=== PATIENT | male | born 1940 | race Caucasian/White ===

== ENCOUNTER 2017-09-17 14:31 | Inpatient (IN) | payer OTHER ==
[2017-09-17 14:37] VITALS: BMI 24.4
--- NOTE | 2017-09-17 14:40 | PDOC ---
History of Present Illness - History of Present Illness Initial Comments: 09/17/17 15:11 Patient is a 76 year old male, with an unknown past medical history, who was found wandering around the hospital, unaware of where he was. Patient had an extremely pungent urine smell, was very unkempt. Due to patient's altered mental status, patient was unable to give a proper account of why he was in the hospital in the first place. <Shoshana Jean - Last Filed: 09/17/17 15:11> - General History Source: Patient Exam Limitations: Clinical Condition <Teresita Peterson - Last Filed: 09/18/17 11:20> - General Chief Complaint: Altered Mental Status Stated Complaint: ALTERED MENTAL STATUS Time Seen by Provider: 09/17/17 14:39 Past History <Shoshana Jean - Last Filed: 09/17/17 15:11> - Past Medical History COPD: No (unk) - Suicide/Smoking/Psychosocial Hx Smoking History: Unknown if ever smoked <Teresita Peterson - Last Filed: 09/18/17 11:20> - Past Medical History Allergies/Adverse Reactions: Allergies Allergy/AdvReac Type Severity Reaction Status Date / Time No Allergy Information Allergy Verified 09/17/17 14:35 Available Home Medications: Ambulatory Orders Unobtainable [Unobtainable] 09/17/17 Review of Systems - Review of Systems Able to Perform ROS?: No (confused) <Teresita Peterson - Last Filed: 09/18/17 11:20> *Physical Exam - Vital Signs Last Vital Signs Temp Pulse Resp BP Pulse Ox 98.4 F 75 20 155/78 97 09/17/17 14:35 09/17/17 14:35 09/17/17 14:35 09/17/17 14:35 09/17/17 14:35 <Shoshana Jean - Last Filed: 09/17/17 15:11> - Vital Signs Last Vital Signs Temp Pulse Resp BP Pulse Ox 98.4 F 75 20 155/78 97 09/17/17 14:35 09/17/17 14:35 09/17/17 14:35 09/17/17 14:35 09/17/17 14:35 - Physical Exam Comments: GENERAL: Awake, alert, and oriented to person, in no acute distress. +Multiple layers of wet clothing, strong odor of urine. HEAD: No signs of trauma EYES: PERRLA, EOMI, sclera anicteric, conjunctiva clear ENT: Auricles normal inspection, hearing grossly normal, nares patent, oropharynx clear without exudates. Moist mucosa NECK: Normal ROM, supple, no lymphadenopathy, JVD, or masses LUNGS: Breath sounds equal, clear to auscultation bilaterally. No wheezes, and no crackles HEART: Regular rate and rhythm, normal S1 and S2, no murmurs, rubs or gallops ABDOMEN: Soft, nontender, normoactive bowel sounds. No guarding, no rebound. No masses EXTREMITIES: Normal range of motion, no edema. No clubbing or cyanosis. No cords, erythema, or tenderness NEUROLOGICAL: Cranial nerves II through XII grossly intact. Normal speech, normal gait. Motor and sensation intact. SKIN: Warm, Dry, normal turgor, no rashes. Multiple long toenails with bleeding of adjacent toes. <Teresita Peterson - Last Filed: 09/18/17 11:20> ED Treatment Course - LABORATORY CBC & Chemistry Diagram: 09/18/17 06:25 09/18/17 06:25 <Teresita Peterson - Last Filed: 09/18/17 11:20> Medical Decision Making - Medical Decision Making 09/17/17 16:[address] Orlando. Found wandering in the hospital for a few hours, was not sure why he was here. He knew his name, had 2 drivers licenses (one from 1990s, one current) and a [place] ID. No phone, no next of kin contact numbers. Has not been in this hospital in the past. DDx is large in light of lack of information. Labs are pending, including basics, TSH, B12, and ammonia. UA/UTox pending. CTH pending. CXR pending. Likely admit for AMS. <Teresita Peterson - Last Filed: 09/18/17 11:20> *DC/Admit/Observation/Transfer - Attestations Scribe Attestion: 09/17/17 15:16 Documentation prepared by Shoshana Jean, acting as medical care manager for Teresita Peterson MD. <Shoshana Jean - Last Filed: 09/17/17 15:11> <Teresita Peterson - Last Filed: 09/18/17 11:20> Diagnosis at time of Disposition: Altered mental state - Discharge Dispostion Condition at time of disposition: Stable
[2017-09-17 15:42] LABS: BASO % 0.2 % (0-2.0); HEMATOCRIT 36.7 % (35.4-49); HEMOGLOBIN 11.9 GM/dL (11.7-16.9); MCH 28.5 pg (25.7-33.7); MCHC 32.5 g/dl (32.0-35.9); MEAN CELL VOLUME 87.5 fl (80-96); MEAN PLT VOLUME 8.7 fl (7.5-11.1); MONO % 10.5 % (3.8-10.2); NEUT % 82.3 % (42.8-82.8); PLATELET COUNT 187 K/MM3 (134-434); RBC 4.19 M/mm3 (4.00-5.60); RDW 14.6 % (11.9-15.9); WHITE BLOOD COUNT 11.2 K/mm3 (4.0-10.0)
[2017-09-17 15:56] LABS: INR 1.01 (0.82-1.09); PROTHROMBIN TIME (PATIENT) 11.4 SEC (9.98-11.88)
[2017-09-17] MEDS ORDERED: HALOPERIDOL LACTATE 5 MG/ML IM ONE (15:58)
[2017-09-17 16:01] LABS: URINE APPEARANCE CLEAR; URINE BILIRUBIN NEGATIVE (NEGATIVE); URINE BLOOD 2+ (NEGATIVE); URINE COLOR LTYELLOW; URINE GLUCOSE (UA) NEGATIVE (NEGATIVE); URINE KETONE TRACE (NEGATIVE); URINE LEUK ESTERASE NEGATIVE (NEGATIVE); URINE NITRITE NEGATIVE (NEGATIVE); URINE PROTEIN NEGATIVE (NEGATIVE); URINE UROBILINOGEN NEGATIVE mg/dL (0.2-1.0)
[2017-09-17] MEDS ORDERED: HALOPERIDOL LACTATE 5 MG/ML ONE ×2 (16:03→21:48)
[2017-09-17 16:14] LABS: ALBUMIN 3.9 g/dl (3.4-5.0); ANION GAP 10 (8-16); BILIRUBIN,TOTAL 0.5 mg/dL (0.2-1.0); BLOOD UREA NITROGEN 20 mg/dL (7-18); CALCIUM 8.9 mg/dL (8.5-10.1); CHLORIDE 104 mmol/L (98-107); CO2 24 mmol/L (21-32); CREATININE 0.9 mg/dL (0.7-1.3); GLUCOSE,RANDOM 104 mg/dL (74-106); POTASSIUM 4.1 mmol/L (3.5-5.1); SGOT/AST 49 U/L (15-37); SGPT/ALT 28 U/L (12-78); SODIUM 138 mmol/L (136-145); TOT PROT 6.9 g/dl (6.4-8.2)
[2017-09-17 16:26] LABS: ALK PHOS 59 U/L (45-117)
[2017-09-17 16:39] LABS: COCAINE, UR NEGATIVE ng/ml (CUTOFF=300); OPIATES, URI NEGATIVE ng/ml (CUTOFF=300); URINE AMPHETAMINES NEGATIVE ng/ml (CUTOFF=500); URINE BARBITURATES NEGATIVE ng/ml (CUTOFF=200); URINE BENZODIAZEPINES NEGATIVE ng/ml (CUTOFF=200)
[2017-09-17 16:40] LABS: METHADONE, UR NEGATIVE ng/ml (CUTOFF=300); PHENCYCLIDINE,URINE NEGATIVE ng/ml (CUTOFF=25)
[2017-09-17 17:03] LABS: URINE MUCUS RARE
[2017-09-17] MEDS ORDERED: SODIUM CHLORIDE 0.9% 500 ML INFUS.BAG IV ONE (18:38)
--- NOTE | 2017-09-17 18:44 | PDOC ---
*Physical Exam - Vital Signs Last Vital Signs Temp Pulse Resp BP Pulse Ox 98.4 F 75 20 155/78 98 09/17/17 14:35 09/17/17 14:35 09/17/17 14:35 09/17/17 14:35 09/17/17 15:53 <Maco Orlando - Last Filed: 09/17/17 18:39> - Vital Signs Last Vital Signs Temp Pulse Resp BP Pulse Ox 98.2 F 53 L 18 124/92 100 09/17/17 19:00 09/17/17 19:00 09/17/17 19:00 09/17/17 19:00 09/17/17 19:00 <Kimberly Knapp - Last Filed: 09/17/17 21:59> ED Treatment Course - LABORATORY CBC & Chemistry Diagram: 09/17/17 15:30 09/17/17 15:30 - ADDITIONAL ORDERS Additional order review: Laboratory Results 09/17/17 09/17/17 09/17/17 15:45 15:45 15:30 PT with INR INR Sodium Potassium Chloride Carbon Dioxide Anion Gap BUN Creatinine Creat Clearance w eGFR Random Glucose Lactic Acid Calcium Total Bilirubin AST ALT Alkaline Phosphatase Ammonia 14.75 Creatine Kinase Creatine Kinase Index CK-MB (CK-2) Troponin I Total Protein Albumin Lipase Vitamin B12 TSH Urine Color Ltyellow Urine Appearance Clear Urine pH 5.0 Ur Specific [place] 1.015 Urine Protein Negative Urine Glucose (UA) Negative Urine Ketones Trace H Urine Blood 2+ H Urine Nitrite Negative Urine Bilirubin Negative Urine Urobilinogen Negative Urine WBC (Auto) 1 Urine RBC (Auto) 7 Urine Mucus Rare Opiates Screen Negative Methadone Screen Negative Barbiturate Screen Negative Phencyclidine Screen Negative Ur Amphetamines Screen Negative MDMA (Ecstasy) Screen Negative Benzodiazepines Screen Negative Cocaine Screen Negative U Marijuana (THC) Screen Negative 09/17/17 09/17/17 09/17/17 15:30 15:30 15:30 PT with INR INR Sodium Potassium Chloride Carbon Dioxide Anion Gap BUN Creatinine Creat Clearance w eGFR Random Glucose Lactic Acid 1.4 Calcium Total Bilirubin AST ALT Alkaline Phosphatase Ammonia Creatine Kinase Creatine Kinase Index CK-MB (CK-2) Troponin I Total Protein Albumin Lipase 80 Vitamin B12 388 TSH 1.33 Urine Color Urine Appearance Urine pH Ur Specific [place] Urine Protein Urine Glucose (UA) Urine Ketones Urine Blood Urine Nitrite Urine Bilirubin Urine Urobilinogen Urine WBC (Auto) Urine RBC (Auto) Urine Mucus Opiates Screen Methadone Screen Barbiturate Screen Phencyclidine Screen Ur Amphetamines Screen MDMA (Ecstasy) Screen Benzodiazepines Screen Cocaine Screen U Marijuana (THC) Screen 09/17/17 09/17/17 15:30 15:30 PT with INR 11.40 INR 1.01 Sodium 138 Potassium 4.1 Chloride 104 Carbon Dioxide 24 Anion Gap 10 BUN 20 H Creatinine 0.9 Creat Clearance w eGFR > 60 Random Glucose 104 Lactic Acid Calcium 8.9 Total Bilirubin 0.5 AST 49 H ALT 28 Alkaline Phosphatase 59 Ammonia Creatine Kinase 1046 H Creatine Kinase Index 2.9 CK-MB (CK-2) 30.784 H Troponin I < 0.02 Total Protein 6.9 Albumin 3.9 Lipase Vitamin B12 TSH Urine Color Urine Appearance Urine pH Ur Specific [place] Urine Protein Urine Glucose (UA) Urine Ketones Urine Blood Urine Nitrite Urine Bilirubin Urine Urobilinogen Urine WBC (Auto) Urine RBC (Auto) Urine Mucus Opiates Screen Methadone Screen Barbiturate Screen Phencyclidine Screen Ur Amphetamines Screen MDMA (Ecstasy) Screen Benzodiazepines Screen Cocaine Screen U Marijuana (THC) Screen 09/17/17 15:30 RBC 4.19 MCV 87.5 MCHC 32.5 RDW 14.6 MPV 8.7 Neutrophils % 82.3 Lymphocytes % 7.0 L Monocytes % 10.5 H Eosinophils % 0.0 Basophils % 0.2 - Medications Given in the ED: ED Medications Discontinued Medications Generic Name Dose Route Start Last Admin Trade Name Freq PRN Reason Stop Dose Admin Haloperidol 2 mg 09/17/17 15:58 09/17/17 16:06 Haldol Injection (Fast Acting) - IM 09/17/17 15:59 2 mg ONCE ONE Administration Lorazepam 1 mg 09/17/17 17:46 09/17/17 18:13 Ativan Injection - IVPUSH 09/17/17 17:47 1 mg ONCE ONE Administration <Maco Orlando - Last Filed: 09/17/17 18:39> - LABORATORY CBC & Chemistry Diagram: 09/17/17 15:30 09/17/17 15:30 - ADDITIONAL ORDERS Additional order review: Laboratory Results 09/17/17 09/17/17 09/17/17 15:45 15:45 15:30 PT with INR INR Sodium Potassium Chloride Carbon Dioxide Anion Gap BUN Creatinine Creat Clearance w eGFR Random Glucose Lactic Acid Calcium Total Bilirubin AST ALT Alkaline Phosphatase Ammonia 14.75 Creatine Kinase Creatine Kinase Index CK-MB (CK-2) Troponin I Total Protein Albumin Lipase Vitamin B12 TSH Urine Color Ltyellow Urine Appearance Clear Urine pH 5.0 Ur Specific [place] 1.015 Urine Protein Negative Urine Glucose (UA) Negative Urine Ketones Trace H Urine Blood 2+ H Urine Nitrite Negative Urine Bilirubin Negative Urine Urobilinogen Negative Ur Leukocyte Esterase Negative Urine WBC (Auto) 1 Urine RBC (Auto) 7 Urine Mucus Rare Opiates Screen Negative Methadone Screen Negative Barbiturate Screen Negative Phencyclidine Screen Negative Ur Amphetamines Screen Negative MDMA (Ecstasy) Screen Negative Benzodiazepines Screen Negative Cocaine Screen Negative U Marijuana (THC) Screen Negative 09/17/17 09/17/17 09/17/17 15:30 15:30 15:30 PT with INR INR Sodium Potassium Chloride Carbon Dioxide Anion Gap BUN Creatinine Creat Clearance w eGFR Random Glucose Lactic Acid 1.4 Calcium Total Bilirubin AST ALT Alkaline Phosphatase Ammonia Creatine Kinase Creatine Kinase Index CK-MB (CK-2) Troponin I Total Protein Albumin Lipase 80 Vitamin B12 388 TSH 1.33 Urine Color Urine Appearance Urine pH Ur Specific [place] Urine Protein Urine Glucose (UA) Urine Ketones Urine Blood Urine Nitrite Urine Bilirubin Urine Urobilinogen Ur Leukocyte Esterase Urine WBC (Auto) Urine RBC (Auto) Urine Mucus Opiates Screen Methadone Screen Barbiturate Screen Phencyclidine Screen Ur Amphetamines Screen MDMA (Ecstasy) Screen Benzodiazepines Screen Cocaine Screen U Marijuana (THC) Screen 09/17/17 09/17/17 15:30 15:30 PT with INR 11.40 INR 1.01 Sodium 138 Potassium 4.1 Chloride 104 Carbon Dioxide 24 Anion Gap 10 BUN 20 H Creatinine 0.9 Creat Clearance w eGFR > 60 Random Glucose 104 Lactic Acid Calcium 8.9 Total Bilirubin 0.5 AST 49 H ALT 28 Alkaline Phosphatase 59 Ammonia Creatine Kinase 1046 H Creatine Kinase Index 2.9 CK-MB (CK-2) 30.784 H Troponin I < 0.02 Total Protein 6.9 Albumin 3.9 Lipase Vitamin B12 TSH Urine Color Urine Appearance Urine pH Ur Specific [place] Urine Protein Urine Glucose (UA) Urine Ketones Urine Blood Urine Nitrite Urine Bilirubin Urine Urobilinogen Ur Leukocyte Esterase Urine WBC (Auto) Urine RBC (Auto) Urine Mucus Opiates Screen Methadone Screen Barbiturate Screen Phencyclidine Screen Ur Amphetamines Screen MDMA (Ecstasy) Screen Benzodiazepines Screen Cocaine Screen U Marijuana (THC) Screen 09/17/17 15:30 RBC 4.19 MCV 87.5 MCHC 32.5 RDW 14.6 MPV 8.7 Neutrophils % 82.3 Lymphocytes % 7.0 L Monocytes % 10.5 H Eosinophils % 0.0 Basophils % 0.2 - Medications Given in the ED: ED Medications Discontinued Medications Generic Name Dose Route Start Last Admin Trade Name Jade PRN Reason Stop Dose Admin Haloperidol 2 mg 09/17/17 15:58 09/17/17 16:06 Haldol Injection (Fast Acting) - IM 09/17/17 15:59 2 mg ONCE ONE Administration Lorazepam 1 mg 09/17/17 17:46 09/17/17 18:13 Ativan Injection - IVPUSH 09/17/17 17:47 1 mg ONCE ONE Administration Lorazepam 1 mg 09/17/17 20:14 09/17/17 20:23 Ativan Injection - IVPUSH 09/17/17 20:15 1 mg DAILY ONE Administration Sodium Chloride 1,000 ml 09/17/17 18:38 09/17/17 19:25 Normal Saline - IV 09/17/17 18:39 1,000 ml ONCE ONE Administration <Kimberly Knapp - Last Filed: 09/17/17 21:59> Medical Decision Making - Medical Decision Making 09/17/17 18:[address] Peterson at 4:30p. Pt here after found wandering in the hospital. Pt is confused, repeating questions, but redirectable. Pt frequently wandering out of room, trying to put clothes on to leave. Pt placed on 1:1 watch. Labs with mild leukocytosis to 11. CTH negative for acute findings. CXR clear. UA with no signs of infection. Unclear what patients baseline is, will admit for further management. Case discussed with admitting hospitalist Dr. Roper who has assumed care of the patient. <Maco Orlando - Last Filed: 09/17/17 18:39> - Medical Decision Making 09/17/17 21:59 CT of head without contrast, reviewed and interpreted by Imaging preservationist. FINDINGS: There is no intra-or extra-axial fluid collections, midline shift, mass effect or hydrocephalus. The ventricles are midline in position. The brain parenchyma shows global involution changes which appear to be age appropriate and age related. There are non-specific periventricular and deep white matter parenchymal areas of low attenuation, likely due to chronicvmicro- angiopathic/microvascular ischemic disease, mild. The visualized paranasal sinuses are clear. The bilateral mastoid air cells are clear. Atherosclerotic vascular calcification. IMPRESSION: No acute intracranial abnormality. Age related involutional changes. Micro- angiopathic changes: Mild. THIS DOCUMENT HAS BEEN ELECTRONICALLY SIGNED Thania Eli MD <Kimberly Knapp - Last Filed: 09/17/17 21:59> *DC/Admit/Observation/Transfer - Discharge Dispostion Admit: Yes - Attestations Physician Attestion: 09/17/17 18:47 I, Dr. Maco Orlando MD, attest that this document has been prepared under my direction and personally reviewed by me in its entirety. I further attest, that it accurately reflects all work, treatment, procedures and medical decision -making performed by me. <Maco Orlando - Last Filed: 09/17/17 18:39> - Attestations Scribe Attestion: 09/17/17 21:59 Documentation prepared by Kimberly Knapp, acting as medical research scientist for Maco Orlando MD. <Kimberly Knapp - Last Filed: 09/17/17 21:59> Diagnosis at time of Disposition: Altered mental state - Discharge Dispostion Condition at time of disposition: Stable
[2017-09-17] MEDS ORDERED: LORazepam 2 MG/ML SDV VIAL ONE (20:14)
--- NOTE | 2017-09-17 20:14 | HP ---
CHIEF COMPLAINT: AMS PCP:Unknown HISTORY OF PRESENT ILLNESS: History was taken from medical record and Ed notes Patient is a 76 year old male, with an unknown past medical history, who was found wandering around the hospital, unaware of where he was. Patient had an extremely pungent urine smell, was very unkempt. Due to patient's altered mental status, patient was unable to give a proper account of why he was in the hospital in the first place. ER course was notable for: (1)EKG: NSR with first degree Av block (2)Haldol (3)CBC, BMP notable for leukocytes of 11.2 Recent Travel:NO PAST MEDICAL HISTORY: Unable to obtain PAST SURGICAL HISTORY: unable to obtain Social History: unable to obtain Smoking: Alcohol: Drugs: Family History: Allergies No Allergy Information Available Allergy (Verified 09/17/17 14:35) HOME MEDICATIONS: Home Medications Medication Instructions Recorded Unobtainable [Unobtainable] 09/17/17 REVIEW OF SYSTEMS CONSTITUTIONAL: unable to obtain PHYSICAL EXAMINATION Vital Signs - 24 hr 09/17/17 09/17/17 09/17/17 14:35 15:53 19:00 Temperature 98.4 F 98.2 F Pulse Rate 75 Pulse Rate [ 53 L Right] Respiratory 20 18 Rate Blood Pressure 155/78 Blood Pressure 124/92 [Right Arm] O2 Sat by Pulse 97 98 100 Oximetry (%) GENERAL:AAOX0 trying to move out of bed , in no acute distress. HEAD: Normal with no signs of trauma. EYES: Pupils equal, round and reactive to light,, sclera anicteric, conjunctiva clear. EARS, NOSE, THROAT:dry mucous membranes. NECK: Normal range of motion, supple without lymphadenopathy, JVD, LUNGS: Breath sounds equal, clear to auscultation bilaterally. No wheezes, and no crackles. No accessory muscle use. HEART: Regular rate and rhythm, normal S1 and S2 without murmur, rub or gallop. ABDOMEN: Soft, nontender, not distended, normoactive bowel sounds, no guarding, no rebound, LOWER EXTREMITIES: 2+ pulses, warm, well-perfused. No calf tenderness. No peripheral edema. NEUROLOGICAL: Cranial nerves II-XII intact. Normal speech. gait not observed. PSYCHIATRIC: Cooperative. Good eye contact. Appropriate mood and affect. SKIN: Warm, dry, no rashes or lesions noted, normal capillary refill. Laboratory Results - last 24 hr 09/17/17 09/17/17 09/17/17 15:30 15:30 15:30 WBC 11.2 H RBC 4.19 Hgb 11.9 Hct 36.7 MCV 87.5 MCH 28.5 MCHC 32.5 RDW 14.6 Plt Count 187 MPV 8.7 Neutrophils % 82.3 Lymphocytes % 7.0 L Monocytes % 10.5 H Eosinophils % 0.0 Basophils % 0.2 PT with INR 11.40 INR 1.01 Sodium 138 Potassium 4.1 Chloride 104 Carbon Dioxide 24 Anion Gap 10 BUN 20 H Creatinine 0.9 Creat Clearance w eGFR > 60 Random Glucose 104 Lactic Acid Calcium 8.9 Total Bilirubin 0.5 AST 49 H ALT 28 Alkaline Phosphatase 59 Ammonia Creatine Kinase 1046 H Creatine Kinase Index 2.9 CK-MB (CK-2) 30.784 H Troponin I < 0.02 Total Protein 6.9 Albumin 3.9 Lipase Vitamin B12 TSH Urine Color Urine Appearance Urine pH Ur Specific [place] Urine Protein Urine Glucose (UA) Urine Ketones Urine Blood Urine Nitrite Urine Bilirubin Urine Urobilinogen Ur Leukocyte Esterase Urine WBC (Auto) Urine RBC (Auto) Urine Mucus Opiates Screen Methadone Screen Barbiturate Screen Phencyclidine Screen Ur Amphetamines Screen MDMA (Ecstasy) Screen Benzodiazepines Screen Cocaine Screen U Marijuana (THC) Screen 09/17/17 09/17/17 09/17/17 15:30 15:30 15:30 WBC RBC Hgb Hct MCV MCH MCHC RDW Plt Count MPV Neutrophils % Lymphocytes % Monocytes % Eosinophils % Basophils % PT with INR INR Sodium Potassium Chloride Carbon Dioxide Anion Gap BUN Creatinine Creat Clearance w eGFR Random Glucose Lactic Acid 1.4 Calcium Total Bilirubin AST ALT Alkaline Phosphatase Ammonia Creatine Kinase Creatine Kinase Index CK-MB (CK-2) Troponin I Total Protein Albumin Lipase 80 Vitamin B12 388 TSH 1.33 Urine Color Urine Appearance Urine pH Ur Specific [place] Urine Protein Urine Glucose (UA) Urine Ketones Urine Blood Urine Nitrite Urine Bilirubin Urine Urobilinogen Ur Leukocyte Esterase Urine WBC (Auto) Urine RBC (Auto) Urine Mucus Opiates Screen Methadone Screen Barbiturate Screen Phencyclidine Screen Ur Amphetamines Screen MDMA (Ecstasy) Screen Benzodiazepines Screen Cocaine Screen U Marijuana (THC) Screen 09/17/17 09/17/17 09/17/17 15:30 15:45 15:45 WBC RBC Hgb Hct MCV MCH MCHC RDW Plt Count MPV Neutrophils % Lymphocytes % Monocytes % Eosinophils % Basophils % PT with INR INR Sodium Potassium Chloride Carbon Dioxide Anion Gap BUN Creatinine Creat Clearance w eGFR Random Glucose Lactic Acid Calcium Total Bilirubin AST ALT Alkaline Phosphatase Ammonia 14.75 Creatine Kinase Creatine Kinase Index CK-MB (CK-2) Troponin I Total Protein Albumin Lipase Vitamin B12 TSH Urine Color Ltyellow Urine Appearance Clear Urine pH 5.0 Ur Specific [place] 1.015 Urine Protein Negative Urine Glucose (UA) Negative Urine Ketones Trace H Urine Blood 2+ H Urine Nitrite Negative Urine Bilirubin Negative Urine Urobilinogen Negative Ur Leukocyte Esterase Negative Urine WBC (Auto) 1 Urine RBC (Auto) 7 Urine Mucus Rare Opiates Screen Negative Methadone Screen Negative Barbiturate Screen Negative Phencyclidine Screen Negative Ur Amphetamines Screen Negative MDMA (Ecstasy) Screen Negative Benzodiazepines Screen Negative Cocaine Screen Negative U Marijuana (THC) Screen Negative CBC, BMP 09/17/17 15:30 09/17/17 15:30 09/17/2017 CXR no acute pathology CT head: no intracranial bleeding, or mass effect or mid line shift. ASSESSMENT/PLAN: Patient is a 76 year old male, with an unknown past medical history, who was found wandering around the hospital, unaware of where he was. Patient had an extremely pungent urine smell, was very unkempt. was admitted to [facility] due to patient's altered mental status. 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 - New Patient This patient is new to me today: Yes Date on this admission: 09/18/17 - Critical Care Critical Care patient: No
[2017-09-17] MEDS: SODIUM CHLORIDE 1,000 ML IV SCH (20:51)
[2017-09-17] MEDS: HALOPERIDOL LACTATE 5 MG/ML IM PRN (21:48)
[2017-09-18] MEDS: HALOPERIDOL LACTATE 5 MG/ML IM PRN ×3 (03:03→22:42)
--- NOTE | 2017-09-18 06:38 | PN ---
Teaching Attending Note Name of Resident: Arthur Sam ATTENDING PHYSICIAN STATEMENT I saw and evaluated the patient. I reviewed the resident's note and discussed the case with the resident. I agree with the resident's findings and plan as documented. SUBJECTIVE: OBJECTIVE: ASSESSMENT AND PLAN: monitor for the signs of infection c/w 1:1 monitor ECG for QT prolongation with the haldol IVF hydration monitor for any signs of infection monitor CK monitor WBC start antibiotics if the patient is febrile
[2017-09-18 07:29] LABS: BASO % 0.1 % (0-2.0); HEMATOCRIT 35.8 % (35.4-49); HEMOGLOBIN 11.4 GM/dL (11.7-16.9); LYMPH % 3.9 % (8-40); MCH 27.9 pg (25.7-33.7); MCHC 31.8 g/dl (32.0-35.9); MEAN CELL VOLUME 87.8 fl (80-96); MEAN PLT VOLUME 8.8 fl (7.5-11.1); MONO % 6.6 % (3.8-10.2); NEUT % 89.4 % (42.8-82.8); PLATELET COUNT 185 K/MM3 (134-434); RBC 4.08 M/mm3 (4.00-5.60); RDW 14.7 % (11.9-15.9); WHITE BLOOD COUNT 11.6 K/mm3 (4.0-10.0)
[2017-09-18 07:39] LABS: ALBUMIN 3.4 g/dl (3.4-5.0); ANION GAP 10 (8-16); BLOOD UREA NITROGEN 19 mg/dL (7-18); CALCIUM 8.3 mg/dL (8.5-10.1); CHLORIDE 110 mmol/L (98-107); CO2 23 mmol/L (21-32); GLUCOSE,RANDOM 113 mg/dL (74-106); POTASSIUM 3.8 mmol/L (3.5-5.1); SODIUM 143 mmol/L (136-145)
[2017-09-18 07:42] LABS: ALK PHOS 55 U/L (45-117); BILIRUBIN,TOTAL 0.7 mg/dL (0.2-1.0); CREATININE 1.3 mg/dL (0.7-1.3); SGOT/AST 67 U/L (15-37); SGPT/ALT 29 U/L (12-78); TOT PROT 6.4 g/dl (6.4-8.2)
--- NOTE | 2017-09-18 10:47 | CONSULT ---
Admitting History and Physical - Primary Care Physician PCP: Cally Bonner - Admission History of Present Illness: Per EMR: Patient is a 76 year old male, with an unknown past medical history, who was found wandering around the hospital, unaware of where he was. Patient had an extremely pungent urine smell, was very unkempt. Pt lethargic, with arousability but eyes remained closed. Impaired intelligibility likely sec to lethargy, Haldol, confusion. 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 History Source: Medical Record Limitations to Obtaining History: Clinical Condition - Smoking History Smoking history: Unknown if ever smoked History - Admission Reason For Visit: ALTERED MENTAL STATUS - Diagnostics X-ray: Report Reviewed CT Scan: Report Reviewed - General Mental Status: Confused, Lethargic Attention: Moderate Impairment, Severe Impairment Ability to Follow Directions: Fair (occasional.) Head/Neck Control: Good - Hearing Hearing: Normal, Both Speech Evaluation - Communication Primary Language: RUSSIAN Communication: Yes: Simple Responses Oral Expression Ability: Yes: Moderate Impairment (rambles at times. Confused. Answers some questions appropriately) - Speech Production Intelligibility: Yes: Moderately Impaired - Speech Characteristics Voice Loudness: Mildly Soft/Quiet Voice Pitch: Yes: Normal Voice Phonatory-based Quality: Yes: Normal Speech Pattern: Impaired Speech Clarity: < 25% Nasal Resonance: Normal Articulation: Yes: Imprecise Rate of Speech: Too Fast - Language/Auditory Comprehension Follows: Yes: 1 Stage Simple Commands Observation: Comprehends Conversational Speech: Yes (simple), Benefits from Slow Speech: Yes, Benefits from Repetiton: Yes, Benefits from Increased Volume of Speech: Yes - Language/Verbal Expression Able to Respond to Simple Queries: Yes: Moderately Impaired - Swallow Evaluation/Bedside Assessment Current Nutritional Intake: NPO Oral Secretions: Yes: WFL Dentition: Yes: Adequate Facial Symmetry at Rest: Symmetrical Facial Symmetry on Retraction: Symmetrical Against Resistance Opening: Normal Against Resistance Closing: Normal Smile: Normal Lingual Movement: Symmetric (able to protrude upon command) Lingual Speed of Movement: Reduced Lingual Movement Characteristics: Normal Velopharyngeal Movement: Normal Laryngeal Movement: Able to Palpate Rate of Intake: WFL Labial Seal: WFL Oral Prep Time: WFL A-P Transit: WFL Pocketing: None Timing of Swallow: Delayed Coughing/Throat Clear: No Change in Voice: No Recommendations - Speech Evaluation, Impression/Plan Impression: Confused, verbal at times appropriate, often rambles sec of language of confusion. Impaired intelligibiltyy likely sec to lethargy, Haldol, confusion. - Disposition Discharge to: To be Determined - Dysphagia Impressions/Plan Swallowing Skills: [facility] Dysphagia Impressions: Risk of Aspiration (due to lethargy and impaired attention span. Swallow is delayed but brisk.) *Silent aspiration: cannot be R/O at bedside Dysphagia Treatment Plan: Small Bites, Chin Tuck/Down, Clear Pocket Food, Trial Feedings, Facilitative Feeding, Safe Rate, 1/2 tsp. at a time, Elevate HOB during feed, Other (Feed only when alert. Slowly,) - Recommendations Diet Consistency: Dysphagia Pureed Medication Administration: Crushed with applesauce Liquids: [place] Thick, Other (single sips. No continuous drinking. Only when alert) Supplement: Magic Cup
[2017-09-18] MEDS: SODIUM CHLORIDE 1,000 ML IV SCH ×2 (11:38→16:00)
--- NOTE | 2017-09-18 13:11 | EKG ---
Test Reason : Blood Pressure : / mmHG Vent. Rate : 061 BPM Atrial Rate : 061 BPM P-R Int : 212 ms QRS Dur : 074 ms QT Int : 396 ms P-R-T Axes : 075 -53 061 degrees QTc Int : 398 ms SINUS RHYTHM WITH 1ST DEGREE A-V BLOCK LEFT AXIS DEVIATION LOW VOLTAGE QRS ABNORMAL ECG NO PREVIOUS ECGS AVAILABLE Confirmed by MD Aly, Bill ([id number]) on 09/18/2017 1:10:44 PM Referred By: Confirmed By:Bill Lu MD
[2017-09-18] MEDS ORDERED: chlordiazePOXIDE HCL 25 MG CAPSULE PO ONE ×2 (14:55→17:45)
--- NOTE | 2017-09-18 14:58 | PN ---
Teaching Attending Note Name of Resident: Jessica Hoffman ATTENDING PHYSICIAN STATEMENT I saw and evaluated the patient. I reviewed the resident's note and discussed the case with the resident. I agree with the resident's findings and plan as documented. SUBJECTIVE:restlesss, answers some questions but not all. 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 answers no if he is , unclear if he has children OBJECTIVE: Last Vital Signs Temp Pulse Resp BP Pulse Ox 97.3 F L 50 L 20 155/68 100 09/18/17 09:27 09/18/17 14:11 09/18/17 14:11 09/18/17 14:11 09/17/17 19:00 General restless, agitated HEENT PERRL, good dentition CV S1 S2 RRR Lungs CTA anteriorly Abdomen soft NT/ND Extremities no pedal edema skin abrasions to B/L inner thighs, enlongated toe nails with laceration aon toes ASSESSMENT AND PLAN: 76yo M with unknown medical history found wandering around [facility] 1. Acute toxic metabolic encephalopathy- pt is more alert. Head CT showing atropy likely indicative of a chronic process going on.TSH WNL. vitamin B12 normal. no sign of infection .Utox and ETOH negative. [employer] notified and looking if any missing person reports been filed. pt has [employer] license stating he lives in [place]. SW and [employer] attempting to locate family. possible EOTH withdrawals. will give librium x1, banana bag. consider neurology eval if does not improve. hadolol prn. on 1:1 due to self harm 2. Elevated transminases- suggestive of hx of ETOH. check hepatitis panel. trend 3. Rhabdo- possible walked from [place]. cont IVF but increase to 150cc/H . trend cpk 4. Leukocytosis-likely reactive. no signs of infection. CXR and UA negative. BCx pending. will hold abx at this time 5. CL- likely dehydration vs rhabdo. IVF 6. DVT ppx- start hep sq
[2017-09-18] MEDS ORDERED: FOLIC ACID INJECTION - 1 MG, THIAMINE HCL 100 MG, MULTIVIT INJECTION ADULT 10 ML in SOD... IVPB ONE (15:15)
--- NOTE | 2017-09-18 18:58 | PN ---
Physical Exam: SUBJECTIVE: Patient seen and examined. Pt is agitated, oriented x 1 (to self). No fever, chills. OBJECTIVE: Vital Signs Period Temp Pulse Resp BP Sys/Mackey Pulse Ox Last 24 Hr 97.3 F-98.2 F 49-53 18-20 124-155/50-92 100 GENERAL: The patient is agitated/restless, oriented x 1. HEENT: Normal with no signs of trauma, PERRLA, oropharynx clear without exudates. LUNGS: Breath sounds equal, clear to anterior auscultation bilaterally, no wheezes, no crackles, no accessory muscle use. HEART: Regular rate and rhythm, S1, S2 without murmur, rub or gallop. ABDOMEN: Soft, nontender, nondistended. EXTREMITIES: 2+ pulses, warm, well-perfused, no edema. SKIN: Warm, dry, normal turgor, no rashes or lesions noted Laboratory Results - last 24 hr 09/17/17 09/17/17 09/18/17 15:45 21:00 06:25 WBC 11.6 H RBC 4.08 Hgb 11.4 L Hct 35.8 MCV 87.8 MCH 27.9 MCHC 31.8 L RDW 14.7 Plt Count 185 MPV 8.8 Neutrophils % 89.4 H Lymphocytes % 3.9 L D Monocytes % 6.6 Eosinophils % 0.0 Basophils % 0.1 Sodium Potassium Chloride Carbon Dioxide Anion Gap BUN Creatinine Creat Clearance w eGFR Random Glucose Hemoglobin A1c % Calcium Total Bilirubin AST ALT Alkaline Phosphatase Creatine Kinase Creatine Kinase Index CK-MB (CK-2) Total Protein Albumin Ur Leukocyte Esterase Negative Alcohol, Quantitative < 5.0 09/18/17 09/18/17 09/18/17 06:25 06:25 08:15 WBC RBC Hgb Hct MCV MCH MCHC RDW Plt Count MPV Neutrophils % Lymphocytes % Monocytes % Eosinophils % Basophils % Sodium 143 Potassium 3.8 Chloride 110 H Carbon Dioxide 23 Anion Gap 10 BUN 19 H Creatinine 1.3 D Creat Clearance w eGFR 53.96 Random Glucose 113 H Hemoglobin A1c % 6.2 H Calcium 8.3 L Total Bilirubin 0.7 D AST 67 H D ALT 29 Alkaline Phosphatase 55 Creatine Kinase 1542 H Cancelled Creatine Kinase Index 1.6 CK-MB (CK-2) 25.569 H Total Protein 6.4 Albumin 3.4 Ur Leukocyte Esterase Alcohol, Quantitative Active Medications Generic Name Dose Route Start Last Admin Trade Name Jade PRN Reason Stop Dose Admin Haloperidol 2 mg 09/17/17 21:07 09/18/17 14:14 Haldol Injection (Fast Acting) - IM 2 mg Q4H PRN Administration AGITATION Heparin Sodium (Porcine) 5,000 unit 09/18/17 22:00 Heparin - SQ BID HEATHER Folic Acid 1 mg/ Thiamine HCl 1,000 mls @ 125 mls/hr 09/18/17 15:15 09/18/17 17:56 100 mg/ Multivitamins/Minerals IVPB 09/18/17 23:14 125 mls/hr 10 ml/ Sodium Chloride ONCE ONE Administration Sodium Chloride 1,000 mls @ 150 mls/hr 09/18/17 14:58 09/18/17 16:00 Normal Saline - IV 150 mls/hr ASDIR HEATHER Administration IMAGIN09/17/[address] -> no evidence of acute intracranial pathology, mild degree of diffuse cerebral atrophy with sulcal widening and ventricular dilatation noted. ASSESSMENT/PLAN: 76yo M with unknown PMH found wandering around [facility] property, admitted for AMS. # AMS / acute toxic metabolic encephalopathy - improving, pt is more alert today - TSH wnl - vit B12 wnl - no s/s of infection - U tox and etoh (-) - [employer] investigating if any missing persons reports have been filed and attempting to locate family. Pt has a [employer] license stating a [place] address. - possible etoh withdrawals / DTs - banana bag given - Librium 50mg given at 6pm - consider Neurology eval if no improvement - vest restraints and 1:[address] to protect pt from self harm # elevated AST - suggestive of etoh - f/u hepatitis panel - continue to monitor # rhabdo - f/u cpk - IVFs # leukocytosis - likely reactive as there are no s/s of infection - blood culture (-) x 24 hrs - continue to monitor # FEN - Fluids: NS @ 150 ml/hr - Electrolytes: wnl, continue to monitor - Nutrition: dysphagia with nectar thick liquids per Speech Therapy # Prophylaxis - DVT ppx with Heparin BID Visit type - Emergency Visit Emergency Visit: Yes ED Registration Date: 09/17/17 Care time: The patient presented to the Emergency Department on the above date and was hospitalized for further evaluation of their emergent condition. - New Patient This patient is new to me today: Yes Date on this admission: 09/18/17 - Critical Care Critical Care patient: No
[2017-09-18] MEDS: HEPARIN NA (PORCINE) 5,000 UNITS/ML 1ML VIAL SQ SCH (22:42)
[2017-09-19 07:46] LABS: BASO % 0.5 % (0-2.0); EOS % 0.3 % (0-4.5); HEMATOCRIT 39.2 % (35.4-49); HEMOGLOBIN 12.6 GM/dL (11.7-16.9); LYMPH % 8.9 % (8-40); MCHC 32.2 g/dl (32.0-35.9); MEAN CELL VOLUME 87.1 fl (80-96); MEAN PLT VOLUME 9.4 fl (7.5-11.1); MONO % 11.4 % (3.8-10.2); NEUT % 78.9 % (42.8-82.8); PLATELET COUNT 197 K/MM3 (134-434); RDW 14.7 % (11.9-15.9); WHITE BLOOD COUNT 11.9 K/mm3 (4.0-10.0)
[2017-09-19 07:51] LABS: ALBUMIN 3.2 g/dl (3.4-5.0); ANION GAP 6 (8-16); BLOOD UREA NITROGEN 20 mg/dL (7-18); CALCIUM 8.5 mg/dL (8.5-10.1); CHLORIDE 111 mmol/L (98-107); CO2 25 mmol/L (21-32); CREATININE 1.6 mg/dL (0.7-1.3); GLUCOSE,RANDOM 99 mg/dL (74-106); POTASSIUM 3.6 mmol/L (3.5-5.1); SGOT/AST 70 U/L (15-37); SGPT/ALT 32 U/L (12-78); SODIUM 142 mmol/L (136-145)
[2017-09-19] MEDS ORDERED: FOLIC ACID INJECTION - 1 MG, THIAMINE HCL 100 MG, MULTIVIT INJECTION ADULT 10 ML in SOD... IVPB ONE (08:00)
[2017-09-19 08:06] LABS: ALK PHOS 56 U/L (45-117); TOT PROT 6.3 g/dl (6.4-8.2)
--- NOTE | 2017-09-19 08:51 | PN ---
Physical Exam: SUBJECTIVE: Patient seen and examined. Pt remains agitated and disoriented this morning, although speech is more coherent today. Pt not voiding overnight , so mcintyre was placed overnight. Pt requiring restraints for protection from self. Afebrile. OBJECTIVE: Vital Signs Period Temp Pulse Resp BP Sys/Mackey Pulse Ox Last 24 Hr 97.3 F-98.6 F 49-63 18-20 123-155/66-71 97 GENERAL: The patient is agitated/restless, oriented x 1. LUNGS: Breath sounds equal, clear to anterior auscultation bilaterally, no wheezes, no crackles, no accessory muscle use. HEART: Regular rate and rhythm, S1, S2 without murmur, rub or gallop. ABDOMEN: Soft, nontender, nondistended. EXTREMITIES: Warm, well-perfused, no edema. SKIN: Warm, dry, normal turgor, no rashes or lesions noted Laboratory Results - last 24 hr 09/18/17 09/18/17 09/19/17 06:25 08:15 07:10 WBC RBC Hgb Hct MCV MCH MCHC RDW Plt Count MPV Neutrophils % Lymphocytes % Monocytes % Eosinophils % Basophils % Sodium 143 142 Potassium 3.8 3.6 Chloride 110 H 111 H Carbon Dioxide 23 25 Anion Gap 10 6 L BUN 19 H 20 H Creatinine 1.3 D 1.6 H D Creat Clearance w eGFR 53.96 42.46 Random Glucose 113 H 99 Calcium 8.3 L 8.5 Total Bilirubin 0.7 D 1.0 D AST 67 H D 70 H ALT 29 32 Alkaline Phosphatase 55 56 Creatine Kinase 1542 H Cancelled 1151 H Creatine Kinase Index 1.6 CK-MB (CK-2) 25.569 H Total Protein 6.4 6.3 L Albumin 3.4 3.2 L 09/19/17 07:10 WBC 11.9 H RBC 4.50 Hgb 12.6 D Hct 39.2 MCV 87.1 MCH 28.0 MCHC 32.2 RDW 14.7 Plt Count 197 MPV 9.4 Neutrophils % 78.9 Lymphocytes % 8.9 D Monocytes % 11.4 H Eosinophils % 0.3 D Basophils % 0.5 D Sodium Potassium Chloride Carbon Dioxide Anion Gap BUN Creatinine Creat Clearance w eGFR Random Glucose Calcium Total Bilirubin AST ALT Alkaline Phosphatase Creatine Kinase Creatine Kinase Index CK-MB (CK-2) Total Protein Albumin Active Medications Generic Name Dose Route Start Last Admin Trade Name Freq PRN Reason Stop Dose Admin Chlordiazepoxide HCl 25 mg 09/19/17 08:00 Librium - PO 09/19/17 23:01 [id number] HEATHER Chlordiazepoxide HCl 15 mg 09/20/17 05:00 Librium - PO 09/20/17 23:01 [id number] HEATHER Haloperidol 2 mg 09/17/17 21:07 09/18/17 22:42 Haldol Injection (Fast Acting) - IM 2 mg Q4H PRN Administration AGITATION Heparin Sodium (Porcine) 5,000 unit 09/18/17 22:00 09/18/17 22:42 Heparin - SQ 5,000 unit BID HEATHER Administration Sodium Chloride 1,000 mls @ 150 mls/hr 09/18/17 14:58 09/18/17 16:00 Normal Saline - IV 150 mls/hr ASDIR HEATHER Administration Folic Acid 1 mg/ Thiamine HCl 1,000 mls @ 125 mls/hr 09/19/17 08:00 100 mg/ Multivitamins/Minerals IVPB 09/19/17 15:59 10 ml/ Sodium Chloride ONCE ONE ASSESSMENT/PLAN: 76yo M with unknown PMH found wandering around [facility] property, admitted for AMS. # Acute toxic metabolic encephalopathy - possibly 2/2 etoh withdrawal as evidenced by chronic Head CT results and elevated AST - pt would benefit from Brain MRI - f/u abdomen xray to assess for MRI clearance - improving, pt is more alert today - no s/s of infection - [employer] and Social Work investigating if any missing persons reports have been filed and attempting to locate family. - Neuro Consult - vest restraints and 1:[address] to protect pt from self harm - f/u hepatitis panel - pending - another banana bag given today - Librium standing doses added # CL - likely obstructive uropathy vs rhabdomyolysis - bladder scan yesterday showing >700 ml -> mcintyre placed - Cr trending up, continue to monitor - avoid nephrotoxic agents # hematuria - likely 2/2 pt pulling at mcintyre related to agitation/restlessness - monitor hgb # rhabdo - cpk remains elevated, though trending down now - IVFs # leukocytosis - likely reactive as there are no s/s of infection - blood culture (-) x 24 hrs - continue to monitor # FEN - Fluids: NS @ 150 ml/hr - Electrolytes: wnl, continue to monitor - Nutrition: dysphagia with nectar thick liquids per Speech Therapy # Prophylaxis - DVT ppx with Heparin BID Visit type - Emergency Visit Emergency Visit: Yes ED Registration Date: 09/17/17 Care time: The patient presented to the Emergency Department on the above date and was hospitalized for further evaluation of their emergent condition. - New Patient This patient is new to me today: No - Critical Care Critical Care patient: No
[2017-09-19] MEDS: HALOPERIDOL LACTATE 5 MG/ML IM PRN (09:04)
[2017-09-19] MEDS: HEPARIN NA (PORCINE) 5,000 UNITS/ML 1ML VIAL SQ SCH ×2 (10:04→21:46)
[2017-09-19] MEDS: chlordiazePOXIDE HCL 25 MG CAPSULE PO SCH ×4 (10:04→22:36)
--- NOTE | 2017-09-19 11:03 | CON.NEURO ---
Consult - History of Present Illness History of Present Illness: 76 year old male, with an unknown past medical history, who was found wandering around the hospital, unaware of where he was. Patient had an extremely pungent urine smell, was very unkempt. Due to patient's altered mental status, patient was unable to give a proper account of why he was in the hospital in the first place. being teated for suspected ETOH; doing better as per chart; CT HD no acute changes . TSh and B12 NL. was sleeping --and poorly arousable though aide states was awake when she fed him earlier in day. - History Source History Provided By: Medical Record - Smoking History Smoking history: Unknown if ever smoked Home Medications - Allergies Allergies/Adverse Reactions: Allergies Allergy/AdvReac Type Severity Reaction Status Date / Time No Allergy Information Allergy Verified 09/17/17 14:35 Available - Home Medications Home Medications: Ambulatory Orders Unobtainable [Unobtainable] 09/17/17 Physical Exam-Neuro Vital Signs: Vital Signs Temperature 98 F 09/19/17 10:07 Pulse Rate 56 L 09/19/17 10:07 Respiratory Rate 18 09/19/17 10:07 Blood Pressure 156/83 09/19/17 10:07 O2 Sat by Pulse Oximetry (%) 97 09/18/17 10:00 Labs: CBC, BMP 09/19/17 07:10 09/19/17 07:10 INR, PTT INR 1.01 (0.82-1.09) 09/17/17 15:30 - Neuro Exam Level Of Consciousness: Yes: Stuporous Eyes: Yes: Other (eye closed ) Speech: Other (limited verbval output) Cranial Nerves II-XII Intact: Yes Babinski: Absent Movement Disorders: Other (no focal weakness, twitching ) Gait: Deferred Imaging - Results Cat Scan: Report Reviewed, Image Reviewed Problem List - Problems (1) Altered mental state Code(s): R41.82 - ALTERED MENTAL STATUS, UNSPECIFIED Assessment/Plan 76 year old male, with an unknown past medical history, altered mental state-- ? ETOH induced CT no acute changes; TSH /B12/ToX (-) continue LIBRIUM protocol, banana bag , thiamine since continues to be confused and limited HX -will get RUBEN BRAIN (though no clear focality to suggest ischemic /structural event) Dr Ramirez
--- NOTE | 2017-09-19 14:07 | PN ---
Teaching Attending Note Name of Resident: Jessica Hoffman ATTENDING PHYSICIAN STATEMENT I saw and evaluated the patient. I reviewed the resident's note and discussed the case with the resident. I agree with the resident's findings and plan as documented. SUBJECTIVE:states he hurts all over. answers some questions. speech is more coherent. OBJECTIVE: Last Vital Signs Temp Pulse Resp BP Pulse Ox 98 F 56 L 18 156/83 97 09/19/17 10:07 09/19/17 10:07 09/19/17 10:07 09/19/17 10:07 09/18/17 10:00 General restless, agitated HEENT PERRL, good dentition, no nystagmus CV S1 S2 RRR Lungs CTA anteriorly Abdomen soft NT/ND Extremities no pedal edema skin abrasions to B/L inner thighs, enlongated toe nails with laceration on toes ASSESSMENT AND PLAN: 76yo M with unknown medical history found wandering around [facility] 1. Acute toxic metabolic encephalopathy- more alert and speech is improved. concern for possible chronic ETOH as pt AST is elevated and atrophy on CT. possible causes are ETOh withdrawal, Wernicke Korsikoff vs CVA vs alterntive process. would benefit from Brain MRI. check AXR to r/o metal. neuro consult. start on librium taper. awaiting to hear from if able to contact family. cont IVF, banana bag. on 1:1 observation. NH3 and TSH level WNL, Utox negative. 2. Elevated transminases- suggestive of hx of ETOH. hepatitis panel pending. trend 3. CL- likely obstructive uropathy vs rhabdo. bladder scan yesterday showing > 700cc. mcintyre inserted. mild uptrend in kidney function. avoid nephrotoxic agents. monitor 4. Hematuria- likely due to restlessness and pulling at catheter. hgb stable. trend Hgb. no indication for transfusion 5. Rhabdo- possible walked from [place]. trending down. cnt IVF 6. Leukocytosis-likely reactive. no signs of infection. CXR and UA negative. BCx pending. will hold abx at this time 7. DVT ppx- hep sq
[2017-09-19] MEDS: SODIUM CHLORIDE 1,000 ML IV SCH (14:25)
--- NOTE | 2017-09-19 16:31 | MSN ---
Progress Note (short form) - Note Progress Note: Subjective: Shantanu Sharp is a 76 yo M with unknown pmhx who was found wandering around the hospital. Patient was admitted for acute metabolic encephalopathy. Patient seen and examined. Patient is A&Ox1. Patient reports diffuse pain through out his chest, abdomen and extremities. Patient responds to some command and mumbles his answers. As per nurse, patient was not urinating. Bladder scan showed 715mL so a mcintyre was placed. Patient has been pulling his mcintyre and now has hematuria. Unable to obtain further history due to patient's condition. Objective: Last Vital Signs Temp Pulse Resp BP Pulse Ox 98.3 F 73 22 151/82 97 09/19/17 14:32 09/19/17 14:32 09/19/17 14:32 09/19/17 14:32 09/18/17 10:00 Physical Exam: Gen: A&Ox1, agitated, speech is not clear, patient is mumbling to himself Heart: RRR without MRG Lungs: CTA bilaterally without RRW Abdomen: non-distended, Bowel sounds present and normoactive, diffuse tenderness to palpation in all 4 quadrants Extremities: no pitting edema, DP pulses intact and 2+ bilaterally Unable to obtain further physical exam findings due to patient's condition Laboratory Results - last 24 hr 09/19/17 09/19/17 07:10 07:10 WBC 11.9 H RBC 4.50 Hgb 12.6 D Hct 39.2 MCV 87.1 MCH 28.0 MCHC 32.2 RDW 14.7 Plt Count 197 MPV 9.4 Neutrophils % 78.9 Lymphocytes % 8.9 D Monocytes % 11.4 H Eosinophils % 0.3 D Basophils % 0.5 D Sodium 142 Potassium 3.6 Chloride 111 H Carbon Dioxide 25 Anion Gap 6 L BUN 20 H Creatinine 1.6 H D Creat Clearance w eGFR 42.46 Random Glucose 99 Calcium 8.5 Total Bilirubin 1.0 D AST 70 H ALT 32 Alkaline Phosphatase 56 Creatine Kinase 1151 H Creatine Kinase Index 1.2 CK-MB (CK-2) 14.696 H Total Protein 6.3 L Albumin 3.2 L Current Medications Generic Name Dose Route Start Last Admin Trade Name Freq PRN Reason Stop Dose Admin Chlordiazepoxide HCl 25 mg 09/19/17 08:00 09/19/17 12:14 Librium - PO 09/19/17 23:01 Not Given [id number] HEATHER Chlordiazepoxide HCl 15 mg 09/20/17 05:00 Librium - PO 09/20/17 23:01 [id number] HEATHER Haloperidol 2 mg 09/17/17 21:07 09/19/17 09:04 Haldol Injection (Fast Acting) - IM 2 mg Q4H PRN Administration AGITATION Heparin Sodium (Porcine) 5,000 unit 09/18/17 22:00 09/19/17 10:04 Heparin - SQ 5,000 unit BID HEATHER Administration Sodium Chloride 1,000 mls @ 150 mls/hr 09/18/17 14:58 09/18/17 16:00 Normal Saline - IV 150 mls/hr ASDIR HEATHER Administration Home Medications Medication Instructions Recorded Unobtainable [Unobtainable] 09/17/17 A/P: Shantanu Sharp is a 76 yo M with unknown PMHx who was found wandering around the hospital. Patient was admitted for acute metabolic encephalopathy. 1. Acute metabolic encephalopathy - Patient is afebrile, WBC 11.9, slowly trending up from 11.2, but no signs of infection, UA negative for UTI, CXR negative for pna - Urine toxicology was negative - Head CT showed diffuse cerebral atrophy with sulcal widening and ventricular enlargement but no acute pathology - Labs showed increased AST, encephalopathy can be due to alcohol use, possibly korsakoff vs. Dissociative amnesia - Will get MRI of the head - Will get abdominal xray to make sure no metals in the body - Haldol PRN for agitation - Dysphagia puree diet due to aspiration risk - Will continue to search for family members/ next of kin 2. Rhabdomyolysis - CK iss 1151, trending down from yesterday (1542) - CK MB 14.7, trending down from 30.7 - Patient was found wandering outside, increased CK from rhabdomyolysis likely due to walking around - Will trend CPK 3. Leukocytosis - Likely reactive, no signs of infection - Will trend WBC 4. CL - Patient's Cr went up to 1.6 from 0.9 at admission - Likely post renal from since patient was not voiding - Mcintyre in place with hematuria from patient pulling on mcintyre, restraints placed - Will monitor Cr after mcintyre, monitor for hematuria 5. DVT proph - Heparin 5000U SQ BID
[2017-09-20] MEDS ORDERED: chlordiazePOXIDE 5 MG CAPSULE PO SCH (05:00)
[2017-09-20] MEDS ORDERED: FOLIC ACID INJECTION - 1 MG, THIAMINE HCL 100 MG, MULTIVIT INJECTION ADULT 10 ML in SOD... IVPB ONE (06:10)
[2017-09-20 08:15] LABS: BASO % 0.3 % (0-2.0); HEMATOCRIT 38.1 % (35.4-49); HEMOGLOBIN 12.3 GM/dL (11.7-16.9); LYMPH % 6.2 % (8-40); MCH 28.2 pg (25.7-33.7); MCHC 32.3 g/dl (32.0-35.9); MEAN CELL VOLUME 87.3 fl (80-96); MEAN PLT VOLUME 9.4 fl (7.5-11.1); MONO % 11.7 % (3.8-10.2); NEUT % 81.8 % (42.8-82.8); PLATELET COUNT 188 K/MM3 (134-434); RBC 4.36 M/mm3 (4.00-5.60); RDW 14.8 % (11.9-15.9)
[2017-09-20 08:23] LABS: ANION GAP 9 (8-16); BLOOD UREA NITROGEN 34 mg/dL (7-18); CALCIUM 8.5 mg/dL (8.5-10.1); CHLORIDE 111 mmol/L (98-107); CO2 23 mmol/L (21-32); CREATININE 3.8 mg/dL (0.7-1.3); GLUCOSE,RANDOM 126 mg/dL (74-106); POTASSIUM 4.1 mmol/L (3.5-5.1); SGOT/AST 50 U/L (15-37); SGPT/ALT 32 U/L (12-78); SODIUM 143 mmol/L (136-145)
[2017-09-20 08:25] LABS: ALK PHOS 55 U/L (45-117); BILIRUBIN,TOTAL 0.7 mg/dL (0.2-1.0)
[2017-09-20] MEDS: HEPARIN NA (PORCINE) 5,000 UNITS/ML 1ML VIAL SQ SCH ×2 (11:24→21:36)
--- NOTE | 2017-09-20 11:35 | PN ---
Progress Note, [employer] - Note Progress Note: Selected Entries 09/19/17 09/19/17 09/19/17 06:00 10:07 12:31 Breakfast 50% Lunch Supper Temperature 97.9 F 98 F 09/19/17 09/19/17 09/20/17 14:32 21:25 02:00 Breakfast Lunch 25% Supper 75% Temperature 98.3 F 98.5 F 09/20/17 09/20/17 06:00 10:38 Breakfast Lunch Supper Temperature 98.4 F 98.4 F Sleepy today. Tolerated diet yesterday.
--- NOTE | 2017-09-20 12:28 | EKG ---
Test Reason : Blood Pressure : / mmHG Vent. Rate : 090 BPM Atrial Rate : 079 BPM P-R Int : 000 ms QRS Dur : 074 ms QT Int : 340 ms P-R-T Axes : 000 -47 034 degrees QTc Int : 415 ms ATRIAL FIBRILLATION LEFT ANTERIOR FASCICULAR BLOCK SEPTAL INFARCT , AGE UNDETERMINED ABNORMAL ECG WHEN COMPARED WITH ECG OF 17-SEP-2017 15:29, ATRIAL FIBRILLATION HAS REPLACED SINUS RHYTHM Confirmed by TEENA HARRIS, MARILUZ ([id number]) on 09/20/2017 12:28:01 PM Referred By: Confirmed By:MARILUZ DICKINSON MD
[2017-09-20] MEDS ORDERED: METOPROLOL TARTRATE 25 MG TABLET (FP) PO ONE (13:57)
--- NOTE | 2017-09-20 13:58 | PN ---
Teaching Attending Note Name of Resident: Jessica Hoffman ATTENDING PHYSICIAN STATEMENT I saw and evaluated the patient. I reviewed the resident's note and discussed the case with the resident. I agree with the resident's findings and plan as documented. SUBJECTIVE:c/o abdominal discomfort. denies CP and SOB found out missing person report was filed out on patient after he was found missing on . SW called [employer] and spoke with it architecture consultant who states pt has hx of dementia and has wandered off in the past. information on family and PMD to follow OBJECTIVE: Last Vital Signs Temp Pulse Resp BP Pulse Ox 98.4 F 96 H 18 146/86 98 09/20/17 10:38 09/20/17 10:38 09/20/17 10:38 09/20/17 10:38 09/19/17 21:00 General restless, CV S1 S2 RRR Lungs CTA anteriorly Abdomen soft +suprapubic distention and tenderness Extremities no pedal edema ASSESSMENT AND PLAN: 76yo M with unknown medical history found wandering around [facility] 1. Acute toxic metabolic encephalopathy-speech is improved. appears pt has hx of dementia. will need to obtain collateral information to determine what his baseline is. will d/c MRI at this time as less likely. will d/c librium taper. 2. Elevated transminases- suggestive of hx of ETOH. hepatitis panel negative. improved 3. afib- pt was found tachycardic this AM and EKG done showing afib rate controlled. will start low dose metoprolol. confirm is new or old hx. determine if anticoagulation is appropriate. 3. ZEKE- likely obstructive uropathy vs rhabdo. mcintyre inserted but was not draining appropriately. multiple blood clots found. urology consulted for mcintyre placement. Zeke worsening likely due to obstruction. avoid nephrotoxic agents. 4. Hematuria- likely due to restlessness and pulling at catheter. hgb stable. trend Hgb. no indication for transfusion 5. Rhabdo- possible walked from [facility]. now below 1K 6. Leukocytosis-likely reactive. no signs of infection. repeat UA once sample can be obtained. will hold abx at this time. 7. DVT ppx- hep sq 8. will call PMD and family once contact information received. confirm medical history and baseline mental status. confirm medications
--- NOTE | 2017-09-20 17:49 | PN ---
Progress Note (short form) - Note Progress Note: 76 year old male, with an unknown past medical history, who was found wandering around the hospital, unaware of where he was. Patient had an extremely pungent urine smell, was very unkempt. Due to patient's altered mental status, patient was unable to give a proper account of why he was in the hospital in the first place. being teated for suspected ETOH; doing better as per chart; CT HD no acute changes . TSh and B12 NL. was sleeping --and poorly arousable though aide states was awake when she fed him earlier in day. FU : this AM sleeping and poorly arousable-- spoke to Nurse who states was awake and more agitated during night hospitalist note reveiwed--HX of dementia likely CT HD (-) - History Source History Provided By: Medical Record - Smoking History Smoking history: Unknown if ever smoked Home Medications - Allergies Allergies/Adverse Reactions: Allergies Allergy/AdvReac Type Severity Reaction Status Date / Time No Allergy Information Allergy Verified 09/17/17 14:35 Available - Home Medications Home Medications: Ambulatory Orders Unobtainable [Unobtainable] 09/17/17 Physical Exam-Neuro Vital Signs: Vital Signs Temperature 99.5 F 09/20/17 14:38 Pulse Rate 68 09/20/17 14:38 Respiratory Rate 18 09/20/17 14:38 Blood Pressure 138/84 09/20/17 14:38 O2 Sat by Pulse Oximetry (%) 98 09/19/17 21:00 Labs: CBCD WBC 14.0 K/mm3 (4.0-10.0) H 09/20/17 06:24 RBC 4.36 M/mm3 (4.00-5.60) 09/20/17 06:24 Hgb 12.3 GM/dL (11.7-16.9) 09/20/17 06:24 Hct 38.1 % (35.4-49) 09/20/17 06:24 MCV 87.3 fl (80-96) 09/20/17 06:24 MCHC 32.3 g/dl (32.0-35.9) 09/20/17 06:24 RDW 14.8 % (11.9-15.9) 09/20/17 06:24 Plt Count 188 K/MM3 (134-434) 09/20/17 06:24 MPV 9.4 fl (7.5-11.1) 09/20/17 06:24 CMP Sodium 143 mmol/L (136-145) 09/20/17 06:24 Potassium 4.1 mmol/L (3.5-5.1) 09/20/17 06:24 Chloride 111 mmol/L (98-107) H 09/20/17 06:24 Carbon Dioxide 23 mmol/L (21-32) 09/20/17 06:24 Anion Gap 9 (8-16) 09/20/17 06:24 BUN 34 mg/dL (7-18) H D 09/20/17 06:24 Creatinine 3.8 mg/dL (0.7-1.3) H D 09/20/17 06:24 Creat Clearance w eGFR 15.65 (>60) 09/20/17 06:24 Calcium 8.5 mg/dL (8.5-10.1) 09/20/17 06:24 Total Bilirubin 0.7 mg/dL (0.2-1.0) D 09/20/17 06:24 AST 50 U/L (15-37) H D 09/20/17 06:24 ALT 32 U/L (12-78) 09/20/17 06:24 Alkaline Phosphatase 55 U/L (45-117) 09/20/17 06:24 Total Protein 6.0 g/dl (6.4-8.2) L 09/20/17 06:24 Albumin 3.0 g/dl (3.4-5.0) L 09/20/17 06:24 - Neuro Exam Level Of Consciousness: Yes: Stuporous Eyes: Yes: Other (eye closed ) Speech: Other (limited verbval output) Cranial Nerves II-XII Intact: Yes Babinski: Absent Movement Disorders: Other (no focal weakness, twitching ) Gait: Deferred Imaging - Results Cat Scan: Report Reviewed, Image Reviewed Problem List - Problems (1) Altered mental state Code(s): R41.82 - ALTERED MENTAL STATUS, UNSPECIFIED Assessment/Plan 76 year old male, with an unknown past medical history, altered mental state-- ? ETOH induced CT no acute changes; TSH /B12/ToX (-) taper libirum and to avoid neuroleptics if possible ideally get MRI BRAIN if no contraindiucation AFIB - no bleed on CT SCAN head so ok to AC from neuro standpoint , though ETOH HX may be factor ; if goes to Nursing [facility] AC should be safe. ? HX of dementia --though no sig atrophy or prior strokes on CT Dr Ramirez Problem List - Problems (1) Altered mental state Code(s): R41.82 - ALTERED MENTAL STATUS, UNSPECIFIED
--- NOTE | 2017-09-20 17:59 | MSN ---
Progress Note (short form) - Note Progress Note: Subjective: Shantanu Sharp is a 76 yo M with unknown pmhx who was found wandering around the hospital. Patient was admitted for acute metabolic encephalopathy. Patient seen and examined. Patient is A&Ox1. Patient points to his abdomen and groans. Patient responds to some commands. He is very sleepy and mumbles. As per nurse, patient hasn't been urinating since yesterday. Bladder scan showed 900cc. As per nurse, previous mcintyre attempt was traumatic and resulted in 5-10cc of blood. Unable to obtain further history due to patient's condition. 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, bowel sounds present and normoactive, tenderness to palpation in the suprapubic region, abdomen distended and firm in the suprapubic region due to distended bladder from retained urine Extremities: no pitting edema, DP pulses intact and 2+ bilaterally Unable to obtain further physical exam findings due to patient's condition Laboratory Results - last 24 hr 09/19/17 09/20/17 09/20/17 07:10 06:24 06:24 WBC 14.0 H RBC 4.36 Hgb 12.3 Hct 38.1 MCV 87.3 MCH 28.2 MCHC 32.3 RDW 14.8 Plt Count 188 MPV 9.4 Neutrophils % 81.8 Lymphocytes % 6.2 L D Monocytes % 11.7 H Eosinophils % 0.0 D Basophils % 0.3 Sodium 143 Potassium 4.1 Chloride 111 H Carbon Dioxide 23 Anion Gap 9 BUN 34 H D Creatinine 3.8 H D Creat Clearance w eGFR 15.65 Random Glucose 126 H D Calcium 8.5 Total Bilirubin 0.7 D AST 50 H D ALT 32 Alkaline Phosphatase 55 Creatine Kinase 618 H Creatine Kinase Index 1.0 CK-MB (CK-2) 6.745 H Total Protein 6.0 L Albumin 3.0 L Hepatitis A IgM Ab Negative Hep Bs Antigen Negative Hep B Core IgM Ab Negative Hepatitis C Antibody 0.1 Current Medications Generic Name Dose Route Start Last Admin Trade Name Jade PRN Reason Stop Dose Admin Haloperidol 2 mg 09/17/17 21:07 09/19/17 09:04 Haldol Injection (Fast Acting) - IM 2 mg Q4H PRN Administration AGITATION Heparin Sodium (Porcine) 5,000 unit 09/18/17 22:00 09/20/17 11:24 Heparin - SQ 5,000 unit BID HEATHER Administration Home Medications Medication Instructions Recorded Unobtainable [Unobtainable] 09/17/17 A/P: Shantanu Sharp is a 76 yo M with unknown PMHx who was found wandering around the hospital. Patient was admitted for acute metabolic encephalopathy. 1. Acute metabolic encephalopathy - Patient is afebrile, WBC 14, slowly trending up from 11.2, but no signs of infection, UA negative for UTI, CXR negative for pna, will obtain another UA after suprapubic catheter - Urine toxicology was negative - Head CT showed diffuse cerebral atrophy with sulcal widening and ventricular enlargement but no acute pathology - PCP: Dr. Taurus Lo- [phone]. PCP is currently on vacation and won't return until Sep 26. As per nursing staff, patient has history of mild dementia, elevated PSA, arthritis and PVD. Currently on Donepezil 10mg and Nabumetone 750 mg for arthritis. Patient had spklenectomy and right hernia repair in the past. - Haldol PRN for agitation - Discontinue Librium since AMS likely due to exacerbation of underlying dementia as opposed to alcohol related - Dysphagia puree diet due to aspiration risk - Next of kin is niece Gisselle Abbasi- [phone] 2. New onset afib - Rate ranging from 90-100 - Metoprolol 25 mg for rate control - As of now, CHADVASC score is 2 - Will think about anticoagulation after hematuria resolves, as per neuro anticoagulation is okay from neuro standpoint 2. Rhabdomyolysis - CK is 618, trending down from 1542 - CK MB 6, trending down from 30.7 - Patient was found wandering outside, increased CK from rhabdomyolysis likely due to walking around - CK coming down, will stop trending 3. Leukocytosis - WBC 14, increased from 11.2 on admission - Likely reactive vs. UTI - Will continue to trend WBC, UA, urine culture after suprapubic cath 4. CL - Patient's Cr went up to 3.8 from 0.9 on admission - Likely post renal, obstructive since patient has not voided since yesterday, bladder scan showed greater than 1L of urine - As per urology, patient needs suprapubic catheter since mcintyre cannot be done due to urethral trauma from previous attempt - IR placed a suprapubic catheter, drained 600cc+ of brown urine - Will continue to monitor Cr, monitor for hematuria - UA and urine culture after suprapubic cath 5. DVT proph - Heparin 5000U SQ BID
[2017-09-20 20:56] LABS: URINE APPEARANCE SLCLOUDY; URINE BILIRUBIN NEGATIVE (NEGATIVE); URINE BLOOD 3+ (NEGATIVE); URINE COLOR YELLOW; URINE GLUCOSE (UA) NEGATIVE (NEGATIVE); URINE KETONE NEGATIVE (NEGATIVE); URINE LEUK ESTERASE NEGATIVE (NEGATIVE); URINE NITRITE NEGATIVE (NEGATIVE); URINE UROBILINOGEN NEGATIVE mg/dL (0.2-1.0)
[2017-09-20 21:25] LABS: URINE PROTEIN 1+ (NEGATIVE)
[2017-09-20 21:38] LABS: URINE MUCUS RARE
--- NOTE | 2017-09-20 23:14 | PN ---
Physical Exam: SUBJECTIVE: Patient seen and examined. Missing Person Report found, SW called [employer], family found and contacted, PCP identified and contacted, medical history obtained. This morning pt tachycardic, found on EKG to be in rate controlled afib. Pt's mcintyre was not draining urine, removed. Upon attempt to re-insert blood clots seen. Pt s/p suprapubic cath. OBJECTIVE: Vital Signs Period Temp Pulse Resp BP Sys/Mackey Pulse Ox Last 24 Hr 98.4 F-100.1 F 65-96 18-20 124-153/61-97 96-98 GENERAL: The patient is agitated/restless, oriented x 1. LUNGS: Breath sounds equal, clear to anterior auscultation bilaterally, no wheezes, no crackles, no accessory muscle use. HEART: Regular rate and rhythm, S1, S2 without murmur, rub or gallop. ABDOMEN: Soft, +tender/+distention suprapubic. EXTREMITIES: Warm, well-perfused, no edema. SKIN: Warm, dry, normal turgor, no rashes or lesions noted Laboratory Results - last 24 hr 09/19/17 09/20/17 09/20/17 07:10 06:24 06:24 WBC 14.0 H RBC 4.36 Hgb 12.3 Hct 38.1 MCV 87.3 MCH 28.2 MCHC 32.3 RDW 14.8 Plt Count 188 MPV 9.4 Neutrophils % 81.8 Lymphocytes % 6.2 L D Monocytes % 11.7 H Eosinophils % 0.0 D Basophils % 0.3 Sodium 143 Potassium 4.1 Chloride 111 H Carbon Dioxide 23 Anion Gap 9 BUN 34 H D Creatinine 3.8 H D Creat Clearance w eGFR 15.65 Random Glucose 126 H D Calcium 8.5 Total Bilirubin 0.7 D AST 50 H D ALT 32 Alkaline Phosphatase 55 Creatine Kinase 618 H Creatine Kinase Index 1.0 CK-MB (CK-2) 6.745 H Total Protein 6.0 L Albumin 3.0 L Urine Color Urine Appearance Urine pH Ur Specific [place] Urine Protein Urine Glucose (UA) Urine Ketones Urine Blood Urine Nitrite Urine Bilirubin Urine Urobilinogen Ur Leukocyte Esterase Urine WBC (Auto) Urine RBC (Auto) Urine Mucus Hepatitis A IgM Ab Negative Hep Bs Antigen Negative Hep B Core IgM Ab Negative Hepatitis C Antibody 0.1 09/20/17 18:30 WBC RBC Hgb Hct MCV MCH MCHC RDW Plt Count MPV Neutrophils % Lymphocytes % Monocytes % Eosinophils % Basophils % Sodium Potassium Chloride Carbon Dioxide Anion Gap BUN Creatinine Creat Clearance w eGFR Random Glucose Calcium Total Bilirubin AST ALT Alkaline Phosphatase Creatine Kinase Creatine Kinase Index CK-MB (CK-2) Total Protein Albumin Urine Color Yellow Urine Appearance Slcloudy Urine pH 5.0 Ur Specific [place] 1.015 Urine Protein 1+ H Urine Glucose (UA) Negative Urine Ketones Negative Urine Blood 3+ H Urine Nitrite Negative Urine Bilirubin Negative Urine Urobilinogen Negative Ur Leukocyte Esterase Negative Urine WBC (Auto) 4 Urine RBC (Auto) 77 Urine Mucus Rare Hepatitis A IgM Ab Hep Bs Antigen Hep B Core IgM Ab Hepatitis C Antibody Active Medications Generic Name Dose Route Start Last Admin Trade Name Freq PRN Reason Stop Dose Admin Haloperidol 2 mg 09/17/17 21:07 09/19/17 09:04 Haldol Injection (Fast Acting) - IM 2 mg Q4H PRN Administration AGITATION Heparin Sodium (Porcine) 5,000 unit 09/18/17 22:00 09/20/17 21:36 Heparin - SQ 5,000 unit BID HEATHER Administration IMAGIN09/20/17 Renal US -> urinary retention. Prostate enlargement. Minimal nilay hydronephrosis. 3cm Left renal lower pole soft tissue mass lesion vs artifact, f/u recommended with either US or CT with/without contrast. Small amount of free fluid seen in nilay upper ab. Possible partial imaging of Right pleural effusion. ASSESSMENT/PLAN: 76yo M with PMH dementia, PVD, arthritis, found wandering around [facility], admitted for acute toxic metabolic encephalopathy. # urinary retention, s/p suprapubic catheter placement by IR on 09/20/17 - pt has not passed urine since yesterday - Librium D/Jesus as can cause urinary retention - banana bag held today - bladder scan reveals >999ml - consent obtained from pt's next-of-kin, kandyyin Gisselle Elroy, for suprapubic catheter placement by IR (Dr. Jimenez). - f/u UA and urine culture # CL - likely 2/2 retention - mcintyre was not draining, blood clots seen on attempt to re-insert mcintyre - s/p suprapubic cath with IR - continue to monitor Cr and UOP - avoid nephrotoxic agents # hematuria - likely 2/2 pt pulling at mcintyre related to agitation/restlessness - monitor hgb, stable - restraints and 1:[address] to protect pt from self harm # afib - pt found to be tachycardic this morning and EKG revealed afib with controlled rate. - start Metoprolol # Acute toxic metabolic encephalopathy - possibly 2/2 hx of dementia - Family identified, spoke with neice, social security # obtained. PCP identified and contacted, PMH/PSH/All/home medications obtained. - Neuro (Dr. Ramirez) recs appreciated - improving, pt is more alert today - no s/s of infection - hepatitis panel (-) # rhabdo - cpk trending down # leukocytosis - likely reactive as there are no s/s of infection - blood culture (-) x 48 hrs - f/u UA and urine culture - continue to monitor # FEN - Fluids: NS @ 125 ml/hr - Electrolytes: wnl, continue to monitor - Nutrition: dysphagia with nectar thick liquids per Speech Therapy # Prophylaxis - DVT ppx with Heparin BID Visit type - Emergency Visit Emergency Visit: Yes ED Registration Date: 09/17/17 Care time: The patient presented to the Emergency Department on the above date and was hospitalized for further evaluation of their emergent condition. - New Patient This patient is new to me today: No - Critical Care Critical Care patient: No
[2017-09-21] MEDS ORDERED: NABUMETONE 750 MG TABLET PO PRN (08:07)
[2017-09-21 08:44] LABS: HEMATOCRIT 36.7 % (35.4-49); HEMOGLOBIN 11.9 GM/dL (11.7-16.9); MCH 28.2 pg (25.7-33.7); MCHC 32.3 g/dl (32.0-35.9); MEAN CELL VOLUME 87.3 fl (80-96); MEAN PLT VOLUME 9.3 fl (7.5-11.1); PLATELET COUNT 180 K/MM3 (134-434); RBC 4.21 M/mm3 (4.00-5.60); RDW 14.7 % (11.9-15.9); WHITE BLOOD COUNT 12.2 K/mm3 (4.0-10.0)
[2017-09-21] MEDS: SODIUM CHLORIDE 1,000 ML IV SCH ×2 (09:45→17:37)
[2017-09-21 09:47] LABS: ALBUMIN 2.9 g/dl (3.4-5.0); ANION GAP 10 (8-16); BLOOD UREA NITROGEN 21 mg/dL (7-18); CALCIUM 8.3 mg/dL (8.5-10.1); CHLORIDE 112 mmol/L (98-107); CO2 21 mmol/L (21-32); CREATININE 1.1 mg/dL (0.7-1.3); GLUCOSE,RANDOM 94 mg/dL (74-106); POTASSIUM 4.1 mmol/L (3.5-5.1); SGOT/AST 34 U/L (15-37); SGPT/ALT 28 U/L (12-78); SODIUM 143 mmol/L (136-145)
[2017-09-21 09:48] LABS: ALK PHOS 57 U/L (45-117); TOT PROT 6.1 g/dl (6.4-8.2)
[2017-09-21] MEDS ORDERED: METOPROLOL TARTRATE 25 MG TABLET (FP) PO SCH (10:00)
[2017-09-21] MEDS ORDERED: MEMANTINE HCL 10 MG TABLET (FP) PO SCH (10:00)
[2017-09-21] MEDS: DONEPEZIL HCL 10 MG TABLET (FP) PO SCH (10:20)
[2017-09-21] MEDS: METOPROLOL TARTRATE 25 MG TABLET (FP) PO SCH (10:20)
[2017-09-21] MEDS: HEPARIN NA (PORCINE) 5,000 UNITS/ML 1ML VIAL SQ SCH ×2 (11:00→12:07)
--- NOTE | 2017-09-21 13:42 | MSN ---
Progress Note (short form) - Note Progress Note: Subjective: Shantanu Sharp is a 76 yo M with PMHx of Dementia, elevated PSA, arthritis, and PVD, who was found wandering around the hospital. Patient was admitted for acute metabolic encephalopathy. Patient seen and examined. Patient is very sleepy and mumbles. As per nurse, patient was agitatied and awake all night. Patient is currently sleeping and difficult to arouse. Unable to obtain further history due to patient's condition. 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 Extremities: no pitting edema, DP pulses intact and 2+ bilaterally Unable to obtain further physical exam findings due to patient's condition Laboratory Results - last 24 hr 09/20/17 09/21/17 09/21/17 18:30 08:11 08:11 WBC 12.2 H RBC 4.21 Hgb 11.9 Hct 36.7 MCV 87.3 MCH 28.2 MCHC 32.3 RDW 14.7 Plt Count 180 MPV 9.3 Sodium 143 Potassium 4.1 Chloride 112 H Carbon Dioxide 21 Anion Gap 10 BUN 21 H D Creatinine 1.1 D Creat Clearance w eGFR > 60 Random Glucose 94 D Calcium 8.3 L Total Bilirubin 1.0 D AST 34 D ALT 28 Alkaline Phosphatase 57 Total Protein 6.1 L Albumin 2.9 L Urine Color Yellow Urine Appearance Slcloudy Urine pH 5.0 Ur Specific [place] 1.015 Urine Protein 1+ H Urine Glucose (UA) Negative Urine Ketones Negative Urine Blood 3+ H Urine Nitrite Negative Urine Bilirubin Negative Urine Urobilinogen Negative Ur Leukocyte Esterase Negative Urine WBC (Auto) 4 Urine RBC (Auto) 77 Urine Mucus Rare Current Medications Generic Name Dose Route Start Last Admin Trade Name Freq PRN Reason Stop Dose Admin Donepezil HCl 10 mg 09/21/17 10:00 09/21/17 10:20 Aricept - PO Not Given DAILY HEATHER Haloperidol 2 mg 09/17/17 21:07 09/19/17 09:04 Haldol Injection (Fast Acting) - IM 2 mg Q4H PRN Administration AGITATION Heparin Sodium (Porcine) 5,000 unit 09/18/17 22:00 09/21/17 12:07 Heparin - SQ 5,000 unit BID HEATHER Administration Sodium Chloride 1,000 mls @ 125 mls/hr 09/20/17 23:15 09/21/17 09:45 Normal Saline - IV 125 mls/hr ASDIR HEATHER Administration Metoprolol Tartrate 12.5 mg 09/21/17 10:00 09/21/17 10:20 Lopressor - PO Not Given DAILY HEATHER Nabumetone 750 mg 09/21/17 08:07 Relafen - PO BID PRN PAIN Home Medications Medication Instructions Recorded Donepezil HCl 10 mg PO DAILY 09/21/17 Nabumetone 750 mg PO BID PRN 09/21/17 A/P: Shantanu Sharp is a 76 yo M with unknown PMHx who was found wandering around the hospital. Patient was admitted for acute metabolic encephalopathy. 1. Acute metabolic encephalopathy - Patient is afebrile, WBC 12.2, now trending down, no signs of infection, UA negative for UTI, CXR negative for pna - Urine toxicology was negative - Head CT showed diffuse cerebral atrophy with sulcal widening and ventricular enlargement but no acute pathology - PCP: Dr. Taurus Lo- [phone]. PCP is currently on vacation and won't return until Sep 26. As per nursing staff, patient has history of mild dementia, elevated PSA, arthritis and PVD. Currently on Donepezil 10mg and Nabumetone 750 mg for arthritis. Patient had splenectomy and right hernia repair in the past. - Haldol PRN for agitation - Librium discontinued since encephalopathy likely due to exacerbation of underlying dementia - Dysphagia puree diet due to aspiration risk - Mahnaz Randhawa ([phone]) from Social Service Office seems to know the patient well. As per Mahnaz, patient's has severe dementia. At baseline he is A&Ox1, typically very confused. His speech is usually convoluted and doesn't make sense, however his words are comprehensible. He is able to go to familiar places but can't recall addresses. Patient doesn't have a neurologist. He was referred to a neurologist by his PCP but he never saw one. He is a moderate to heavy drinker. Patient has Medicare Part A. - Next of kin is elliott Abbasi- [phone], agreed to SNF but not sure yet if patient should be placed in SNF in [place] where he would be closer to family or in [place] where he would be closer to his apartment and friends. 2. New onset afib - Rate initially ranging from 90-100 - Metoprolol 12.5 mg for rate control, changed from 25 mg due to bradycardia - As of now, CHADVASC score is 2 - Hematuria now resolved, patient can be anticoagulated - Eliquis 5 mg BID 2. Rhabdomyolysis - Patient was found wandering outside, increased CK from rhabdomyolysis likely due to walking around - CK trending down - Resolved 3. Leukocytosis - WBC currently 12.2, trending down - Will continue to trend WBC, UA after suprapubic cath was negative for UTI 4. CL - Likely post renal, due to bladder outlet obstruction from enlarged prostate - Suprapubic catheter in place, draining clear yellow urine - Creatinine now trending down - Renal US showed mild bilateral hydronephrosis, mild upper abdominal ascites and 3cm left renal soft tissue mass vs artifact - Will continue with suprapubic cath until patient voids 5. BPH - As per PCP, patient has history of mildly elevated PSA since February 2017 - Bladder US showed enlarged prostate, which was likely causing the bladder outlet obstruction - Will start Flomax 5. DVT proph - Heparin 5000U SQ BID Dispo: Will continue to monitor patient. Patient's SSN was obtained from Gisselle gallagher. Pending insurance verification.Will speak to social work msw to see if patient should be placed in SNF in [place] or [place] once he is ready for discharge.
--- NOTE | 2017-09-21 13:50 | PN ---
Teaching Attending Note Name of Resident: Jessica Hoffman ATTENDING PHYSICIAN STATEMENT I saw and evaluated the patient. I reviewed the resident's note and discussed the case with the resident. I agree with the resident's findings and plan as documented. SUBJECTIVE:lethargic, responds to painful stimuli OBJECTIVE: Last Vital Signs Temp Pulse Resp BP Pulse Ox 97.3 F L 59 L 20 142/81 98 09/21/17 11:55 09/21/17 12:12 09/21/17 12:12 09/21/17 12:12 09/20/17 20:26 General restless, CV S1 S2 RRR Lungs CTA anteriorly Abdomen soft +suprapubic catheter. bandage c/d/i Extremities no pedal edema ASSESSMENT AND PLAN: 76yo M with PMH dementia and OA found wandering around [facility] 1. Acute toxic metabolic encephalopathy-lethargic today. did not receive any sedating medications but was reported as awake throughout the night. will proceed with brain MRI to r/o structual pathology. as per family he suffers from mild dementia and this is not his baseline. neuro on board 2. Elevated transminases- suggestive of hx of ETOH. hepatitis panel negative. improved 3. afib-new onset. bradycardic this AM. will reduce metoprolol to 12.5mg. [id number] 2. check echo to r/o valvular disease. then start eliquis. 3. CL- likely obstructive uropathy vs rhabdo. mcintyre was not draining. s/p suprapubic catheter inserted by IR on 09/20. draining clear urine. cr trending down. renal u/s showing B/L hydro. avoid nephrotoxic agents. urology on board 4. Hematuria- now clearing. repeat UA showing 3+ blood but 77 RBC. check myoglobin as likely residual from rhabdo. Hgb stable. no indication for transfusion 5. Rhabdo- possible walked from [place]. now below 1K 6. Leukocytosis-likely reactive. no signs of infection. UA negative for infection. will hold abx at this time. 7. DVT ppx- hep sq 8. family contacted last night and informed his PMH of dementia and OA. that he is mild dementia and other than forgetfulness he is able to speak and hold conversation. agreeable to SNF placement when medically optimized.
--- NOTE | 2017-09-21 16:27 | PN ---
Physical Exam: SUBJECTIVE: Patient seen and examined. Pt lethargic today, intermittently responsive. 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 OBJECTIVE: Vital Signs Period Temp Pulse Resp BP Sys/Mackey Pulse Ox Last 24 Hr 97.3 F-100.1 F 55-67 18-20 137-156/70-85 98 GENERAL: The patient is agitated/restless, oriented x 1. LUNGS: Breath sounds equal, clear to anterior auscultation bilaterally, no wheezes, no crackles, no accessory muscle use. HEART: Regular rate and rhythm, S1, S2 without murmur, rub or gallop. ABDOMEN: Soft, nontender, nondistended, +suprapubic catheter draining clear yellow urine. EXTREMITIES: Warm, well-perfused, no edema. SKIN: Warm, dry, normal turgor, no rashes or lesions noted Laboratory Results - last 24 hr 09/20/17 09/21/17 09/21/17 18:30 08:11 08:11 WBC 12.2 H RBC 4.21 Hgb 11.9 Hct 36.7 MCV 87.3 MCH 28.2 MCHC 32.3 RDW 14.7 Plt Count 180 MPV 9.3 Sodium 143 Potassium 4.1 Chloride 112 H Carbon Dioxide 21 Anion Gap 10 BUN 21 H D Creatinine 1.1 D Creat Clearance w eGFR > 60 Random Glucose 94 D Calcium 8.3 L Total Bilirubin 1.0 D AST 34 D ALT 28 Alkaline Phosphatase 57 Total Protein 6.1 L Albumin 2.9 L Urine Color Yellow Urine Appearance Slcloudy Urine pH 5.0 Ur Specific [place] 1.015 Urine Protein 1+ H Urine Glucose (UA) Negative Urine Ketones Negative Urine Blood 3+ H Urine Nitrite Negative Urine Bilirubin Negative Urine Urobilinogen Negative Ur Leukocyte Esterase Negative Urine WBC (Auto) 4 Urine RBC (Auto) 77 Urine Mucus Rare Active Medications Generic Name Dose Route Start Last Admin Trade Name Freq PRN Reason Stop Dose Admin Apixaban 5 mg 09/21/17 22:00 Eliquis - PO BID HEATHER Donepezil HCl 10 mg 09/21/17 10:00 09/21/17 10:20 Aricept - PO Not Given DAILY HEATHER Haloperidol 2 mg 09/17/17 21:07 09/19/17 09:04 Haldol Injection (Fast Acting) - IM 2 mg Q4H PRN Administration AGITATION Sodium Chloride 1,000 mls @ 125 mls/hr 09/20/17 23:15 09/21/17 09:45 Normal Saline - IV 125 mls/hr ASDIR HEATHER Administration Metoprolol Tartrate 12.5 mg 09/21/17 10:00 09/21/17 10:20 Lopressor - PO Not Given DAILY HEATHER Tamsulosin HCl 0.4 mg 09/22/17 08:30 Flomax - PO DAILY@0830 HEATHER IMAGIN09/21/17 Echo -> Left and Right ventricles of normal size and function. Moderate MR. Mild TR. Mild pulmonic valvular regurg. ASSESSMENT/PLAN: 76yo M with PMH dementia, PVD, arthritis, found wandering around [facility] property, admitted for acute toxic metabolic encephalopathy. # Acute toxic metabolic encephalopathy - possibly 2/2 hx of dementia - pt lethargic today, reported to be awake and agitated throughout night by the 1:1 aide. - f/u Brain MRI to r/o structural pathology - Per family, pt suffers from moderate dementia with a baseline of AAOx1. Pt 's current state does not appear to be his baseline. - Neuro (Dr. Ramirez) recs appreciated - no s/s of infection # elevated transaminases - resolved - suggestive of hx of etoh, confirmed by family # new onset afib - pt bradycardic this morning, so metoprolol dose reduced to 12.5mg daily - [id number] score: 2 - Eliquis started, Heparin D/Jesus - Echo r/o valvular disease # CL - likely 2/2 retention vs rhabdomyolysis - s/p suprapubic cath with IR, draining clear yellow urine - Cr trending down today - continue to monitor UOP - avoid nephrotoxic agents # hematuria - likely 2/2 pt pulling at [place] related to agitation/restlessness - resolved - repeat UA showing 3+ blood, and 77 RBCs, suggestive of rhabdomyolsis. - f/u myoglobin - monitor hgb, stable - home med of Nabumetone (NSAID) held 2/2 hematuria # leukocytosis - likely reactive as there are no s/s of infection - blood culture (-) x 96 hrs - repeat UA (-) for infection - f/u repeat urine culture - continue to monitor # FEN - Fluids: NS @ 125 ml/hr - Electrolytes: wnl, continue to monitor - Nutrition: dysphagia puree with nectar thick liquids per Speech Therapy # Prophylaxis - DVT ppx with Eliquis BID - deconditioning ppx with PT # dispo - family agreeable to SNF placement when pt is medically optimized Visit type - Emergency Visit Emergency Visit: Yes ED Registration Date: 09/17/17 Care time: The patient presented to the Emergency Department on the above date and was hospitalized for further evaluation of their emergent condition. - New Patient This patient is new to me today: No - Critical Care Critical Care patient: No
[2017-09-21] MEDS: APIXABAN 5 MG TABLET PO SCH (22:26)
[2017-09-22] MEDS: SODIUM CHLORIDE 1,000 ML IV SCH ×2 (03:23→03:35)
[2017-09-22 08:47] LABS: HEMATOCRIT 34.3 % (35.4-49); HEMOGLOBIN 11.1 GM/dL (11.7-16.9); MCH 28.4 pg (25.7-33.7); MCHC 32.5 g/dl (32.0-35.9); MEAN CELL VOLUME 87.4 fl (80-96); MEAN PLT VOLUME 9.2 fl (7.5-11.1); PLATELET COUNT 196 K/MM3 (134-434); RBC 3.92 M/mm3 (4.00-5.60); RDW 14.6 % (11.9-15.9); WHITE BLOOD COUNT 8.2 K/mm3 (4.0-10.0)
[2017-09-22 08:49] LABS: ANION GAP 7 (8-16); BLOOD UREA NITROGEN 18 mg/dL (7-18); CALCIUM 7.8 mg/dL (8.5-10.1); CHLORIDE 110 mmol/L (98-107); CO2 27 mmol/L (21-32); CREATININE 0.6 mg/dL (0.7-1.3); GLUCOSE,RANDOM 82 mg/dL (74-106); POTASSIUM 3.7 mmol/L (3.5-5.1); SODIUM 144 mmol/L (136-145)
[2017-09-22] MEDS: TAMSULOSIN HCL 0.4 MG CAP.ER.24H (FP) PO SCH (09:30)
[2017-09-22] MEDS ORDERED: PT OWN MED DRAWER 7, Y5N ONE (12:24)
[2017-09-22] MEDS: DONEPEZIL HCL 10 MG TABLET (FP) PO SCH (12:26)
[2017-09-22] MEDS: APIXABAN 5 MG TABLET PO SCH ×2 (12:27→21:33)
[2017-09-22] MEDS: METOPROLOL TARTRATE 25 MG TABLET (FP) PO SCH (12:31)
--- NOTE | 2017-09-22 13:50 | PN ---
Progress Note (short form) - Note Progress Note: asymptomatic. dahlia CP, SOB, fever, chills, N/V/C/D very pleasant, speaking coherently, does not answer all questions appropriately. needs constant re-direction. Current Medications Generic Name Dose Route Start Last Admin Trade Name Samq PRN Reason Stop Dose Admin Apixaban 5 mg 09/21/17 22:00 09/22/17 12:27 Eliquis - PO 5 mg BID HEATHER Administration Donepezil HCl 10 mg 09/21/17 10:00 09/22/17 12:26 Aricept - PO 10 mg DAILY HEATHER Administration Sodium Chloride 1,000 mls @ 125 mls/hr 09/20/17 23:15 09/22/17 03:35 Normal Saline - IV 125 mls/hr ASDIR HEATHER Administration Metoprolol Tartrate 12.5 mg 09/21/17 10:00 09/22/17 12:31 Lopressor - PO 12.5 mg DAILY HEATHER Administration Tamsulosin HCl 0.4 mg 09/22/17 08:30 09/22/17 09:30 Flomax - PO 0.4 mg DAILY@0830 HEATHER Administration Last Vital Signs Temp Pulse Resp BP Pulse Ox 97.2 F L 60 20 98/57 98 09/22/17 06:00 09/22/17 06:00 09/22/17 06:00 09/22/17 06:00 09/21/17 11:00 Intake & Output 09/19/17 09/20/17 09/21/17 09/22/17 23:59 23:59 23:59 23:59 Intake Total 3345 270 2810 1900 Output Total 2900 950 1900 600 Balance 445 -801 106 8632 General NAD, A&O x1 CV S1 S2 RRR Lungs CTA anteriorly Abdomen soft +suprapubic catheter. bandage c/d/i Extremities no pedal edema CBCD WBC 8.2 K/mm3 (4.0-10.0) D 09/22/17 07:30 RBC 3.92 M/mm3 (4.00-5.60) L 09/22/17 07:30 Hgb 11.1 GM/dL (11.7-16.9) L 09/22/17 07:30 Hct 34.3 % (35.4-49) L 09/22/17 07:30 MCV 87.4 fl (80-96) 09/22/17 07:30 MCHC 32.5 g/dl (32.0-35.9) 09/22/17 07:30 RDW 14.6 % (11.9-15.9) 09/22/17 07:30 Plt Count 196 K/MM3 (134-434) 09/22/17 07:30 MPV 9.2 fl (7.5-11.1) 09/22/17 07:30 CMP Sodium 144 mmol/L (136-145) 09/22/17 07:30 Potassium 3.7 mmol/L (3.5-5.1) 09/22/17 07:30 Chloride 110 mmol/L (98-107) H 09/22/17 07:30 Carbon Dioxide 27 mmol/L (21-32) D 09/22/17 07:30 Anion Gap 7 (8-16) L 09/22/17 07:30 BUN 18 mg/dL (7-18) 09/22/17 07:30 Creatinine 0.6 mg/dL (0.7-1.3) L D 09/22/17 07:30 Creat Clearance w eGFR > 60 (>60) 09/21/17 08:11 Calcium 7.8 mg/dL (8.5-10.1) L 09/22/17 07:30 Total Bilirubin 1.0 mg/dL (0.2-1.0) D 09/21/17 08:11 AST 34 U/L (15-37) D 09/21/17 08:11 ALT 28 U/L (12-78) 09/21/17 08:11 Alkaline Phosphatase 57 U/L (45-117) 09/21/17 08:11 Total Protein 6.1 g/dl (6.4-8.2) L 09/21/17 08:11 Albumin 2.9 g/dl (3.4-5.0) L 09/21/17 08:11 ASSESSMENT AND PLAN: 76yo M with PMH dementia and OA found wandering around [facility] 1. Acute toxic metabolic encephalopathy-most alert today since hospital admission. as per SW know knows pt well he suffers from severe dementia and only A&O x1 at baseline. needs constant re-direction. has had wandered off in the past. appears pt is at baseline at this time. unclear what occurred causing confusion. attempt to get MRI yesterday but pt was too restless for test. will make 2nd attempt today. metabolic workup negative at this time. will attempt to take off restraints. no need for 1:1 observation. d/c IVF as tolerating diet. eating well. neuro on board 2. Elevated transminases- suggestive of hx of ETOH. hepatitis panel negative. resolved 3. afib-new onset. bradycardic this AM. will hold metoprolol. can consider CCB if develops RVR again. echo negative for valvular disease. on eliquis. 3. CL- likely obstructive uropathy vs rhabdo +suprapubic cath. draining clear urine. Cr normalized. on flomax for enlarged prostate. avoid nephrotoxic agents. urology on board 4. Hematuria- resolved. Hgb stable. no indication for transfusion 5. Rhabdo- possible walked from [employer]. now below 1K 6. Leukocytosis-likely reactive. no signs of infection. UA negative for infection. will hold abx at this time. 7. DVT ppx- eliquis Visit type - Emergency Visit Emergency Visit: Yes ED Registration Date: 09/17/17 Care time: The patient presented to the Emergency Department on the above date and was hospitalized for further evaluation of their emergent condition. - New Patient This patient is new to me today: No - Critical Care Critical Care patient: No - Discharge Referral Referred to [facility] Med P.C.: No
[2017-09-22] MEDS: HALOPERIDOL LACTATE 5 MG/ML IM PRN ×2 (15:41→23:05)
--- NOTE | 2017-09-22 19:11 | PN ---
Progress Note, Physician History of Present Illness: 76 year old male, with an unknown past medical history, who was found wandering around the hospital, unaware of where he was. Patient had an extremely pungent urine smell, was very unkempt. Due to patient's altered mental status, patient was unable to give a proper account of why he was in the hospital in the first place. being teated for suspected ETOH; doing better as per chart; FU : Sleeping and poorly arousable; per RN , he is agitated and combative sometimes , not able to tolerate MRI. - Current Medication List Current Medications: Active Medications Apixaban (Eliquis -) 5 mg PO BID [facility] Last Admin: 09/22/17 12:27 Dose: 5 mg Donepezil HCl (Aricept -) 10 mg PO DAILY [facility] Last Admin: 09/22/17 12:26 Dose: 10 mg Haloperidol (Haldol Injection (Fast Acting) -) 2 mg IM Q4H PRN PRN Reason: AGITATION Last Admin: 09/22/17 15:41 Dose: 2 mg Tamsulosin HCl (Flomax -) 0.4 mg PO DAILY@0830 [facility] Last Admin: 09/22/17 09:30 Dose: 0.4 mg - Objective Vital Signs: Vital Signs Temperature 97.8 F 09/22/17 19:00 Pulse Rate 62 09/22/17 19:00 Respiratory Rate 18 09/22/17 19:00 Blood Pressure 116/68 09/22/17 19:00 O2 Sat by Pulse Oximetry (%) 98 09/21/17 11:00 Labs: CBC, BMP 09/22/17 07:30 09/22/17 07:30 INR, PTT INR 1.01 (0.82-1.09) 09/17/17 15:30 Assessment/Plan Neuro Exam Level Of Consciousness: Yes: Stuporous Eyes: Yes: Other (eye closed ) Speech: Other (limited verbval output) Cranial Nerves II-XII Intact: Yes Babinski: Absent Movement Disorders: Other (no focal weakness, twitching ) Gait: Deferred Imaging - Results Cat Scan: Report Reviewed, Image Reviewed Problem List - Problems (1) Altered mental state Code(s): R41.82 - ALTERED MENTAL STATUS, UNSPECIFIED Assessment/Plan 76 year old male, with an unknown past medical history, altered mental state-- ? ETOH induced CT no acute changes; TSH /B12/ToX (-) taper libirum and to avoid neuroleptics if possible Pt could not tolerate MRI brain , was agitated. AFIB - no bleed on CT SCAN head so ok to AC from neuro standpoint . Haldol as needed for agitation avoid [facility] maintenance per primary team. Thx Be Mendoza MD [phone]
[2017-09-23] MEDS: HALOPERIDOL LACTATE 5 MG/ML IM PRN ×2 (04:15→20:29)
[2017-09-23] MEDS: TAMSULOSIN HCL 0.4 MG CAP.ER.24H (FP) PO SCH (09:38)
[2017-09-23] MEDS: DONEPEZIL HCL 10 MG TABLET (FP) PO SCH (09:38)
[2017-09-23] MEDS: APIXABAN 5 MG TABLET PO SCH ×3 (09:38→21:07)
--- NOTE | 2017-09-23 11:30 | PN ---
Progress Note (short form) - Note Progress Note: Podiatry brief note: Will debride mycotic nails on Sunday if patient still inhouse. Delaney Ballard DPM
--- NOTE | 2017-09-23 14:44 | EKG ---
Test Reason : Blood Pressure : / mmHG Vent. Rate : 061 BPM Atrial Rate : 061 BPM P-R Int : 190 ms QRS Dur : 072 ms QT Int : 412 ms P-R-T Axes : 071 002 044 degrees QTc Int : 414 ms SINUS RHYTHM WITH PREMATURE ATRIAL COMPLEXES LOW VOLTAGE QRS BORDERLINE ECG WHEN COMPARED WITH ECG OF 20-SEP-2017 06:34, SINUS RHYTHM HAS REPLACED ATRIAL FIBRILLATION CLINICAL CORRELATION IS RECOMMENDED Confirmed by LILIANE HARRIS, HUBER ([id number]) on 09/23/2017 2:44:04 PM Referred By: Roberta FOLEY Confirmed By:HUBER MOMIN MD
--- NOTE | 2017-09-23 14:55 | PN ---
Teaching Attending Note Name of Resident: Jessica Hoffman ATTENDING PHYSICIAN STATEMENT I saw and evaluated the patient. I reviewed the resident's note and discussed the case with the resident. I agree with the resident's findings and plan as documented. SUBJECTIVE:resting comfortable. no complaints OBJECTIVE: Last Vital Signs Temp Pulse Resp BP Pulse Ox 98.3 F 54 L 18 137/73 98 09/23/17 06:00 09/23/17 06:00 09/23/17 09:00 09/23/17 06:00 09/23/17 09:00 General NAD A&O x1 Abdomen soft NT/ND +suprapubic catheter ASSESSMENT AND PLAN: 76yo M with PMH dementia and OA found wandering around [facility] 1. Acute toxic metabolic encephalopathy-A&O x1 which is baseline. agitation in the evening requiring haldol x3. will start seroquel. Qtc normal. unable to get MRI due to agitation even with haldol prior to going. neuro on board 2. Elevated transminases- suggestive of hx of ETOH. hepatitis panel negative. resolved 3. afib-new onset. repeat EKG showing NSR. episodes of bradycardia. cont to hold betablocker. on eliquis. 3. CL- likely obstructive uropathy vs rhabdo +suprapubic cath. draining clear urine. Cr normalized. on flomax for enlarged prostate. avoid nephrotoxic agents. urology on board 4. Hematuria- resolved. Hgb stable. no indication for transfusion 5. Rhabdo- possible walked from [place]. now below 1K 6. Leukocytosis-likely reactive. no signs of infection. UA negative for infection. will hold abx at this time. 7. DVT ppx- eliquis 8. will need fci placement, unable to care for himself.
--- NOTE | 2017-09-23 16:02 | PN ---
Physical Exam: SUBJECTIVE: Patient seen and examined. Pt resting comfortably, offers no complaints. No fevers, chills. OBJECTIVE: Vital Signs Period Temp Pulse Resp BP Sys/Mackey Pulse Ox Last 24 Hr 97.3 F-98.3 F 53-62 18-18 112-140/52-76 98-98 GENERAL: AAOx1, to self. LUNGS: Breath sounds equal, clear to anterior auscultation bilaterally, no wheezes, no crackles, no accessory muscle use. HEART: Regular rate and rhythm, S1, S2 without murmur, rub or gallop. ABDOMEN: Soft, nontender, nondistended, +suprapubic catheter draining clear yellow urine. EXTREMITIES: Warm, well-perfused, no edema. SKIN: Warm, dry, normal turgor, no rashes or lesions noted Active Medications Generic Name Dose Route Start Last Admin Trade Name Freq PRN Reason Stop Dose Admin Apixaban 5 mg 09/21/17 22:00 09/23/17 09:38 Eliquis - PO 5 mg BID HEATHER Administration Donepezil HCl 10 mg 09/21/17 10:00 09/23/17 09:38 Aricept - PO 10 mg DAILY HEATHER Administration Haloperidol 2 mg 09/22/17 14:40 09/23/17 04:15 Haldol Injection (Fast Acting) - IM 2 mg Q4H PRN Administration AGITATION Quetiapine Fumarate 25 mg 09/23/17 22:00 Seroquel - PO HS HEATHER Tamsulosin HCl 0.4 mg 09/22/17 08:30 09/23/17 09:38 Flomax - PO 0.4 mg DAILY@0830 HEATHER Administration ASSESSMENT/PLAN: 76yo M with PMH dementia, PVD, arthritis, found wandering around [facility] property, admitted for acute toxic metabolic encephalopathy. # Acute toxic metabolic encephalopathy - possibly 2/2 hx of dementia - AAOx1, pt at his baseline - pt was unable to tolerate MRI scan, he became agitated even with Haldol. - pt agitated, requiring Haldol x 3 since yesterday afternoon. - Seroquel added at HS - continue Haldol prn - today's EKG reveals sinus rhythm and QTc of 414 - Neuro (Dr. Juarez) recs appreciated: avoid benzo's - continue home med of Aricept # new onset afib - pt continues to have episodes of bradycardia, continue to hold metoprolol - [id number] score: 2 - continue Eliquis - Neuro (Dr. Juarez) recs appreciated: no bleed on Head CT, so AC ok from neuro standpoint. # CL - likely 2/2 retention vs rhabdomyolysis - s/p suprapubic cath with IR, draining clear yellow urine - Cr normalized - continue to monitor UOP - continue Flomax - avoid nephrotoxic agents # hematuria - likely 2/2 pt pulling at [employer] related to agitation/restlessness - resolved - repeat UA showing 3+ blood, and 77 RBCs, suggestive of rhabdomyolsis. - f/u myoglobin - monitor hgb, stable # leukocytosis - likely reactive as there are no s/s of infection - resolved - blood culture (-) x 5 days - repeat urine culture (-) # FEN - Fluids: po - Electrolytes: continue to monitor - Nutrition: dysphagia puree with nectar thick liquids per Speech Therapy # Prophylaxis - DVT ppx with Eliquis BID - deconditioning ppx with PT # dispo - family agreeable to SNF placement when pt is medically optimized - family deciding where pt should be placed, [place] vs [place] Visit type - Emergency Visit Emergency Visit: Yes ED Registration Date: 09/17/17 Care time: The patient presented to the Emergency Department on the above date and was hospitalized for further evaluation of their emergent condition. - New Patient This patient is new to me today: No - Critical Care Critical Care patient: No
[2017-09-23] MEDS ORDERED: PT OWN MED DRAWER 7, Y5N ONE (20:28)
[2017-09-23] MEDS: QUEtiapine FUMARATE 25 MG TABLET (FP) PO SCH ×2 (20:30→21:08)
[2017-09-24] MEDS: TAMSULOSIN HCL 0.4 MG CAP.ER.24H (FP) PO SCH (09:28)
[2017-09-24] MEDS ORDERED: PT OWN MED DRAWER 7, Y5N ONE ×2 (10:45→21:12)
[2017-09-24] MEDS: APIXABAN 5 MG TABLET PO SCH ×2 (10:47→21:20)
[2017-09-24] MEDS: DONEPEZIL HCL 10 MG TABLET (FP) PO SCH (10:47)
--- NOTE | 2017-09-24 13:24 | PN ---
Progress Note (short form) - Note Progress Note: no complaints Current Medications Generic Name Dose Route Start Last Admin Trade Name Freq PRN Reason Stop Dose Admin Apixaban 5 mg 09/21/17 22:00 09/24/17 10:47 Eliquis - PO 5 mg BID HEATHER Administration Donepezil HCl 10 mg 09/21/17 10:00 09/24/17 10:47 Aricept - PO 10 mg DAILY HEATHER Administration Haloperidol 2 mg 09/22/17 14:40 09/23/17 20:29 Haldol Injection (Fast Acting) - IM 2 mg Q4H PRN Administration AGITATION Quetiapine Fumarate 25 mg 09/23/17 22:00 09/23/17 21:08 Seroquel - PO Not Given HS HEATHER Tamsulosin HCl 0.4 mg 09/22/17 08:30 09/24/17 09:28 Flomax - PO 0.4 mg DAILY@0830 HEATHER Administration Last Vital Signs Temp Pulse Resp BP Pulse Ox 97.6 F 63 20 126/70 98 09/24/17 10:34 09/24/17 10:34 09/24/17 10:34 09/24/17 10:34 09/23/17 21:00 General NAD A&O x1 (self only) Abdomen soft NT/ND +suprapubic catheter ASSESSMENT AND PLAN: 76yo M with PMH dementia and OA found wandering around [facility] 1. Acute toxic metabolic encephalopathy-A&O x1 which is baseline. some confusion and agitation in the evening requiring haldol. started on seroquel last night. with good affect. unable to get MRI due to agitation even with haldol prior to going. neuro on board 2. Elevated transminases- suggestive of hx of ETOH. hepatitis panel negative. resolved 3. afib-new onset. repeat EKG showing NSR. episodes of bradycardia. cont to hold betablocker. on eliquis. 3. CL- likely obstructive uropathy vs rhabdo +suprapubic cath. draining clear urine. slight pinkish urine in the evening, pt was noted to be pulling on cathter. call urology in AM to evaluate. on flomax for enlarged prostate. avoid nephrotoxic agents. urology on board 4. Hematuria- resolved. Hgb stable. no indication for transfusion 5. Rhabdo- possible walked from [place]. now below 1K 6. Leukocytosis-likely reactive. no signs of infection. UA negative for infection. will hold abx at this time. 7. DVT ppx- eliquis 8. will need [facility] placement, unable to care for himself. CM working on placement Visit type - Emergency Visit Emergency Visit: Yes ED Registration Date: 09/17/17 Care time: The patient presented to the Emergency Department on the above date and was hospitalized for further evaluation of their emergent condition. - New Patient This patient is new to me today: No - Critical Care Critical Care patient: No - Discharge Referral Referred to [facility] Med P.C.: No
[2017-09-24] MEDS: HALOPERIDOL LACTATE 5 MG/ML IM PRN (19:08)
[2017-09-24] MEDS: QUEtiapine FUMARATE 25 MG TABLET (FP) PO SCH (21:21)
[2017-09-25] MEDS: TAMSULOSIN HCL 0.4 MG CAP.ER.24H (FP) PO SCH (08:47)
[2017-09-25] MEDS ORDERED: PT OWN MED DRAWER 7, Y5N ONE ×2 (09:33→21:06)
[2017-09-25] MEDS: APIXABAN 5 MG TABLET PO SCH ×2 (09:38→21:16)
[2017-09-25] MEDS: DONEPEZIL HCL 10 MG TABLET (FP) PO SCH (09:38)
--- NOTE | 2017-09-25 13:43 | MSN ---
Progress Note (short form) - Note Progress Note: Subjective: Shantanu Sharp is a 76 yo M with PMHx of Dementia, elevated PSA, arthritis, and PVD, who was found wandering around the hospital. Patient was admitted for acute metabolic encephalopathy. Patient seen and examined. Patient is A&Ox1. He speech is confusing but his words are now more comprehensible. He is currently at his baseline mental status. Patient point to the left side of his abdomen when asked if he has pain anywhere. As per nurse, patient experiences periods of agitation then goes to sleep. Unable to obtain further history due to patient's condition. 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 Extremities: no pitting edema, DP pulses intact and 2+ bilaterally Unable to obtain further physical exam findings due to patient's condition Current Medications Generic Name Dose Route Start Last Admin Trade Name Freq PRN Reason Stop Dose Admin Apixaban 5 mg 09/21/17 22:00 09/25/17 09:38 Eliquis - PO 5 mg BID HEATHER Administration Donepezil HCl 10 mg 09/21/17 10:00 09/25/17 09:38 Aricept - PO 10 mg DAILY HEATHER Administration Haloperidol 2 mg 09/22/17 14:40 09/24/17 19:08 Haldol Injection (Fast Acting) - IM 2 mg Q4H PRN Administration AGITATION Quetiapine Fumarate 25 mg 09/23/17 22:00 09/24/17 21:21 Seroquel - PO 25 mg HS HEATHER Administration Tamsulosin HCl 0.4 mg 09/22/17 08:30 09/25/17 08:47 Flomax - PO 0.4 mg DAILY@0830 [facility] Administration Home Medications Medication Instructions Recorded Donepezil HCl 10 mg PO DAILY 09/21/17 Nabumetone 750 mg PO BID PRN 09/21/17 A/P: Shantanu Sharp is a 76 yo M with unknown PMHx who was found wandering around the hospital. Patient was admitted for acute metabolic encephalopathy. 1. Acute metabolic encephalopathy - Head CT showed diffuse cerebral atrophy with sulcal widening and ventricular enlargement but no acute pathology - PCP: Dr. Taurus Lo- [phone]. PCP is currently on vacation and won't return until Sep 26. As per nursing staff, patient has history of mild dementia, elevated PSA, arthritis and PVD. Currently on Donepezil 10mg and Nabumetone 750 mg for arthritis. Patient had splenectomy and right hernia repair in the past. - Librium discontinued since encephalopathy likely due to exacerbation of underlying dementia - Mahnaz Randhawa ([phone]) from [facility] seems to know the patient well. As per Mahnaz, patient's has severe dementia. At baseline he is A&Ox1, typically very confused. His speech is usually convoluted and doesn't make sense, however his words are comprehensible. He is able to go to familiar places but can't recall addresses. Patient doesn't have a neurologist. He was referred to a neurologist by his PCP but he never saw one. He is a moderate to heavy drinker. - Haldol PRN for agitation - Seroquel 25 mg PO HS - As per nurse, Haldol is not effective when patient experiences episodes of agitation, will consult psych for antipsychotic recommendations 2. New onset afib - Rate initially ranging from 90-100 - Metoprolol 12.5 mg was started for rate control, now discontinued due to bradycardia\ - Patient is back in sinus rhythm - As of now, CHADVASC score is 2- Eliquis 5 mg BID for AC 2. Rhabdomyolysis - Patient was found wandering outside, increased CK from rhabdomyolysis likely due to walking around - CK trending down - Resolved 3. Leukocytosis - WBC currently 12.2, trending down - Resolved 4. CL - Likely post renal, due to bladder outlet obstruction from enlarged prostate - Suprapubic catheter in place, draining clear yellow urine - Renal US showed mild bilateral hydronephrosis, mild upper abdominal ascites and 3cm left renal soft tissue mass vs artifact - Creatinine now normal, CL resolved - Will continue with suprapubic cath until patient voids 5. BPH - As per PCP, patient has history of mildly elevated PSA since February 2017 - Bladder US showed enlarged prostate, which was likely causing the bladder outlet obstruction - Flomax 0.4 mg PO daily 5. DVT proph - Eliquis 5mg PO BID 6. Diet - Dysphagia puree diet with nectar thick liquids due to aspiration risk Dispo: As per [facility] Mahnaz, Patient has Medicare Part A. Patient's SSN was obtained from Gisselle gallagher, . Pending insurance verification. Family agreed to SNF but not sure yet if patient should be placed in SNF in [place] where he would be closer to family or in [place] where he would be closer to his apartment and friends. Will continue to monitor patient.
--- NOTE | 2017-09-25 18:44 | PN ---
Progress Note (short form) - Note Progress Note: Paged by nursing staff that patient was with friend in bed, however restraints were not on pt. He became agitated and pulled out his suprapubic cath. Dressings applied to pt's former suprapubic cath entry point. PE: Pt currently calm with restraints on, confused per baseline with intelligible speech ABD: Bandages applied to former site of suprapubic cath without any blood let-through; nontender Attempts to contact urology being made at this point Monitor for signs of bleeding Monitor for signs of urinary retention. Signed out to night team to follow urine output
--- NOTE | 2017-09-25 19:43 | PN ---
Teaching Attending Note Name of Resident: Taurus Stokes ATTENDING PHYSICIAN STATEMENT time of evaluation: 12:10 PM I saw and evaluated the patient. I reviewed the resident's note and discussed the case with the resident. I agree with the resident's findings and plan as documented. SUBJECTIVE: Patient seen and examined. no complaints, oriented to self only. OBJECTIVE: Vital Signs Period Temp Pulse Resp BP Sys/Mackey Pulse Ox Last 24 Hr 97.6 F-97.9 F 58-74 18-20 93-140/59-75 96 Intake & Output 09/22/17 09/23/17 09/24/17 09/25/17 23:59 23:59 23:59 23:59 Intake Total 3555 1072 236 6311 Output Total 1300 1150 2600 1800 Balance 5565 -80 -1640 -560 general: lying in bed in no acute distress CVS:S1S2 regular, hipolito Chest: poor effort no rales or wheezing abdomen: soft, NT neuro AAOx1, facial symmetry, moves all extremities symmetrically, further exam limited Home Medication List Medication Instructions Recorded Confirmed Type Donepezil HCl 10 mg PO DAILY 09/21/17 09/21/17 History Nabumetone 750 mg PO BID PRN 09/21/17 09/21/17 History Active Medications Generic Name Dose Route Start Last Admin Trade Name Freq PRN Reason Stop Dose Admin Apixaban 5 mg 09/21/17 22:00 09/25/17 09:38 Eliquis - PO 5 mg BID HEATHER Administration Donepezil HCl 10 mg 09/21/17 10:00 09/25/17 09:38 Aricept - PO 10 mg DAILY HEATHER Administration Haloperidol 2 mg 09/22/17 14:40 09/24/17 19:08 Haldol Injection (Fast Acting) - IM 2 mg Q4H PRN Administration AGITATION Quetiapine Fumarate 25 mg 09/23/17 22:00 09/24/17 21:21 Seroquel - PO 25 mg HS HEATHER Administration Tamsulosin HCl 0.4 mg 09/22/17 08:30 09/25/17 08:47 Flomax - PO 0.4 mg DAILY@0830 [facility] Administration Laboratory Results - last 24 hr 09/21/17 16:00 Urine Myoglobin 4 Microbiology 09/17/17 15:30 Blood - Peripheral Venous Blood Culture - Final NO GROWTH AFTER 5 DAYS INCUBATION 09/17/17 15:30 Blood - Peripheral Venous Blood Culture - Final NO GROWTH AFTER 5 DAYS INCUBATION 09/20/17 18:30 Urine - Urine Suprapubic Urine Culture - Final NO GROWTH OBTAINED 09/17/17 15:45 Urine - Urine Clean Catch Urine Culture - Final NO GROWTH OBTAINED ASSESSMENT AND PLAN: 76yo M with PMH dementia and OA found wandering around [facility] 1. Acute toxic metabolic encephalopathy-A&O x1 which is baseline. some confusion and agitation in the evening requiring haldol. started on seroquel, still intermittent agitation and pulling at catheter. psych evaluation. 2. Elevated transminases- suggestive of hx of ETOH. hepatitis panel negative. resolved 3. afib-new onset. repeat EKG showing NSR. episodes of bradycardia. cont to hold betablocker. on eliquis. 3. CL- likely obstructive uropathy vs rhabdo +suprapubic cath. draining clear urine. slight pinkish urine in the evening, pt was noted to be pulling on cathter.urology consulted, follow up additional recs. on flomax for enlarged prostate. avoid nephrotoxic agents. urology on board 4. Hematuria- resolved. Hgb stable. no indication for transfusion 5. Rhabdo- possible walked from [place]. now below 1K 6. Leukocytosis-likely reactive. no signs of infection. UA negative for infection. will hold abx at this time. 7. DVT ppx- eliquis 8. will need mcc placement, unable to care for himself. CM working on placement
--- NOTE | 2017-09-25 20:25 | PN ---
Physical Exam: SUBJECTIVE: Patient seen and examined. AAOx1, at baseline. Pt agitated overnight, requiring restraints. No fever, chills. OBJECTIVE: Vital Signs Period Temp Pulse Resp BP Sys/Mackey Pulse Ox Last 24 Hr 97.6 F-97.9 F 58-74 18-20 93-140/59-75 96 GENERAL: AAOx1, to self, NAD. LUNGS: Breath sounds equal, clear to anterior auscultation bilaterally, no wheezes, no crackles, no accessory muscle use. HEART: Regular rate and rhythm, S1, S2 without murmur, rub or gallop. ABDOMEN: Soft, nontender, nondistended. EXTREMITIES: Warm, well-perfused, no edema. SKIN: Warm, dry, normal turgor, no rashes or lesions noted Laboratory Results - last 24 hr 09/21/17 16:00 Urine Myoglobin 4 Active Medications Generic Name Dose Route Start Last Admin Trade Name Freq PRN Reason Stop Dose Admin Apixaban 5 mg 09/21/17 22:00 09/25/17 09:38 Eliquis - PO 5 mg BID HEATHER Administration Donepezil HCl 10 mg 09/21/17 10:00 09/25/17 09:38 Aricept - PO 10 mg DAILY HEATHER Administration Haloperidol 2 mg 09/22/17 14:40 09/24/17 19:08 Haldol Injection (Fast Acting) - IM 2 mg Q4H PRN Administration AGITATION Quetiapine Fumarate 25 mg 09/23/17 22:00 09/24/17 21:21 Seroquel - PO 25 mg HS HEATHER Administration Tamsulosin HCl 0.4 mg 09/22/17 08:30 09/25/17 08:47 Flomax - PO 0.4 mg DAILY@0830 HEATHER Administration ASSESSMENT/PLAN: 76yo M with PMH dementia, PVD, arthritis, found wandering around [facility] property, admitted for acute toxic metabolic encephalopathy. # Acute toxic metabolic encephalopathy - possibly 2/2 hx of dementia - AAOx1, pt at his baseline - pt agitated, requiring Haldol and restraints - continue Seroquel and Haldol prn - Neuro (Dr. Juarez) recs appreciated: avoid benzo's - continue home med of Aricept - Psych Consult # new onset afib - pt continues to have episodes of bradycardia, continue to hold metoprolol - repeat EKG reveals NSR - continue Eliquis - Neuro (Dr. Juarez) recs appreciated: no bleed on Head CT, so AC ok from neuro standpoint. # CL - likely 2/2 retention vs rhabdomyolysis - s/p suprapubic cath with IR, draining clear yellow urine -> pt pulled out suprapubic cath this evening. - Urology Consult - Cr normalized - continue to monitor UOP - continue Flomax for enlarged prostate - avoid nephrotoxic agents # FEN - Fluids: po - Electrolytes: continue to monitor - Nutrition: dysphagia puree with nectar thick liquids per Speech Therapy # Prophylaxis - DVT ppx with Eliquis BID - deconditioning ppx with PT # dispo - family agreeable to SNF placement when pt is medically optimized - family deciding where pt should be placed, [place] vs [place] Visit type - Emergency Visit Emergency Visit: Yes ED Registration Date: 09/17/17 Care time: The patient presented to the Emergency Department on the above date and was hospitalized for further evaluation of their emergent condition. - New Patient This patient is new to me today: No - Critical Care Critical Care patient: No
[2017-09-25] MEDS: QUEtiapine FUMARATE 25 MG TABLET (FP) PO SCH (21:16)
[2017-09-25] MEDS: HALOPERIDOL LACTATE 5 MG/ML IM PRN (21:16)
[2017-09-26 09:14] LABS: INR 1.15 (0.82-1.09)
[2017-09-26 09:20] LABS: CHOLESTEROL 144 mg/dL (50-200); HDL CHOLESTEROL 47 mg/dL (40-60); LDL CHOLESTEROL (ONLY SJRH) 85 mg/dL (5-100); TRIGLYCERIDES 59 mg/dL (35-160)
[2017-09-26 09:29] LABS: HEMATOCRIT 35.4 % (35.4-49); HEMOGLOBIN 11.4 GM/dL (11.7-16.9); MCHC 32.1 g/dl (32.0-35.9); MEAN CELL VOLUME 87.1 fl (80-96); MEAN PLT VOLUME 8.9 fl (7.5-11.1); PLATELET COUNT 327 K/MM3 (134-434); RBC 4.06 M/mm3 (4.00-5.60); RDW 14.6 % (11.9-15.9); WHITE BLOOD COUNT 12.2 K/mm3 (4.0-10.0)
[2017-09-26 09:48] LABS: CHLORIDE 106 mmol/L (98-107); POTASSIUM 4.2 mmol/L (3.5-5.1); SODIUM 140 mmol/L (136-145)
[2017-09-26 09:53] LABS: ANION GAP 6 (8-16); BLOOD UREA NITROGEN 16 mg/dL (7-18); CALCIUM 8.7 mg/dL (8.5-10.1); CO2 28 mmol/L (21-32); CREATININE 0.7 mg/dL (0.7-1.3); GLUCOSE,RANDOM 110 mg/dL (74-106); PHOSPHOROUS 3.4 mg/dL (2.5-4.9)
[2017-09-26] MEDS: DONEPEZIL HCL 10 MG TABLET (FP) PO SCH (11:15)
[2017-09-26] MEDS: TAMSULOSIN HCL 0.4 MG CAP.ER.24H (FP) PO SCH (11:15)
[2017-09-26] MEDS: APIXABAN 5 MG TABLET PO SCH ×2 (11:16→22:41)
--- NOTE | 2017-09-26 11:36 | CON.GU ---
Consult Consult Specialty:: Referred by:: medicine Reason for Consultation:: urinary retention, BPH - History of Present Illness Chief Complaint: urinary retention History of Present Illness: 76 year old male with urinary retention from BPH. On admission attempts at mcintyre cath were unsuccesful and the patient went to IR for suprapubic cath placement. Last night the patient pulled out the catheter and he has not voided since. 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: Yes: Dementia Renal/: Yes: BPH - Smoking History Smoking history: Unknown if ever smoked Home Medications - Allergies Allergies/Adverse Reactions: Allergies Allergy/AdvReac Type Severity Reaction Status Date / Time No Known Drug Allergies Allergy Verified 09/21/17 14:18 - Home Medications Home Medications: Ambulatory Orders Donepezil HCl 10 mg PO DAILY 09/21/17 Nabumetone 750 mg PO BID PRN 09/21/17 Review of Systems - Review of Systems Genitourinary: reports: Other (urinary retention) Physical Exam- Vital Signs: Vital Signs Temperature 98.1 F 09/26/17 06:00 Pulse Rate 61 09/26/17 06:00 Respiratory Rate 18 09/26/17 06:00 Blood Pressure 126/75 09/26/17 06:00 O2 Sat by Pulse Oximetry (%) 97 09/25/17 21:34 Renal/: Yes: Bladder Distention, Other (closed SP site). No: Mcintyre Present Labs: CBC, BMP 09/26/17 06:00 09/26/17 06:00 Problem List - Problems (1) Benign localized hyperplasia of prostate with urinary retention Assessment/Plan: urethral mcintyre catheter placed. Patient would benefit from TURP. will need to discuss with family. Code(s): N40.1 - BENIGN PROSTATIC HYPERPLASIA WITH LOWER URINARY TRACT SYMP
--- NOTE | 2017-09-26 17:16 | PN ---
Progress Note, [facility] D[facility] DEPARTMENT - Note Progress Note: 76 yo male seen at bedside for follow up swallow eval 09/19/17 with recommendations for dysphagia puree and thicken liquids. Pt presents with metabolic encephalopathy, more calm this pm with restrains also with CL r/t obstr. uropathy vs. rhabdo, hematuria resolved. Chart review reveal pt is consuming approximately 50-75% of meals at this time. Pt given po trials of puree with total assistance revealed good acceptance, slow holding bolus with delayed A-P transport. Pharyngeal swallow is brisk with no s/s of aspiration at this time. Dan[place] liquids trial were unremarkable for dysphagia and or aspiration at this time. Continue Diet: Dysphagia Puree with Danforth thick liquids, Magic cup BID as tolerated. Observe standard aspiration precautions. Crush meds in purees. Remind pt to swallow bolus before offering another spoon. Results given verbally to chargeback analyst Liya and to pcp via chart
--- NOTE | 2017-09-26 18:23 | CON.PSY ---
Psychiatry Consult Chief Complaint: 76 year old white male was found wandering in the Hospital. Patient has been confus ed and been pullinf bcatherter and combative. Patient is unable to engage in any conversation at this time. Symptoms: reports: Memory Impairment, Aggressivity - Previous Psychiatric Treatment Outpatient: None Inpatient: None - Previous Substance Abuse Treatment Outpatient: None Inpatient: None - Current Medications Current Medications: Active Medications Apixaban (Eliquis -) 5 mg PO BID [facility] Last Admin: 09/26/17 11:16 Dose: Not Given Haloperidol (Haldol Injection (Fast Acting) -) 1 mg IM Q4H PRN PRN Reason: AGITATION Tamsulosin HCl (Flomax -) 0.4 mg PO DAILY@0830 [facility] Last Admin: 09/26/17 11:15 Dose: Not Given - Allergies Allergies: Allergies Allergy/AdvReac Type Severity Reaction Status Date / Time No Known Drug Allergies Allergy Verified 09/21/17 14:18 - Current Living Status Usual Living Arrangement: Other - Current Mental Status Evaluation Appearance: Disheveled Attitude: Belligerent - Affect Affect: Constrictive Appropriateness: Not Appropriate - Mood Mood: Angry - Speech/Language Expressive: Delayed - Psychomotor Activity Psychomotor Activity: Agitated - Thought Process Thought Process: Loosening of Associations - Thought Content Hallucinations: Absent Delusions: Absent - Self Perception Self Perception: Depersonalization - Cognition Attention: Diminished Memory, Immediate Recall: Impaired Memory, Remote: Impaired - Concentration Serial Sevens Intact: No Simple Calculations Intact: No - Abstraction Proverb Interpretation: Impaired Judgement: Severely Impaired - Insight Insight: Impaired - Impulse Control Impulse Control: Severly Impaired - Suicidal Ideation Suicidal Ideation: No - Homicidal Ideation Homicidal Ideation: No Assessment/Plan 1) d/c aricept and seroquel. 2) Zyprexa 5mg po bid.
--- NOTE | 2017-09-26 18:53 | PN ---
Teaching Attending Note Name of Resident: Jessica Hoffman ATTENDING PHYSICIAN STATEMENT Time of evaluation: 11:10 AM I saw and evaluated the patient. I reviewed the resident's note and discussed the case with the resident. I agree with the resident's findings and plan as documented. SUBJECTIVE: Patient seen and examined. oriented to self, no complaints. OBJECTIVE: Vital Signs Period Temp Pulse Resp BP Sys/Mackey Pulse Ox Last 24 Hr 98.1 F-99.1 F 61-72 18-20 125-130/65-75 97 Intake & Output 09/23/17 09/24/17 09/25/17 09/26/17 23:59 23:59 23:59 23:59 Intake Total 4856 774 8802 605 Output Total 1150 2600 1800 700 Balance -80 -1640 -560 -95 General: lying in bed in no acute distress Abdomen: mild suprapubic tenderness, no CVA tenderness, no voluntary or involuntary guarding or rigidity Extremities: mittens, no edema Neuro AA, oriented to self only Home Medication List Medication Instructions Recorded Confirmed Type Donepezil HCl 10 mg PO DAILY 09/21/17 09/21/17 History Nabumetone 750 mg PO BID PRN 09/21/17 09/21/17 History Active Medications Generic Name Dose Route Start Last Admin Trade Name Freq PRN Reason Stop Dose Admin Apixaban 5 mg 09/21/17 22:00 09/26/17 11:16 Eliquis - PO Not Given BID HEATHER Haloperidol 1 mg 09/26/17 13:45 Haldol Injection (Fast Acting) - IM Q4H PRN AGITATION Olanzapine 5 mg 09/26/17 22:00 Zyprexa - PO BID HEATHER Tamsulosin HCl 0.4 mg 09/22/17 08:30 09/26/17 11:15 Flomax - PO Not Given DAILY@0830 [facility] Laboratory Results - last 24 hr 09/26/17 09/26/17 09/26/17 06:00 06:00 06:00 WBC 12.2 H D RBC 4.06 Hgb 11.4 L Hct 35.4 MCV 87.1 MCH 28.0 MCHC 32.1 RDW 14.6 Plt Count 327 D MPV 8.9 PT with INR 13.00 H INR 1.15 H Sodium 140 Potassium 4.2 Chloride 106 Carbon Dioxide 28 Anion Gap 6 L BUN 16 Creatinine 0.7 Random Glucose 110 H D Calcium 8.7 Phosphorus 3.4 Magnesium 2.0 Triglycerides Cholesterol Total LDL Cholesterol HDL Cholesterol 09/26/17 06:00 WBC RBC Hgb Hct MCV MCH MCHC RDW Plt Count MPV PT with INR INR Sodium Potassium Chloride Carbon Dioxide Anion Gap BUN Creatinine Random Glucose Calcium Phosphorus Magnesium Triglycerides 59 Cholesterol 144 Total LDL Cholesterol 85 HDL Cholesterol 47 Microbiology 09/17/17 15:30 Blood - Peripheral Venous Blood Culture - Final NO GROWTH AFTER 5 DAYS INCUBATION 09/17/17 15:30 Blood - Peripheral Venous Blood Culture - Final NO GROWTH AFTER 5 DAYS INCUBATION 09/20/17 18:30 Urine - Urine Suprapubic Urine Culture - Final NO GROWTH OBTAINED 09/17/17 15:45 Urine - Urine Clean Catch Urine Culture - Final NO GROWTH OBTAINED assessment and plan 76yo M with PMH dementia and OA found wandering around [facility] 1. Acute toxic metabolic encephalopathy-A&O x1 which is baseline. some confusion and agitation in the evening requiring haldol. started on seroquel, still intermittent agitation and pulling at catheter. psych input noted, off haldol and seroquel, started on zyprexa, will monitor. 2. Elevated transminases- suggestive of hx of ETOH. hepatitis panel negative. resolved 3. afib-new onset. repeat EKG showing NSR. episodes of bradycardia. cont to hold betablocker. on eliquis. 3. CL- likely obstructive uropathy vs rhabdo +suprapubic cath. draining clear urine. slight pinkish urine in the evening, pt was noted to be pulling on cathter.urology consulted, follow up additional recs. on flomax for enlarged prostate. avoid nephrotoxic agents. urology on board Patient pulled suprapubic catheter yesterday, placed mcintyre by urology this AM, removed mcintyre as well. Reinforce mittens and start zyprexa. Discuss with urology. Monitor for obstruction. Bladder scan q6h. 4. Hematuria- recurrent post mcintyre placement, suspect from eliquis and trauma from mcintyre placement with enlargement, monitor h/h 5. Rhabdo- possible walked from [place]. now below 1K 6. Leukocytosis-likely reactive. no signs of infection. UA negative for infection. will hold abx at this time. 7. DVT ppx- eliquis 8. will need predatory animal exterminator placement, unable to care for himself. CM working on placement
--- NOTE | 2017-09-26 19:28 | PN ---
Physical Exam: SUBJECTIVE: Patient seen and examined. AAOx1 to self, pt much more conversant today although still confused. Mcintyre replaced by Urology this morning. Pt pulled out mcintyre this evening, replaced by nurse. No fevers, chills. OBJECTIVE: Vital Signs Period Temp Pulse Resp BP Sys/Mackey Pulse Ox Last 24 Hr 98.1 F-99.1 F 61-72 18-20 125-130/65-75 97 GENERAL: AAOx1, to self, NAD. LUNGS: Breath sounds equal, clear to anterior auscultation bilaterally, no wheezes, no crackles, no accessory muscle use. HEART: Regular rate and rhythm, S1, S2 without murmur, rub or gallop. ABDOMEN: Suprapubic cath site CDI. Mild suprapubic tenderness to palpation. No CVA tenderness. Soft, nondistended, no guarding. EXTREMITIES: Warm, well-perfused, no edema. SKIN: Warm, dry, normal turgor, no rashes or lesions noted Laboratory Results - last 24 hr 09/26/17 09/26/17 09/26/17 06:00 06:00 06:00 WBC 12.2 H D RBC 4.06 Hgb 11.4 L Hct 35.4 MCV 87.1 MCH 28.0 MCHC 32.1 RDW 14.6 Plt Count 327 D MPV 8.9 PT with INR 13.00 H INR 1.15 H Sodium 140 Potassium 4.2 Chloride 106 Carbon Dioxide 28 Anion Gap 6 L BUN 16 Creatinine 0.7 Random Glucose 110 H D Calcium 8.7 Phosphorus 3.4 Magnesium 2.0 Triglycerides Cholesterol Total LDL Cholesterol HDL Cholesterol 09/26/17 06:00 WBC RBC Hgb Hct MCV MCH MCHC RDW Plt Count MPV PT with INR INR Sodium Potassium Chloride Carbon Dioxide Anion Gap BUN Creatinine Random Glucose Calcium Phosphorus Magnesium Triglycerides 59 Cholesterol 144 Total LDL Cholesterol 85 HDL Cholesterol 47 Active Medications Generic Name Dose Route Start Last Admin Trade Name Freq PRN Reason Stop Dose Admin Apixaban 5 mg 09/21/17 22:00 09/26/17 11:16 Eliquis - PO Not Given BID HEATHER Haloperidol 1 mg 09/26/17 13:45 Haldol Injection (Fast Acting) - IM Q4H PRN AGITATION Olanzapine 5 mg 09/26/17 22:00 Zyprexa - PO BID HEATHER Tamsulosin HCl 0.4 mg 09/22/17 08:30 09/26/17 11:15 Flomax - PO Not Given DAILY@0830 [facility] ASSESSMENT/PLAN: 76yo M with PMH dementia, PVD, arthritis, found wandering around [facility] property, admitted for acute toxic metabolic encephalopathy. # Acute toxic metabolic encephalopathy - possibly 2/2 hx of dementia - AAOx1, pt at his baseline - Haldol reduced to 1mg IM q4hr prn - Psych (Dr. Ashton) recs appreciated: D/C Aricept and Seroquel. Add Zyprexa 5mg po BID. - Neuro (Dr. Juarez) recs appreciated: avoid benzo's - restraints still required for self protection as pt pulled out his mcintyre this evening # new onset afib - bradycardia resolved - repeat EKG reveals NSR - continue Eliquis - Neuro (Dr. Juarez) recs appreciated: no bleed on Head CT, so AC ok from neuro standpoint. # CL - likely 2/2 retention vs rhabdomyolysis - s/p suprapubic cath with IR, draining clear yellow urine -> pt pulled out suprapubic cath this evening on 09/25/17 - Cr normalized - continue to monitor UOP - continue Flomax for enlarged prostate - avoid nephrotoxic agents - Urology (Dr. Mcgraw) recs appreciated: pt would benefit from TURP. # hematuria - likely 2/2 trauma from mcintyre being pulled out and Eliquis - recurrent post mcintyre being pulled out - monitor hgb # leukocytosis - likely reactive - no s/s of infection - f/u UA # FEN - Fluids: po - Electrolytes: continue to monitor - Nutrition: Speech Therapy recs appreciated: continue dysphagia puree with nectar thick liquids, Magic cup BID as tolerated # Prophylaxis - DVT ppx with Eliquis BID - deconditioning ppx with PT # dispo - family agreeable to SNF placement when pt is medically optimized - family deciding where pt should be placed, [place] vs [place] Visit type - Emergency Visit Emergency Visit: Yes ED Registration Date: 09/17/17 Care time: The patient presented to the Emergency Department on the above date and was hospitalized for further evaluation of their emergent condition. - New Patient This patient is new to me today: No - Critical Care Critical Care patient: No
[2017-09-26 20:17] LABS: URINE APPEARANCE CLOUDY; URINE BILIRUBIN NEGATIVE (NEGATIVE); URINE BLOOD 3+ (NEGATIVE); URINE COLOR DKYELLOW; URINE GLUCOSE (UA) NEGATIVE (NEGATIVE); URINE KETONE NEGATIVE (NEGATIVE); URINE NITRITE NEGATIVE (NEGATIVE)
[2017-09-26 20:23] LABS: URINE LEUK ESTERASE 2+ (NEGATIVE); URINE PROTEIN 2+ (NEGATIVE)
[2017-09-26 20:34] LABS: URINE HYALINE CAST 10 /lpf; URINE MUCUS RARE
[2017-09-26 20:35] LABS: HEMATOCRIT 33.3 % (35.4-49); HEMOGLOBIN 10.9 GM/dL (11.7-16.9); MCH 28.5 pg (25.7-33.7); MCHC 32.7 g/dl (32.0-35.9); MEAN CELL VOLUME 86.9 fl (80-96); MEAN PLT VOLUME 8.5 fl (7.5-11.1); PLATELET COUNT 325 K/MM3 (134-434); RBC 3.84 M/mm3 (4.00-5.60); RDW 14.3 % (11.9-15.9)
[2017-09-26 21:16] LABS: COCAINE, UR NEGATIVE ng/ml (CUTOFF=300); METHADONE, UR NEGATIVE ng/ml (CUTOFF=300); OPIATES, URI NEGATIVE ng/ml (CUTOFF=300); PHENCYCLIDINE,URINE NEGATIVE ng/ml (CUTOFF=25); URINE AMPHETAMINES NEGATIVE ng/ml (CUTOFF=500); URINE BARBITURATES NEGATIVE ng/ml (CUTOFF=200)
[2017-09-26 21:17] LABS: URINE BENZODIAZEPINES POSITIVE ng/ml (CUTOFF=200)
[2017-09-26] MEDS ORDERED: PT OWN MED DRAWER 7, Y5N ONE (21:26)
[2017-09-26] MEDS ORDERED: QUEtiapine FUMARATE 50 MG TABLET PO SCH (22:00)
[2017-09-26] MEDS: OLANZapine 5 MG TABLET PO SCH (22:41)
[2017-09-26] MEDS: HALOPERIDOL LACTATE 5 MG/ML IM PRN (22:41)
[2017-09-27 07:17] LABS: HEMATOCRIT 36.8 % (35.4-49); HEMOGLOBIN 11.7 GM/dL (11.7-16.9); MCH 27.8 pg (25.7-33.7); MCHC 31.9 g/dl (32.0-35.9); MEAN CELL VOLUME 87.2 fl (80-96); MEAN PLT VOLUME 8.6 fl (7.5-11.1); PLATELET COUNT 330 K/MM3 (134-434); RBC 4.22 M/mm3 (4.00-5.60); RDW 14.4 % (11.9-15.9); WHITE BLOOD COUNT 13.3 K/mm3 (4.0-10.0)
[2017-09-27 09:18] LABS: ANION GAP 9 (8-16); BLOOD UREA NITROGEN 12 mg/dL (7-18); CALCIUM 8.8 mg/dL (8.5-10.1); CHLORIDE 103 mmol/L (98-107); CO2 28 mmol/L (21-32); CREATININE 0.7 mg/dL (0.7-1.3); GLUCOSE,RANDOM 92 mg/dL (74-106); POTASSIUM 4.1 mmol/L (3.5-5.1); SODIUM 140 mmol/L (136-145)
[2017-09-27] MEDS: APIXABAN 5 MG TABLET PO SCH ×2 (10:35→22:32)
[2017-09-27] MEDS: OLANZapine 5 MG TABLET PO SCH ×2 (10:35→22:32)
[2017-09-27] MEDS: TAMSULOSIN HCL 0.4 MG CAP.ER.24H (FP) PO SCH (10:35)
--- NOTE | 2017-09-27 17:22 | PN ---
Teaching Attending Note Name of Resident: Jessica Hoffman ATTENDING PHYSICIAN STATEMENT Time of evaluation: 11:10 AM I saw and evaluated the patient. I reviewed the resident's note and discussed the case with the resident. I agree with the resident's findings and plan as documented. SUBJECTIVE: patient seen and examined. oriented self, Intermittent conversations with self. Denies any pain or new complaints. OBJECTIVE: Vital Signs Period Temp Pulse Resp BP Sys/Mackey Pulse Ox Last 24 Hr 97.5 F-98.6 F 63-70 18-20 114-145/64-74 96 Intake & Output 09/24/17 09/25/17 09/26/17 09/27/17 23:59 23:59 23:59 23:59 Intake Total 960 1240 1025 645 Output Total 2600 1800 1900 1999 [place] -7407 -560 -875 -[phone] General: lying in bed in no acute distress Neuro: AAOX1, facial symmetry, moving all extermities symmetrically, further exam limited mcintyre catheter in place Abdomen: soft, NT, ND, positive bowel sounds Home Medication List Medication Instructions Recorded Confirmed Type Donepezil HCl 10 mg PO DAILY 09/21/17 09/21/17 History Nabumetone 750 mg PO BID PRN 09/21/17 09/21/17 History Active Medications Generic Name Dose Route Start Last Admin Trade Name Freq PRN Reason Stop Dose Admin Apixaban 5 mg 09/21/17 22:00 09/27/17 10:35 Eliquis - PO 5 mg BID HEATHER Administration Haloperidol 1 mg 09/26/17 13:45 09/26/17 22:41 Haldol Injection (Fast Acting) - IM 1 mg Q4H PRN Administration AGITATION Olanzapine 5 mg 09/26/17 22:00 09/27/17 10:35 Zyprexa - PO 5 mg BID HEATHER Administration Tamsulosin HCl 0.4 mg 09/22/17 08:30 09/27/17 10:35 Flomax - PO 0.4 mg DAILY@0830 HEATHER Administration Laboratory Results - last 24 hr 09/26/17 09/26/17 09/26/17 19:30 19:30 20:20 WBC 13.0 H RBC 3.84 L Hgb 10.9 L Hct 33.3 L MCV 86.9 MCH 28.5 MCHC 32.7 RDW 14.3 Plt Count 325 MPV 8.5 Sodium Potassium Chloride Carbon Dioxide Anion Gap BUN Creatinine Random Glucose Calcium Urine Color Dkyellow Urine Appearance Cloudy Urine pH 8.0 D Ur Specific [place] 1.013 Urine Protein 2+ H Urine Glucose (UA) Negative Urine Ketones Negative Urine Blood 3+ H Urine Nitrite Negative Urine Bilirubin Negative Urine Urobilinogen 2.0 Ur Leukocyte Esterase Trace H Urine WBC (Auto) 245 Urine RBC (Auto) 2308 Hyaline Casts 10 Urine Mucus Rare Opiates Screen Negative Methadone Screen Negative Barbiturate Screen Negative Phencyclidine Screen Negative Ur Amphetamines Screen Negative MDMA (Ecstasy) Screen Negative Benzodiazepines Screen Positive Cocaine Screen Negative U Marijuana (THC) Screen Negative 09/27/17 09/27/17 07:05 09:00 WBC 13.3 H RBC 4.22 Hgb 11.7 Hct 36.8 MCV 87.2 MCH 27.8 MCHC 31.9 L RDW 14.4 Plt Count 330 MPV 8.6 Sodium 140 Potassium 4.1 Chloride 103 Carbon Dioxide 28 Anion Gap 9 BUN 12 D Creatinine 0.7 Random Glucose 92 Calcium 8.8 Urine Color Urine Appearance Urine pH Ur Specific [place] Urine Protein Urine Glucose (UA) Urine Ketones Urine Blood Urine Nitrite Urine Bilirubin Urine Urobilinogen Ur Leukocyte Esterase Urine WBC (Auto) Urine RBC (Auto) Hyaline Casts Urine Mucus Opiates Screen Methadone Screen Barbiturate Screen Phencyclidine Screen Ur Amphetamines Screen MDMA (Ecstasy) Screen Benzodiazepines Screen Cocaine Screen U Marijuana (THC) Screen Microbiology 09/17/17 15:30 Blood - Peripheral Venous Blood Culture - Final NO GROWTH AFTER 5 DAYS INCUBATION 09/17/17 15:30 Blood - Peripheral Venous Blood Culture - Final NO GROWTH AFTER 5 DAYS INCUBATION 09/20/17 18:30 Urine - Urine Suprapubic Urine Culture - Final NO GROWTH OBTAINED 09/17/17 15:45 Urine - Urine Clean Catch Urine Culture - Final NO GROWTH OBTAINED ASSESSMENT AND PLAN: 76yo M with PMH dementia and OA found wandering around [facility] 1. Acute toxic metabolic encephalopathy-A&O x1 which is baseline. some confusion and agitation in the evening requiring haldol. started on seroquel, still intermittent agitation and pulling at catheter. psych input noted, off haldol and seroquel, started on zyprexa, will monitor. 2. Elevated transminases- suggestive of hx of ETOH. hepatitis panel negative. resolved 3. afib-new onset. repeat EKG showing NSR. episodes of bradycardia. cont to hold betablocker. on eliquis. 3. CL- likely obstructive uropathy vs rhabdo +suprapubic cath. draining clear urine. slight pinkish urine in the evening, pt was noted to be pulling on cathter.urology consulted, follow up additional recs. on flomax for enlarged prostate. avoid nephrotoxic agents. urology on board Patient pulled suprapubic catheter yesterday, placed mcintyre by urology this AM, removed mcintyre as well. Reinforce mittens and start zyprexa. Discuss with urology. Monitor for obstruction. Bladder scan q6h. 4. Hematuria- recurrent post mcintyre placement, suspect from eliquis and trauma from mcintyre placement with enlargement, monitor h/h, mcintyre, mcintyre re-insertion by nursing yesterday, will continue to [facility]. Discussed with urology, plan for outpatient follow up. Will re-address intervention inhouse, if unable to discharge patient soon. 5. Rhabdo- possible walked from [place]. now below 1K 6. Leukocytosis-likely reactive. no signs of infection. UA negative for infection. will hold abx at this time. 7. DVT ppx- eliquis 8. will need retirement placement, unable to care for himself. CM working on placement
--- NOTE | 2017-09-27 18:17 | PN ---
Physical Exam: SUBJECTIVE: Patient seen and examined. AAOx1 to self, pt conversant and confused. No fevers, chills. OBJECTIVE: Vital Signs Period Temp Pulse Resp BP Sys/Mackey Pulse Ox Last 24 Hr 97.5 F-98.6 F 63-70 18-20 114-145/64-74 96 GENERAL: AAOx1, to self, NAD. LUNGS: Breath sounds equal, clear to anterior auscultation bilaterally, no wheezes, no crackles, no accessory muscle use. HEART: Regular rate and rhythm, S1, S2 without murmur, rub or gallop. ABDOMEN: Suprapubic cath site CDI. Soft, nontender, nondistended. EXTREMITIES: Warm, well-perfused, no edema. SKIN: Warm, dry, normal turgor, no rashes or lesions noted Laboratory Results - last 24 hr 09/26/17 09/26/17 09/26/17 19:30 19:30 20:20 WBC 13.0 H RBC 3.84 L Hgb 10.9 L Hct 33.3 L MCV 86.9 MCH 28.5 MCHC 32.7 RDW 14.3 Plt Count 325 MPV 8.5 Sodium Potassium Chloride Carbon Dioxide Anion Gap BUN Creatinine Random Glucose Calcium Urine Color Dkyellow Urine Appearance Cloudy Urine pH 8.0 D Ur Specific [place] 1.013 Urine Protein 2+ H Urine Glucose (UA) Negative Urine Ketones Negative Urine Blood 3+ H Urine Nitrite Negative Urine Bilirubin Negative Urine Urobilinogen 2.0 Ur Leukocyte Esterase Trace H Urine WBC (Auto) 245 Urine RBC (Auto) 2308 Hyaline Casts 10 Urine Mucus Rare Opiates Screen Negative Methadone Screen Negative Barbiturate Screen Negative Phencyclidine Screen Negative Ur Amphetamines Screen Negative MDMA (Ecstasy) Screen Negative Benzodiazepines Screen Positive Cocaine Screen Negative U Marijuana (THC) Screen Negative 09/27/17 09/27/17 07:05 09:00 WBC 13.3 H RBC 4.22 Hgb 11.7 Hct 36.8 MCV 87.2 MCH 27.8 MCHC 31.9 L RDW 14.4 Plt Count 330 MPV 8.6 Sodium 140 Potassium 4.1 Chloride 103 Carbon Dioxide 28 Anion Gap 9 BUN 12 D Creatinine 0.7 Random Glucose 92 Calcium 8.8 Urine Color Urine Appearance Urine pH Ur Specific [place] Urine Protein Urine Glucose (UA) Urine Ketones Urine Blood Urine Nitrite Urine Bilirubin Urine Urobilinogen Ur Leukocyte Esterase Urine WBC (Auto) Urine RBC (Auto) Hyaline Casts Urine Mucus Opiates Screen Methadone Screen Barbiturate Screen Phencyclidine Screen Ur Amphetamines Screen MDMA (Ecstasy) Screen Benzodiazepines Screen Cocaine Screen U Marijuana (THC) Screen Active Medications Generic Name Dose Route Start Last Admin Trade Name Freq PRN Reason Stop Dose Admin Apixaban 5 mg 09/21/17 22:00 09/27/17 10:35 Eliquis - PO 5 mg BID HEATHER Administration Haloperidol 1 mg 09/26/17 13:45 09/26/17 22:41 Haldol Injection (Fast Acting) - IM 1 mg Q4H PRN Administration AGITATION CEFTRIAXONE 1 G/50 ML PREMIX 50 mls @ 100 mls/hr 09/27/17 18:00 Ceftriaxone 1 Gm-D5w Bag IVPB DAILY HEATHER Olanzapine 5 mg 09/26/17 22:00 09/27/17 10:35 Zyprexa - PO 5 mg BID HEATHER Administration Tamsulosin HCl 0.4 mg 09/22/17 08:30 09/27/17 10:35 Flomax - PO 0.4 mg DAILY@0830 HEATHER Administration ASSESSMENT/PLAN: 76yo M with PMH dementia, PVD, arthritis, found wandering around [facility] property, admitted for acute toxic metabolic encephalopathy. # UTI - UA (+) for UTI - f/u urine culture - leukocytosis noted - Day 1 IV Ceftriaxone # Acute toxic metabolic encephalopathy - possibly 2/2 hx of dementia - AAOx1, pt at his baseline - continue Haldol and Zyprexa - Neuro (Dr. Juarez) recs appreciated: avoid benzo's - restraints still required for self protection as pt pulled out his mcintyre this evening # new onset afib - bradycardia resolved - repeat EKG reveals NSR - continue Eliquis - Neuro (Dr. Juarez) recs appreciated: no bleed on Head CT, so AC ok from neuro standpoint. # CL - likely 2/2 retention vs rhabdomyolysis - s/p suprapubic cath with IR, draining clear yellow urine -> pt pulled out suprapubic cath this evening on 09/25/17 - Cr normalized - continue to monitor UOP - continue Flomax for enlarged prostate - avoid nephrotoxic agents - Urology (Dr. Mcgraw) recs appreciated: pt would benefit from TURP as outpt # hematuria - likely 2/2 trauma from mcintyre being pulled out and Eliquis - resolved - hgb stable # FEN - Fluids: po - Electrolytes: continue to monitor - Nutrition: dysphagia puree with nectar thick liquids, Magic cup BID as tolerated # Prophylaxis - DVT ppx with Eliquis BID - deconditioning ppx with PT # dispo - family agreeable to SNF placement when pt is medically optimized - family deciding where pt should be placed, [place] vs [place] Visit type - Emergency Visit Emergency Visit: Yes ED Registration Date: 09/17/17 Care time: The patient presented to the Emergency Department on the above date and was hospitalized for further evaluation of their emergent condition. - New Patient This patient is new to me today: No - Critical Care Critical Care patient: No
[2017-09-27] MEDS: CEFTRIAXONE 1 G/50 ML PREMIX 50 ML IVPB SCH (18:32)
[2017-09-28 08:43] LABS: HEMATOCRIT 35.3 % (35.4-49); HEMOGLOBIN 11.5 GM/dL (11.7-16.9); MCH 28.3 pg (25.7-33.7); MCHC 32.6 g/dl (32.0-35.9); MEAN CELL VOLUME 86.6 fl (80-96); MEAN PLT VOLUME 8.5 fl (7.5-11.1); PLATELET COUNT 341 K/MM3 (134-434); RBC 4.08 M/mm3 (4.00-5.60); RDW 14.6 % (11.9-15.9); WHITE BLOOD COUNT 10.9 K/mm3 (4.0-10.0)
--- NOTE | 2017-09-28 08:49 | PN ---
Teaching Attending Note Name of Resident: Jessica Hoffman ATTENDING PHYSICIAN STATEMENT Time of evaluation: 11:20 AM I saw and evaluated the patient. I reviewed the resident's note and discussed the case with the resident. I agree with the resident's findings and plan as documented. SUBJECTIVE: Patient seen and examined, oriented to self only, confused, unable to assess for full ROS. Denies any pain. OBJECTIVE: Vital Signs Period Temp Pulse Resp BP Sys/Mackey Pulse Ox Last 24 Hr 97.5 F-98.9 F 55-65 18-20 109-141/64-68 96-96 Intake & Output 09/25/17 09/26/17 09/27/17 09/28/17 23:59 23:59 23:59 23:59 Intake Total 1240 1025 1130 120 Output Total 1800 1900 2500 1200 Balance -560 -875 -1370 -1080 General: sitting in bed, confused, in no acute distress CVS: S1 S2 regular Chest: poor effort, no rales or wheezing Abdomen; soft, NT, positive bowel sounds extremities: no edema neuro AAOX1, facial symmetry, moves all extremities symmetrically, further exam limited Home Medication List Medication Instructions Recorded Confirmed Type Donepezil HCl 10 mg PO DAILY 09/21/17 09/21/17 History Nabumetone 750 mg PO BID PRN 09/21/17 09/21/17 History Active Medications Generic Name Dose Route Start Last Admin Trade Name Freq PRN Reason Stop Dose Admin Apixaban 5 mg 09/21/17 22:00 09/27/17 22:32 Eliquis - PO 5 mg BID HEATHER Administration Haloperidol 1 mg 09/26/17 13:45 09/26/17 22:41 Haldol Injection (Fast Acting) - IM 1 mg Q4H PRN Administration AGITATION CEFTRIAXONE 1 G/50 ML PREMIX 50 mls @ 100 mls/hr 09/27/17 18:00 09/27/17 18: 32 Ceftriaxone 1 Gm-D5w Bag IVPB 100 mls/hr DAILY HEATHER Administration Olanzapine 5 mg 09/26/17 22:00 09/27/17 22:32 Zyprexa - PO 5 mg BID HEATHER Administration Tamsulosin HCl 0.4 mg 09/22/17 08:30 09/27/17 10:35 Flomax - PO 0.4 mg DAILY@0830 HEATHER Administration Microbiology 09/17/17 15:30 Blood - Peripheral Venous Blood Culture - Final NO GROWTH AFTER 5 DAYS INCUBATION 09/17/17 15:30 Blood - Peripheral Venous Blood Culture - Final NO GROWTH AFTER 5 DAYS INCUBATION 09/20/17 18:30 Urine - Urine Suprapubic Urine Culture - Final NO GROWTH OBTAINED 09/17/17 15:45 Urine - Urine Clean Catch Urine Culture - Final NO GROWTH OBTAINED ASSESSMENT AND PLAN: 76yo M with PMH dementia and OA found wandering around [facility] 1. Acute toxic metabolic encephalopathy-A&O x1 which is baseline. some confusion and agitation in the evening requiring haldol. started on seroquel, still intermittent agitation and pulling at catheter. psych input noted, off haldol and seroquel, started on zyprexa, will monitor. Now with UTI, could be contributory to more confusion and pulling at catheters. 2. Lower complicated UTI - ceftriaxone day 2, follow up urine cultures. 3. Hematuria- recurrent post mcintyre placement, suspect from eliquis and trauma from mcintyre placement with enlargement, monitor h/h, mcintyre, mcintyre re-insertion by nursing 09/27, will continue to [facility]. Dicussed with Dr. Lentz, will address inpatient TURP if no dispo plan soon. 4. Elevated transminases- suggestive of hx of ETOH. hepatitis panel negative. resolved 5. afib-new onset. repeat EKG showing NSR. episodes of bradycardia. cont to hold betablocker. on eliquis. may need to hold if urological intervention indicated 6. CL- likely obstructive uropathy vs rhabdo +suprapubic cath. draining clear urine. slight pinkish urine in the evening, pt was noted to be pulling on cathter.urology consulted, follow up additional recs. on flomax for enlarged prostate. avoid nephrotoxic agents. urology on board Patient pulled suprapubic catheter yesterday, placed mcintyre by urology , patient self removed mcintyre as well. Repeat mcintyre insertion by RN on 09/27. Reinforce mittens and start zyprexa. Discussed with Dr Lentz, willl address possiblel TURP if patient continues to be inhouse. 7. Rhabdo- possible walked from [place]. now below 1K 8. Leukocytosis-persistent, likely from UTI, antibiotics as above. 9. DVT ppx- eliquis 10. 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 CM working on placement
[2017-09-28] MEDS: TAMSULOSIN HCL 0.4 MG CAP.ER.24H (FP) PO SCH (09:06)
[2017-09-28 09:17] LABS: ANION GAP 5 (8-16); BLOOD UREA NITROGEN 13 mg/dL (7-18); CALCIUM 8.4 mg/dL (8.5-10.1); CHLORIDE 106 mmol/L (98-107); CO2 28 mmol/L (21-32); GLUCOSE,RANDOM 84 mg/dL (74-106); POTASSIUM 4.2 mmol/L (3.5-5.1); SODIUM 139 mmol/L (136-145)
[2017-09-28 09:19] LABS: CREATININE 0.6 mg/dL (0.7-1.3)
[2017-09-28] MEDS ORDERED: PT OWN MED DRAWER 7, Y5N ONE ×2 (10:53→21:19)
[2017-09-28] MEDS: OLANZapine 5 MG TABLET PO SCH ×2 (10:56→21:40)
[2017-09-28] MEDS: APIXABAN 5 MG TABLET PO SCH ×2 (10:56→21:40)
[2017-09-28] MEDS: CEFTRIAXONE 1 G/50 ML PREMIX 50 ML IVPB SCH (14:43)
--- NOTE | 2017-09-28 14:56 | PN ---
Physical Exam: SUBJECTIVE: Patient seen and examined. Pt pulling at mcintyre last night leading to some hematuria which resolved. Mcintyre yielding clear yellow urine this morning. AAOx1 to self, pt conversant and remains confused. No fevers, chills. OBJECTIVE: Vital Signs Period Temp Pulse Resp BP Sys/Mackey Pulse Ox Last 24 Hr 97.2 F-98.9 F 55-70 20-20 102-141/56-68 96 GENERAL: AAOx1, to self, NAD. LUNGS: Breath sounds equal, clear to anterior auscultation bilaterally, no wheezes, no crackles, no accessory muscle use. HEART: Regular rate and rhythm, S1, S2 without murmur, rub or gallop. ABDOMEN: Suprapubic cath site CDI. Soft, nontender, nondistended, normoactive bowel sounds. EXTREMITIES: Right 2+ dorsalis pedis, Left 2+ Posterior Tibialis, Warm, well- perfused, no edema. SKIN: Warm, dry, normal turgor, no rashes or lesions noted Laboratory Results - last 24 hr 09/28/17 09/28/17 07:05 07:05 WBC 10.9 H RBC 4.08 Hgb 11.5 L Hct 35.3 L MCV 86.6 MCH 28.3 MCHC 32.6 RDW 14.6 Plt Count 341 MPV 8.5 Sodium 139 Potassium 4.2 Chloride 106 Carbon Dioxide 28 Anion Gap 5 L BUN 13 Creatinine 0.6 L Random Glucose 84 Calcium 8.4 L Active Medications Generic Name Dose Route Start Last Admin Trade Name Freq PRN Reason Stop Dose Admin Apixaban 5 mg 09/21/17 22:00 09/28/17 10:56 Eliquis - PO 5 mg BID HEATHER Administration Haloperidol 1 mg 09/26/17 13:45 09/26/17 22:41 Haldol Injection (Fast Acting) - IM 1 mg Q4H PRN Administration AGITATION CEFTRIAXONE 1 G/50 ML PREMIX 50 mls @ 100 mls/hr 09/27/17 18:00 09/28/17 14: 43 Ceftriaxone 1 Gm-D5w Bag IVPB 100 mls/hr DAILY HEATHER Administration Olanzapine 5 mg 09/26/17 22:00 09/28/17 10:56 Zyprexa - PO 5 mg BID HEATHER Administration Tamsulosin HCl 0.4 mg 09/22/17 08:30 09/28/17 09:06 Flomax - PO 0.4 mg DAILY@0830 [facility] Administration ASSESSMENT/PLAN: 76yo M with PMH dementia, PVD, arthritis, found wandering around [facility] property, admitted for acute toxic metabolic encephalopathy. # UTI - f/u urine culture - leukocytosis noted - Day 2 IV Ceftriaxone # Acute toxic metabolic encephalopathy - possibly 2/2 hx of dementia - AAOx1, pt at his baseline - continue Haldol and Zyprexa - Neuro (Dr. Juarez) recs appreciated: avoid benzo's - restraints still required for self protection # new onset afib - repeat EKG reveals NSR - continue Eliquis - Neuro (Dr. Juarez) recs appreciated: no bleed on Head CT, so AC ok from neuro standpoint. # CL - likely 2/2 retention vs rhabdomyolysis - s/p suprapubic cath with IR -> pt pulled out suprapubic cath on 09/25/17 - Cr normalized - continue to monitor UOP - continue Flomax for enlarged prostate - avoid nephrotoxic agents - Urology (Dr. Mcgraw) recs appreciated: pt would benefit from TURP # hematuria - likely 2/2 trauma from mcintyre being pulled out and Eliquis - resolved - hgb stable # FEN - Fluids: po - Electrolytes: continue to monitor - Nutrition: dysphagia puree with nectar thick liquids, Magic cup BID as tolerated # Prophylaxis - DVT ppx with Eliquis BID - deconditioning ppx with PT # dispo - family agreeable to SNF placement when pt is medically optimized - family deciding where pt should be placed, [place] vs [place] Visit type - Emergency Visit Emergency Visit: Yes ED Registration Date: 09/17/17 Care time: The patient presented to the Emergency Department on the above date and was hospitalized for further evaluation of their emergent condition. - New Patient This patient is new to me today: No - Critical Care Critical Care patient: No
[2017-09-28] MEDS: HALOPERIDOL LACTATE 5 MG/ML IM PRN (23:50)
[2017-09-29 08:24] LABS: HEMATOCRIT 33.7 % (35.4-49); MCH 28.3 pg (25.7-33.7); MCHC 32.8 g/dl (32.0-35.9); MEAN CELL VOLUME 86.5 fl (80-96); MEAN PLT VOLUME 8.1 fl (7.5-11.1); PLATELET COUNT 363 K/MM3 (134-434); RBC 3.89 M/mm3 (4.00-5.60); RDW 14.4 % (11.9-15.9); WHITE BLOOD COUNT 10.3 K/mm3 (4.0-10.0)
[2017-09-29 08:48] LABS: ANION GAP 7 (8-16); BLOOD UREA NITROGEN 17 mg/dL (7-18); CALCIUM 8.7 mg/dL (8.5-10.1); CHLORIDE 105 mmol/L (98-107); CO2 31 mmol/L (21-32); GLUCOSE,RANDOM 81 mg/dL (74-106); POTASSIUM 4.3 mmol/L (3.5-5.1); SODIUM 143 mmol/L (136-145)
[2017-09-29 08:49] LABS: CREATININE 0.7 mg/dL (0.7-1.3)
[2017-09-29] MEDS ORDERED: PT OWN MED DRAWER 7, Y5N ONE ×2 (09:22→21:35)
[2017-09-29] MEDS: TAMSULOSIN HCL 0.4 MG CAP.ER.24H (FP) PO SCH (09:24)
[2017-09-29] MEDS: CEFTRIAXONE 1 G/50 ML PREMIX 50 ML IVPB SCH (09:25)
[2017-09-29] MEDS: OLANZapine 5 MG TABLET PO SCH ×2 (09:26→21:46)
[2017-09-29] MEDS: APIXABAN 5 MG TABLET PO SCH ×2 (09:26→21:46)
--- NOTE | 2017-09-29 11:32 | PN ---
Teaching Attending Note Name of Resident: . ATTENDING PHYSICIAN STATEMENT Time of evaluation: 8:50 AM I saw and evaluated the patient. I reviewed the resident's note and discussed the case with the resident. I agree with the resident's findings and plan as documented. SUBJECTIVE: patient seen and examined, sleeping comfortably, easily arousable, oriented to self. confused. no pain or complaints. Limited ROS given his dementia. OBJECTIVE: Vital Signs Period Temp Pulse Resp BP Sys/Mackey Pulse Ox Last 24 Hr 97.5 F-98.6 F 55-68 18-20 90-136/51-87 Intake & Output 09/26/17 09/27/17 09/28/17 09/29/17 23:59 23:59 23:59 23:59 Intake Total 1025 1130 1110 120 Output Total 1900 2500 2100 100 Balance -875 -1370 -990 20 General: sleeping comfortably in bed, arousable Abdomen: soft, NT, ND, positive bowel sounds extremities: mittens, no edema Neuro: moves all extremities, facial symmetry, oriented to self only Home Medication List Medication Instructions Recorded Confirmed Type Donepezil HCl 10 mg PO DAILY 09/21/17 09/21/17 History Nabumetone 750 mg PO BID PRN 09/21/17 09/21/17 History Active Medications Generic Name Dose Route Start Last Admin Trade Name Jade PRN Reason Stop Dose Admin Apixaban 5 mg 09/21/17 22:00 09/29/17 09:26 Eliquis - PO 5 mg BID HEATHER Administration Haloperidol 1 mg 09/26/17 13:45 09/28/17 23:50 Haldol Injection (Fast Acting) - IM 1 mg Q4H PRN Administration AGITATION CEFTRIAXONE 1 G/50 ML PREMIX 50 mls @ 100 mls/hr 09/27/17 18:00 09/29/17 09: 25 Ceftriaxone 1 Gm-D5w Bag IVPB 100 mls/hr DAILY HEATHER Administration Olanzapine 5 mg 09/26/17 22:00 09/29/17 09:26 Zyprexa - PO 5 mg BID HEATHER Administration Tamsulosin HCl 0.4 mg 09/22/17 08:30 09/29/17 09:24 Flomax - PO 0.4 mg DAILY@0830 HEATHER Administration Laboratory Results - last 24 hr 09/29/17 09/29/17 07:40 07:40 WBC 10.3 H RBC 3.89 L Hgb 11.0 L Hct 33.7 L MCV 86.5 MCH 28.3 MCHC 32.8 RDW 14.4 Plt Count 363 MPV 8.1 Sodium 143 Potassium 4.3 Chloride 105 Carbon Dioxide 31 Anion Gap 7 L BUN 17 D Creatinine 0.7 Random Glucose 81 Calcium 8.7 Microbiology 09/27/17 19:30 Urine - Urine Mcintyre Urine Culture - Preliminary Group D Strep Or Entero Coccus 09/17/17 15:30 Blood - Peripheral Venous Blood Culture - Final NO GROWTH AFTER 5 DAYS INCUBATION 09/17/17 15:30 Blood - Peripheral Venous Blood Culture - Final NO GROWTH AFTER 5 DAYS INCUBATION 09/20/17 18:30 Urine - Urine Suprapubic Urine Culture - Final NO GROWTH OBTAINED 09/17/17 15:45 Urine - Urine Clean Catch Urine Culture - Final NO GROWTH OBTAINED ASSESSMENT AND PLAN: 76yo M with PMH dementia and OA found wandering around [facility] 1. Acute toxic metabolic encephalopathy-A&O x1 which is baseline. some confusion and agitation in the evening requiring haldol. started on seroquel, still intermittent agitation and pulling at catheter. psych input noted, off haldol and seroquel, started on zyprexa, will monitor. Now with UTI, could be contributory to more confusion and pulling at catheters. 2. Lower complicated UTI - ceftriaxone day 3, urien cultures with gp d strep vs enterococcus, follow up. 3. Hematuria- recurrent post mcintyre placement, suspect from eliquis and trauma from mcintyre placement with enlargement, monitor h/h, mcintyre, mcintyre re-insertion by nursing 09/27, [facility]ic[facility] Dr. Lentz, will address inpatient TURP if no dispo plan soon. 4. Elevated transminases- suggestive of hx of ETOH. hepatitis panel negative. resolved 5. afib-new onset. repeat EKG showing NSR. episodes of bradycardia. cont to hold betablocker. on eliquis. may need to hold if urological intervention indicated. GIven recurrent hematuria, cognitive status with constant risk at pulling catheters, falls, need to reconsider full dose anticoagulation. May place on ASA 81 mg daily if ongoing concerns with hematuria +/- anemia till prostate issues have been addressed. 6. CL- likely obstructive uropathy vs rhabdo +suprapubic cath. draining clear urine. slight pinkish urine in the evening, pt was noted to be pulling on cathter.urology consulted, follow up additional recs. on flomax for enlarged prostate. avoid nephrotoxic agents. urology on board Patient pulled suprapubic catheter yesterday, placed mcintyre by urology , patient self removed mcintyre as well. Repeat mcintyre insertion by RN on 09/27. Reinforce mittens and continue zyprexa. Discussed with patricia Rodas address possiblel TURP if patient continues to be inhouse. 7. Rhabdo- possible walked from [place]. now below 1K 8. Leukocytosis- improved with antibotics for UTI, monitor. 9. DVT ppx- eliquis 10. will need alf placement, unable to care for himself. CM working on placement
[2017-09-29] MEDS: HALOPERIDOL LACTATE 5 MG/ML IM PRN (21:46)
[2017-09-30 08:23] LABS: BASO % 1.2 % (0-2.0); EOS % 3.3 % (0-4.5); HEMATOCRIT 32.2 % (35.4-49); HEMOGLOBIN 10.6 GM/dL (11.7-16.9); LYMPH % 14.9 % (8-40); MCH 28.3 pg (25.7-33.7); MCHC 32.9 g/dl (32.0-35.9); MEAN CELL VOLUME 86.1 fl (80-96); MEAN PLT VOLUME 8.2 fl (7.5-11.1); MONO % 11.1 % (3.8-10.2); NEUT % 69.5 % (42.8-82.8); PLATELET COUNT 363 K/MM3 (134-434); RBC 3.74 M/mm3 (4.00-5.60); RDW 14.6 % (11.9-15.9); WHITE BLOOD COUNT 9.5 K/mm3 (4.0-10.0)
[2017-09-30] MEDS ORDERED: PT OWN MED DRAWER 7, Y5N ONE (10:04)
[2017-09-30] MEDS: TAMSULOSIN HCL 0.4 MG CAP.ER.24H (FP) PO SCH (10:13)
[2017-09-30] MEDS: APIXABAN 5 MG TABLET PO SCH ×2 (10:13→22:26)
[2017-09-30] MEDS: CEFTRIAXONE 1 G/50 ML PREMIX 50 ML IVPB SCH (10:13)
[2017-09-30] MEDS: OLANZapine 5 MG TABLET PO SCH ×2 (10:13→22:26)
--- NOTE | 2017-09-30 10:59 | PN ---
Teaching Attending Note Name of Resident: . ATTENDING PHYSICIAN STATEMENT SUBJECTIVE: patient seen and examined. sleeping, arousable, oriented to self, no complaints , unable to do ROS. OBJECTIVE: Vital Signs Period Temp Pulse Resp BP Sys/Mackey Pulse Ox Last 24 Hr 98.3 F-98.8 F 67-70 18-20 104-119/50-60 97 Intake & Output 09/27/17 09/28/17 09/29/17 09/30/17 23:59 23:59 23:59 23:59 Intake Total 1130 1110 1140 Output Total 2500 2100 1200 900 Balance -1370 -990 -60 -900 General: sleeping in bed, arousable Chest: decreased effort, no rales or wheezing abdomen: soft, nT, ND, positive bowel sounds extremities: mittens Home Medication List Medication Instructions Recorded Confirmed Type Donepezil HCl 10 mg PO DAILY 09/21/17 09/21/17 History Nabumetone 750 mg PO BID PRN 09/21/17 09/21/17 History Active Medications Generic Name Dose Route Start Last Admin Trade Name Jade PRN Reason Stop Dose Admin Apixaban 5 mg 09/21/17 22:00 09/30/17 10:13 Eliquis - PO 5 mg BID HEATHER Administration Haloperidol 1 mg 09/26/17 13:45 09/29/17 21:46 Haldol Injection (Fast Acting) - IM 1 mg Q4H PRN Administration AGITATION CEFTRIAXONE 1 G/50 ML PREMIX 50 mls @ 100 mls/hr 09/27/17 18:00 09/30/17 10: 13 Ceftriaxone 1 Gm-D5w Bag IVPB 100 mls/hr DAILY HEATHER Administration Olanzapine 5 mg 09/26/17 22:00 09/30/17 10:13 Zyprexa - PO 5 mg BID HEATHER Administration Tamsulosin HCl 0.4 mg 09/22/17 08:30 09/30/17 10:13 Flomax - PO 0.4 mg DAILY@0830 HEATHER Administration Laboratory Results - last 24 hr 09/30/17 07:30 WBC 9.5 RBC 3.74 L Hgb 10.6 L Hct 32.2 L MCV 86.1 MCH 28.3 MCHC 32.9 RDW 14.6 Plt Count 363 MPV 8.2 Neutrophils % 69.5 Lymphocytes % 14.9 D Monocytes % 11.1 H Eosinophils % 3.3 D Basophils % 1.2 D Microbiology 09/27/17 19:30 Urine - Urine Mcintyre Urine Culture - Preliminary Enterococcus Faecalis 09/17/17 15:30 Blood - Peripheral Venous Blood Culture - Final NO GROWTH AFTER 5 DAYS INCUBATION 09/17/17 15:30 Blood - Peripheral Venous Blood Culture - Final NO GROWTH AFTER 5 DAYS INCUBATION 09/20/17 18:30 Urine - Urine Suprapubic Urine Culture - Final NO GROWTH OBTAINED 09/17/17 15:45 Urine - Urine Clean Catch Urine Culture - Final NO GROWTH OBTAINED ASSESSMENT AND PLAN: 76yo M with PMH dementia and OA found wandering around [facility] 1. Acute toxic metabolic encephalopathy-A&O x1 which is baseline. confusion improved with standing zyprexa, bedtime haldol prn, and likely from treatment of UTI. Check EKG today to monitor QTC, discussed with RN. 2. Lower complicated UTI - ceftriaxone day 4, urine cultures with enterococcus faecalis. Change to amoxicillin for a 7 day course. 3. Hematuria- recurrent post mcintyre placement, suspect from eliquis and trauma from mcintyre placement with enlargement, monitor h/h, mcintyre, mcintyre re-insertion by nursing 09/27, [facility]icussed with Dr. Lentz, will address inpatient TURP if no dispo plan soon. 4. Elevated transminases- suggestive of hx of ETOH. hepatitis panel negative. resolved 5. afib-new onset. repeat EKG showing NSR. episodes of bradycardia. cont to hold betablocker. on eliquis. may need to hold if urological intervention indicated. GIven recurrent hematuria, cognitive status with constant risk at pulling catheters, falls, need to reconsider full dose anticoagulation. May place on ASA 81 mg daily if ongoing concerns with hematuria +/- anemia till prostate issues have been addressed. 6. CL- likely obstructive uropathy vs rhabdo +suprapubic cath. draining clear urine. slight pinkish urine in the evening, pt was noted to be pulling on cathter.urology consulted, follow up additional recs. on flomax for enlarged prostate. avoid nephrotoxic agents. urology on board Patient pulled suprapubic catheter yesterday, placed mcintyre by urology , patient self removed mcintyre as well. Repeat mcintyre insertion by RN on 1/4. Reinforce mittens and continue zyprexa. Discussed with patricia Rodas address possiblel TURP if patient continues to be inhouse. 7. Rhabdo- possible walked from [place]. now below 1K 8. Leukocytosis- improved with antibotics for UTI, monitor. 9. DVT ppx- eliquis 10. will need drapery examiner placement, unable to care for himself. CM working on placement Plan discussed with RN in detail.
[2017-09-30] MEDS: HALOPERIDOL LACTATE 5 MG/ML IM PRN (22:26)
[2017-10-01 08:10] LABS: BASO % 1.3 % (0-2.0); EOS % 4.7 % (0-4.5); HEMATOCRIT 33.8 % (35.4-49); HEMOGLOBIN 10.7 GM/dL (11.7-16.9); LYMPH % 15.4 % (8-40); MCH 27.7 pg (25.7-33.7); MCHC 31.8 g/dl (32.0-35.9); MEAN CELL VOLUME 86.9 fl (80-96); MONO % 10.8 % (3.8-10.2); NEUT % 67.8 % (42.8-82.8); PLATELET COUNT 360 K/MM3 (134-434); RBC 3.89 M/mm3 (4.00-5.60); WHITE BLOOD COUNT 7.8 K/mm3 (4.0-10.0)
[2017-10-01] MEDS ORDERED: PT OWN MED DRAWER 7, Y5N ONE (11:11)
[2017-10-01] MEDS: TAMSULOSIN HCL 0.4 MG CAP.ER.24H (FP) PO SCH (11:19)
[2017-10-01] MEDS: OLANZapine 5 MG TABLET PO SCH ×2 (11:19→21:16)
[2017-10-01] MEDS: APIXABAN 5 MG TABLET PO SCH ×2 (11:19→21:15)
[2017-10-01] MEDS: CEFTRIAXONE 1 G/50 ML PREMIX 50 ML IVPB SCH (11:20)
--- NOTE | 2017-10-01 11:50 | PN ---
Progress Note, [employer] DRAW[employer] - Note Progress Note: 76yo M with PMH dementia and OA found wandering around [facility] Acute toxic metabolic encephalopathy-A&O x1 which is baseline. Confusion improved Selected Entries 09/30/17 09/30/17 09/30/17 10:22 14:24 18:00 Temperature 98.7 F 98.5 F 98.0 F 09/30/17 10/01/17 21:00 05:58 Temperature 98.3 F 97.4 F L Laboratory Tests 09/29/17 09/30/17 10/01/17 07:40 07:30 07:16 WBC 10.3 H 9.5 7.8 Lethargic. Had Haldol last night. Continue puree/nectar, when sufficiently alert, as tolerated.
--- NOTE | 2017-10-01 12:39 | EKG ---
Test Reason : Blood Pressure : / mmHG Vent. Rate : 059 BPM Atrial Rate : 117 BPM P-R Int : 214 ms QRS Dur : 068 ms QT Int : 406 ms P-R-T Axes : 075 -08 062 degrees QTc Int : 401 ms WITH SINUS ARRHYTHMIA LOW VOLTAGE QRS ABNORMAL ECG WHEN COMPARED WITH ECG OF 23-SEP-2017 13:57, T WAVE VARIATION Confirmed by DIANA HARRIS, ABRAHAN ([id number]) on 10/01/2017 12:39:09 PM Referred By: Chava BAGLEY Confirmed By:ABRAHAN ORTIZ MD
--- NOTE | 2017-10-01 13:51 | PN ---
Teaching Attending Note Name of Resident: Jessica Hoffman ATTENDING PHYSICIAN STATEMENT Time of evaluation: 11:20 AM I saw and evaluated the patient. I reviewed the resident's note and discussed the case with the resident. I agree with the resident's findings and plan as documented. SUBJECTIVE: patient seen and examined. oriented to self, no complaints. OBJECTIVE: Vital Signs Period Temp Pulse Resp BP Sys/Mackey Pulse Ox Last 24 Hr 97.4 F-98.5 F 59-64 18-20 104-144/52-75 96 Intake & Output 09/28/17 09/29/17 09/30/17 10/01/17 23:59 23:59 23:59 23:59 Intake Total 1110 1140 700 Output Total 2100 1200 1800 Balance - General: sitting in bed, confused, in no acute distress CVS:S1s2 regular Chest: poor effort abdomen: soft, NT, ND, positive bowel sounds Home Medication List Medication Instructions Recorded Confirmed Type Donepezil HCl 10 mg PO DAILY 09/21/17 09/21/17 History Nabumetone 750 mg PO BID PRN 09/21/17 09/21/17 History Active Medications Generic Name Dose Route Start Last Admin Trade Name Freq PRN Reason Stop Dose Admin Apixaban 5 mg 09/21/17 22:00 10/01/17 11:19 Eliquis - PO 5 mg BID HEATHER Administration Haloperidol 1 mg 09/26/17 13:45 09/30/17 22:26 Haldol Injection (Fast Acting) - IM 1 mg Q4H PRN Administration AGITATION CEFTRIAXONE 1 G/50 ML PREMIX 50 mls @ 100 mls/hr 09/27/17 18:00 10/01/17 11: 20 Ceftriaxone 1 Gm-D5w Bag IVPB 100 mls/hr DAILY HEATHER Administration Olanzapine 5 mg 09/26/17 22:00 10/01/17 11:19 Zyprexa - PO 5 mg BID HEATHER Administration Tamsulosin HCl 0.4 mg 09/22/17 08:30 10/01/17 11:19 Flomax - PO 0.4 mg DAILY@0830 HEATHER Administration Laboratory Results - last 24 hr 10/01/17 07:16 WBC 7.8 RBC 3.89 L Hgb 10.7 L Hct 33.8 L MCV 86.9 MCH 27.7 MCHC 31.8 L RDW 14.0 Plt Count 360 MPV 8.0 Neutrophils % 67.8 Lymphocytes % 15.4 Monocytes % 10.8 H Eosinophils % 4.7 H Basophils % 1.3 Microbiology 09/27/17 19:30 Urine - Urine Mcintyre Urine Culture - Final Enterococcus Faecalis 09/17/17 15:30 Blood - Peripheral Venous Blood Culture - Final NO GROWTH AFTER 5 DAYS INCUBATION 09/17/17 15:30 Blood - Peripheral Venous Blood Culture - Final NO GROWTH AFTER 5 DAYS INCUBATION 09/20/17 18:30 Urine - Urine Suprapubic Urine Culture - Final NO GROWTH OBTAINED 09/17/17 15:45 Urine - Urine Clean Catch Urine Culture - Final NO GROWTH OBTAINED ASSESSMENT AND PLAN: 76yo M with PMH dementia and OA found wandering around [facility] 1. Acute toxic metabolic encephalopathy-A&O x1 which is baseline. confusion improved with standing zyprexa, bedtime haldol prn, and likely from treatment of UTI. Interval EKG to assess Qtc, last on 09/30, no concerns. 2. Lower complicated UTI - ceftriaxone day 5, urine cultures with enterococcus faecalis. Change to amoxicillin for a 7 day course. 3. Hematuria- recurrent post mcintyre placement, suspect from eliquis and trauma from mcintyre placement with enlargement, monitor h/h, mcintyre, mcintyre re-insertion by nursing 09/27, [facility] Dicussed with Dr. Lentz, will address inpatient TURP if no dispo plan soon. 4. Elevated transminases- suggestive of hx of ETOH. hepatitis panel negative. resolved 5. afib-new onset. repeat EKG showing NSR. episodes of bradycardia. cont to hold betablocker. on eliquis. may need to hold if urological intervention indicated. GIven recurrent hematuria, cognitive status with constant risk at pulling catheters, falls, need to reconsider full dose anticoagulation. May place on ASA 81 mg daily if ongoing concerns with hematuria +/- anemia till prostate issues have been addressed. 6. CL- likely obstructive uropathy vs rhabdo +suprapubic cath. draining clear urine. slight pinkish urine in the evening, pt was noted to be pulling on cathter.urology consulted, follow up additional recs. on flomax for enlarged prostate. avoid nephrotoxic agents. urology on board Patient pulled suprapubic catheter earlier, placed mcintyre by urology , patient self removed mcintyre as well. Repeat mcintyre insertion by RN on 09/27. Reinforce mittens and continue zyprexa. Discussed with patricia Rodas address possible TURP if patient continues to be inhouse. 7. Rhabdo- possible walked from [place]. now below 1K 8. Leukocytosis- improved with antibotics for UTI, monitor. 9. DVT ppx- eliquis 10. will need custodial placement, unable to care for himself. CM working on placement
--- NOTE | 2017-10-01 16:56 | PN ---
Physical Exam: SUBJECTIVE: Patient seen and examined. AAOx1 to self, pt conversant and remains confused. No fevers, chills. OBJECTIVE: Vital Signs Period Temp Pulse Resp BP Sys/Mackey Pulse Ox Last 24 Hr 97.4 F-98.3 F 59-60 20-20 101-144/52-75 96 GENERAL: AAOx1, to self, NAD. LUNGS: Breath sounds equal, clear to anterior auscultation bilaterally, no wheezes, no crackles, no accessory muscle use. HEART: Regular rate and rhythm, S1, S2, no murmur appreciated. ABDOMEN: Suprapubic cath site CDI. Soft, nontender, nondistended. EXTREMITIES: Warm, well-perfused, no edema. SKIN: Warm, dry, normal turgor, no rashes or lesions noted Laboratory Results - last 24 hr 10/01/17 07:16 WBC 7.8 RBC 3.89 L Hgb 10.7 L Hct 33.8 L MCV 86.9 MCH 27.7 MCHC 31.8 L RDW 14.0 Plt Count 360 MPV 8.0 Neutrophils % 67.8 Lymphocytes % 15.4 Monocytes % 10.8 H Eosinophils % 4.7 H Basophils % 1.3 Active Medications Generic Name Dose Route Start Last Admin Trade Name Freq PRN Reason Stop Dose Admin Amoxicillin 500 mg 10/01/17 20:00 Amoxicillin Suspension - PO 10/04/17 08:01 Q12H [facility] Apixaban 5 mg 09/21/17 22:00 10/01/17 11:19 Eliquis - PO 5 mg BID HEATHER Administration Haloperidol 1 mg 09/26/17 13:45 09/30/17 22:26 Haldol Injection (Fast Acting) - IM 1 mg Q4H PRN Administration AGITATION Olanzapine 5 mg 09/26/17 22:00 10/01/17 11:19 Zyprexa - PO 5 mg BID HEATHER Administration Tamsulosin HCl 0.4 mg 09/22/17 08:30 10/01/17 11:19 Flomax - PO 0.4 mg DAILY@0830 HEATHER Administration ASSESSMENT/PLAN: 76yo M with PMH dementia, PVD, arthritis, found wandering around [facility] property, admitted for acute toxic metabolic encephalopathy. # lower complicated UTI - urine culture (+) for Enterococcus Faecalis - leukocytosis resolved - Day 5 IV Ceftriaxone, last dose today -> switch to Amoxicillin 500mg po q12hr to complete a 7 day course of antibiotic # Acute toxic metabolic encephalopathy - possibly 2/2 hx of dementia - AAOx1, pt at his baseline - confusion improved with standing Zyprexa and Haldol prn - Haldol given once per evening over the last 3 days, with good effect - EKG 09/30/17 revealed QTc 401 - Neuro (Dr. Juarez) recs appreciated: avoid benzo's - restraints still required for self protection # new onset afib - pt continues to have episodes of bradycardia, continue to hold beta hai - continue Eliquis - Neuro (Dr. Juarez) recs appreciated: no bleed on Head CT, so AC ok from neuro standpoint. # CL - likely 2/2 retention vs rhabdomyolysis - s/p suprapubic cath with IR -> pt pulled out suprapubic cath on 09/25/17 - maintain mcintyre - Cr normalized - continue to monitor UOP - continue Flomax for enlarged prostate - avoid nephrotoxic agents - Urology (Dr. Mcgraw) recs appreciated: pt would benefit from TURP # hematuria - likely 2/2 trauma from mcintyre being pulled out and Eliquis - resolved - hgb stable # FEN - Fluids: po - Electrolytes: continue to monitor - Nutrition: dysphagia puree with nectar thick liquids, Magic cup BID as tolerated # Prophylaxis - DVT ppx with Eliquis BID - deconditioning ppx with PT # dispo - family agreeable to SNF placement when pt is medically optimized - family deciding where pt should be placed, [place] vs [place] - working on placement Visit type - Emergency Visit Emergency Visit: Yes ED Registration Date: 09/17/17 Care time: The patient presented to the Emergency Department on the above date and was hospitalized for further evaluation of their emergent condition. - New Patient This patient is new to me today: No - Critical Care Critical Care patient: No
[2017-10-01] MEDS: AMOXICILLIN ORAL SUSPENSION - 250 MG/5 ML PO SCH (21:14)
[2017-10-02] MEDS: OLANZapine 5 MG TABLET PO SCH ×2 (10:00→22:28)
[2017-10-02] MEDS: AMOXICILLIN ORAL SUSPENSION - 250 MG/5 ML PO SCH ×2 (10:07→22:28)
[2017-10-02] MEDS: TAMSULOSIN HCL 0.4 MG CAP.ER.24H (FP) PO SCH (10:07)
[2017-10-02] MEDS: APIXABAN 5 MG TABLET PO SCH ×2 (10:07→22:28)
--- NOTE | 2017-10-02 11:19 | PN ---
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 Awake, verbal, with occasional appropriate statements followed by unintelligible fluent Jargon with neologisms and paraphasic errors. Not oriented. Poor insight.Poor memory. Swallow reassessed. Good dentition. Pt overtly tolerates soft solids and thin liquid. Pt needs to be told to stop speaking while chewing and swallowing. REC: Trial soft regular diet and thin liquid. Feed only when fully awake. HOB fully elevated while eating. OOB for meals? Remind pt to stop speaking while chewing and swallowing.
--- NOTE | 2017-10-02 14:20 | PN ---
Teaching Attending Note Name of Resident: Jessica Hoffman ATTENDING PHYSICIAN STATEMENT I saw and evaluated the patient. I reviewed the resident's note and discussed the case with the resident. I agree with the resident's findings and plan as documented. SUBJECTIVE:alert. fluent conversation. does not respond appropriately to all questioning. no cp or SOB OBJECTIVE: Last Vital Signs Temp Pulse Resp BP Pulse Ox 97.3 F L 52 L 18 117/65 96 10/02/17 06:00 10/02/17 06:00 10/02/17 06:00 10/02/17 06:00 10/01/17 20:29 General NAD A&O x1 (self only) CV S1 S2 RRR no murmur/rub/gallop Lungs CTA B/L no wheezing/rlaes/rhonchi Abdomen soft NT/ND Extremities no pitting edema ASSESSMENT AND PLAN: 76yo M with PMH dementia and OA found wandering around [facility] 1. Acute toxic metabolic encephalopathy-A&O x1 which is baseline. has periods of agitation. on 2 point restraints and mittens. evaluated by psych and siwtched medication to zyprexa. will titrate up as tolerated to prevent lethargy. has not required haldol in 24H. available as needed. psych and neuro on board 2. Elevated transminases- suggestive of hx of ETOH. hepatitis panel negative. resolved 3. afib-new onset. repeat EKG showing NSR. episodes of bradycardia. cont to hold betablocker. on eliquis. 4. CL- likely obstructive uropathy vs rhabdo. had suprapubic cath which pt pulled out himself. now with clear urine draining through mcintyre. possible TURP on this admission while hes here. on flomax for enlarged prostate. avoid nephrotoxic agents. urology on board 5. Hematuria- resolved. Hgb stable. no indication for transfusion 6. E. Faecalis UTI- on amoxicillin day2. 7. Rhabdo-resolved 8. Leukocytosis-likely reactive. resolved 9. DVT ppx- eliquis 10. will need [facility] [employer] placement, unable to care for himself. CM working on placement
--- NOTE | 2017-10-02 19:55 | PN ---
Physical Exam: SUBJECTIVE: Patient seen and examined. AAOx1 to self, pt conversant and remains confused. Pt denies chest pain, sob. No fevers, chills. OBJECTIVE: Vital Signs Period Temp Pulse Resp BP Sys/Mackey Pulse Ox Last 24 Hr 97.3 F-98.6 F 52-71 18-20 100-133/50-71 96-96 GENERAL: AAOx1, to self, NAD. LUNGS: Breath sounds equal, clear to anterior auscultation bilaterally, no wheezes, no crackles, no accessory muscle use. HEART: Regular rate and rhythm, S1, S2, no murmur appreciated. ABDOMEN: Suprapubic cath site healed. Soft, nontender, nondistended. EXTREMITIES: Warm, well-perfused, no edema. SKIN: Warm, dry, normal turgor, no rashes or lesions noted Active Medications Generic Name Dose Route Start Last Admin Trade Name Freq PRN Reason Stop Dose Admin Amoxicillin 500 mg 10/01/17 20:00 10/02/17 10:07 Amoxicillin Suspension - PO 10/04/17 08:01 500 mg Q12H HEATHER Administration Apixaban 5 mg 09/21/17 22:00 10/02/17 10:07 Eliquis - PO 5 mg BID HEATHER Administration Haloperidol 1 mg 09/26/17 13:45 09/30/17 22:26 Haldol Injection (Fast Acting) - IM 1 mg Q4H PRN Administration AGITATION Olanzapine 10 mg 10/02/17 14:14 Zyprexa - PO BID [facility] Tamsulosin HCl 0.4 mg 09/22/17 08:30 10/02/17 10:07 Flomax - PO 0.4 mg DAILY@0830 [facility] Administration ASSESSMENT/PLAN: 76yo M with PMH dementia, PVD, arthritis, found wandering around [facility] property, admitted for acute toxic metabolic encephalopathy. # lower complicated UTI (E. Faecalis) - urine culture (+) for Enterococcus Faecalis - leukocytosis resolved - s/p 5 days of IV Ceftriaxone - Amoxicillin 500mg po q12hr # Acute toxic metabolic encephalopathy - possibly 2/2 hx of dementia - AAOx1, pt at his baseline - confusion improved with standing Zyprexa and Haldol prn - Zyprexa increased to 10 BID - Neuro (Dr. Juarez) recs appreciated: avoid benzo's - restraints still required for self protection # new onset afib - pt continues to have episodes of bradycardia, continue to hold beta hai - continue Eliquis # CL - likely 2/2 retention vs rhabdomyolysis - maintain mcintyre - Cr normalized - continue to monitor UOP - continue Flomax for enlarged prostate - avoid nephrotoxic agents - Urology (Dr. Mcgraw) recs appreciated: pt would benefit from TURP # FEN - Fluids: po - Electrolytes: continue to monitor - Nutrition: dysphagia puree with nectar thick liquids, Magic cup BID as tolerated # Prophylaxis - DVT ppx with Eliquis BID - deconditioning ppx with PT # dispo - family agreeable to SNF placement when pt is medically optimized - family deciding where pt should be placed, [place] vs [place] - working on placement Visit type - Emergency Visit Emergency Visit: Yes ED Registration Date: 09/17/17 Care time: The patient presented to the Emergency Department on the above date and was hospitalized for further evaluation of their emergent condition. - New Patient This patient is new to me today: No - Critical Care Critical Care patient: No
[2017-10-03 07:39] LABS: HEMATOCRIT 34.1 % (35.4-49); HEMOGLOBIN 10.8 GM/dL (11.7-16.9); MCH 27.4 pg (25.7-33.7); MCHC 31.6 g/dl (32.0-35.9); MEAN CELL VOLUME 86.6 fl (80-96); MEAN PLT VOLUME 7.8 fl (7.5-11.1); PLATELET COUNT 377 K/MM3 (134-434); RBC 3.94 M/mm3 (4.00-5.60); RDW 14.5 % (11.9-15.9); WHITE BLOOD COUNT 12.9 K/mm3 (4.0-10.0)
--- NOTE | 2017-10-03 08:47 | PN ---
Physical Exam: SUBJECTIVE: Patient seen and examined. AAOx1 to self, pt conversant and remains confused. Pt denies chest pain, sob. Pt has 41# wt loss (23%) x 16 days, ?adm wt as pt does not appear to have lost that much weight since adm. No fevers, chills. OBJECTIVE: Vital Signs Period Temp Pulse Resp BP Sys/Mackey Pulse Ox Last 24 Hr 97.8 F-99.9 F 54-77 18-20 100-133/53-81 95-96 GENERAL: AAOx1, to self, NAD. LUNGS: Breath sounds equal, clear to anterior auscultation bilaterally, no wheezes, no crackles, no accessory muscle use. HEART: Regular rate and rhythm, S1, S2, no murmur appreciated. ABDOMEN: Soft, nontender, nondistended. EXTREMITIES: Warm, well-perfused, no edema. SKIN: Warm, dry, normal turgor, no rashes or lesions noted Active Medications Generic Name Dose Route Start Last Admin Trade Name Freq PRN Reason Stop Dose Admin Amoxicillin 500 mg 10/01/17 20:00 10/02/17 22:28 Amoxicillin Suspension - PO 10/04/17 08:01 500 mg Q12H HEATHER Administration Apixaban 5 mg 09/21/17 22:00 10/02/17 22:28 Eliquis - PO 5 mg BID HEATHER Administration Haloperidol 1 mg 09/26/17 13:45 09/30/17 22:26 Haldol Injection (Fast Acting) - IM 1 mg Q4H PRN Administration AGITATION Olanzapine 10 mg 10/02/17 14:14 10/02/17 22:28 Zyprexa - PO 10 mg BID HEATHER Administration Tamsulosin HCl 0.4 mg 09/22/17 08:30 10/02/17 10:07 Flomax - PO 0.4 mg DAILY@0830 HEATHER Administration Laboratory Results - last 24 hr 10/03/17 07:00 WBC 12.9 H D RBC 3.94 L Hgb 10.8 L Hct 34.1 L MCV 86.6 MCH 27.4 MCHC 31.6 L RDW 14.5 Plt Count 377 MPV 7.8 ASSESSMENT/PLAN: 76yo M with PMH dementia, PVD, arthritis, found wandering around [facility], admitted for acute toxic metabolic encephalopathy. # lower complicated UTI (E. Faecalis) - urine culture (+) for Enterococcus Faecalis - leukocytosis noted - continue to monitor - s/p 5 days of IV Ceftriaxone - Day 3 of Amoxicillin po # Acute toxic metabolic encephalopathy - possibly 2/2 hx of dementia - AAOx1, pt at his baseline - continue Zyprexa and Haldol prn (last dose of Haldol was on 09/30/17) - restraints still required for self protection # new onset afib - pt continues to have episodes of bradycardia, continue to hold beta hai - continue Eliquis # CL - likely 2/2 retention vs rhabdomyolysis - maintain mcintyre - Cr normalized - continue to monitor UOP - continue Flomax for enlarged prostate - avoid nephrotoxic agents - Urology (Dr. Mcgraw) recs appreciated: pt would benefit from TURP -> scheduled for Sunday10/05/17 # FEN - Fluids: po - Electrolytes: continue to monitor - Nutrition: dysphagia puree with nectar thick liquids, Magic cup BID as tolerated # Prophylaxis - DVT ppx with Eliquis BID - deconditioning ppx with PT # dispo - family agreeable to SNF placement when pt is medically optimized Visit type - Emergency Visit Emergency Visit: Yes ED Registration Date: 09/17/17 Care time: The patient presented to the Emergency Department on the above date and was hospitalized for further evaluation of their emergent condition. - New Patient This patient is new to me today: No - Critical Care Critical Care patient: No
[2017-10-03] MEDS: TAMSULOSIN HCL 0.4 MG CAP.ER.24H (FP) PO SCH (09:00)
[2017-10-03] MEDS: AMOXICILLIN ORAL SUSPENSION - 250 MG/5 ML PO SCH ×2 (09:01→22:04)
[2017-10-03] MEDS: OLANZapine 5 MG TABLET PO SCH (10:30)
[2017-10-03] MEDS: APIXABAN 5 MG TABLET PO SCH ×2 (11:03→22:00)
--- NOTE | 2017-10-03 13:06 | PN ---
Teaching Attending Note Name of Resident: Jessica Hoffman ATTENDING PHYSICIAN STATEMENT I saw and evaluated the patient. I reviewed the resident's note and discussed the case with the resident. I agree with the resident's findings and plan as documented. SUBJECTIVE:asymptomatic. denies CP, SOB, fever, chills, N/V/C/D has tangential speech and flight of ideas. OBJECTIVE: Last Vital Signs Temp Pulse Resp BP Pulse Ox 98.0 F 62 18 115/67 95 10/03/17 10:00 10/03/17 10:00 10/03/17 10:00 10/03/17 10:10/02/17 21:00 General NAD A&O x1 (self only) CV S1 S2 RRR no murmur/rub/gallop Lungs CTA B/L no wheezing/rales/rhonchi Abdomen soft NT/ND Extremities no pitting edema ASSESSMENT AND PLAN: 76yo M with PMH dementia and OA found wandering around [facility] 1. Acute toxic metabolic encephalopathy-A&O x1 which is baseline. has periods of agitation. on 2 point restraints and mittens. zyprexa increased to 10mg BID yesterday and no alterations in consciousness. will attempt to remove restraints in next 24H if improved. no haldol x48H. Psych and neuro on board 2. Elevated transminases- suggestive of hx of ETOH. hepatitis panel negative. resolved 3. afib-new onset. repeat EKG showing NSR. cont to hold betablocker. on eliquis. 4. CL- likely obstructive uropathy vs rhabdo. had suprapubic cath which pt pulled out himself. now with clear urine draining through mcintyre. plan for TURP on sunday if family consents. will need to hold elquis for procedure. on flomax for enlarged prostate. avoid nephrotoxic agents. urology on board 5. Hematuria- resolved. Hgb stable. no indication for transfusion 6. E. Faecalis UTI- on amoxicillin day3. 7. Rhabdo-resolved 8. Leukocytosis-likely reactive. resolved 9. DVT ppx- eliquis 10. will need jail placement, unable to care for himself. CM working on placement
--- NOTE | 2017-10-03 15:12 | PN ---
Progress Note, PRESCHOOL PARAPROFESSIONAL - Note Progress Note: Selected Entries 10/02/17 10/02/17 10/02/17 06:00 10:00 11:01 Breakfast 100% Lunch Supper Temperature 97.3 F L 98.6 F 10/02/17 10/02/17 10/02/17 14:00 18:20 20:31 Breakfast Lunch 100% Supper 100% Temperature 98.0 F 97.8 F 99.9 F H 10/03/17 10/03/17 10/03/17 06:00 10:00 14:47 Breakfast 50% Lunch 25% Supper Temperature 98.4 F 98.0 F 98.3 F Laboratory Tests 10/03/17 07:00 WBC 12.9 H D Upgraded to soft diet, thin liquid. Monitor for sufficient PO toolerasnce/ acceptance. May need to downgrade based on tolerance.
[2017-10-03] MEDS ORDERED: PT OWN MED DRAWER 7, Y5N ONE ×2 (21:52→22:04)
[2017-10-03] MEDS: HALOPERIDOL LACTATE 5 MG/ML IM PRN (22:00)
[2017-10-03] MEDS: OLANZapine 10 MG TABLET PO SCH (22:00)
[2017-10-04 03:15] LABS: BASO % 0.9 % (0-2.0); EOS % 3.7 % (0-4.5); HEMATOCRIT 30.6 % (35.4-49); LYMPH % 16.4 % (8-40); MCH 28.3 pg (25.7-33.7); MCHC 32.8 g/dl (32.0-35.9); MEAN CELL VOLUME 86.3 fl (80-96); MEAN PLT VOLUME 8.2 fl (7.5-11.1); PLATELET COUNT 379 K/MM3 (134-434); RBC 3.54 M/mm3 (4.00-5.60); RDW 14.7 % (11.9-15.9); WHITE BLOOD COUNT 10.3 K/mm3 (4.0-10.0)
[2017-10-04 08:33] LABS: HEMATOCRIT 32.1 % (35.4-49); HEMOGLOBIN 10.4 GM/dL (11.7-16.9); MCH 28.5 pg (25.7-33.7); MCHC 32.5 g/dl (32.0-35.9); MEAN CELL VOLUME 87.4 fl (80-96); MEAN PLT VOLUME 8.1 fl (7.5-11.1); PLATELET COUNT 393 K/MM3 (134-434); RBC 3.67 M/mm3 (4.00-5.60); RDW 14.5 % (11.9-15.9); WHITE BLOOD COUNT 10.5 K/mm3 (4.0-10.0)
[2017-10-04 08:48] LABS: CHLORIDE 107 mmol/L (98-107); POTASSIUM 4.4 mmol/L (3.5-5.1); SODIUM 141 mmol/L (136-145)
[2017-10-04 09:16] LABS: ANION GAP 8 (8-16); BLOOD UREA NITROGEN 32 mg/dL (7-18); CALCIUM 8.5 mg/dL (8.5-10.1); CO2 26 mmol/L (21-32); CREATININE 0.8 mg/dL (0.7-1.3); GLUCOSE,RANDOM 94 mg/dL (74-106); MAGNESIUM 2.4 mg/dL (1.8-2.4); PHOSPHOROUS 3.4 mg/dL (2.5-4.9)
--- NOTE | 2017-10-04 09:21 | PN ---
Progress Note (short form) - Note Progress Note: for TURP 10/05/17 Problem List - Problems (1) Benign localized hyperplasia of prostate with urinary retention Code(s): N40.1 - BENIGN PROSTATIC HYPERPLASIA WITH LOWER URINARY TRACT SYMP
--- NOTE | 2017-10-04 12:14 | PN ---
Progress Note, COMPUTER SECURITY COORDINATOR - Note Progress Note: Selected Entries 10/02/17 10/02/17 10/02/17 06:00 10:00 11:01 Breakfast 100% Lunch Supper Temperature 97.3 F L 98.6 F 10/02/17 10/02/17 10/02/17 14:00 18:20 20:31 Breakfast Lunch 100% Supper 100% Temperature 98.0 F 97.8 F 99.9 F H 10/03/17 10/03/17 10/03/17 06:00 10:00 14:47 Breakfast 50% Lunch 25% Supper Temperature 98.4 F 98.0 F 98.3 F Laboratory Tests 10/03/17 07:00 WBC 12.9 H D Selected Entries 10/03/17 18:40 Supper 100% Discussed PO intake with today's nurse.Upgraded to soft diet, thin liquid. Monitor for sufficient PO tolerance/acceptance. May need to downgrade based on tolerance/acceptance.
[2017-10-04] MEDS: AMOXICILLIN ORAL SUSPENSION - 250 MG/5 ML PO SCH (12:41)
[2017-10-04] MEDS: TAMSULOSIN HCL 0.4 MG CAP.ER.24H (FP) PO SCH (12:42)
[2017-10-04] MEDS: APIXABAN 5 MG TABLET PO SCH (12:42)
[2017-10-04] MEDS: OLANZapine 10 MG TABLET PO SCH ×2 (12:42→22:49)
--- NOTE | 2017-10-04 16:14 | PN ---
Teaching Attending Note Name of Resident: Jessica Hoffman ATTENDING PHYSICIAN STATEMENT I saw and evaluated the patient. I reviewed the resident's note and discussed the case with the resident. I agree with the resident's findings and plan as documented. SUBJECTIVE:asymptomatic. denies CP, SOB, fever, chills, abdominal or penile pain found to have hematuria last night when pt was agitated. suspected he pulled on mcintyre catheter. has no current complants. OBJECTIVE: Last Vital Signs Temp Pulse Resp BP Pulse Ox 97.6 F 65 18 101/54 95 10/04/17 15:32 10/04/17 15:32 10/04/17 15:32 10/04/17 15:32 10/03/17 21:00 General NAD A&O x1 (self only) CV S1 S2 RRR no murmur/rub/gallop Lungs CTA B/L no wheezing/rales/rhonchi Abdomen soft NT/ND genital. +jin blood at urethral meatus Extremities no pitting edema ASSESSMENT AND PLAN: 76yo M with PMH dementia and OA found wandering around [facility] 1. Acute toxic metabolic encephalopathy-A&O x1 which is baseline. has periods of agitation. on 2 point restraints and mittens. zyprexa increased to 10mg BID on 10/02. will titrate up as tolerated. received haldol once last night when pulling on mcintyre. will attempt to remove restraints in next 24H if improved. Psych and neuro on board 2. Elevated transminases- suggestive of hx of ETOH. hepatitis panel negative. resolved 3. afib-new onset. repeat EKG showing NSR. cont to hold betablocker. on eliquis. 4. CL- likely obstructive uropathy vs rhabdo. had suprapubic cath which pt pulled out himself. +hematuria. Hgb stable. hold eliquis for TURP tomorrow. on flomax for enlarged prostate. avoid nephrotoxic agents. urology on board 5. Hematuria- with pink tinged urine. NPO for TURP in the AM. Hgb stable. no indication for transfusion 6. E. Faecalis UTI- on amoxicillin day 4. 7. Rhabdo-resolved 8. Leukocytosis-likely reactive. resolved 9. DVT ppx- eliquis on hold for pending surgery. will re-start post-op 10. 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 CM working on placement
--- NOTE | 2017-10-04 16:43 | PN ---
Physical Exam: SUBJECTIVE: Patient seen and examined. Pt conversant and remains confused. Blood at urethral meatus, suspected pt pulls at mcintyre. Pt denies chest pain, sob, abdominal pain, penile pain, fever, chills. OBJECTIVE: Vital Signs Period Temp Pulse Resp BP Sys/Mackey Pulse Ox Last 24 Hr 97.6 F-98.3 F 60-73 18-20 101-127/54-66 95 GENERAL: AAOx1, to self, NAD. LUNGS: Breath sounds equal, clear to anterior auscultation bilaterally, no wheezes, no crackles, no accessory muscle use. HEART: Regular rate and rhythm, S1, S2, no murmur appreciated. ABDOMEN: Soft, nontender, nondistended. GENITAL: +small amount of blood at urethral meatus EXTREMITIES: Warm, well-perfused, no edema. SKIN: Warm, dry, normal turgor, no rashes or lesions noted Laboratory Results - last 24 hr 10/04/17 10/04/17 10/04/17 02:30 07:00 07:00 WBC 10.3 H 10.5 H RBC 3.54 L 3.67 L Hgb 10.0 L 10.4 L Hct 30.6 L 32.1 L MCV 86.3 87.4 MCH 28.3 28.5 MCHC 32.8 32.5 RDW 14.7 14.5 Plt Count 379 393 MPV 8.2 8.1 Neutrophils % 69.0 Lymphocytes % 16.4 Monocytes % 10.0 Eosinophils % 3.7 Basophils % 0.9 Sodium 141 Potassium 4.4 Chloride 107 Carbon Dioxide 26 Anion Gap 8 BUN 32 H D Creatinine 0.8 Random Glucose 94 Calcium 8.5 Phosphorus 3.4 Magnesium 2.4 Active Medications Generic Name Dose Route Start Last Admin Trade Name Freq PRN Reason Stop Dose Admin Apixaban 5 mg 09/21/17 22:00 10/04/17 12:42 Eliquis - PO Not Given BID [facility] Haloperidol 1 mg 09/26/17 13:45 10/03/17 22:00 Haldol Injection (Fast Acting) - IM 1 mg Q4H PRN Administration AGITATION Olanzapine 10 mg 10/03/17 22:00 10/04/17 12:42 Zyprexa - PO Not Given BID [facility] Tamsulosin HCl 0.4 mg 09/22/17 08:30 10/04/17 12:42 Flomax - PO Not Given DAILY@0830 [facility] ASSESSMENT/PLAN: 76yo M with PMH dementia, PVD, arthritis, found wandering around [facility] property, admitted for acute toxic metabolic encephalopathy. # lower complicated UTI (E. Faecalis) - urine culture (+) for Enterococcus Faecalis - leukocytosis resolved - s/p 5 days of IV Ceftriaxone - Day 4 of Amoxicillin po, last dose given # hematuria - hgb stable - hold Eliquis for TURP for tomorrow - also, jin blood at urethral meatus noted # Acute toxic metabolic encephalopathy - possibly 2/2 hx of dementia - AAOx1, pt at his baseline - continue Zyprexa and Haldol prn - restraints still required for self protection # new onset afib - pt continues to have episodes of bradycardia, continue to hold beta hai - continue Eliquis # CL - likely 2/2 retention vs rhabdomyolysis - maintain mcintyre - Cr normalized - continue to monitor UOP - continue Flomax for enlarged prostate - avoid nephrotoxic agents - Urology (Dr. Mcgraw) recs appreciated: pt would benefit from TURP -> scheduled for Sunday10/05/17 # FEN - Fluids: po - Electrolytes: continue to monitor - Nutrition: npo after midnight for TURP tomorrow # Prophylaxis - DVT ppx with Eliquis BID - deconditioning ppx with PT # dispo - family agreeable to SNF placement when pt is medically optimized Visit type - Emergency Visit Emergency Visit: Yes ED Registration Date: 09/17/17 Care time: The patient presented to the Emergency Department on the above date and was hospitalized for further evaluation of their emergent condition. - New Patient This patient is new to me today: No - Critical Care Critical Care patient: No
[2017-10-04] MEDS ORDERED: AMOXICILLIN ORAL SUSPENSION - 400 MG/5 ML PO SCH (22:00)
[2017-10-04] MEDS: HALOPERIDOL LACTATE 5 MG/ML IM PRN (22:49)
[2017-10-05 08:33] LABS: HEMATOCRIT 32.2 % (35.4-49); HEMOGLOBIN 10.4 GM/dL (11.7-16.9); MCH 28.2 pg (25.7-33.7); MCHC 32.3 g/dl (32.0-35.9); MEAN CELL VOLUME 87.3 fl (80-96); MEAN PLT VOLUME 8.3 fl (7.5-11.1); PLATELET COUNT 389 K/MM3 (134-434); RBC 3.69 M/mm3 (4.00-5.60); RDW 14.6 % (11.9-15.9); WHITE BLOOD COUNT 8.9 K/mm3 (4.0-10.0)
[2017-10-05] MEDS: TAMSULOSIN HCL 0.4 MG CAP.ER.24H (FP) PO SCH (09:31)
[2017-10-05] MEDS: OLANZapine 10 MG TABLET PO SCH ×2 (09:31→22:26)
--- NOTE | 2017-10-05 14:33 | PN ---
Progress Note, CLUB DIRECTOR - Note Progress Note: NPO today but has been tolerating diet upgrade well without signs of aspiration and with good acceptance. Selected Entries 10/04/17 10/04/17 10/04/17 06:00 15:32 18:00 Breakfast 50% Lunch 75% Supper 100% Temperature 97.8 F 97.6 F 98.3 F 10/05/17 06:00 Breakfast Lunch Supper Temperature 97.8 F
--- NOTE | 2017-10-05 16:14 | PN ---
Physical Exam: SUBJECTIVE: Patient seen and examined. Pt conversant and remains confused. Pt denies chest pain, sob, abdominal pain, fever, chills. OBJECTIVE: Vital Signs Period Temp Pulse Resp BP Sys/Mackey Pulse Ox Last 24 Hr 97.8 F-98.3 F 55-60 18-20 107-120/60-80 95 GENERAL: AAOx1, to self, NAD. LUNGS: Breath sounds equal, clear to anterior auscultation bilaterally, no wheezes, no crackles, no accessory muscle use. HEART: Regular rate and rhythm, S1, S2, no murmur appreciated. ABDOMEN: Soft, nontender, nondistended. EXTREMITIES: Warm, well-perfused, no edema. SKIN: Warm, dry, normal turgor, no rashes or lesions noted Laboratory Results - last 24 hr 10/04/17 10/05/17 10/05/17 21:00 06:55 06:55 WBC 8.9 RBC 3.69 L Hgb 10.4 L Hct 32.2 L MCV 87.3 MCH 28.2 MCHC 32.3 RDW 14.6 Plt Count 389 MPV 8.3 Ferritin 249.827 Blood Type O POSITIVE Antibody Screen Negative Active Medications Generic Name Dose Route Start Last Admin Trade Name Freq PRN Reason Stop Dose Admin Apixaban 5 mg 09/21/17 22:00 10/04/17 12:42 Eliquis - PO Not Given BID [facility] Haloperidol 1 mg 09/26/17 13:45 10/04/17 22:49 Haldol Injection (Fast Acting) - IM 1 mg Q4H PRN Administration AGITATION Olanzapine 10 mg 10/03/17 22:00 10/05/17 09:31 Zyprexa - PO Not Given BID [facility] Tamsulosin HCl 0.4 mg 09/22/17 08:30 10/05/17 09:31 Flomax - PO Not Given DAILY@0830 [facility] ASSESSMENT/PLAN: 76yo M with PMH dementia, PVD, arthritis, found wandering around [facility] property, admitted for acute toxic metabolic encephalopathy. # CL - likely 2/2 retention vs rhabdomyolysis - resolved - Urology (Dr. Mcgraw) recs appreciated: pt scheduled for TURP today ( has not gone down yet as of 16:00) -> resume Eliquis per Urologist - maintain mcintyre - continue to monitor UOP - continue Flomax for enlarged prostate - avoid nephrotoxic agents # Acute toxic metabolic encephalopathy - possibly 2/2 hx of dementia - AAOx1, pt at his baseline - continue Zyprexa and Haldol prn - restraints still required for self protection # new onset afib - pt continues to have episodes of bradycardia, continue to hold beta hai - Eliquis held for TURP procedure today # FEN - Fluids: po - Electrolytes: continue to monitor - Nutrition: npo after midnight for TURP tomorrow # Prophylaxis - DVT ppx with Eliquis BID -> HELD -> resume per Urologist s/p TURP - deconditioning ppx with PT # dispo - family agreeable to SNF placement when pt is medically optimized Visit type - Emergency Visit Emergency Visit: Yes ED Registration Date: 09/17/17 Care time: The patient presented to the Emergency Department on the above date and was hospitalized for further evaluation of their emergent condition. - New Patient This patient is new to me today: No - Critical Care Critical Care patient: No
[2017-10-05] MEDS ORDERED: MIDAZOLAM HCL 2 MG/2 ML SINGLE DOSE VIAL ONE (17:01)
[2017-10-05] MEDS ORDERED: ceFAZolin SODIUM 1 GM VIAL IVPB ONE (17:15)
[2017-10-05] MEDS ORDERED: ceFAZolin SODIUM 1 GM VIAL ONE (17:54)
[2017-10-05] MEDS ORDERED: oxyCODONE HCL 5 MG TABLET PO PRN (18:02)
[2017-10-05] MEDS ORDERED: ONDANSETRON 4 MG/2 ML VIAL IVPUSH PRN (18:02)
[2017-10-05] MEDS ORDERED: PROMETHAZINE HCL 25 MG/1 ML VIAL IVPUSH PRN (18:02)
[2017-10-05 19:09] LABS: BASO % 0.9 % (0-2.0); HEMATOCRIT 31.4 % (35.4-49); HEMOGLOBIN 10.2 GM/dL (11.7-16.9); LYMPH % 14.7 % (8-40); MCH 28.3 pg (25.7-33.7); MCHC 32.6 g/dl (32.0-35.9); MEAN CELL VOLUME 86.8 fl (80-96); MEAN PLT VOLUME 8.3 fl (7.5-11.1); MONO % 9.3 % (3.8-10.2); NEUT % 72.1 % (42.8-82.8); PLATELET COUNT 395 K/MM3 (134-434); RBC 3.61 M/mm3 (4.00-5.60); RDW 14.5 % (11.9-15.9); WHITE BLOOD COUNT 8.5 K/mm3 (4.0-10.0)
--- NOTE | 2017-10-05 19:36 | PN ---
Teaching Attending Note Name of Resident: Jessica Hoffman ATTENDING PHYSICIAN STATEMENT I saw and evaluated the patient. I reviewed the resident's note and discussed the case with the resident. I agree with the resident's findings and plan as documented. SUBJECTIVE: Patient is confused, appears comfortable. OBJECTIVE: Vital Signs Period Temp Pulse Resp BP Sys/Mackey Pulse Ox Last 24 Hr 97.8 F-98.2 F 55-60 18-20 107-120/60-80 95-98 HEART: S1S2, RRR LUNGS: Clear ABDOMEN: Soft, non-distended, normal BS EXTREMITIES: No edema Laboratory Results - last 24 hr 10/04/17 10/05/17 10/05/17 21:00 06:55 06:55 WBC 8.9 RBC 3.69 L Hgb 10.4 L Hct 32.2 L MCV 87.3 MCH 28.2 MCHC 32.3 RDW 14.6 Plt Count 389 MPV 8.3 Neutrophils % Lymphocytes % Monocytes % Eosinophils % Basophils % Ferritin 249.827 Blood Type O POSITIVE Antibody Screen Negative 10/05/17 18:40 WBC 8.5 RBC 3.61 L Hgb 10.2 L Hct 31.4 L MCV 86.8 MCH 28.3 MCHC 32.6 RDW 14.5 Plt Count 395 MPV 8.3 Neutrophils % 72.1 Lymphocytes % 14.7 Monocytes % 9.3 Eosinophils % 3.0 Basophils % 0.9 Ferritin Blood Type Antibody Screen Current Medications Generic Name Dose Route Start Last Admin Trade Name Freq PRN Reason Stop Dose Admin Fentanyl 25 mcg 10/05/17 18:02 Sublimaze Injection - IVPUSH [id number] PRN PAIN-PACU ORDER X 4 DOSES ONLY Haloperidol 1 mg 10/05/17 18:57 Haldol Injection (Fast Acting) - IM Q4H PRN AGITATION Parenteral Electrolytes 1,000 mls @ 75 mls/hr 10/05/17 18:15 Plasma-Lyte 148 - IV ASDIR HEATHER Olanzapine 10 mg 10/05/17 22:00 Zyprexa - PO BID HEATHER Ondansetron HCl 4 mg 10/05/17 18:02 Zofran Injection IVPUSH Q6H PRN NAUSEA AND/OR VOMITING Oxycodone HCl 5 mg 10/05/17 18:02 Roxicodone - PO 10/06/17 18:01 Q4H PRN Pain Level > 4 Promethazine HCl 12.5 mg 10/05/17 18:02 Phenergan Injection - IVPUSH Q6H PRN NAUSEA-FOR RESCUE AFTER 15 MIN Tamsulosin HCl 0.4 mg 10/06/17 08:30 Flomax - PO DAILY@0830 [facility] ASSESSMENT AND PLAN: This is a 76 yo man with history of dementia, OA who was found wandering around [facility]. 1. Acute toxic metabolic encephalopathy - Mental status apparently at baseline - Continue Zyprexa, Haldol as needed 2. Hepatic transminitis - Resolved 3. Atrial fibrillation, paroxysmal - Remains in sinus rhythm - Eliquis held for TURP, hematuria 4. Acute kidney injury secondary to obstructive uropathy - Resolved - TURP today 5. UTI with E. faecalis - Completed antibiotics 6. Rhabdomyolysis - Resolved 7. Disposition - Plan for discharge to SNF
[2017-10-05 21:32] LABS: ANION GAP 7 (8-16); BLOOD UREA NITROGEN 27 mg/dL (7-18); CALCIUM 8.2 mg/dL (8.5-10.1); CHLORIDE 107 mmol/L (98-107); CO2 28 mmol/L (21-32); CREATININE 0.8 mg/dL (0.7-1.3); GLUCOSE,RANDOM 94 mg/dL (74-106); POTASSIUM 4.1 mmol/L (3.5-5.1); SODIUM 142 mmol/L (136-145)
[2017-10-05] MEDS: ELECTROLYTE-148 SOLN 1,000 ML IV SCH (22:23)
[2017-10-05] MEDS ORDERED: PT OWN MED DRAWER 7, Y5N ONE (22:26)
[2017-10-05] MEDS: HALOPERIDOL LACTATE 5 MG/ML IM PRN (23:54)
[2017-10-06] MEDS: HALOPERIDOL LACTATE 5 MG/ML IM PRN ×2 (04:26→21:59)
[2017-10-06 07:22] LABS: BASO % 0.7 % (0-2.0); EOS % 0.9 % (0-4.5); HEMATOCRIT 30.3 % (35.4-49); HEMOGLOBIN 9.8 GM/dL (11.7-16.9); MCH 27.8 pg (25.7-33.7); MCHC 32.3 g/dl (32.0-35.9); MEAN PLT VOLUME 8.4 fl (7.5-11.1); MONO % 8.5 % (3.8-10.2); NEUT % 81.9 % (42.8-82.8); PLATELET COUNT 374 K/MM3 (134-434); RBC 3.52 M/mm3 (4.00-5.60); RDW 14.3 % (11.9-15.9); WHITE BLOOD COUNT 14.2 K/mm3 (4.0-10.0)
[2017-10-06 07:49] LABS: ANION GAP 8 (8-16); BLOOD UREA NITROGEN 24 mg/dL (7-18); CALCIUM 8.2 mg/dL (8.5-10.1); CHLORIDE 106 mmol/L (98-107); CO2 26 mmol/L (21-32); CREATININE 0.8 mg/dL (0.7-1.3); GLUCOSE,RANDOM 112 mg/dL (74-106); POTASSIUM 4.3 mmol/L (3.5-5.1); SODIUM 140 mmol/L (136-145)
[2017-10-06 08:09] LABS: SERUM IRON SATURATION 24 % (15-55); TOTAL IRON BINDING CAPACITY 236 ug/dL (250-450); UIBC 180 ug/dL (111-343)
--- NOTE | 2017-10-06 08:28 | PN ---
Progress Note (short form) - Note Progress Note: Anesthesia Post op Pt seen and examined S:alert and awake O: Vital Signs Temperature 97.8 F 10/06/17 06:00 Pulse Rate 69 10/06/17 06:00 Respiratory Rate 20 10/06/17 06:00 Blood Pressure 124/77 10/06/17 06:00 O2 Sat by Pulse Oximetry (%) 100 10/05/17 22:00 CBC, BMP 10/06/17 07:00 10/06/17 07:00 A/P: Current Active Problems Altered mental state (Acute) Benign localized hyperplasia of prostate with urinary retention (Acute) s/p TURP Doing well post op Continue current care Taurus Salinas MD
[2017-10-06] MEDS: TAMSULOSIN HCL 0.4 MG CAP.ER.24H (FP) PO SCH (10:48)
[2017-10-06] MEDS: OLANZapine 10 MG TABLET PO SCH ×2 (10:48→21:59)
--- NOTE | 2017-10-06 11:22 | PN ---
Progress Note (short form) - Note Progress Note: s/p TURP urine pink on cbi abd soft cont CBI
--- NOTE | 2017-10-06 14:12 | PN ---
Progress Note (short form) - Note Progress Note: sleeping comfortable. Current Medications Generic Name Dose Route Start Last Admin Trade Name Freq PRN Reason Stop Dose Admin Fentanyl 25 mcg 10/05/17 18:02 10/05/17 21:10 Sublimaze Injection - IVPUSH 25 mcg [id number] PRN Administration PAIN-PACU ORDER X 4 DOSES ONLY Haloperidol 1 mg 10/05/17 18:57 10/06/17 04:26 Haldol Injection (Fast Acting) - IM 1 mg Q4H PRN Administration AGITATION Parenteral Electrolytes 1,000 mls @ 75 mls/hr 10/05/17 18:15 10/05/17 22:23 Plasma-Lyte 148 - IV Not Given ASDIR HEATHER Olanzapine 10 mg 10/05/17 22:00 10/06/17 10:48 Zyprexa - PO 10 mg BID HEATHER Administration Ondansetron HCl 4 mg 10/05/17 18:02 Zofran Injection IVPUSH Q6H PRN NAUSEA AND/OR VOMITING Oxycodone HCl 5 mg 10/05/17 18:02 Roxicodone - PO 10/06/17 18:01 Q4H PRN Pain Level > 4 Promethazine HCl 12.5 mg 10/05/17 18:02 Phenergan Injection - IVPUSH Q6H PRN NAUSEA-FOR RESCUE AFTER 15 MIN Tamsulosin HCl 0.4 mg 10/06/17 08:30 10/06/17 10:48 Flomax - PO 0.4 mg DAILY@0830 HEATHER Administration Last Vital Signs Temp Pulse Resp BP Pulse Ox 97.8 F 69 20 124/77 100 10/06/17 06:00 10/06/17 06:00 10/06/17 09:00 10/06/17 06:00 10/06/17 09:00 General lethargic, responsive to painful stimuli and quickly falls asleep CV S1 S2 RRR no murmur/rub/gallop Lungs CTA B/L no wheezing/rales/rhonchi Abdomen soft + suprapubic tenderness. ND Extremities no pitting edema CBCD WBC 14.2 K/mm3 (4.0-10.0) H D 10/06/17 07:00 RBC 3.52 M/mm3 (4.00-5.60) L 10/06/17 07:00 Hgb 9.8 GM/dL (11.7-16.9) L 10/06/17 07:00 Hct 30.3 % (35.4-49) L 10/06/17 07:00 MCV 86.0 fl (80-96) 10/06/17 07:00 MCHC 32.3 g/dl (32.0-35.9) 10/06/17 07:00 RDW 14.3 % (11.9-15.9) 10/06/17 07:00 Plt Count 374 K/MM3 (134-434) 10/06/17 07:00 MPV 8.4 fl (7.5-11.1) 10/06/17 07:00 CMP Sodium 140 mmol/L (136-145) 10/06/17 07:00 Potassium 4.3 mmol/L (3.5-5.1) 10/06/17 07:00 Chloride 106 mmol/L (98-107) 10/06/17 07:00 Carbon Dioxide 26 mmol/L (21-32) 10/06/17 07:00 Anion Gap 8 (8-16) 10/06/17 07:00 BUN 24 mg/dL (7-18) H 10/06/17 07:00 Creatinine 0.8 mg/dL (0.7-1.3) 10/06/17 07:00 Creat Clearance w eGFR > 60 (>60) 09/21/17 08:11 Calcium 8.2 mg/dL (8.5-10.1) L 10/06/17 07:00 Total Bilirubin 1.0 mg/dL (0.2-1.0) D 09/21/17 08:11 AST 34 U/L (15-37) D 09/21/17 08:11 ALT 28 U/L (12-78) 09/21/17 08:11 Alkaline Phosphatase 57 U/L (45-117) 09/21/17 08:11 Total Protein 6.1 g/dl (6.4-8.2) L 09/21/17 08:11 Albumin 2.9 g/dl (3.4-5.0) L 09/21/17 08:11 ASSESSMENT AND PLAN: 76yo M with PMH dementia and OA found wandering around [facility] 1. Acute toxic metabolic encephalopathy-very lethargic. received haldol at 0400. liekly due to that. as per RN he was alert prior to eating. frequent neurochecks. on zyprexa 10mg BID. titrate up as tolerated. on 2 point restraints. Psych and neuro on board 2. Elevated transminases- suggestive of hx of ETOH. hepatitis panel negative. resolved 3. afib-new onset. repeat EKG showing NSR. cont to hold betablocker. on eliquis. 4. CL- likely obstructive uropathy vs rhabdo. s/p TURP 10/05. CBI going. + hematuria. cont CBI until urine is running clear. on flomax for enlarged prostate. avoid nephrotoxic agents. urology on board 5. Hematuria- continues to have pink urine with CBI going. slight drop in Hgb. will monitor. 6. E. Faecalis UTI-increase in leukocytosis likely reactive due to procedure. on amoxicillin day 6. 7. Rhabdo-resolved 8. Leukocytosis-likely reactive. resolved 9. DVT ppx- hold eliquis while having hematuira. 10. spoke with both [place] present at bedside. updated on current events and plan. agreeable to SNF placement in dementia unit. [place] or [place] where they reside. They will reach out to on sunday (10/09) Visit type - Emergency Visit Emergency Visit: Yes ED Registration Date: 09/17/17 Care time: The patient presented to the Emergency Department on the above date and was hospitalized for further evaluation of their emergent condition. - New Patient This patient is new to me today: No - Critical Care Critical Care patient: No - Discharge Referral Referred to [facility] Med P.C.: No
[2017-10-06] MEDS: ELECTROLYTE-148 SOLN 1,000 ML IV SCH (21:58)
[2017-10-07 07:18] LABS: BASO % 1.1 % (0-2.0); EOS % 3.7 % (0-4.5); HEMATOCRIT 28.3 % (35.4-49); HEMOGLOBIN 9.2 GM/dL (11.7-16.9); LYMPH % 15.8 % (8-40); MCH 28.4 pg (25.7-33.7); MCHC 32.6 g/dl (32.0-35.9); MEAN CELL VOLUME 87.1 fl (80-96); MEAN PLT VOLUME 8.6 fl (7.5-11.1); MONO % 11.3 % (3.8-10.2); NEUT % 68.1 % (42.8-82.8); PLATELET COUNT 339 K/MM3 (134-434); RBC 3.25 M/mm3 (4.00-5.60); RDW 14.2 % (11.9-15.9); WHITE BLOOD COUNT 11.6 K/mm3 (4.0-10.0)
[2017-10-07 07:35] LABS: ANION GAP 7 (8-16); BLOOD UREA NITROGEN 18 mg/dL (7-18); CALCIUM 8.2 mg/dL (8.5-10.1); CHLORIDE 106 mmol/L (98-107); CO2 30 mmol/L (21-32); CREATININE 0.6 mg/dL (0.7-1.3); GLUCOSE,RANDOM 91 mg/dL (74-106); POTASSIUM 4.1 mmol/L (3.5-5.1); SODIUM 143 mmol/L (136-145)
--- NOTE | 2017-10-07 08:19 | PN ---
Physical Exam: SUBJECTIVE: Patient seen and examined by me at bedside. No overnight events noted. Patient in bed awake and singing however not following commands or responding to me. CBI throughout the night with bloody urine but no clots. OBJECTIVE: Vital Signs Period Temp Pulse Resp BP Sys/Mackey Pulse Ox Last 24 Hr 97.9 F-98.5 F 61-80 18-20 111-142/54-67 98-100 GENERAL: Awake and Alert and responds to tactile stimuli LUNGS: Breath sounds equal, clear to anterior auscultation bilaterally, no wheezes, no crackles, no accessory muscle use. HEART: Regular rate and rhythm, S1, S2, no murmur appreciated. ABDOMEN: Soft, nontender, nondistended. EXTREMITIES: Warm, well-perfused, no edema. SKIN: Warm, dry, normal turgor, no rashes or lesions noted Laboratory Results - last 24 hr 10/07/17 10/07/17 06:55 06:55 WBC 11.6 H RBC 3.25 L Hgb 9.2 L Hct 28.3 L MCV 87.1 MCH 28.4 MCHC 32.6 RDW 14.2 Plt Count 339 MPV 8.6 Neutrophils % 68.1 Lymphocytes % 15.8 D Monocytes % 11.3 H Eosinophils % 3.7 D Basophils % 1.1 Sodium 143 Potassium 4.1 Chloride 106 Carbon Dioxide 30 Anion Gap 7 L BUN 18 D Creatinine 0.6 L D Random Glucose 91 Calcium 8.2 L Active Medications Generic Name Dose Route Start Last Admin Trade Name Freq PRN Reason Stop Dose Admin Fentanyl 25 mcg 10/05/17 18:02 10/05/17 21:10 Sublimaze Injection - IVPUSH 25 mcg [id number] PRN Administration PAIN-PACU ORDER X 4 DOSES ONLY Haloperidol 1 mg 10/05/17 18:57 10/06/17 21:59 Haldol Injection (Fast Acting) - IM 1 mg Q4H PRN Administration AGITATION Parenteral Electrolytes 1,000 mls @ 75 mls/hr 10/05/17 18:15 10/06/17 21:58 Plasma-Lyte 148 - IV 75 mls/hr ASDIR HEATHER Administration Olanzapine 10 mg 10/05/17 22:00 10/06/17 21:59 Zyprexa - PO 10 mg BID HEATHER Administration Ondansetron HCl 4 mg 10/05/17 18:02 Zofran Injection IVPUSH Q6H PRN NAUSEA AND/OR VOMITING Promethazine HCl 12.5 mg 10/05/17 18:02 Phenergan Injection - IVPUSH Q6H PRN NAUSEA-FOR RESCUE AFTER 15 MIN Tamsulosin HCl 0.4 mg 10/06/17 08:30 10/06/17 10:48 Flomax - PO 0.4 mg DAILY@0830 [facility] Administration ASSESSMENT/PLAN: 76yo M with PMH dementia, PVD, arthritis, found wandering around [facility] property, admitted for acute toxic metabolic encephalopathy. CL - likely 2/2 retention vs rhabdomyolysis - resolved - CBI with bloody urine but has resolved today. Will need to maintain mcintyre until urologist discontinues it - continue to monitor UOP - continue Flomax for enlarged prostate - avoid nephrotoxic agents Acute toxic metabolic encephalopathy - possibly 2/2 hx of dementia - Alert, Awake, pt at his baseline - continue Zyprexa 10mg BID and Haldol prn which he required last night - Will begin Seroquel - restraints still required for self protection New Onset A.Fib - pt continues to have episodes of bradycardia, continue to hold beta hai - Eliquis on hold due to hematuria. Will likely resume tomorrow if no hematuria Elevated Transminases-resolved -Likely secondary to history of alcohol use. -Hepatitis panel negative UTI -Cultures positive for Enterococcus Faecalis -Completed 7 day course of ABx Hematuria -Resolved F/E/N - Fluids: po - Electrolytes: continue to monitor - Nutrition: Regular diet Prophylaxis - DVT ppx with eliquis will resume tomorrow due to hematuria. - deconditioning ppx with PT Disposition - Family agreeable to SNF placement when pt is medically optimized Visit type - Emergency Visit Emergency Visit: Yes ED Registration Date: 09/17/17 Care time: The patient presented to the Emergency Department on the above date and was hospitalized for further evaluation of their emergent condition. - New Patient This patient is new to me today: Yes Date on this admission: 10/07/17 - Critical Care Critical Care patient: No
[2017-10-07] MEDS: TAMSULOSIN HCL 0.4 MG CAP.ER.24H (FP) PO SCH (08:49)
[2017-10-07] MEDS ORDERED: PT OWN MED DRAWER 7, Y5N ONE (09:19)
[2017-10-07] MEDS: ELECTROLYTE-148 SOLN 1,000 ML IV SCH ×3 (10:21→22:57)
[2017-10-07] MEDS: OLANZapine 10 MG TABLET PO SCH ×2 (10:24→21:14)
--- NOTE | 2017-10-07 16:40 | PN ---
Teaching Attending Note Name of Resident: Meryl Hernandez ATTENDING PHYSICIAN STATEMENT I saw and evaluated the patient. I reviewed the resident's note and discussed the case with the resident. I agree with the resident's findings and plan as documented. SUBJECTIVE:lethargic. responds to tactile stimuli OBJECTIVE: Last Vital Signs Temp Pulse Resp BP Pulse Ox 98.8 F 92 H 20 124/77 100 10/07/17 14:41 10/07/17 14:41 10/07/17 14:41 10/07/17 14:41 10/07/17 09:00 General lethargic. responds to tactile stimuli CV S1 S2 RRR Abdomen soft midly tender. not distended ASSESSMENT AND PLAN: 76yo M with PMH dementia and OA found wandering around [facility] 1. Acute toxic metabolic encephalopathy-very lethargic. received haldol last night. as per RN he ate lunch without difficulty and fell asleep after. continues to become agitated in the evening requiring haldol which causes prolonged lethargy. maxed doses of zyprexa. will start seroquel. (QTc 400). titrate as needed. cont 2 point restraints and santos vest. Psych and neuro on board 2. Elevated transminases- suggestive of hx of ETOH. hepatitis panel negative. resolved 3. afib-new onset. EKG showing NSR. cont to hold betablocker. eliquis on hold for procedure. will consider re-starting tomorrow if Hgb remains stable 4. CL- likely obstructive uropathy vs rhabdo. s/p TURP 10/05. CBI going. hematuria resolved. agree with urology about stopping CBI at this time. mcintyre management per urology. on flomax. avoid nephrotoxic agents. urology on board 5. Hematuria- resolved. 6. E. Faecalis UTI-increase in leukocytosis likely reactive due to procedure. on amoxicillin day 7. will d/c today 7. Rhabdo-resolved 8. Leukocytosis-likely reactive. resolved 9. DVT ppx- hold eliquis today. if hgb stable tomorrow will re-start
[2017-10-07] MEDS: HALOPERIDOL LACTATE 5 MG/ML IM PRN (21:14)
[2017-10-07] MEDS ORDERED: QUEtiapine FUMARATE 25 MG TABLET (FP) PO SCH (22:00)
[2017-10-08] MEDS ORDERED: PT OWN MED DRAWER 7, Y5N ONE ×2 (09:45→21:21)
--- NOTE | 2017-10-08 09:54 | PN ---
Progress Note (short form) - Note Progress Note: POD#3 from TURP. urine is minimally tinged on CBI trial of void today Problem List - Problems (1) Benign localized hyperplasia of prostate with urinary retention Code(s): N40.1 - BENIGN PROSTATIC HYPERPLASIA WITH LOWER URINARY TRACT SYMP
[2017-10-08] MEDS: OLANZapine 10 MG TABLET PO SCH ×2 (10:16→22:36)
[2017-10-08] MEDS: TAMSULOSIN HCL 0.4 MG CAP.ER.24H (FP) PO SCH (10:16)
--- NOTE | 2017-10-08 14:11 | PN ---
Progress Note (short form) - Note Progress Note: has no complaints. denies CP, SOB, abdominal pain Current Medications Generic Name Dose Route Start Last Admin Trade Name Freq PRN Reason Stop Dose Admin Fentanyl 25 mcg 10/05/17 18:02 10/05/17 21:10 Sublimaze Injection - IVPUSH 25 mcg [id number] PRN Administration PAIN-PACU ORDER X 4 DOSES ONLY Haloperidol 1 mg 10/05/17 18:57 10/07/17 21:14 Haldol Injection (Fast Acting) - IM 1 mg Q4H PRN Administration AGITATION Parenteral Electrolytes 1,000 mls @ 75 mls/hr 10/05/17 18:15 10/07/17 22:57 Plasma-Lyte 148 - IV 75 mls/hr ASDIR HEATHER Administration Olanzapine 10 mg 10/05/17 22:00 10/08/17 10:16 Zyprexa - PO 10 mg BID HEATHER Administration Ondansetron HCl 4 mg 10/05/17 18:02 Zofran Injection IVPUSH Q6H PRN NAUSEA AND/OR VOMITING Promethazine HCl 12.5 mg 10/05/17 18:02 Phenergan Injection - IVPUSH Q6H PRN NAUSEA-FOR RESCUE AFTER 15 MIN Quetiapine Fumarate 25 mg 10/07/17 22:00 10/07/17 21:14 Seroquel - PO 25 mg HS HEATHER Administration Tamsulosin HCl 0.4 mg 10/06/17 08:30 10/08/17 10:16 Flomax - PO 0.4 mg DAILY@0830 HEATHER Administration Last Vital Signs Temp Pulse Resp BP Pulse Ox 97.6 F 56 L 18 115/65 100 10/08/17 06:00 10/08/17 06:00 10/08/17 06:00 10/08/17 06:00 10/07/17 21:00 General NAD, alert and responsive CV S1 S2 RRR Abdomen soft midly tender. not distended ASSESSMENT AND PLAN: 76yo M with PMH dementia and OA found wandering around [facility] 1. Acute toxic metabolic encephalopathy-alert and responsive. still requiring restraints and haldol at bedtime for agitation. will increase seroquel. attempt to remove restraints. pt is fall and elopement risk. Psych and neuro on board 2. Elevated transminases- suggestive of hx of ETOH. hepatitis panel negative. resolved 3. Paroxysmal afib-new onset which self converted to NSR. was on eliquis due to high [id number] however in setting of severe dementia and fall risk, concern that the risks outweigh the benefits. will hold eliquis going further. 4. CL- likely obstructive uropathy vs rhabdo. s/p TURP 10/05. CBI going. hematuria resolved. mcintyre removed and voiding freely. avoid nephrotoxic agents. urology on board 5. Hematuria- resolved. 6. E. Faecalis UTI-increase in leukocytosis likely reactive due to procedure. completed 7 day course of abx 7. Rhabdo-resolved 8. Leukocytosis-likely reactive. resolved 9. DVT ppx- start hep sq Visit type - Emergency Visit Emergency Visit: Yes ED Registration Date: 09/17/17 Care time: The patient presented to the Emergency Department on the above date and was hospitalized for further evaluation of their emergent condition. - New Patient This patient is new to me today: No - Critical Care Critical Care patient: No - Discharge Referral Referred to [facility] Med P.C.: No
[2017-10-08 14:51] LABS: MCH 27.7 pg (25.7-33.7); MCHC 32.1 g/dl (32.0-35.9); MEAN CELL VOLUME 86.3 fl (80-96); MEAN PLT VOLUME 7.9 fl (7.5-11.1); PLATELET COUNT 320 K/MM3 (134-434); RBC 3.24 M/mm3 (4.00-5.60); RDW 14.6 % (11.9-15.9)
[2017-10-08] MEDS: QUEtiapine FUMARATE 50 MG TABLET PO SCH ×2 (16:42→22:36)
--- NOTE | 2017-10-08 20:06 | OP ---
DATE OF OPERATION: 10/05/2017 PREOPERATIVE DIAGNOSES: Urinary retention, benign prostatic hypertrophy. POSTOPERATIVE DIAGNOSES: Urinary retention, benign prostatic hypertrophy. PROCEDURE: Cystoscopy, transurethral resection of the prostate. ANESTHESIA: Spinal, Taurus Salinas MD. ESTIMATED BLOOD LOSS: 25 mL SPECIMENS: Prostate chips. SURGEON: William Lentz MD PREOPERATIVE INDICATIONS: The patient is a 76-year-old male with urinary retention, comes for a TURP. OPERATION: The patient was brought to the OR, placed on the table in the supine position, given spinal anesthetic, placed in the modified lithotomy position. The groin was prepped and draped sterilely. Cystoscopy was performed. The distal urethra appeared to be normal. The sphincter was seen and intact. The prostate was obstructive. The bladder itself had trabeculations throughout. No tumors or stones were seen. Both UOs were visualized. Using the bipolar resectoscope, obstructing tissue was resected from the bladder neck to the area just proximal to the verumontanum. Good hemostasis was maintained. The prostate chips were evacuated out. The view at the end of the case showed an open prostate. No significant bleeding was seen. The UOs were intact, and the sphincter was intact. The scope was removed. A 24-Persian 3-way Buck catheter was placed for postoperative irrigation. The patient was woken up. WILLIAM LENTZ M.D. [id number]
[2017-10-08] MEDS: HEPARIN NA (PORCINE) 5,000 UNITS/ML 1ML VIAL SQ SCH (22:36)
[2017-10-08] MEDS: HALOPERIDOL LACTATE 5 MG/ML IM PRN (22:37)
[2017-10-09] MEDS: HALOPERIDOL LACTATE 5 MG/ML IM PRN (05:30)
--- NOTE | 2017-10-09 08:01 | PN ---
Physical Exam: SUBJECTIVE: Patient seen and examined by me this AM - No major overnight events. Still remains disoriented, A&Ox1. No major complaints apart from baseline restlessness, agitation. Denies fever/chills, cough, CP, abdominal pain. No mcintyre or suprapubic catheter currently. PM: - Bladder scan with ~1L residual. Dr. Mccallum replaced mcintyre w/ coude catheter. Traumatic placement. Pt now s/p draining 500cc via mcintyre with minimal residual hematuria. OBJECTIVE: Vital Signs Period Temp Pulse Resp BP Sys/Mackey Pulse Ox Last 24 Hr 97.7 F-98.4 F 65-72 18-20 105-145/54-78 98-100 GENERAL: A&Ox1 HEAD: Normal with no signs of trauma. EYES: PERRL, extraocular movements intact, sclera anicteric, conjunctiva clear. No ptosis. ENT: Ears normal, nares patent, oropharynx clear without exudates, moist mucous membranes. NECK: Trachea midline, full range of motion, supple. LUNGS: Breath sounds equal, clear to auscultation bilaterally, no wheezes, no crackles, no accessory muscle use. HEART: Regular rate and rhythm, S1, S2 without murmur, rub or gallop. ABDOMEN: Increased abdominal tone, palpable bladder, tender to palpation. Otherwise, normoactive bowel sounds, no guarding, no rebound, no hepatosplenomegaly, no masses. EXTREMITIES: 2+ pulses, warm, well-perfused, no edema. NEUROLOGICAL: Cranial nerves II through XII grossly intact. Normal speech, gait not observed. PSYCH: Tangential, uses multiple neologism. Normal mood, normal affect. SKIN: Warm, dry, normal turgor, no rashes or lesions noted Laboratory Results - last 24 hr CBC, BMP 10/08/17 14:35 10/07/17 06:55 Generic Name Dose Route Start Last Admin Trade Name Freq PRN Reason Stop Dose Admin Haloperidol 1 mg 10/05/17 18:57 10/09/17 05:30 Haldol Injection (Fast Acting) - IM 1 mg Q4H PRN Administration AGITATION Heparin Sodium (Porcine) 5,000 unit 10/08/17 22:00 10/08/17 22:36 Heparin - SQ 5,000 unit BID HEATHER Administration Olanzapine 10 mg 10/05/17 22:00 10/08/17 22:36 Zyprexa - PO 10 mg BID HEATHER Administration Ondansetron HCl 4 mg 10/05/17 18:02 Zofran Injection IVPUSH Q6H PRN NAUSEA AND/OR VOMITING Promethazine HCl 12.5 mg 10/05/17 18:02 Phenergan Injection - IVPUSH Q6H PRN NAUSEA-FOR RESCUE AFTER 15 MIN Quetiapine Fumarate 50 mg 10/08/17 15:15 10/08/17 22:36 Seroquel - PO 50 mg HS HEATHER Administration Tamsulosin HCl 0.4 mg 10/06/17 08:30 10/08/17 10:16 Flomax - PO 0.4 mg DAILY@0830 HEATHER Administration Microbiology 09/27/17 19:30 Urine - Urine Mcintyre Urine Culture - Final Enterococcus Faecalis 09/17/17 15:30 Blood - Peripheral Venous Blood Culture - Final NO GROWTH AFTER 5 DAYS INCUBATION 09/17/17 15:30 Blood - Peripheral Venous Blood Culture - Final NO GROWTH AFTER 5 DAYS INCUBATION 09/20/17 18:30 Urine - Urine Suprapubic Urine Culture - Final NO GROWTH OBTAINED 09/17/17 15:45 Urine - Urine Clean Catch Urine Culture - Final NO GROWTH OBTAINED No recent imaging EKG 09/30 - Low voltage, NAD, 1st degree HB, Rate 60, QTC 401, peaked twaves in V2 -V5 ASSESSMENT/PLAN: 76 yo man with PMH of dementia and OA who was initially found wandering [facility], likely secondary to baseline dementia complicated by acute metabolic encephalopathy. Pt remains altered w/ limited comprehension and continued agitation. Pt retaining 1L urine on bladder scan today, received traumatic mcintyre placement by Dr. Mccallum w/ coude catheter and voided 500cc on last check. Will monitor for hematuria, retention. #Acute Toxic Metabolic Encephalopathy - pt continues to remain altered, pulls at lines/tubes; A&Ox1 this AM - C/w seroquel, zyprexa; will require interval revision with psych team - Haldol 1mg Q4h for agitation PRN - Interval EKGs - Phenergan 12.5 mg IV q6h for N/V - Vest, mittens, limb restraints for agitation - Psych consulted, recs appreciated - Neurology consulted, aware - Daily BMPs #Transaminitis - Resolved. Likely secondary to ETOH abuse. 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 Mccallum w/ coude catheter placement (traumatic), drained 500cc post- procedure - Trend H/H - Monitor for hematuria given recent traumatic mcintyre introduction - Urology aware, following - Bladder scan Q6H - c/w flomax #E. Faecalis UTI - Resolved. Completed 7 day course of cetriaxone/amoxicilin on 10/08. No WBC count, fever - Trend fever, WBC count #Rhabdo - Has since resolved from admission PPX Heparin Subq FEN PO hydration Daily BMPs Soft Regular diet Plan discussed with attending, Dr. Haley Benavides, PGY1 Visit type - Emergency Visit Emergency Visit: Yes ED Registration Date: 09/17/17 Care time: The patient presented to the Emergency Department on the above date and was hospitalized for further evaluation of their emergent condition. - New Patient This patient is new to me today: Yes Date on this admission: 10/10/17 - Critical Care Critical Care patient: No
[2017-10-09] MEDS ORDERED: PT OWN MED DRAWER 7, Y5N ONE ×2 (08:46→22:24)
[2017-10-09] MEDS: HEPARIN NA (PORCINE) 5,000 UNITS/ML 1ML VIAL SQ SCH ×2 (09:10→22:53)
[2017-10-09] MEDS: TAMSULOSIN HCL 0.4 MG CAP.ER.24H (FP) PO SCH (09:10)
[2017-10-09] MEDS: OLANZapine 10 MG TABLET PO SCH ×2 (09:11→22:53)
--- NOTE | 2017-10-09 14:24 | PN ---
Teaching Attending Note Name of Resident: Sudarshan Benavides ATTENDING PHYSICIAN STATEMENT Time of evaluation: 11:35 AM I saw and evaluated the patient. I reviewed the resident's note and discussed the case with the resident. I agree with the resident's findings and plan as documented. SUBJECTIVE: Patient seen and examined. Oriented to self, confused, no complaints. OBJECTIVE: Vital Signs Period Temp Pulse Resp BP Sys/Mackey Pulse Ox Last 24 Hr 97.7 F-98.4 F 65-76 18-20 105-146/54-78 98-99 Intake & Output 10/06/17 10/07/17 10/08/17 10/09/17 23:59 23:59 23:59 23:59 Intake Total 93600 58745 1950 Output Total 98866 4100 1600 Balance -39609 7080 350 General: sitting in bed, confused, no acute distress CVS:S1S2 regular Abdomen: soft, suprapubic tense distension with tenderness, positive bowel sounds extremities: no edema neuro: AA, oriented to self only Home Medication List Medication Instructions Recorded Confirmed Type Donepezil HCl 10 mg PO DAILY 09/21/17 09/21/17 History Nabumetone 750 mg PO BID PRN 09/21/17 09/21/17 History Active Medications Generic Name Dose Route Start Last Admin Trade Name Freq PRN Reason Stop Dose Admin Haloperidol 1 mg 10/05/17 18:57 10/09/17 05:30 Haldol Injection (Fast Acting) - IM 1 mg Q4H PRN Administration AGITATION Heparin Sodium (Porcine) 5,000 unit 10/08/17 22:00 10/09/17 09:10 Heparin - SQ 5,000 unit BID HEATHER Administration Olanzapine 10 mg 10/05/17 22:00 10/09/17 09:11 Zyprexa - PO 10 mg BID HEATHER Administration Ondansetron HCl 4 mg 10/05/17 18:02 Zofran Injection IVPUSH Q6H PRN NAUSEA AND/OR VOMITING Promethazine HCl 12.5 mg 10/05/17 18:02 Phenergan Injection - IVPUSH Q6H PRN NAUSEA-FOR RESCUE AFTER 15 MIN Quetiapine Fumarate 50 mg 10/08/17 15:15 10/08/17 22:36 Seroquel - PO 50 mg HS HEATHER Administration Tamsulosin HCl 0.4 mg 10/06/17 08:30 01/16/18 09:10 Flomax - PO 0.4 mg DAILY@0830 [facility] Administration Laboratory Results - last 24 hr 10/08/17 14:35 WBC 7.0 D RBC 3.24 L Hgb 9.0 L Hct 28.0 L MCV 86.3 MCH 27.7 MCHC 32.1 RDW 14.6 Plt Count 320 MPV 7.9 Microbiology 09/27/17 19:30 Urine - Urine Mcintyre Urine Culture - Final Enterococcus Faecalis 09/17/17 15:30 Blood - Peripheral Venous Blood Culture - Final NO GROWTH AFTER 5 DAYS INCUBATION 09/17/17 15:30 Blood - Peripheral Venous Blood Culture - Final NO GROWTH AFTER 5 DAYS INCUBATION 09/20/17 18:30 Urine - Urine Suprapubic Urine Culture - Final NO GROWTH OBTAINED 09/17/17 15:45 Urine - Urine Clean Catch Urine Culture - Final NO GROWTH OBTAINED ASSESSMENT AND PLAN: 76yo M with PMH dementia and OA found wandering around [facility] -. Acute toxic metabolic encephalopathy-On zyprexa and started seroquel yesterday. received Haldol this AM. Readdress with psychiatry. Interval EKG to assess QTc. Restraints as pulling at catheters and line and risk of self injury , and falls. - Elevated transminases- suggestive of hx of ETOH. hepatitis panel negative. resolved - afib-new onset. EKG showing NSR. cont to hold betablocker. eliquis on hold for procedure. patient high fall risk, seems with severe dementia and poor functional status at baseline. Also with hematuria. 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 Hold for now. - CL- likely obstructive uropathy vs rhabdo. s/p TURP 10/05. mcintyre removed yesterday, retention overnight, distended tender bladder this AM, caude catheter placed by Dr. Mccallum, continue to monitor. - Hematuria- resolved. Interval CBC. - E. Faecalis UTI-leucocytosis resolved. s/p 7 days of antibiotics (ceftriaxone , then amoxicillin) finished 10/08/ - Rhabdo-resolved - DVT ppx- start heparin subq for now. -Dispo - pending placement, Needs to be off restraint x 24 hours, follow up with CM for placement.
--- NOTE | 2017-10-09 16:25 | PATH ---
Surgical Pathology Report Patient Name: BAUDILIO CEDILLO [facility]. Rec. #: [id number] /Age/Gender: 1940 (Age: 76) / M Account: [id number] Location: [address] [place] [address] Taken: 10/05/2017 Received: 10/08/2017 Reported: 10/09/2017 Physicians: William Lentz M.D. Specimen(s) Received PROSTATE TISSUE Clinical History Urinary retention Final Diagnosis PROSTATE, TUR: BENIGN PROSTATIC TISSUE SHOWING CYSTIC GLANDULAR ATROPHY AND STROMAL HYPERPLASIA. Electronically Signed Sylvia De La Paz M.D. Gross Description Received in formalin labeled "prostate tissue," is a 7 g, 6.0 x 6.0 x 0.4 cm aggregate of multiple cooley, irregular, firm to rubbery portions of tissue, consistent with prostate chips. The specimen is entirely submitted in 6 cassettes. /10/08/201710/08/2017
[2017-10-09] MEDS: QUEtiapine FUMARATE 50 MG TABLET PO SCH (22:53)
--- NOTE | 2017-10-10 08:32 | PN ---
Physical Exam: SUBJECTIVE: Patient seen and examined by me this AM - No major overnight events. Mcnityre placed yesterday by Dr. Mccallum. Pt w/ no complaints. Trace hematuria noted in mcintyre bag OBJECTIVE: Vital Signs Intake & Output 10/07/17 10/08/17 10/09/17 10/10/17 23:59 23:59 23:59 23:59 Intake Total 09753 1950 370 Output Total 4100 1600 2800 600 Balance 7080 350 -2430 -600 Period Temp Pulse Resp BP Sys/Mackey Pulse Ox Last 24 Hr 97.6 F-98.7 F 48-94 18-18 114-147/48-80 96-99 GENERAL: A&Ox1, laying in bed in NAD HEAD: Normal with no signs of trauma. EYES: PERRL, extraocular movements intact, sclera anicteric, conjunctiva clear. No ptosis. ENT: Ears normal, nares patent, oropharynx clear without exudates, moist mucous membranes. NECK: Trachea midline, full range of motion, supple. LUNGS: Breath sounds equal, clear to auscultation bilaterally, no wheezes, no crackles, no accessory muscle use. HEART: Regular rate and rhythm, S1, S2 without murmur, rub or gallop. ABDOMEN: Scaphoid abdomen, increased abdominal tone. Otherwise, normoactive bowel sounds, no guarding, no rebound, no hepatosplenomegaly, no masses. no suprapubic tenderness. EXTREMITIES: 2+ pulses, warm, well-perfused, no edema. NEUROLOGICAL: Cranial nerves II through XII grossly intact. Normal speech, gait not observed. PSYCH: Nonsensical, tangential. Normal mood, normal affect. SKIN: Warm, dry, normal turgor, no rashes or lesions noted Active Medications Generic Name Dose Route Start Last Admin Trade Name Freq PRN Reason Stop Dose Admin Haloperidol 1 mg 10/05/17 18:57 10/09/17 05:30 Haldol Injection (Fast Acting) - IM 1 mg Q4H PRN Administration AGITATION Heparin Sodium (Porcine) 5,000 unit 10/08/17 22:00 10/09/17 22:53 Heparin - SQ 5,000 unit BID HEATHER Administration Olanzapine 10 mg 10/05/17 22:00 10/09/17 22:53 Zyprexa - PO 10 mg BID HEATHER Administration Ondansetron HCl 4 mg 10/05/17 18:02 Zofran Injection IVPUSH Q6H PRN NAUSEA AND/OR VOMITING Promethazine HCl 12.5 mg 10/05/17 18:02 Phenergan Injection - IVPUSH Q6H PRN NAUSEA-FOR RESCUE AFTER 15 MIN Quetiapine Fumarate 50 mg 10/08/17 15:15 10/09/17 22:53 Seroquel - PO 50 mg HS HEATHER Administration Tamsulosin HCl 0.4 mg 10/06/17 08:30 10/09/17 09:10 Flomax - PO 0.4 mg DAILY@0830 HEATHER Administration Microbiology 09/27/17 19:30 Urine - Urine Mcintyre Urine Culture - Final Enterococcus Faecalis 09/17/17 15:30 Blood - Peripheral Venous Blood Culture - Final NO GROWTH AFTER 5 DAYS INCUBATION 09/17/17 15:30 Blood - Peripheral Venous Blood Culture - Final NO GROWTH AFTER 5 DAYS INCUBATION 09/20/17 18:30 Urine - Urine Suprapubic Urine Culture - Final NO GROWTH OBTAINED 09/17/17 15:45 Urine - Urine Clean Catch Urine Culture - Final NO GROWTH OBTAINED EKG 09/30 - Low voltage, NAD, 1st degree HB, Rate 60, QTC 401, peaked twaves in V2 -V5 ASSESSMENT/PLAN: 76 yo man with PMH of dementia and OA who was initially found wandering [facility], likely secondary to baseline dementia complicated by acute metabolic encephalopathy. Pt remains altered w/ limited comprehension and continued agitation. Mcintyre placement yesterday by Dr. Mccallum; pt draining freely with trace hematuria. Remains restless and altered, however no infectious symptoms or other active medical issues at this time #Acute Toxic Metabolic Encephalopathy - pt continues to remain altered, pulls at lines/tubes; A&Ox1 this AM - C/w seroquel, zyprexa; will require interval revision with psych team - Haldol 1mg Q4h for agitation PRN - Interval EKGs - Phenergan 12.5 mg IV q6h for N/V - Vest, mittens, limb restraints for agitation - Psych consulted, recs appreciated - Neurology consulted, aware - Daily BMPs #Transaminitis - Resolved. Likely secondary to ETOH abuse - Daily CMPs #Paroxysmal Afib - Eliquis held for now as pt high fall risk/dementia and recent hematuria, poor candidate for snf AC; EKG w/ NSR - Serial EKGs - Risks of fall/bleed outweigh benefit of snf AC; Pt NSS now #CL - Likely etiology obstructive uropathy vs rhabdomyolysis; Cr 0.8 -> 0.6 - Trend Cr, Daily BMPs #Hematuria/BPH - POD4 TURP 10/05; Dr. Mccallum w/ coude catheter placement ( traumatic) yesterday, voided 3L over 24 hours; H/H stable; trace hematuria this AM - Trend H/H - Monitor for hematuria given recent traumatic mcintyre introduction - Urology aware, following - Bladder scan Q6H - c/w flomax #E. Faecalis UTI - Resolved. Completed 7 day course of cetriaxone/amoxicilin on 10/08. No WBC count, fever - Trend fever, WBC count #Rhabdo - Has since resolved from admission PPX Heparin Subq FEN PO hydration Daily BMPs Soft Regular diet Plan discussed with attending, Dr. Haley Benavides, PGY1 Visit type - Emergency Visit Emergency Visit: Yes ED Registration Date: 09/17/17 Care time: The patient presented to the Emergency Department on the above date and was hospitalized for further evaluation of their emergent condition. - New Patient This patient is new to me today: Yes Date on this admission: 10/10/17 - Critical Care Critical Care patient: No
[2017-10-10 08:41] LABS: EOS % 7.9 % (0-4.5); HEMATOCRIT 29.3 % (35.4-49); HEMOGLOBIN 9.4 GM/dL (11.7-16.9); LYMPH % 17.4 % (8-40); MCH 27.8 pg (25.7-33.7); MEAN CELL VOLUME 87.1 fl (80-96); MEAN PLT VOLUME 8.8 fl (7.5-11.1); NEUT % 59.7 % (42.8-82.8); PLATELET COUNT 335 K/MM3 (134-434); RBC 3.37 M/mm3 (4.00-5.60); RDW 14.9 % (11.9-15.9); WHITE BLOOD COUNT 6.9 K/mm3 (4.0-10.0)
[2017-10-10 08:45] LABS: ALBUMIN 2.5 g/dl (3.4-5.0); ANION GAP 4 (8-16); BLOOD UREA NITROGEN 17 mg/dL (7-18); CALCIUM 8.3 mg/dL (8.5-10.1); CHLORIDE 110 mmol/L (98-107); CO2 31 mmol/L (21-32); CREATININE 0.7 mg/dL (0.7-1.3); GLUCOSE,RANDOM 84 mg/dL (74-106); POTASSIUM 4.1 mmol/L (3.5-5.1); SGOT/AST 26 U/L (15-37); SGPT/ALT 16 U/L (12-78); SODIUM 145 mmol/L (136-145)
[2017-10-10 08:46] LABS: ALK PHOS 60 U/L (45-117); BILIRUBIN,TOTAL 0.4 mg/dL (0.2-1.0); TOT PROT 5.8 g/dl (6.4-8.2)
[2017-10-10] MEDS ORDERED: PT OWN MED DRAWER 7, Y5N ONE ×2 (10:19→21:01)
[2017-10-10] MEDS: TAMSULOSIN HCL 0.4 MG CAP.ER.24H (FP) PO SCH (10:23)
[2017-10-10] MEDS: HEPARIN NA (PORCINE) 5,000 UNITS/ML 1ML VIAL SQ SCH ×2 (10:23→22:09)
[2017-10-10] MEDS: OLANZapine 10 MG TABLET PO SCH ×2 (10:23→22:09)
--- NOTE | 2017-10-10 10:57 | EKG ---
Test Reason : Blood Pressure : / mmHG Vent. Rate : 050 BPM Atrial Rate : 050 BPM P-R Int : 212 ms QRS Dur : 076 ms QT Int : 420 ms P-R-T Axes : 077 -35 062 degrees QTc Int : 382 ms SINUS BRADYCARDIA WITH 1ST DEGREE A-V BLOCK LEFT AXIS DEVIATION LOW VOLTAGE QRS ABNORMAL ECG WHEN COMPARED WITH ECG OF 30-SEP-2017 11:42, PREVIOUS ECG HAS UNDETERMINED RHYTHM, NEEDS REVIEW Confirmed by ROMEO HARRIS, LOTTIE ([id number]) on 10/10/2017 10:57:01 AM Referred By: Michele LEAHY Confirmed By:LOTTIE WALTERS MD
--- NOTE | 2017-10-10 12:42 | PN ---
Teaching Attending Note Name of Resident: Sudarshan Benavides ATTENDING PHYSICIAN STATEMENT Time of evaluation: 12:15 PM I saw and evaluated the patient. I reviewed the resident's note and discussed the case with the resident. I agree with the resident's findings and plan as documented. SUBJECTIVE: Patient seen and examined. oriented to self, no complaints. Limited ROS OBJECTIVE: Vital Signs Period Temp Pulse Resp BP Sys/Mackey Pulse Ox Last 24 Hr 97.6 F-98.7 F 48-94 18-18 114-147/48-80 96-96 Intake & Output 10/07/17 10/08/17 10/09/17 10/10/17 23:59 23:59 23:59 23:59 Intake Total 07419 1950 370 Output Total 4100 1600 2800 600 Balance 7080 350 -2430 -600 General: sitting in bed, mildly resltess, in no acute distress CVS:S1S2 regular Chest: poor effort Abdomen: soft, no suprapubic tenderness, positive bowel sounds Home Medication List Medication Instructions Recorded Confirmed Type Donepezil HCl 10 mg PO DAILY 09/21/17 09/21/17 History Nabumetone 750 mg PO BID PRN 09/21/17 09/21/17 History Active Medications Generic Name Dose Route Start Last Admin Trade Name Freq PRN Reason Stop Dose Admin Haloperidol 1 mg 10/05/17 18:57 10/09/17 05:30 Haldol Injection (Fast Acting) - IM 1 mg Q4H PRN Administration AGITATION Heparin Sodium (Porcine) 5,000 unit 10/08/17 22:00 10/10/17 10:23 Heparin - SQ 5,000 unit BID HEATHER Administration Olanzapine 10 mg 10/05/17 22:00 10/10/17 10:23 Zyprexa - PO 10 mg BID HEATHER Administration Ondansetron HCl 4 mg 10/05/17 18:02 Zofran Injection IVPUSH Q6H PRN NAUSEA AND/OR VOMITING Promethazine HCl 12.5 mg 10/05/17 18:02 Phenergan Injection - IVPUSH Q6H PRN NAUSEA-FOR RESCUE AFTER 15 MIN Quetiapine Fumarate 50 mg 10/08/17 15:15 10/09/17 22:53 Seroquel - PO 50 mg HS HEATHER Administration Tamsulosin HCl 0.4 mg 01/13/18 08:30 10/10/17 10:23 Flomax - PO 0.4 mg DAILY@0830 [facility] Administration Laboratory Results - last 24 hr 10/10/17 10/10/17 07:00 07:00 WBC 6.9 RBC 3.37 L Hgb 9.4 L Hct 29.3 L MCV 87.1 MCH 27.8 MCHC 32.0 RDW 14.9 Plt Count 335 MPV 8.8 D Neutrophils % 59.7 Lymphocytes % 17.4 Monocytes % 14.0 H Eosinophils % 7.9 H D Basophils % 1.0 Sodium 145 Potassium 4.1 Chloride 110 H Carbon Dioxide 31 Anion Gap 4 L BUN 17 Creatinine 0.7 Creat Clearance w eGFR > 60 Random Glucose 84 Calcium 8.3 L Total Bilirubin 0.4 D AST 26 D ALT 16 D Alkaline Phosphatase 60 Total Protein 5.8 L Albumin 2.5 L Microbiology 09/27/17 19:30 Urine - Urine Mcintyre Urine Culture - Final Enterococcus Faecalis 09/17/17 15:30 Blood - Peripheral Venous Blood Culture - Final NO GROWTH AFTER 5 DAYS INCUBATION 09/17/17 15:30 Blood - Peripheral Venous Blood Culture - Final NO GROWTH AFTER 5 DAYS INCUBATION 09/20/17 18:30 Urine - Urine Suprapubic Urine Culture - Final NO GROWTH OBTAINED 09/17/17 15:45 Urine - Urine Clean Catch Urine Culture - Final NO GROWTH OBTAINED ASSESSMENT AND PLAN: 76yo M with PMH dementia and OA found wandering around [facility] - Acute toxic metabolic encephalopathy-On zyprexa and started seroquel yesterday. Attempt to taper off haldol. Readdress with psychiatry. Interval EKG to assess QTc. Restraints as pulling at catheters and line and risk of self injury, and falls. - Elevated transminases- suggestive of hx of ETOH. hepatitis panel negative. resolved - afib-new onset. EKG showing NSR. cont to hold betablocker. eliquis on hold for procedure. patient high fall risk, seems with severe dementia and poor functional status at baseline. Also with hematuria. 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 Hold for now. - CL- likely obstructive uropathy vs rhabdo. s/p TURP 10/05. mcintyre removed yesterday, retention overnight, distended tender bladder this AM, caude catheter placed by Dr. Mccallum on 10/09, continue to monitor. - Hematuria- resolved. Interval CBC. - E. Faecalis UTI-leucocytosis resolved. s/p 7 days of antibiotics (ceftriaxone , then amoxicillin) finished 10/08/17 - Rhabdo-resolved - DVT ppx- start heparin subq for now. -Dispo - pending placement, Needs to be off restraint x 24 hours, follow up with CM for placement.
[2017-10-10] MEDS: QUEtiapine FUMARATE 50 MG TABLET PO SCH (22:09)
[2017-10-11] MEDS ORDERED: PT OWN MED DRAWER 7, Y5N ONE ×3 (01:33→21:56)
--- NOTE | 2017-10-11 06:17 | PN ---
Physical Exam: SUBJECTIVE: Patient seen and examined by me this AM - No major events overnight. Pt appears less agitated today. Still with nonsensical speech pattern. Denies any CP, SOB, fevers, cough, abdominal pain, N /V - Mcintyre draining red-tinged urine w/ trace clots per overnight nursing team - Pt accepted at multiple nursing homes yesterday OBJECTIVE: Vital Signs Intake & Output 10/08/17 10/09/17 10/10/17 10/11/17 23:59 23:59 23:59 23:59 Intake Total 1950 370 745 Output Total 1600 2800 1500 Balance 350 -2430 -755 Period Temp Pulse Resp BP Sys/Mackey Pulse Ox Last 24 Hr 98.2 F-98.7 F 68-88 18-20 118-125/56-96 96-96 GENERAL: Cachectic elderly man with santos mittens, A&Ox1, laying in bed in NAD. HEAD: Normal with no signs of trauma. EYES: PERRL, extraocular movements intact, sclera anicteric, conjunctiva clear. No ptosis. ENT: Ears normal, nares patent, oropharynx clear without exudates, moist mucous membranes. NECK: Trachea midline, full range of motion, supple. LUNGS: Breath sounds equal, clear to auscultation bilaterally, no wheezes, no crackles, no accessory muscle use. HEART: Regular rate and rhythm, S1, S2 without murmur, rub or gallop. ABDOMEN: Scaphoid abdomen, increased abdominal tone. Bladder firm, easily percussible. Otherwise, normoactive bowel sounds, no guarding, no rebound, no hepatosplenomegaly, no masses. no suprapubic tenderness. EXTREMITIES: 2+ pulses, warm, well-perfused, no edema. NEUROLOGICAL: Cranial nerves II through XII grossly intact. Normal speech, gait not observed. PSYCH: Nonsensical, tangential. Normal mood, normal affect. SKIN: Warm, dry, normal turgor, no rashes or lesions noted Laboratory Results - last 24 hr CBC, BMP 10/10/17 07:00 10/10/17 07:00 10/10/17 10/10/17 07:00 07:00 WBC 6.9 RBC 3.37 L Hgb 9.4 L Hct 29.3 L MCV 87.1 MCH 27.8 MCHC 32.0 RDW 14.9 Plt Count 335 MPV 8.8 D Neutrophils % 59.7 Lymphocytes % 17.4 Monocytes % 14.0 H Eosinophils % 7.9 H D Basophils % 1.0 Sodium 145 Potassium 4.1 Chloride 110 H Carbon Dioxide 31 Anion Gap 4 L BUN 17 Creatinine 0.7 Creat Clearance w eGFR > 60 Random Glucose 84 Calcium 8.3 L Total Bilirubin 0.4 D AST 26 D ALT 16 D Alkaline Phosphatase 60 Total Protein 5.8 L Albumin 2.5 L Active Medications Generic Name Dose Route Start Last Admin Trade Name Freq PRN Reason Stop Dose Admin Haloperidol 1 mg 10/05/17 18:57 10/09/17 05:30 Haldol Injection (Fast Acting) - IM 1 mg Q4H PRN Administration AGITATION Heparin Sodium (Porcine) 5,000 unit 10/08/17 22:00 10/10/17 22:09 Heparin - SQ 5,000 unit BID HEATHER Administration Olanzapine 10 mg 10/05/17 22:00 10/10/17 22:09 Zyprexa - PO 10 mg BID HEATHER Administration Ondansetron HCl 4 mg 10/05/17 18:02 Zofran Injection IVPUSH Q6H PRN NAUSEA AND/OR VOMITING Promethazine HCl 12.5 mg 10/05/17 18:02 Phenergan Injection - IVPUSH Q6H PRN NAUSEA-FOR RESCUE AFTER 15 MIN Quetiapine Fumarate 50 mg 10/08/17 15:15 10/10/17 22:09 Seroquel - PO 50 mg HS HEATHER Administration Tamsulosin HCl 0.4 mg 10/06/17 08:30 10/10/17 10:23 Flomax - PO 0.4 mg DAILY@0830 HEATHER Administration Microbiology 09/27/17 19:30 Urine - Urine Mcintyre Urine Culture - Final Enterococcus Faecalis 09/17/17 15:30 Blood - Peripheral Venous Blood Culture - Final NO GROWTH AFTER 5 DAYS INCUBATION 09/17/17 15:30 Blood - Peripheral Venous Blood Culture - Final NO GROWTH AFTER 5 DAYS INCUBATION 09/20/17 18:30 Urine - Urine Suprapubic Urine Culture - Final NO GROWTH OBTAINED 09/17/17 15:45 Urine - Urine Clean Catch Urine Culture - Final NO GROWTH OBTAINED EKG 09/30 - Low voltage, NAD, 1st degree HB, Rate 60, QTC 401, peaked twaves in V2 -V5 EKG 10/10 - Sinus hipolito, rate 50, NAD, QTC 382, V3-V6 peaked Twaves ASSESSMENT/PLAN: 76 yo man with PMH of dementia and OA who was initially found wandering [facility], likely secondary to baseline dementia complicated by acute metabolic encephalopathy. Pt still altered, A&Ox1, less agitated today. Still with hematuria after mcintyre placement 10/09. #Hematuria/BPH - POD5 TURP 10/05; mcintyre placed w/ coude by Dr. Mccallum 10/09 2/2 retention; pt with mild hematuria since placement - Continue to trend H/H - Urology consulted, recs appreciated - Bladder scan Q6H - c/w flomax #Acute Toxic Metabolic Encephalopathy - pt still altered, less agitated today; likely at baseline - C/w seroquel, zyprexa - Haldol 1mg Q4h for agitation PRN - Phenergan 12.5 mg IV q6h for N/V - Vest, mittens, limb restraints for agitation - Psych consulted, recs appreciated - Neurology consulted, aware - Daily BMPs #Paroxysmal Afib - Eliquis held for now as pt high fall risk/dementia and recent hematuria, poor candidate for lobsterman AC; EKG w/ NSR - Serial EKGs - Risks of fall/bleed outweigh benefit of alf AC; Pt NSS now #CL - resolved #E. Faecalis UTI - Resolved. Completed 7 day course of cetriaxone/amoxicilin on 10/08. No WBC count, fever PPX Heparin Subq FEN PO hydration Daily BMPs Soft Regular diet Will require 24 hour period off restraints for successful placement at [facility]. Pt accepted at multiple [facility] per . Plan for discharge to [facility] once less agitated. Plan discussed with attending, Dr. Haley Benavides, PGY1 Visit type - Emergency Visit Emergency Visit: Yes ED Registration Date: 09/17/17 Care time: The patient presented to the Emergency Department on the above date and was hospitalized for further evaluation of their emergent condition. - New Patient This patient is new to me today: No - Critical Care Critical Care patient: No
[2017-10-11 08:06] LABS: HEMATOCRIT 28.6 % (35.4-49); HEMOGLOBIN 9.4 GM/dL (11.7-16.9); MCH 28.2 pg (25.7-33.7); MCHC 32.8 g/dl (32.0-35.9); MEAN PLT VOLUME 8.3 fl (7.5-11.1); PLATELET COUNT 347 K/MM3 (134-434); RBC 3.32 M/mm3 (4.00-5.60); RDW 14.7 % (11.9-15.9); WHITE BLOOD COUNT 7.4 K/mm3 (4.0-10.0)
[2017-10-11 08:36] LABS: CHLORIDE 109 mmol/L (98-107); SODIUM 143 mmol/L (136-145)
[2017-10-11 08:52] LABS: ANION GAP 6 (8-16); BLOOD UREA NITROGEN 23 mg/dL (7-18); CALCIUM 8.8 mg/dL (8.5-10.1); CO2 28 mmol/L (21-32); CREATININE 0.7 mg/dL (0.7-1.3); GLUCOSE,RANDOM 95 mg/dL (74-106)
[2017-10-11] MEDS: OLANZapine 10 MG TABLET PO SCH ×2 (09:45→21:57)
[2017-10-11] MEDS: HEPARIN NA (PORCINE) 5,000 UNITS/ML 1ML VIAL SQ SCH ×2 (09:46→21:57)
[2017-10-11] MEDS: TAMSULOSIN HCL 0.4 MG CAP.ER.24H (FP) PO SCH (09:46)
--- NOTE | 2017-10-11 12:49 | PN ---
Progress Note, PROFESSOR SCULPTURE - Note Progress Note: Selected Entries 10/10/17 10/10/17 10/10/17 06:00 09:56 14:21 Lunch 50% 75% Supper Temperature 97.6 F 98.2 F 10/10/17 10/10/17 10/11/17 19:00 19:29 06:00 Lunch Supper 100% Temperature 98.7 F 97.4 F L Pt tolerating diet well with good appetite with assistance with meals. Verbal, confused, Continue REGULAR diet/thin liquids. No need to downgrade to soft.
--- NOTE | 2017-10-11 15:25 | PN ---
Teaching Attending Note Name of Resident: Sudarshan Benavides ATTENDING PHYSICIAN STATEMENT Time of evaluation: 9:40 AM I saw and evaluated the patient. I reviewed the resident's note and discussed the case with the resident. I agree with the resident's findings and plan as documented. SUBJECTIVE: Patient seen and examined. oriented to self, no complaints. OBJECTIVE: Vital Signs Period Temp Pulse Resp BP Sys/Mackey Pulse Ox Last 24 Hr 97.4 F-98.7 F 65-88 18-20 119-139/60-96 96 Intake & Output 10/08/17 10/09/17 10/10/17 10/11/17 23:59 23:59 23:59 23:59 Intake Total 1950 370 745 150 Output Total 1600 2800 1500 700 Balance 350 -6410 -755 -550 Weight 137 lb 3.2 oz general: oriented to self, confused, in no acute distress in bed Abdomen: soft, NT, ND, positive bowel sounds, no surapubic tenderness extremities: no edema, mittens present Home Medication List Medication Instructions Recorded Confirmed Type Donepezil HCl 10 mg PO DAILY 09/21/17 09/21/17 History Nabumetone 750 mg PO BID PRN 09/21/17 09/21/17 History Active Medications Generic Name Dose Route Start Last Admin Trade Name Freq PRN Reason Stop Dose Admin Haloperidol 1 mg 10/05/17 18:57 10/09/17 05:30 Haldol Injection (Fast Acting) - IM 1 mg Q4H PRN Administration AGITATION Heparin Sodium (Porcine) 5,000 unit 10/08/17 22:00 10/11/17 09:46 Heparin - SQ 5,000 unit BID HEATHER Administration Olanzapine 10 mg 10/05/17 22:00 10/11/17 09:45 Zyprexa - PO 10 mg BID HEATHER Administration Ondansetron HCl 4 mg 10/05/17 18:02 Zofran Injection IVPUSH Q6H PRN NAUSEA AND/OR VOMITING Promethazine HCl 12.5 mg 10/05/17 18:02 Phenergan Injection - IVPUSH Q6H PRN NAUSEA-FOR RESCUE AFTER 15 MIN Quetiapine Fumarate 50 mg 10/08/17 15:15 10/10/17 22:09 Seroquel - PO 50 mg HS HEATHER Administration Tamsulosin HCl 0.4 mg 10/06/17 08:30 10/11/17 09:46 Flomax - PO 0.4 mg DAILY@0830 [facility] Administration Laboratory Results - last 24 hr 10/11/17 10/11/17 07:30 07:30 WBC 7.4 RBC 3.32 L Hgb 9.4 L Hct 28.6 L MCV 86.0 MCH 28.2 MCHC 32.8 RDW 14.7 Plt Count 347 MPV 8.3 Sodium 143 Potassium 4.0 Chloride 109 H Carbon Dioxide 28 Anion Gap 6 L BUN 23 H D Creatinine 0.7 Random Glucose 95 Calcium 8.8 Microbiology 09/27/17 19:30 Urine - Urine Buck Urine Culture - Final Enterococcus Faecalis 09/17/17 15:30 Blood - Peripheral Venous Blood Culture - Final NO GROWTH AFTER 5 DAYS INCUBATION 09/17/17 15:30 Blood - Peripheral Venous Blood Culture - Final NO GROWTH AFTER 5 DAYS INCUBATION 09/20/17 18:30 Urine - Urine Suprapubic Urine Culture - Final NO GROWTH OBTAINED 09/17/17 15:45 Urine - Urine Clean Catch Urine Culture - Final NO GROWTH OBTAINED ASSESSMENT AND PLAN: 76yo M with PMH dementia and OA found wandering around [facility] - Acute toxic metabolic encephalopathy-On zyprexa and started seroquel 10/08. Attempt to taper off haldol. Readdress with psychiatry. Interval EKG to assess QTc. Restraints as pulling at catheters and line and risk of self injury, and falls. - Elevated transminases- suggestive of hx of ETOH. hepatitis panel negative. resolved - afib-new onset. EKG showing NSR. cont to hold betablocker. eliquis on hold for procedure. patient high fall risk, seems with severe dementia and poor functional status at baseline. Also with hematuria. Poor candidate for commissary representative full dose anti-coagulation. Hold for now. - CL- likely obstructive uropathy vs rhabdo. s/p TURP 10/05. s/p caude catheter , monitor for hematuria. - Hematuria- resolved. Interval CBC. - E. Faecalis UTI-leucocytosis resolved. s/p 7 days of antibiotics (ceftriaxone , then amoxicillin) finished 10/08/17 - Rhabdo-resolved - DVT ppx- start heparin subq for now. -Dispo - pending placement, Needs to be off restraint x 24 hours, follow up with CM for placement.
[2017-10-11] MEDS: QUEtiapine FUMARATE 50 MG TABLET PO SCH (21:57)
--- NOTE | 2017-10-12 05:17 | PN ---
Physical Exam: SUBJECTIVE: Patient seen and examined by me this AM - Pt agitated, awake overnight. Still with vest, mittens and limb restraints. No other events per nursing. Residual clots noted in mcintyre bag today, however no urine yellow colored w/ no hematuria noted. Denies any CP, SOB, dizziness, abdominal pain, dysuria, back pain. Still A&Ox1 w/ nonsensical speech, echolalia , however able to answer question in affirmative or negative. OBJECTIVE: Vital Signs Intake & Output 10/09/17 10/10/17 10/11/17 10/12/17 23:59 23:59 23:59 23:59 Intake Total 117 637 4358 Output Total 2800 1500 1200 Balance -2430 -755 -195 Weight 62.233 kg Period Temp Pulse Resp BP Sys/Mackey Pulse Ox Last 24 Hr 97.4 F-98.4 F 63-87 18-22 112-139/50-66 96 GENERAL: Elderly cachectic man laying in bed, restrained. NAD. A&Ox1 HEAD: Normal with no signs of trauma. EYES: PERRL, sclera anicteric, conjunctiva clear. No ptosis. ENT: Ears normal, nares patent, oropharynx clear without exudates, moist mucous membranes. NECK: Trachea midline, full range of motion, supple. LUNGS: Breath sounds equal, clear to auscultation bilaterally, no wheezes, no crackles, no accessory muscle use. HEART: Regular rate and rhythm, S1, S2 without murmur, rub or gallop. ABDOMEN: No suprapubic tenderness. Soft, nontender, nondistended, normoactive bowel sounds, no guarding, no rebound, no hepatosplenomegaly, no masses. EXTREMITIES: 2+ pulses, warm, well-perfused, no edema. NEUROLOGICAL: Cranial nerves II through XII grossly intact. gait not observed. PSYCH: Normal mood, normal affect. nonsensical speech, tangential. SKIN: Warm, dry, normal turgor, no rashes or lesions noted Genital: No blood or lesion noted on penis or at urethral meatus. Laboratory Results - last 24 hr CBC, BMP 10/11/17 07:30 10/11/17 07:30 10/11/17 10/11/17 07:30 07:30 WBC 7.4 RBC 3.32 L Hgb 9.4 L Hct 28.6 L MCV 86.0 MCH 28.2 MCHC 32.8 RDW 14.7 Plt Count 347 MPV 8.3 Sodium 143 Potassium 4.0 Chloride 109 H Carbon Dioxide 28 Anion Gap 6 L BUN 23 H D Creatinine 0.7 Random Glucose 95 Calcium 8.8 Active Medications Generic Name Dose Route Start Last Admin Trade Name Freq PRN Reason Stop Dose Admin Haloperidol 1 mg 10/05/17 18:57 10/09/17 05:30 Haldol Injection (Fast Acting) - IM 1 mg Q4H PRN Administration AGITATION Heparin Sodium (Porcine) 5,000 unit 10/08/17 22:00 10/11/17 21:57 Heparin - SQ 5,000 unit BID HEATHER Administration Olanzapine 10 mg 10/05/17 22:00 10/11/17 21:57 Zyprexa - PO 10 mg BID HEATHER Administration Ondansetron HCl 4 mg 10/05/17 18:02 Zofran Injection IVPUSH Q6H PRN NAUSEA AND/OR VOMITING Promethazine HCl 12.5 mg 10/05/17 18:02 Phenergan Injection - IVPUSH Q6H PRN NAUSEA-FOR RESCUE AFTER 15 MIN Quetiapine Fumarate 50 mg 10/08/17 15:15 10/11/17 21:57 Seroquel - PO 50 mg HS HEATHER Administration Tamsulosin HCl 0.4 mg 10/06/17 08:30 10/11/17 09:46 Flomax - PO 0.4 mg DAILY@0830 HEATHER Administration Microbiology 09/27/17 19:30 Urine - Urine Mcintyre Urine Culture - Final Enterococcus Faecalis 09/17/17 15:30 Blood - Peripheral Venous Blood Culture - Final NO GROWTH AFTER 5 DAYS INCUBATION 09/17/17 15:30 Blood - Peripheral Venous Blood Culture - Final NO GROWTH AFTER 5 DAYS INCUBATION 09/20/17 18:30 Urine - Urine Suprapubic Urine Culture - Final NO GROWTH OBTAINED 09/17/17 15:45 Urine - Urine Clean Catch Urine Culture - Final NO GROWTH OBTAINED EKG 09/30 - Low voltage, NAD, 1st degree HB, Rate 60, QTC 401, peaked twaves in V2 -V5 EKG 10/10 - Sinus hipolito, rate 50, NAD, QTC 382, V3-V6 peaked Twaves ASSESSMENT/PLAN: 76 yo man with PMH of dementia and OA who was initially found wandering [facility], likely secondary to baseline dementia complicated by acute metabolic encephalopathy. #BPH/Hematuria - POD6 TURP 1/; still with mcintyre; hematuria resolving; voiding freely - serial bladder scans - Serial H/H - Urology aware - flomax #AMS - likely at baseline dementia now; required no haldol overnight - Attempt to wean off restraints today; however must weigh benefits again fall risk - Seroquel, zyprexa daily for agitation - Haldol for agitation PRN - Phenergan for N/V - Neurology and psych following - Will require 24 hours off restraints for placement at NH #Paroxysmal Afib - Resolved; no eliquis, as pt demented/fall risk PPX HSQ FEN PO hydration No lab abnormalities Soft Regular diet Plan for d/c to NH once off restraints for 24 hours Plan discussed with attending, Dr. Haley Benavides, PGY1 Visit type - Emergency Visit Emergency Visit: Yes ED Registration Date: 09/17/17 Care time: The patient presented to the Emergency Department on the above date and was hospitalized for further evaluation of their emergent condition. - New Patient This patient is new to me today: No - Critical Care Critical Care patient: No
[2017-10-12] MEDS ORDERED: PT OWN MED DRAWER 7, Y5N ONE ×2 (09:55→22:02)
[2017-10-12] MEDS: OLANZapine 10 MG TABLET PO SCH ×2 (09:55→22:05)
[2017-10-12] MEDS: HEPARIN NA (PORCINE) 5,000 UNITS/ML 1ML VIAL SQ SCH ×2 (09:55→22:05)
[2017-10-12] MEDS: TAMSULOSIN HCL 0.4 MG CAP.ER.24H (FP) PO SCH (09:55)
--- NOTE | 2017-10-12 15:52 | PN ---
Teaching Attending Note Name of Resident: Sudarshan Benavides ATTENDING PHYSICIAN STATEMENT Time of evaluation: 1:00 PM I saw and evaluated the patient. I reviewed the resident's note and discussed the case with the resident. I agree with the resident's findings and plan as documented. SUBJECTIVE: Patient seen and examined. Oriented to self, confused, no complaints. OBJECTIVE: Vital Signs Period Temp Pulse Resp BP Sys/Mackey Pulse Ox Last 24 Hr 97.8 F-98.4 F 61-71 18-22 112-123/50-66 96 Intake & Output 10/09/17 10/10/17 10/11/17 10/12/17 23:59 23:59 23:59 23:59 Intake Total 960 295 5587 840 Output Total 2800 1500 1200 1200 Balance -2430 -755 -195 -360 Weight 137 lb 3.2 oz General: sitting in chair in no acute distress Abdomen: soft, NT extremities: mittens Home Medication List Medication Instructions Recorded Confirmed Type Donepezil HCl 10 mg PO DAILY 09/21/17 09/21/17 History Nabumetone 750 mg PO BID PRN 09/21/17 09/21/17 History Active Medications Generic Name Dose Route Start Last Admin Trade Name Freq PRN Reason Stop Dose Admin Haloperidol 1 mg 10/05/17 18:57 10/09/17 05:30 Haldol Injection (Fast Acting) - IM 1 mg Q4H PRN Administration AGITATION Heparin Sodium (Porcine) 5,000 unit 10/08/17 22:00 10/12/17 09:55 Heparin - SQ 5,000 unit BID HEATHER Administration Olanzapine 10 mg 10/05/17 22:00 10/12/17 09:55 Zyprexa - PO 10 mg BID HEATHER Administration Ondansetron HCl 4 mg 10/05/17 18:02 Zofran Injection IVPUSH Q6H PRN NAUSEA AND/OR VOMITING Promethazine HCl 12.5 mg 10/05/17 18:02 Phenergan Injection - IVPUSH Q6H PRN NAUSEA-FOR RESCUE AFTER 15 MIN Quetiapine Fumarate 50 mg 10/08/17 15:15 10/11/17 21:57 Seroquel - PO 50 mg HS HEATHER Administration Tamsulosin HCl 0.4 mg 10/06/17 08:30 10/12/17 09:55 Flomax - PO 0.4 mg DAILY@0830 [facility] Administration Laboratory Results - last 24 hr 10/10/17 06:00 VZV IgG Antibody 1334 Microbiology 09/27/17 19:30 Urine - Urine Buck Urine Culture - Final Enterococcus Faecalis 09/17/17 15:30 Blood - Peripheral Venous Blood Culture - Final NO GROWTH AFTER 5 DAYS INCUBATION 09/17/17 15:30 Blood - Peripheral Venous Blood Culture - Final NO GROWTH AFTER 5 DAYS INCUBATION 09/20/17 18:30 Urine - Urine Suprapubic Urine Culture - Final NO GROWTH OBTAINED 09/17/17 15:45 Urine - Urine Clean Catch Urine Culture - Final NO GROWTH OBTAINED ASSESSMENT AND PLAN: 76yo M with PMH dementia and OA found wandering around [facility] - Acute toxic metabolic encephalopathy-On zyprexa and started seroquel 10/08. Attempt to taper off haldol. Readdress with psychiatry. Interval EKG to assess QTc. Restraints as pulling at catheters and line and risk of self injury, and falls. - Elevated transminases- suggestive of hx of ETOH. hepatitis panel negative. resolved - afib-new onset. EKG showing NSR. cont to hold betablocker. eliquis on hold for procedure. patient high fall risk, seems with severe dementia and poor functional status at baseline. Also with hematuria. Poor candidate for fdc full dose anti-coagulation. Hold for now. - CL- likely obstructive uropathy vs rhabdo. s/p TURP 10/05. s/p caude catheter , monitor for hematuria. - Hematuria- resolved. Interval CBC. - E. Faecalis UTI-leucocytosis resolved. s/p 7 days of antibiotics (ceftriaxone , then amoxicillin) finished 10/08/17 - Rhabdo-resolved -VZV contact with health aide, VSV titers noted. Discussed with Dr. Flores, monitor for now. - DVT ppx- start heparin subq for now. -Dispo - pending placement, Needs to be off restraint x 24 hours, follow up with CM for placement.
[2017-10-12] MEDS: QUEtiapine FUMARATE 50 MG TABLET PO SCH (22:05)
[2017-10-13] MEDS ORDERED: PT OWN MED DRAWER 7, Y5N ONE ×2 (10:02→21:09)
[2017-10-13] MEDS: OLANZapine 10 MG TABLET PO SCH ×2 (10:15→21:13)
[2017-10-13] MEDS: TAMSULOSIN HCL 0.4 MG CAP.ER.24H (FP) PO SCH (10:15)
[2017-10-13] MEDS: HEPARIN NA (PORCINE) 5,000 UNITS/ML 1ML VIAL SQ SCH ×2 (10:19→21:13)
--- NOTE | 2017-10-13 14:02 | PN ---
Teaching Attending Note Name of Resident: . ATTENDING PHYSICIAN STATEMENT SUBJECTIVE: patient seen and examined, sitting in bed, confused but not agitated, no pain or new complaints. OBJECTIVE: Vital Signs Period Temp Pulse Resp BP Sys/Mackey Pulse Ox Last 24 Hr 98.0 F-98.6 F 65-83 18-20 103-139/56-69 Intake & Output 10/10/17 10/11/17 10/12/17 10/13/17 23:59 23:59 23:59 23:59 Intake Total 745 1005 840 230 Output Total 1500 1200 1400 250 Balance -755 -195 -560 -20 Weight 137 lb 3.2 oz 138 lb 6 oz general: sitting in bed in no acute distress CVS;S1S2 regular Chest: no rales or wheezing abdomen: soft, ND, no suprapubic or CVA tenderness, extermities: mittens, no edema neuro AAOx1, unchanged exam Home Medication List Medication Instructions Recorded Confirmed Type Donepezil HCl 10 mg PO DAILY 09/21/17 09/21/17 History Nabumetone 750 mg PO BID PRN 09/21/17 09/21/17 History Active Medications Generic Name Dose Route Start Last Admin Trade Name Freq PRN Reason Stop Dose Admin Haloperidol 1 mg 10/05/17 18:57 10/09/17 05:30 Haldol Injection (Fast Acting) - IM 1 mg Q4H PRN Administration AGITATION Heparin Sodium (Porcine) 5,000 unit 10/08/17 22:00 10/13/17 10:19 Heparin - SQ 5,000 unit BID HEATHER Administration Olanzapine 10 mg 10/05/17 22:00 10/13/17 10:15 Zyprexa - PO 10 mg BID HEATHER Administration Ondansetron HCl 4 mg 10/05/17 18:02 Zofran Injection IVPUSH Q6H PRN NAUSEA AND/OR VOMITING Promethazine HCl 12.5 mg 10/05/17 18:02 Phenergan Injection - IVPUSH Q6H PRN NAUSEA-FOR RESCUE AFTER 15 MIN Quetiapine Fumarate 50 mg 10/08/17 15:15 10/12/17 22:05 Seroquel - PO 50 mg HS HEATHER Administration Tamsulosin HCl 0.4 mg 10/06/17 08:30 10/13/17 10:15 Flomax - PO 0.4 mg DAILY@0830 HEATHER Administration ASSESSMENT AND PLAN: 76yo M with PMH dementia and OA found wandering around [place] - Acute toxic metabolic encephalopathy-On zyprexa and started seroquel 10/08. Attempt to taper off haldol. Readdress with psychiatry. Interval EKG to assess QTc. Restraints as pulling at catheters and line and risk of self injury, and falls. Will give a trial off restraints today as agitation has improved, discussed with RN. - Elevated transminases- suggestive of hx of ETOH. hepatitis panel negative. resolved - afib-new onset. EKG showing NSR. cont to hold betablocker. eliquis on hold for procedure. patient high fall risk, seems with severe dementia and poor functional status at baseline. Also with hematuria. Poor candidate for senior care full dose anti-coagulation. Hold for now. - CL- likely obstructive uropathy vs rhabdo. s/p TURP 10/05. s/p caude catheter , monitor for hematuria. - Hematuria- resolved. Interval CBC. - E. Faecalis UTI-leucocytosis resolved. s/p 7 days of antibiotics (ceftriaxone , then amoxicillin) finished 10/08/17 - Rhabdo-resolved -VZV contact with health aide, VSV titers noted. Discussed with Dr. Flores, monitor for now. - DVT ppx- start heparin subq for now. -Dispo - pending placement, Needs to be off restraint x 24 hours, follow up with CM for placement.
--- NOTE | 2017-10-13 19:44 | PN ---
Progress Note (short form) - Note Progress Note: patient pulled his own mcintyre, it stopped draining and blood clots were seen. A new 20 Fr coude cath placed. urine cleared up. bladder distension resolved. Problem List - Problems (1) Benign localized hyperplasia of prostate with urinary retention Code(s): N40.1 - BENIGN PROSTATIC HYPERPLASIA WITH LOWER URINARY TRACT SYMP
[2017-10-13] MEDS: QUEtiapine FUMARATE 50 MG TABLET PO SCH (21:13)
[2017-10-14 08:05] LABS: BASO % 0.6 % (0-2.0); EOS % 1.8 % (0-4.5); HEMATOCRIT 26.9 % (35.4-49); HEMOGLOBIN 8.5 GM/dL (11.7-16.9); LYMPH % 8.9 % (8-40); MCH 27.4 pg (25.7-33.7); MCHC 31.6 g/dl (32.0-35.9); MEAN CELL VOLUME 86.7 fl (80-96); MEAN PLT VOLUME 8.4 fl (7.5-11.1); MONO % 8.1 % (3.8-10.2); NEUT % 80.6 % (42.8-82.8); PLATELET COUNT 311 K/MM3 (134-434); WHITE BLOOD COUNT 19.3 K/mm3 (4.0-10.0)
[2017-10-14] MEDS ORDERED: PT OWN MED DRAWER 7, Y5N ONE ×2 (10:01→21:00)
[2017-10-14] MEDS: OLANZapine 10 MG TABLET PO SCH ×2 (10:07→21:36)
[2017-10-14] MEDS: TAMSULOSIN HCL 0.4 MG CAP.ER.24H (FP) PO SCH (10:07)
[2017-10-14] MEDS: HEPARIN NA (PORCINE) 5,000 UNITS/ML 1ML VIAL SQ SCH ×2 (10:07→21:36)
--- NOTE | 2017-10-14 11:42 | PN ---
Teaching Attending Note Name of Resident: . ATTENDING PHYSICIAN STATEMENT Time of evaluation: 9:30 AM SUBJECTIVE: patient seen and examined. Oriented to self, unable to assess for ROS. OBJECTIVE: Vital Signs Period Temp Pulse Resp BP Sys/Mackey Pulse Ox Last 24 Hr 97.7 F-98.4 F 54-81 20-20 119-147/57-75 General: sitting in bed in mittens, in no acute distress Chest: poor effort, unable to appreciate rales or wheezing Abdomen :soft, NT, ND,positive bowel sounds, Extremities: no edema neuro AAOx1, facial symmetry, moves all extremities symmetrically Home Medication List Medication Instructions Recorded Confirmed Type Donepezil HCl 10 mg PO DAILY 09/21/17 09/21/17 History Nabumetone 750 mg PO BID PRN 09/21/17 09/21/17 History Active Medications Generic Name Dose Route Start Last Admin Trade Name Freq PRN Reason Stop Dose Admin Haloperidol 1 mg 10/05/17 18:57 10/09/17 05:30 Haldol Injection (Fast Acting) - IM 1 mg Q4H PRN Administration AGITATION Heparin Sodium (Porcine) 5,000 unit 10/08/17 22:00 10/14/17 10:07 Heparin - SQ 5,000 unit BID HEATHER Administration Olanzapine 10 mg 10/05/17 22:00 10/14/17 10:07 Zyprexa - PO 10 mg BID HEATHER Administration Ondansetron HCl 4 mg 10/05/17 18:02 Zofran Injection IVPUSH Q6H PRN NAUSEA AND/OR VOMITING Promethazine HCl 12.5 mg 10/05/17 18:02 Phenergan Injection - IVPUSH Q6H PRN NAUSEA-FOR RESCUE AFTER 15 MIN Quetiapine Fumarate 50 mg 10/08/17 15:15 10/13/17 21:13 Seroquel - PO 50 mg HS HEATHER Administration Tamsulosin HCl 0.4 mg 10/06/17 08:30 10/14/17 10:07 Flomax - PO 0.4 mg DAILY@0830 HEATHER Administration Laboratory Results - last 24 hr 10/14/17 07:05 WBC 19.3 H D RBC 3.10 L Hgb 8.5 L Hct 26.9 L MCV 86.7 MCH 27.4 MCHC 31.6 L RDW 15.0 Plt Count 311 MPV 8.4 Neutrophils % 80.6 D Lymphocytes % 8.9 D Monocytes % 8.1 Eosinophils % 1.8 Basophils % 0.6 Microbiology 09/27/17 19:30 Urine - Urine Mcintyre Urine Culture - Final Enterococcus Faecalis 09/17/17 15:30 Blood - Peripheral Venous Blood Culture - Final NO GROWTH AFTER 5 DAYS INCUBATION 09/17/17 15:30 Blood - Peripheral Venous Blood Culture - Final NO GROWTH AFTER 5 DAYS INCUBATION 09/20/17 18:30 Urine - Urine Suprapubic Urine Culture - Final NO GROWTH OBTAINED 09/17/17 15:45 Urine - Urine Clean Catch Urine Culture - Final NO GROWTH OBTAINED ASSESSMENT AND PLAN: 76yo M with PMH dementia and OA found wandering around [facility] -Acute toxic metabolic encephalopathy vs progressive dementia -New onset atrial fibrillation -Acute blood anemia from hematuria -CL, from obstructive uropathy vs rhabdomyolysis -E. faecalis UTI, s/p 7 days of antibiotics (ceftriaxone then amoxicillin, finished 10/08) -Rhabdomyolysis -Elevated transaminases, ?ETOH history, hepatitis panel neg -VZV contact with aide inhouse Plan: Leucocytosis today, had pulled at his mcintyre yesterday, with hematuria and clogging of his caude, seen by urology and had catheter changed, if from stress from the same. Check u/a, urinalysis, CXR, blood cultures. Check renal function and LFTs today. Also VZV contact recently, titers noted, monitor for now. Hb dropped from hematuria, no further bleed, caude changed, continue to monitor for now. Continues to be confused, needs restraints as risk of self injury and fall. Psych input appreciated. Continue seroquel, zyprexa. On haldol prn. Interval EKG with normal QTc. In NSR currently, off beta hai given bradycardia. earlier on eliquis, stopped given hematuria, anemia and high fall/bleed risk. - DVT ppx- start heparin subq for now, will need to hold if recurrent hematura or keeps dropping in hb. -Dispo - pending placement, Needs to be off restraint x 24 hours, follow up with CM for placement.
[2017-10-14 13:36] LABS: ALBUMIN 2.7 g/dl (3.4-5.0); ALK PHOS 64 U/L (45-117); ANION GAP 5 (8-16); BILIRUBIN,TOTAL 0.3 mg/dL (0.2-1.0); BLOOD UREA NITROGEN 28 mg/dL (7-18); CALCIUM 8.1 mg/dL (8.5-10.1); CHLORIDE 108 mmol/L (98-107); CO2 28 mmol/L (21-32); CREATININE 0.8 mg/dL (0.7-1.3); GLUCOSE,RANDOM 98 mg/dL (74-106); POTASSIUM 4.1 mmol/L (3.5-5.1); SGOT/AST 25 U/L (15-37); SGPT/ALT 23 U/L (12-78); SODIUM 141 mmol/L (136-145); TOT PROT 6.2 g/dl (6.4-8.2)
[2017-10-14 17:58] LABS: URINE APPEARANCE CLOUDY; URINE BILIRUBIN NEGATIVE (NEGATIVE); URINE BLOOD 3+ (NEGATIVE); URINE COLOR DKYELLOW; URINE GLUCOSE (UA) NEGATIVE (NEGATIVE); URINE KETONE NEGATIVE (NEGATIVE); URINE NITRITE POSITIVE (NEGATIVE); URINE UROBILINOGEN NEGATIVE mg/dL (0.2-1.0)
[2017-10-14 18:03] LABS: URINE LEUK ESTERASE 3+ (NEGATIVE); URINE PROTEIN 2+ (NEGATIVE)
[2017-10-14 18:05] LABS: URINE BACTERIA RARE /hpf (NONE SEEN); URINE MUCUS MANY
[2017-10-14] MEDS: QUEtiapine FUMARATE 50 MG TABLET PO SCH (21:36)
--- NOTE | 2017-10-15 06:57 | PN ---
Physical Exam: SUBJECTIVE: Patient seen and examined by me this AM - Pulled mcintyre on 10/13; placed again by urology over the weekend; new WBC count to 19, cultures pending - pt slept well overnight, no acute agitation, did not require haldol. Pt denies any pain or dysuria. Remains A&Ox1. No hematuria noted in mcintyre bag or overnight by nursing OBJECTIVE: Vital Signs Intake & Output 10/12/17 10/13/17 10/14/17 10/15/17 23:59 23:59 23:59 23:59 Intake Total 840 730 500 Output Total 1400 2550 700 700 Balance -560 -1820 -200 -700 Weight 62.766 kg Period Temp Pulse Resp BP Sys/Mackey Pulse Ox Last 24 Hr 98.1 F-98.7 F 65-66 20-20 101-127/51-68 96-96 GENERAL: Elderly cachectic man laying comfortably in bed, restrained. NAD. A&Ox1 HEAD: Normal with no signs of trauma. EYES: PERRL, sclera anicteric, conjunctiva clear. No ptosis. ENT: Ears normal, nares patent, oropharynx clear without exudates, moist mucous membranes. NECK: Trachea midline, full range of motion, supple. LUNGS: Breath sounds equal, clear to auscultation bilaterally, no wheezes, no crackles, no accessory muscle use. HEART: Regular rate and rhythm, S1, S2 without murmur, rub or gallop. ABDOMEN: Soft, nontender, nondistended, normoactive bowel sounds, no guarding, no rebound, no hepatosplenomegaly, no masses. No suprapubic tenderness EXTREMITIES: 2+ pulses, warm, well-perfused, no edema. NEUROLOGICAL: Cranial nerves II through XII grossly intact. gait not observed. PSYCH: Pleasant, Normal mood, normal affect. Tangential, nonsensical SKIN: Warm, dry, normal turgor, no rashes or lesions noted Genital: No blood at urethral meatus. Mcintyre in place, draining well. Laboratory Results - last 24 hr CBC, BMP 10/15/17 07:15 10/15/17 07:15 10/14/17 07:05 10/14/17 12:35 10/14/17 10/14/17 10/14/17 07:05 12:35 16:10 WBC 19.3 H D RBC 3.10 L Hgb 8.5 L Hct 26.9 L MCV 86.7 MCH 27.4 MCHC 31.6 L RDW 15.0 Plt Count 311 MPV 8.4 Neutrophils % 80.6 D Lymphocytes % 8.9 D Monocytes % 8.1 Eosinophils % 1.8 Basophils % 0.6 Sodium 141 Potassium 4.1 Chloride 108 H Carbon Dioxide 28 Anion Gap 5 L BUN 28 H D Creatinine 0.8 Creat Clearance w eGFR > 60 Random Glucose 98 Calcium 8.1 L Total Bilirubin 0.3 D AST 25 ALT 23 D Alkaline Phosphatase 64 Total Protein 6.2 L Albumin 2.7 L Urine Color Dkyellow Urine Appearance Cloudy Urine pH 5.0 D Ur Specific [place] 1.024 Urine Protein 2+ H Urine Glucose (UA) Negative Urine Ketones Negative Urine Blood 3+ H Urine Nitrite Positive Urine Bilirubin Negative Urine Urobilinogen Negative Ur Leukocyte Esterase 3+ H Urine WBC (Auto) 412 Urine RBC (Auto) 1086 Urine Bacteria Rare Urine Mucus Many Active Medications Generic Name Dose Route Start Last Admin Trade Name Samq PRN Reason Stop Dose Admin Haloperidol 1 mg 10/05/17 18:57 10/09/17 05:30 Haldol Injection (Fast Acting) - IM 1 mg Q4H PRN Administration AGITATION Heparin Sodium (Porcine) 5,000 unit 10/08/17 22:00 10/14/17 21:36 Heparin - SQ 5,000 unit BID HEATHER Administration Olanzapine 10 mg 10/05/17 22:00 10/14/17 21:36 Zyprexa - PO 10 mg BID HEATHER Administration Ondansetron HCl 4 mg 10/05/17 18:02 Zofran Injection IVPUSH Q6H PRN NAUSEA AND/OR VOMITING Promethazine HCl 12.5 mg 10/05/17 18:02 Phenergan Injection - IVPUSH Q6H PRN NAUSEA-FOR RESCUE AFTER 15 MIN Quetiapine Fumarate 50 mg 10/08/17 15:15 10/14/17 21:36 Seroquel - PO 50 mg HS HEATHER Administration Tamsulosin HCl 0.4 mg 10/06/17 08:30 10/14/17 10:07 Flomax - PO 0.4 mg DAILY@0830 HEATHER Administration Microbiology 09/27/17 19:30 Urine - Urine Mcintyre Urine Culture - Final Enterococcus Faecalis 09/17/17 15:30 Blood - Peripheral Venous Blood Culture - Final NO GROWTH AFTER 5 DAYS INCUBATION 09/17/17 15:30 Blood - Peripheral Venous Blood Culture - Final NO GROWTH AFTER 5 DAYS INCUBATION 09/20/17 18:30 Urine - Urine Suprapubic Urine Culture - Final NO GROWTH OBTAINED 09/17/17 15:45 Urine - Urine Clean Catch Urine Culture - Final NO GROWTH OBTAINED EKG 09/30 - Low voltage, NAD, 1st degree HB, Rate 60, QTC 401, peaked twaves in V2 -V5 EKG 10/10 - Sinus hipolito, rate 50, NAD, QTC 382, V3-V6 peaked Twaves CXR 10/14 - Impression : No acute pathology. Metallic density left upper quadrant. ASSESSMENT/PLAN: 76 yo man with PMH of dementia and OA who was initially found wandering [facility], likely secondary to baseline dementia complicated by acute metabolic encephalopathy. #Leukocytosis/Bacteriura - WBC decreased today from 19 to 10; UA + luek esterase , blood, WBC; asymptomatic currently - trend WBC, fever curve - ID consulted - recommend close observation, no abx - f/u cultures - CXR negative, afebrile overnight #BPH/Hematuria - POD9 TURP 10/05; pulled mcintyre over weeked, replaced by urology; no further hematuria, good drainage - maintain mcintyre, monitor for hematuria - Serial H/H - Urology aware - c/w flomax #AMS - likely at baseline dementia now, remains confused, pulling at lines; no haldol overnight; EKG with no QTC prolongation - Trial off restraints 10/13; patient pulled mcintyre; restarted restraints over weekend - d/c seroquel per psych recs, started Depakote 125 BID; continued zyprexa - Haldol for agitation PRN - Phenergan, zofran for N/V - Neurology and psych following - Will require 24 hours off restraints for placement at NH; may be candidate for [facility] placement; will continue to f/u with psych #Paroxysmal Afib - Resolved, NSR; no eliquis, as pt demented/fall risk PPX HSQ FEN PO hydration No lab abnormalities Regular diet Possible placement at [facility] facility as cannot d/c restraints due to continued agitation Plan discussed with attending, Dr. Haley Benavides, PGY1 Visit type - Emergency Visit Emergency Visit: Yes ED Registration Date: 09/17/17 Care time: The patient presented to the Emergency Department on the above date and was hospitalized for further evaluation of their emergent condition. - New Patient This patient is new to me today: No - Critical Care Critical Care patient: No
[2017-10-15 08:13] LABS: BASO % 0.8 % (0-2.0); EOS % 7.5 % (0-4.5); HEMOGLOBIN 9.2 GM/dL (11.7-16.9); LYMPH % 12.6 % (8-40); MCH 28.3 pg (25.7-33.7); MCHC 32.8 g/dl (32.0-35.9); MEAN CELL VOLUME 86.3 fl (80-96); MEAN PLT VOLUME 8.5 fl (7.5-11.1); MONO % 10.9 % (3.8-10.2); NEUT % 68.2 % (42.8-82.8); PLATELET COUNT 296 K/MM3 (134-434); RBC 3.25 M/mm3 (4.00-5.60); RDW 15.1 % (11.9-15.9); WHITE BLOOD COUNT 10.4 K/mm3 (4.0-10.0)
--- NOTE | 2017-10-15 08:16 | PN ---
Teaching Attending Note Name of Resident: Sudarshan Benavides ATTENDING PHYSICIAN STATEMENT Time of evaluation: 9:50 AM I saw and evaluated the patient. I reviewed the resident's note and discussed the case with the resident. I agree with the resident's findings and plan as documented. SUBJECTIVE: patient seen and examined, oriented to self only, confused, denies any pain, but limited ROS. OBJECTIVE: Vital Signs Period Temp Pulse Resp BP Sys/Mackey Pulse Ox Last 24 Hr 98.1 F-98.7 F 65-66 20-20 101-127/51-68 96-96 Intake & Output 10/12/17 10/13/17 10/14/17 10/15/17 23:59 23:59 23:59 23:59 Intake Total 840 730 500 Output Total 1400 2550 700 700 Balance -560 -1820 -200 -700 Weight 138 lb 6 oz General: sitting in bed, confused, in no acute distress Abdomen: soft, no grimacing on deep palpation, ND, positive bowel sounds, no CVA tenderness Home Medication List Medication Instructions Recorded Confirmed Type Donepezil HCl 10 mg PO DAILY 09/21/17 09/21/17 History Nabumetone 750 mg PO BID PRN 09/21/17 09/21/17 History Active Medications Generic Name Dose Route Start Last Admin Trade Name Freq PRN Reason Stop Dose Admin Haloperidol 1 mg 10/05/17 18:57 10/09/17 05:30 Haldol Injection (Fast Acting) - IM 1 mg Q4H PRN Administration AGITATION Heparin Sodium (Porcine) 5,000 unit 10/08/17 22:00 10/14/17 21:36 Heparin - SQ 5,000 unit BID HEATHER Administration Olanzapine 10 mg 10/05/17 22:00 10/14/17 21:36 Zyprexa - PO 10 mg BID HEATHER Administration Ondansetron HCl 4 mg 10/05/17 18:02 Zofran Injection IVPUSH Q6H PRN NAUSEA AND/OR VOMITING Promethazine HCl 12.5 mg 10/05/17 18:02 Phenergan Injection - IVPUSH Q6H PRN NAUSEA-FOR RESCUE AFTER 15 MIN Quetiapine Fumarate 50 mg 10/08/17 15:15 10/14/17 21:36 Seroquel - PO 50 mg HS HEATHER Administration Tamsulosin HCl 0.4 mg 10/06/17 08:30 10/14/17 10:07 Flomax - PO 0.4 mg DAILY@0830 [facility] Administration Microbiology 09/27/17 19:30 Urine - Urine Mcintyre Urine Culture - Final Enterococcus Faecalis 09/17/17 15:30 Blood - Peripheral Venous Blood Culture - Final NO GROWTH AFTER 5 DAYS INCUBATION 09/17/17 15:30 Blood - Peripheral Venous Blood Culture - Final NO GROWTH AFTER 5 DAYS INCUBATION 09/20/17 18:30 Urine - Urine Suprapubic Urine Culture - Final NO GROWTH OBTAINED 09/17/17 15:45 Urine - Urine Clean Catch Urine Culture - Final NO GROWTH OBTAINED ASSESSMENT AND PLAN: 76yo M with PMH dementia and OA found wandering around [facility] -recurrent Leucocytosis 10/14, resolved, suspect stress response to traumatic hematuria from mcintyre -Acute toxic metabolic encephalopathy vs progressive dementia -New onset atrial fibrillation -Acute blood anemia from hematuria -CL, from obstructive uropathy vs rhabdomyolysis -E. faecalis UTI, s/p 7 days of antibiotics (ceftriaxone then amoxicillin, finished 10/08) -Rhabdomyolysis -Elevated transaminases, ?ETOH history, hepatitis panel neg -VZV contact with aide inhouse Plan: WBC normalized. urinalysis noted, ID input appreciated. Hold off on antibiotics. Blood/urine cultures sent on 10/14. CXR neg for new concerns. Health aide in hospital with chicken pox, VZV titers noted. Discussed with Dr. Flores, no additional intervention, monitor closely for new symptoms. Hb dropped from hematuria, no further bleed, caude changed 10/13, continue to monitor for now. Continues to be confused, needs restraints as risk of self injury and fall. Psych input appreciated. Attempted restraints removal on 10/13, patient pulled at his caude with resultant hematuria and clogging needing a catheter change. Continue seroquel, zyprexa. On haldol prn. Interval EKG with normal QTc. Readdress with psych for additional medication management. In NSR currently, off beta hai given bradycardia. earlier on eliquis, stopped given hematuria, anemia and high fall/bleed risk. - DVT ppx- start heparin subq for now, will need to hold if recurrent hematura or keeps dropping in hb. -Dispo - pending placement, Needs to be off restraint x 24 hours, follow up with CM for placement. Will follow up for possible geripsych disposition given ongoing confusion/agitation and unable to get off restraints.
[2017-10-15 08:24] LABS: ALBUMIN 2.7 g/dl (3.4-5.0); ANION GAP 6 (8-16); BILIRUBIN,TOTAL 0.4 mg/dL (0.2-1.0); BLOOD UREA NITROGEN 27 mg/dL (7-18); CALCIUM 8.5 mg/dL (8.5-10.1); CHLORIDE 108 mmol/L (98-107); CO2 28 mmol/L (21-32); CREATININE 0.8 mg/dL (0.7-1.3); GLUCOSE,RANDOM 91 mg/dL (74-106); MAGNESIUM 1.9 mg/dL (1.8-2.4); POTASSIUM 4.2 mmol/L (3.5-5.1); SGOT/AST 29 U/L (15-37); SGPT/ALT 27 U/L (12-78); SODIUM 142 mmol/L (136-145); TOT PROT 6.3 g/dl (6.4-8.2)
[2017-10-15 08:25] LABS: ALK PHOS 62 U/L (45-117); PHOSPHOROUS 3.2 mg/dL (2.5-4.9)
[2017-10-15] MEDS ORDERED: PT OWN MED DRAWER 7, Y5N ONE (09:52)
[2017-10-15] MEDS: TAMSULOSIN HCL 0.4 MG CAP.ER.24H (FP) PO SCH (09:54)
[2017-10-15] MEDS: HEPARIN NA (PORCINE) 5,000 UNITS/ML 1ML VIAL SQ SCH (09:54)
[2017-10-15] MEDS: OLANZapine 10 MG TABLET PO SCH ×2 (09:54→21:22)
--- NOTE | 2017-10-15 12:06 | PN ---
Progress Note, Physician Chief Complaint: ID NAD Full note dictated and discussed - Current Medication List Current Medications: Active Medications Haloperidol (Haldol Injection (Fast Acting) -) 1 mg IM Q4H PRN PRN Reason: AGITATION Last Admin: 10/09/17 05:30 Dose: 1 mg Heparin Sodium (Porcine) (Heparin -) 5,000 unit SQ BID [facility] Last Admin: 10/15/17 09:54 Dose: 5,000 unit Olanzapine (Zyprexa -) 10 mg PO BID [facility] Last Admin: 10/15/17 09:54 Dose: 10 mg Ondansetron HCl (Zofran Injection) 4 mg IVPUSH Q6H PRN PRN Reason: NAUSEA AND/OR VOMITING Promethazine HCl (Phenergan Injection -) 12.5 mg IVPUSH Q6H PRN PRN Reason: NAUSEA-FOR RESCUE AFTER 15 MIN Quetiapine Fumarate (Seroquel -) 50 mg PO HS [facility] Last Admin: 10/14/17 21:36 Dose: 50 mg Tamsulosin HCl (Flomax -) 0.4 mg PO DAILY@0830 [facility] Last Admin: 10/15/17 09:54 Dose: 0.4 mg - Objective Vital Signs: Vital Signs Temperature 98.7 F 10/15/17 09:00 Pulse Rate 78 10/15/17 09:00 Respiratory Rate 18 10/15/17 09:00 Blood Pressure 108/65 10/15/17 09:00 O2 Sat by Pulse Oximetry (%) 96 10/14/17 21:00 Cardiovascular: Yes: S1, S2 Respiratory: Yes: WNL, Regular, CTA Bilaterally Gastrointestinal: Yes: WNL, Normal Bowel Sounds, Soft. No: Tenderness Genitourinary: Yes: Buck Present Labs: CBC, BMP 10/15/17 07:15 10/15/17 07:15 INR, PTT INR 1.15 (0.82-1.09) H 09/26/17 06:00 Problem List - Problems (1) UTI (urinary tract infection) Code(s): N39.0 - URINARY TRACT INFECTION, SITE NOT SPECIFIED (2) Benign localized hyperplasia of prostate with urinary retention Code(s): N40.1 - BENIGN PROSTATIC HYPERPLASIA WITH LOWER URINARY TRACT SYMP Assessment/Plan Microbiology Laboratory Tests 10/14/17 10/14/17 10/15/17 07:05 16:10 07:15 WBC 19.3 H D 10.4 H D RBC 3.25 L Hct 28.0 L Plt Count 296 Creat Clearance w eGFR Urine Urobilinogen Negative Ur Leukocyte Esterase 3+ H Urine RBC (Auto) 1086 10/15/17 07:15 WBC RBC Hct Plt Count Creat Clearance w eGFR > 60 Urine Urobilinogen Ur Leukocyte Esterase Urine RBC (Auto) Assessment Post urological surgery 10/10 Doing well currently no fever no wbc elevation Plan NO antibiotics and I would not treat positive urine culture if asymptomatic Sandra HARRIS
--- NOTE | 2017-10-15 14:31 | CONS ---
INFECTIOUS DISEASE CONSULT DATE OF CONSULTATION: DATE OF DICTATION: 10/15/2017 HISTORY: The case was discussed with Dr. De Leon and I am asked to see the patient specifically regarding the issue of possible urinary tract infection. He has been in the hospital since approximately Vicki time, and on October 05 had been seen by Dr. Lentz and underwent cystoscopy with transurethral resection of the prostate for BPH. I am asked to see the patient now post surgery as yesterday his white count was noted to be elevated to 19,000. He has had a Buck catheter inserted throughout his hospitalization which was apparently changed. He has had no fever. Yesterday cultures of both blood and urine were taken, which are currently pending, though his preliminary blood culture report is no growth. Today his white count seems to have returned to normal without having done anything. The patient has dementia and though alert, can offer no meaningful history. He is in no acute distress. PAST MEDICAL HISTORY: Includes history of atrial fibrillation. CURRENT MEDICATIONS: Include Flomax, Zyprexa, Seroquel. ALLERGIES: None known. SOCIAL HISTORY: HIV status unknown. Unknown if ever smoked. No history of alcohol or substance abuse. But again, the history is unclear given patient's medical status. FAMILY HISTORY AND REVIEW OF SYSTEMS: Reviewed and noncontributory. PHYSICAL EXAM: General: Reveals an alert male in restraints, in no acute distress. Vital Signs: Temperature was 98.1, pulse 65, blood pressure 127/68, respirations 20. Neck: Supple without adenopathy. Lungs: Clear to percussion and auscultation. Heart: S1, S2. Regular rhythm without audible murmur. Abdomen: Soft, nontender without hepatosplenomegaly. Extremities: Without clubbing, cyanosis or edema. Genitourinary: Reveals indwelling Buck catheter. LABORATORY: The white count is 10.4, hemoglobin 9.2, platelets 296. BUN 27, creatinine 0.8. Liver enzymes within normal limits. Urinalysis was 1086 RBCs, 412, WBCs, 3+ leukocyte esterase. Blood and urine cultures pending. 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 He has had head CT imaging done which showed no evidence of any intracranial pathology, status post transurethral resection of the prostate on October 05 with chronic Buck catheter. Currently no fever, no white count, no indication for antibiotics. Blood and urine cultures have been obtained, but at this point I would not be inclined to treat him with any antibiotics should he have bacteria in the urine. An HIV antibody should be obtained for completeness. PITA RYAN M.D. [id number]
[2017-10-15] MEDS: DIVALPROEX SODIUM 125 MG TABLET E.C. PO SCH (21:21)
--- NOTE | 2017-10-16 03:56 | PN ---
Physical Exam: SUBJECTIVE: Patient seen and examined by me this AM - Slightly agitated overnight, no haldol given. Trace hematuria noted in mcintyre bag. Pt denies any pain or symptoms. No acute events overnight. Pt tangential, nonsensical speech with occasional periods of clarity OBJECTIVE: Vital Signs Intake & Output 10/13/17 10/14/17 10/15/17 10/16/17 23:59 23:59 23:59 23:59 Intake Total 730 500 990 Output Total 2550 700 1500 Balance -1820 -200 -510 Period Temp Pulse Resp BP Sys/Mackey Pulse Ox Last 24 Hr 98.1 F-99.3 F 65-78 18-20 108-134/57-70 98-100 GENERAL: Elderly cachectic man in bed, restrained. NAD. A&Ox1 HEAD: Normal with no signs of trauma. EYES: PERRL, sclera anicteric, conjunctiva clear. No ptosis. ENT: Ears normal, nares patent, oropharynx clear without exudates, moist mucous membranes. NECK: Trachea midline, full range of motion, supple. LUNGS: Breath sounds equal, clear to auscultation bilaterally, no wheezes, no crackles, no accessory muscle use. HEART: Regular rate and rhythm, S1, S2 without murmur, rub or gallop. ABDOMEN: Soft, nontender, nondistended, normoactive bowel sounds, no guarding, no rebound, no hepatosplenomegaly, no masses. No suprapubic tenderness EXTREMITIES: 2+ pulses, warm, well-perfused, no edema. NEUROLOGICAL: Cranial nerves II through XII grossly intact. gait not observed. PSYCH: Normal mood, normal affect. Tangential, nonsensical SKIN: Warm, dry, normal turgor, no rashes or lesions noted Genital: No blood at urethral meatus or other lesions. Mcintyre in place, draining well. Laboratory Results - last 24 hr CBC, BMP 10/16/17 06:40 10/16/17 06:40 10/15/17 07:15 10/15/17 07:15 10/15/17 10/15/17 10/15/17 07:15 07:15 13:35 WBC 10.4 H D RBC 3.25 L Hgb 9.2 L Hct 28.0 L MCV 86.3 MCH 28.3 MCHC 32.8 RDW 15.1 Plt Count 296 MPV 8.5 Neutrophils % 68.2 Lymphocytes % 12.6 D Monocytes % 10.9 H Eosinophils % 7.5 H D Basophils % 0.8 Sodium 142 Potassium 4.2 Chloride 108 H Carbon Dioxide 28 Anion Gap 6 L BUN 27 H Creatinine 0.8 Creat Clearance w eGFR > 60 Random Glucose 91 Calcium 8.5 Phosphorus 3.2 Magnesium 1.9 D Total Bilirubin 0.4 D AST 29 ALT 27 Alkaline Phosphatase 62 Total Protein 6.3 L Albumin 2.7 L HIV 1&2 Antibody Screen Negative HIV P24 Antigen Negative Active Medications Generic Name Dose Route Start Last Admin Trade Name Freq PRN Reason Stop Dose Admin Divalproex Sodium 125 mg 10/15/17 22:00 10/15/17 21:21 Depakote - PO 125 mg BID HEATHER Administration Haloperidol 1 mg 10/05/17 18:57 10/09/17 05:30 Haldol Injection (Fast Acting) - IM 1 mg Q4H PRN Administration AGITATION Olanzapine 10 mg 10/05/17 22:00 10/15/17 21:22 Zyprexa - PO 10 mg BID [facility] Administration Ondansetron HCl 4 mg 10/05/17 18:02 Zofran Injection IVPUSH Q6H PRN NAUSEA AND/OR VOMITING Promethazine HCl 12.5 mg 10/05/17 18:02 Phenergan Injection - IVPUSH Q6H PRN NAUSEA-FOR RESCUE AFTER 15 MIN Tamsulosin HCl 0.4 mg 10/06/17 08:30 10/15/17 09:54 Flomax - PO 0.4 mg DAILY@0830 [facility] Administration Microbiology 10/14/17 13:00 Blood - Peripheral Venous Blood Culture - Preliminary NO GROWTH OBTAINED AFTER 24 HOURS, INCUBATION TO CONTINUE FOR 4 DAYS. 10/14/17 12:35 Blood - Peripheral Venous Blood Culture - Preliminary NO GROWTH OBTAINED AFTER 24 HOURS, INCUBATION TO CONTINUE FOR 4 DAYS. 09/27/17 19:30 Urine - Urine Mcintyre Urine Culture - Final Enterococcus Faecalis 09/17/17 15:30 Blood - Peripheral Venous Blood Culture - Final NO GROWTH AFTER 5 DAYS INCUBATION 09/17/17 15:30 Blood - Peripheral Venous Blood Culture - Final NO GROWTH AFTER 5 DAYS INCUBATION 09/20/17 18:30 Urine - Urine Suprapubic Urine Culture - Final NO GROWTH OBTAINED 09/17/17 15:45 Urine - Urine Clean Catch Urine Culture - Final NO GROWTH OBTAINED Studies: EKG 09/30 - Low voltage, NAD, 1st degree HB, Rate 60, QTC 401, peaked twaves in V2 -V5 EKG 10/10 - Sinus hipolito, rate 50, NAD, QTC 382, V3-V6 peaked Twaves CXR 10/14 - Impression : No acute pathology. Metallic density left upper quadrant. ASSESSMENT/PLAN: 76 yo man with PMH of dementia and OA who was initially found wandering [facility], likely secondary to baseline dementia complicated by acute metabolic encephalopathy. #Leukocytosis/Bacteriura - WBC slight increase today; UA + luek esterase, blood , WBC; asymptomatic currently - trend WBC, fever curve - ID consulted - recommend close observation, no abx - f/u urine cultures - CXR negative, low grade fever to 100.4 per overnight nursing team #BPH/Hematuria - POD10 TURP 10/05; pulled mcintyre over weeked, replaced by urology ; trace hematuria today - maintain mcintyre, monitor for hematuria - Serial H/H - Urology aware - c/w flomax #AMS - likely at baseline dementia now, remains confused, pulling at lines; EKG 10/10 with no QTC prolongation - Consider trial off restraints later this week - Depakote 125 BID; continued zyprexa - Haldol for agitation PRN - Phenergan, zofran for N/V - Neurology and psych following - Will require 24 hours off restraints for placement at NH; may be candidate for coty-psych placement; will continue to f/u with psych #Paroxysmal Afib - Resolved, NSR; no eliquis, as pt demented/fall risk PPX HSQ FEN PO hydration No lab abnormalities Regular diet Possible placement at coty-psych facility as cannot d/c restraints due to continued agitation Plan discussed with attending, Dr. Haley Benavides, PGY1 Visit type - Emergency Visit Emergency Visit: Yes ED Registration Date: 09/17/17 Care time: The patient presented to the Emergency Department on the above date and was hospitalized for further evaluation of their emergent condition. - New Patient This patient is new to me today: No - Critical Care Critical Care patient: No
[2017-10-16 08:01] LABS: HEMATOCRIT 27.7 % (35.4-49); MCH 28.2 pg (25.7-33.7); MCHC 32.6 g/dl (32.0-35.9); MEAN CELL VOLUME 86.4 fl (80-96); MEAN PLT VOLUME 8.4 fl (7.5-11.1); PLATELET COUNT 313 K/MM3 (134-434); RDW 15.2 % (11.9-15.9); WHITE BLOOD COUNT 12.5 K/mm3 (4.0-10.0)
[2017-10-16 08:26] LABS: CHLORIDE 106 mmol/L (98-107); POTASSIUM 4.4 mmol/L (3.5-5.1); SODIUM 140 mmol/L (136-145)
[2017-10-16 08:42] LABS: ANION GAP 7 (8-16); BLOOD UREA NITROGEN 27 mg/dL (7-18); CALCIUM 8.6 mg/dL (8.5-10.1); CO2 27 mmol/L (21-32); CREATININE 0.8 mg/dL (0.7-1.3); GLUCOSE,RANDOM 94 mg/dL (74-106)
[2017-10-16] MEDS: OLANZapine 10 MG TABLET PO SCH ×2 (11:23→21:23)
[2017-10-16] MEDS: TAMSULOSIN HCL 0.4 MG CAP.ER.24H (FP) PO SCH (11:23)
[2017-10-16] MEDS: DIVALPROEX SODIUM 125 MG TABLET E.C. PO SCH ×2 (11:23→21:23)
--- NOTE | 2017-10-16 15:59 | PN ---
Teaching Attending Note Name of Resident: Sudarshan Benavides ATTENDING PHYSICIAN STATEMENT I saw and evaluated the patient. I reviewed the resident's note and discussed the case with the resident. I agree with the resident's findings and plan as documented. SUBJECTIVE:resting comfortable. speaking in clear sentences. speech is fluid and tangential. OBJECTIVE: Last Vital Signs Temp Pulse Resp BP Pulse Ox 99.7 F H 74 20 126/54 98 10/16/17 13:52 10/16/17 13:52 10/16/17 09:36 10/16/17 13:52 10/15/17 21:00 General NAD alert, does not respond appropriately to all questions CV S1 S2 RRR Abdomen soft midly tender. not distended ASSESSMENT AND PLAN: 76yo M with PMH dementia and OA found wandering around [facility] 1. Acute toxic metabolic encephalopathy-alert. seroquel has been d/c and started on low dose depakote yesterday. has not required haldol however been unable to remove restraints. cont zyprexa. cont 2 point restraints and santos vest. Psych and neuro on board 2. Elevated transminases- suggestive of hx of ETOH. hepatitis panel negative. resolved 3. afib-new onset. paroxysmal. likely induced from stressful event on presentation. has remained in NSR. High [id number]. however given severe dementia and recurrent hematuria will hold anticoagulation at this time. 4. CL- likely obstructive uropathy vs rhabdo. s/p TURP 10/05. resolved. CBI going. on flomax. avoid nephrotoxic agents. urology on board 5. Hematuria- some hematuria last night when pt pulled mcintyre out. replaced by urology. Hgb stable. 6. E. Faecalis UTI-completed abx course. repeat UA is +. evaluated by ID. would hold abx now as per them. 7. Rhabdo-resolved 8. Leukocytosis-likely reactive.improved 9. DVT ppx- start hep sq 10. will need extermination inspector placement in geriatric facility once able to remove restraints x24H.
[2017-10-16] MEDS: HEPARIN NA (PORCINE) 5,000 UNITS/ML 1ML VIAL SQ SCH (21:24)
[2017-10-17] MEDS: HEPARIN NA (PORCINE) 5,000 UNITS/ML 1ML VIAL SQ SCH ×3 (06:00→23:14)
--- NOTE | 2017-10-17 06:43 | PN ---
Physical Exam: SUBJECTIVE: Patient seen and examined by me this AM - No major events overnight. Pt required no haldol, no lines pulled. No hematuria noted. Pt remains significantly altered, A&Ox1. Denies any pain. Urine cultures + for Staph coag -, latex. OBJECTIVE: Vital Signs Intake & Output 10/14/17 10/15/17 10/16/17 10/17/17 23:59 23:59 23:59 23:59 Intake Total 500 990 300 50 Output Total 700 1500 2250 Balance -200 -510 -1950 50 Period Temp Pulse Resp BP Sys/Mackey Pulse Ox Last 24 Hr 98.3 F-99.7 F 73-76 20-20 120-152/54-80 98 GENERAL: Elderly man in bed, restrained. NAD. A&Ox1 HEAD: Normal with no signs of trauma. EYES: PERRL, sclera anicteric, conjunctiva clear. No ptosis. ENT: Ears normal, nares patent, oropharynx clear without exudates, moist mucous membranes. NECK: Trachea midline, full range of motion, supple. LUNGS: Breath sounds equal, clear to auscultation bilaterally, no wheezes, no crackles, no accessory muscle use. HEART: Regular rate and rhythm, S1, S2 without murmur, rub or gallop. ABDOMEN: Soft, nontender, nondistended, normoactive bowel sounds, no guarding, no rebound, no hepatosplenomegaly, no masses. No suprapubic tenderness EXTREMITIES: 2+ pulses, warm, well-perfused, no edema. NEUROLOGICAL: Cranial nerves II through XII grossly intact. Gait not observed. PSYCH: Normal mood, normal affect. Tangential, nonsensical SKIN: Warm, dry, normal turgor, no rashes or lesions noted Genital: No blood at urethral meatus or other lesions. Mcintyre remains in place, draining well. Laboratory Results - last 24 hr CBC, BMP 10/16/17 06:40 10/16/17 06:40 10/16/17 10/16/17 06:40 06:40 WBC 12.5 H RBC 3.20 L Hgb 9.0 L Hct 27.7 L MCV 86.4 MCH 28.2 MCHC 32.6 RDW 15.2 Plt Count 313 MPV 8.4 Sodium 140 Potassium 4.4 Chloride 106 Carbon Dioxide 27 Anion Gap 7 L BUN 27 H Creatinine 0.8 Random Glucose 94 Calcium 8.6 Active Medications Generic Name Dose Route Start Last Admin Trade Name Freq PRN Reason Stop Dose Admin Divalproex Sodium 125 mg 10/15/17 22:00 10/16/17 21:23 Depakote - PO 125 mg BID [facility] Administration Haloperidol 1 mg 10/05/17 18:57 10/09/17 05:30 Haldol Injection (Fast Acting) - IM 1 mg Q4H PRN Administration AGITATION Heparin Sodium (Porcine) 5,000 unit 10/16/17 22:00 10/17/17 06:00 Heparin - SQ 5,000 unit TID [facility] Administration Olanzapine 10 mg 10/05/17 22:00 10/16/17 21:23 Zyprexa - PO 10 mg BID [facility] Administration Ondansetron HCl 4 mg 10/05/17 18:02 Zofran Injection IVPUSH Q6H PRN NAUSEA AND/OR VOMITING Promethazine HCl 12.5 mg 10/05/17 18:02 Phenergan Injection - IVPUSH Q6H PRN NAUSEA-FOR RESCUE AFTER 15 MIN Tamsulosin HCl 0.4 mg 10/06/17 08:30 10/16/17 11:23 Flomax - PO 0.4 mg DAILY@0830 [facility] Administration Microbiology 10/14/17 13:00 Blood - Peripheral Venous Blood Culture - Preliminary NO GROWTH OBTAINED AFTER 48 HOURS, INCUBATION TO CONTINUE FOR 3 DAYS. 10/14/17 12:35 Blood - Peripheral Venous Blood Culture - Preliminary NO GROWTH OBTAINED AFTER 48 HOURS, INCUBATION TO CONTINUE FOR 3 DAYS. 10/14/17 14:50 Urine - Urine Mcintyre Urine Culture - Preliminary Staphylococcus Latex Coag Pos Staphylococcus Coagulase Neg 09/27/17 19:30 Urine - Urine Mcintyre Urine Culture - Final Enterococcus Faecalis 09/17/17 15:30 Blood - Peripheral Venous Blood Culture - Final NO GROWTH AFTER 5 DAYS INCUBATION 09/17/17 15:30 Blood - Peripheral Venous Blood Culture - Final NO GROWTH AFTER 5 DAYS INCUBATION 09/20/17 18:30 Urine - Urine Suprapubic Urine Culture - Final NO GROWTH OBTAINED 09/17/17 15:45 Urine - Urine Clean Catch Urine Culture - Final NO GROWTH OBTAINED Studies: EKG 09/30 - Low voltage, NAD, 1st degree HB, Rate 60, QTC 401, peaked twaves in V2 -V5 EKG 10/10 - Sinus hipolito, rate 50, NAD, QTC 382, V3-V6 peaked Twaves CXR 10/14 - Impression : No acute pathology. Metallic density left upper quadrant. ASSESSMENT/PLAN: 76 yo man with PMH of dementia and OA who was initially found wandering [facility], likely secondary to baseline dementia complicated by acute metabolic encephalopathy. #Leukocytosis/Bacteriuria - WBC 11.2 today; urine cx + for coag -, latex + staph - No tx at this time. Not symptomatic, WBC normalized, no fevers; No abx unless symptomatic, worsening infectious symptoms - trend WBC, fever curve - ID consulted - recommend close observation, no abx - CXR 10/14 negative, low grade fever to 100.4 per overnight nursing team #BPH/Hematuria - POD11 TURP 10/05; pulled mcintyre over weeked, replaced by urology ; trace hematuria today - mcintyre d/c'ed today, monitor for retention overnight; replace mcintyre if retaining - Serial H/H - Urology aware, following - c/w flomax #AMS - likely at baseline dementia now, remains confused, pulling at lines; EKG 10/10 with no QTC prolongation - Consider trial off restraints later this week - Depakote 125 BID; Will increase tomorrow - c/w zyprexa - Haldol for agitation PRN - Phenergan, zofran for N/V - Neurology and psych following - Will require 24 hours off restraints for placement at NH; may be candidate for coty-psych placement; will continue to f/u with psych - High fall risk w/ multiple falls during admission; c/w bed-alarm, fall precautions. #Paroxysmal Afib - Resolved, NSR; no eliquis, as pt demented/fall risk PPX HSQ FEN PO hydration No lab abnormalities Regular diet Will require 24 hours off restraints for placement at coty-psych facility Plan discussed with attending, Dr. Haley Benavides, PGY1 Visit type - Emergency Visit Emergency Visit: Yes ED Registration Date: 09/17/17 Care time: The patient presented to the Emergency Department on the above date and was hospitalized for further evaluation of their emergent condition. - New Patient This patient is new to me today: No - Critical Care Critical Care patient: No
[2017-10-17 08:25] LABS: BASO % 0.6 % (0-2.0); EOS % 7.9 % (0-4.5); HEMATOCRIT 29.1 % (35.4-49); HEMOGLOBIN 9.2 GM/dL (11.7-16.9); LYMPH % 12.1 % (8-40); MCH 27.5 pg (25.7-33.7); MCHC 31.7 g/dl (32.0-35.9); MEAN CELL VOLUME 86.7 fl (80-96); MEAN PLT VOLUME 8.6 fl (7.5-11.1); MONO % 9.6 % (3.8-10.2); NEUT % 69.8 % (42.8-82.8); PLATELET COUNT 336 K/MM3 (134-434); RBC 3.36 M/mm3 (4.00-5.60); RDW 14.6 % (11.9-15.9); WHITE BLOOD COUNT 11.2 K/mm3 (4.0-10.0)
[2017-10-17] MEDS ORDERED: PT OWN MED DRAWER 7, Y5N ONE ×2 (10:00→22:50)
[2017-10-17] MEDS: TAMSULOSIN HCL 0.4 MG CAP.ER.24H (FP) PO SCH (10:05)
[2017-10-17] MEDS: DIVALPROEX SODIUM 125 MG TABLET E.C. PO SCH ×2 (10:05→23:35)
[2017-10-17] MEDS: OLANZapine 10 MG TABLET PO SCH ×2 (10:05→23:15)
--- NOTE | 2017-10-17 14:11 | PN ---
Teaching Attending Note Name of Resident: Sudarshan Benavides ATTENDING PHYSICIAN STATEMENT I saw and evaluated the patient. I reviewed the resident's note and discussed the case with the resident. I agree with the resident's findings and plan as documented. SUBJECTIVE:pleasantly confused OBJECTIVE: Last Vital Signs Temp Pulse Resp BP Pulse Ox 98.9 F 60 17 109/61 98 10/17/17 13:44 10/17/17 13:44 10/17/17 13:44 10/17/17 13:44 10/16/17 09:00 General NAD alert, does not respond appropriately to all questions CV S1 S2 RRR Abdomen soft midly tender. not distended ASSESSMENT AND PLAN: 76yo M with PMH dementia and OA found wandering around [facility] 1. Acute toxic metabolic encephalopathy-alert. pleasantly confused and at baseline per SW. has not required any haldol for several days. however pulls at mcintyre when off restraints. will d/c mcintyre and remove restraints and monitor behavior. on low dose depakote. will slowly titrate up as needed on zyprexa. Psych and neuro on board 2. Elevated transminases- suggestive of hx of ETOH. hepatitis panel negative. resolved 3. afib-new onset. paroxysmal. likely induced from stressful event on presentation. has remained in NSR. High [id number]. however given severe dementia and recurrent hematuria will hold anticoagulation at this time. 4. CL- likely obstructive uropathy vs rhabdo. s/p TURP 10/05. resolved. will attempt to remove mcintyre and monitor UOP. bladder scan if no UOP in 6H. spoke with urology whose aware that will remove mcintyre. on flomax. avoid nephrotoxic agents. urology on board 5. Hematuria- resolved. Hgb stable. 6. E. Faecalis UTI-completed abx course. repeat UA is + with +UCx however leukocytosis resolved without treatment. no fevers. mental status remains stable. will hold treatment at this time. ID on board. 7. Rhabdo-resolved 8. Leukocytosis-likely reactive.improved 9. DVT ppx- hep sq 10. will need charge master specialist placement in geriatric facility once able to remove restraints x24H.
[2017-10-17] MEDS: AMINO ACIDS/PROTEIN HYDROLYS 30 ML LIQUID.PKT PO SCH (17:40)
[2017-10-17] MEDS: HALOPERIDOL LACTATE 5 MG/ML IM PRN (23:19)
--- NOTE | 2017-10-18 05:54 | PN ---
Physical Exam: SUBJECTIVE: Patient seen and examined by me this AM - Buck removed yesterday. Pt retaining overnight. Bladder scan in AM ~600ml. Dr. Lentz contact in early PM, suggested starting bethanechol and straight cathing TID. Nursing appraised of plan. Pt received haldol overnight for agitation. WBC downtrending, no fevers; Urine culture positive for multiple staph species. Will observe for infectious symptoms, no tx indicated at this time; OBJECTIVE: Vital Signs Intake & Output 10/15/17 10/16/17 10/17/17 10/18/17 23:59 23:59 23:59 23:59 Intake Total 990 300 50 Output Total 1500 2250 700 Balance -510 -1950 -650 Period Temp Pulse Resp BP Sys/Mackey Pulse Ox Last 24 Hr 97.3 F-98.9 F 60-76 17-20 104-129/61-73 95 GENERAL: Elderly man lying in bed. NAD. A&Ox1 HEAD: Normal with no signs of trauma. EYES: PERRL, sclera anicteric, conjunctiva clear. No ptosis. ENT: Ears normal, nares patent, oropharynx clear without exudates, moist mucous membranes. NECK: Trachea midline, full range of motion, supple. LUNGS: Breath sounds equal, clear to auscultation bilaterally, no wheezes, no crackles, no accessory muscle use. HEART: Regular rate and rhythm, S1, S2 without murmur, rub or gallop. ABDOMEN: Prominent bladder, palpable and dull to percussion. Mild tenderness to palpation. Tense abdomen. Normoactive bowel sounds, no guarding, no rebound, no hepatosplenomegaly, no masses. No suprapubic tenderness EXTREMITIES: 2+ pulses, warm, well-perfused, no edema. NEUROLOGICAL: Cranial nerves II through XII grossly intact. Gait not observed. PSYCH: Normal mood, normal affect. Tangential, nonsensical SKIN: Warm, dry, normal turgor, no rashes or lesions noted Genital: No blood at urethral meatus or other lesions. Buck remains in place, draining well. Laboratory Results - last 24 hr CBC, BMP CBC, BMP 10/18/17 06:30 10/16/17 06:40 10/17/17 07:30 10/16/17 06:40 10/17/17 07:30 WBC 11.2 H RBC 3.36 L Hgb 9.2 L Hct 29.1 L MCV 86.7 MCH 27.5 MCHC 31.7 L RDW 14.6 Plt Count 336 MPV 8.6 Neutrophils % 69.8 Lymphocytes % 12.1 Monocytes % 9.6 Eosinophils % 7.9 H Basophils % 0.6 Active Medications Generic Name Dose Route Start Last Admin Trade Name Freq PRN Reason Stop Dose Admin Amino Acids 30 ml 10/17/17 17:30 10/17/17 17:40 Prosource No Carb Liquid Pkt PO 30 ml BID@0800,1730 [facility] Administration Divalproex Sodium 125 mg 10/15/17 22:00 10/17/17 23:35 Depakote - PO 125 mg BID [facility]ATHER Administration Haloperidol 1 mg 10/05/17 18:57 10/17/17 23:19 Haldol Injection (Fast Acting) - IM 1 mg Q4H PRN Administration AGITATION Heparin Sodium (Porcine) 5,000 unit 10/16/17 22:00 10/17/17 23:14 Heparin - SQ 5,000 unit TID [facility] Administration Multivitamins/Minerals/Vitamin C 1 tab 10/18/17 10:00 Tab-A-Vit - PO DAILY HEATHER Olanzapine 10 mg 10/05/17 22:00 10/17/17 23:15 Zyprexa - PO 10 mg BID HEATHER Administration Ondansetron HCl 4 mg 10/05/17 18:02 Zofran Injection IVPUSH Q6H PRN NAUSEA AND/OR VOMITING Promethazine HCl 12.5 mg 10/05/17 18:02 Phenergan Injection - IVPUSH Q6H PRN NAUSEA-FOR RESCUE AFTER 15 MIN Tamsulosin HCl 0.4 mg 10/06/17 08:30 10/17/17 10:05 Flomax - PO 0.4 mg DAILY@0830 [facility]ER Administration Microbiology 10/14/17 13:00 Blood - Peripheral Venous Blood Culture - Preliminary NO GROWTH OBTAINED AFTER 72 HOURS, INCUBATION TO CONTINUE FOR 2 DAYS. 10/14/17 12:35 Blood - Peripheral Venous Blood Culture - Preliminary NO GROWTH OBTAINED AFTER 72 HOURS, INCUBATION TO CONTINUE FOR 2 DAYS. 10/14/17 14:50 Urine - Urine Buck Urine Culture - Final Staphylococcus Aureus Staphylococcus Epidermidis 09/27/17 19:30 Urine - Urine Buck Urine Culture - Final Enterococcus Faecalis 09/17/17 15:30 Blood - Peripheral Venous Blood Culture - Final NO GROWTH AFTER 5 DAYS INCUBATION 09/17/17 15:30 Blood - Peripheral Venous Blood Culture - Final NO GROWTH AFTER 5 DAYS INCUBATION 09/20/17 18:30 Urine - Urine Suprapubic Urine Culture - Final NO GROWTH OBTAINED 09/17/17 15:45 Urine - Urine Clean Catch Urine Culture - Final NO GROWTH OBTAINED Studies: EKG 09/30 - Low voltage, NAD, 1st degree HB, Rate 60, QTC 401, peaked twaves in V2 -V5 EKG 10/10 - Sinus hipolito, rate 50, NAD, QTC 382, V3-V6 peaked Twaves CXR 10/14 - Impression : No acute pathology. Metallic density left upper quadrant. ASSESSMENT/PLAN: 76 yo man with PMH of dementia and OA who was initially found wandering [facility], likely secondary to baseline dementia complicated by acute metabolic encephalopathy. #Leukocytosis/Bacteriuria - WBC 11.3 today; urine cx + for coag -, latex + staph - No tx at this time. Not symptomatic, WBC normalized, no fevers; No abx unless symptomatic, worsening infectious symptoms - trend WBC, fever curve - ID consulted 10/15- recommend close observation, no abx - CXR 10/14 negative, low grade fever to 100.4 per overnight nursing team #BPH/Hematuria/urinary retention - POD12 TURP 10/05; TOV last night, pt retained 600cc urine - Per urology, start bethanechol and straight cath TID - Serial H/H - Urology aware, following - c/w flomax, start bethanechol 10mg TID #AMS - likely at baseline dementia now, remains confused, pulling at lines; EKG 10/10 with no QTC prolongation - Consider trial off restraints later tomorrow - Depakote increased to 250mg BID today per psych recs - c/w zyprexa - Haldol for agitation PRN - Phenergan, zofran for N/V - Neurology and psych following - Will require 24 hours off restraints for placement at [facility]; may be candidate for [facility] placement; will continue to f/u with psych - High fall risk w/ multiple falls during admission; c/w bed-alarm, fall precautions. #Paroxysmal Afib - Resolved, NSR; no eliquis, as pt demented/fall risk PPX HSQ FEN PO hydration No lab abnormalities Regular diet Will require 24 hours off restraints for placement at [facility] facility Plan discussed with attending, Dr. Haley Benavides, PGY1 Visit type - Emergency Visit Emergency Visit: Yes ED Registration Date: 09/17/17 Care time: The patient presented to the Emergency Department on the above date and was hospitalized for further evaluation of their emergent condition. - New Patient This patient is new to me today: No - Critical Care Critical Care patient: No
[2017-10-18] MEDS: HEPARIN NA (PORCINE) 5,000 UNITS/ML 1ML VIAL SQ SCH ×3 (06:56→22:24)
[2017-10-18 07:49] LABS: BASO % 0.8 % (0-2.0); EOS % 7.4 % (0-4.5); HEMATOCRIT 29.2 % (35.4-49); HEMOGLOBIN 9.4 GM/dL (11.7-16.9); LYMPH % 12.1 % (8-40); MCH 27.9 pg (25.7-33.7); MCHC 32.3 g/dl (32.0-35.9); MEAN CELL VOLUME 86.2 fl (80-96); MEAN PLT VOLUME 8.3 fl (7.5-11.1); MONO % 10.6 % (3.8-10.2); NEUT % 69.1 % (42.8-82.8); PLATELET COUNT 331 K/MM3 (134-434); RBC 3.39 M/mm3 (4.00-5.60); RDW 14.8 % (11.9-15.9); WHITE BLOOD COUNT 11.3 K/mm3 (4.0-10.0)
[2017-10-18] MEDS: TAMSULOSIN HCL 0.4 MG CAP.ER.24H (FP) PO SCH ×2 (08:26→17:56)
[2017-10-18] MEDS: AMINO ACIDS/PROTEIN HYDROLYS 30 ML LIQUID.PKT PO SCH ×2 (08:26→16:43)
[2017-10-18] MEDS ORDERED: PT OWN MED DRAWER 7, Y5N ONE ×3 (10:14→22:06)
[2017-10-18] MEDS: OLANZapine 10 MG TABLET PO SCH ×2 (10:16→22:23)
[2017-10-18] MEDS: MULTIVITAMINS (DAILY MVI) TABLET (FP) PO SCH (10:16)
[2017-10-18] MEDS: DIVALPROEX SODIUM 125 MG TABLET E.C. PO SCH (10:16)
--- NOTE | 2017-10-18 15:40 | PN ---
Progress Note (short form) - Note Progress Note: patient has been unable to void. He is S/P TURP. This may be due to a neurogenic bladder/dementia. He is unable to have an indwelling mcintyre as he pulls them out. would recommend intermittent cath q12h for now. Problem List - Problems (1) Benign localized hyperplasia of prostate with urinary retention Code(s): N40.1 - BENIGN PROSTATIC HYPERPLASIA WITH LOWER URINARY TRACT SYMP
[2017-10-18] MEDS ORDERED: DIVALPROEX SODIUM 125 MG TABLET E.C. PO SCH (16:15)
--- NOTE | 2017-10-18 17:19 | PN ---
Teaching Attending Note Name of Resident: Sudarshan Benavides ATTENDING PHYSICIAN STATEMENT I saw and evaluated the patient. I reviewed the resident's note and discussed the case with the resident. I agree with the resident's findings and plan as documented. SUBJECTIVE:alert, pleasantly confused OBJECTIVE: Last Vital Signs Temp Pulse Resp BP Pulse Ox 99.5 F 73 18 129/59 100 10/18/17 13:20 10/18/17 13:20 10/18/17 13:20 10/18/17 13:20 10/18/17 09:00 General NAD alert, does not respond appropriately to all questions CV S1 S2 RRR Abdomen soft some distention ASSESSMENT AND PLAN: 76yo M with PMH dementia and OA found wandering around [facility] 1. Acute toxic metabolic encephalopathy-alert. pleasantly confused and at baseline per SW. received haldol x1 last night. will increase depakote and monitor mental status. attempt to remove restraints. on zyprexa. Psych and neuro on board 2. Elevated transminases- suggestive of hx of ETOH. hepatitis panel negative. resolved 3. afib-new onset. paroxysmal. likely induced from stressful event on presentation. has remained in NSR. High [id number]. however given severe dementia and recurrent hematuria will hold anticoagulation at this time. 4. CL- likely obstructive uropathy vs rhabdo. s/p TURP 10/05. resolved. mcintyre removed yesterday and pt did not void. Bladder scan showing 600cc. Urology reocmmending straight cathing Q12H instead of leaving chronic catheter to prevent continuous pulling of the mcintyre by the patient. will start bethanechol. on flomax. avoid nephrotoxic agents. urology on board 5. Hematuria- resolved. Hgb stable. 6. E. Faecalis UTI-completed abx course. repeat UA is + with +UCx however leukocytosis resolved without treatment. no fevers. mental status remains stable. will hold treatment at this time. ID on board. 7. Rhabdo-resolved 8. Leukocytosis-likely reactive.improved 9. DVT ppx- hep sq 10. will need termite treater helper placement in geriatric facility once able to remove restraints x24H.
[2017-10-18] MEDS: DIVALPROEX SODIUM 250 MG TABLET E.C. PO SCH (22:22)
[2017-10-18] MEDS: BETHANECHOL CHLORIDE 10 MG TABLET PO SCH (22:23)
--- NOTE | 2017-10-19 03:30 | HOSP ---
Subjective - Review of Symptoms Events since last encounter: Was called because pt needed straight cath. Floor nurses unable to place. Buck placed. Pt failed void trial. Decision to d/c for primary team. Physical Examination Vital Signs: Vital Signs Temperature 98.7 F 10/18/17 22:00 Pulse Rate 62 10/18/17 22:00 Respiratory Rate 18 10/18/17 22:00 Blood Pressure 117/60 10/18/17 22:00 O2 Sat by Pulse Oximetry (%) 97 10/18/17 21:00 Labs: CBC, BMP 10/18/17 06:30 10/16/17 06:40 Visit type - Emergency Visit Emergency Visit: No - New Patient This patient is new to me today: Yes Date on this admission: 10/19/17 - Critical Care Critical Care patient: No
--- NOTE | 2017-10-19 05:24 | PN ---
Physical Exam: SUBJECTIVE: Patient seen and examined by me this AM - Mcintyre placed overnight due to urinary retention. Pt w/ minimal agitation otherwise, did not require haldol. No hematuria noted in AM. Not complaining of pain of any pain. OBJECTIVE: Vital Signs Intake & Output 10/16/17 10/17/17 10/18/17 10/19/17 23:59 23:59 23:59 23:59 Intake Total 300 50 300 Output Total 2250 700 1600 Balance -1950 -650 -1300 Period Temp Pulse Resp BP Sys/Mackey Pulse Ox Last 24 Hr 98.4 F-99.5 F 55-73 18-18 113-141/59-66 97-100 GENERAL: Elderly man, restrained in bed. NAD. A&Ox1 HEAD: Normal with no signs of trauma. EYES: PERRL, sclera anicteric, conjunctiva clear. No ptosis. ENT: Ears normal, nares patent, oropharynx clear without exudates, moist mucous membranes. NECK: Trachea midline, full range of motion, supple. LUNGS: Breath sounds equal, clear to auscultation bilaterally, no wheezes, no crackles, no accessory muscle use. HEART: Regular rate and rhythm, S1, S2 without murmur, rub or gallop. ABDOMEN: Scaphoid, tense abdomen. Normoactive bowel sounds, no guarding, no rebound, no hepatosplenomegaly, no masses. No suprapubic tenderness EXTREMITIES: 2+ pulses, warm, well-perfused, no edema. NEUROLOGICAL: Cranial nerves II through XII grossly intact. Gait not observed. PSYCH: Normal mood, normal affect. Tangential, nonsensical SKIN: Warm, dry, normal turgor, no rashes or lesions noted Genital: No blood at urethral meatus Laboratory Results - last 24 hr CBC, BMP CBC, BMP 10/19/17 07:00 10/19/17 07:00 10/18/17 06:30 10/16/17 06:40 10/18/17 06:30 WBC 11.3 H RBC 3.39 L Hgb 9.4 L Hct 29.2 L MCV 86.2 MCH 27.9 MCHC 32.3 RDW 14.8 Plt Count 331 MPV 8.3 Neutrophils % 69.1 Lymphocytes % 12.1 Monocytes % 10.6 H Eosinophils % 7.4 H Basophils % 0.8 Active Medications Generic Name Dose Route Start Last Admin Trade Name Freq PRN Reason Stop Dose Admin Amino Acids 30 ml 10/17/17 17:30 10/18/17 16:43 Prosource No Carb Liquid Pkt PO 30 ml BID@0800,1730 [facility] Administration Bethanechol Chloride 10 mg 10/18/17 22:00 10/18/17 22:23 Urecholine - PO 10 mg TID [facility] Administration Divalproex Sodium 250 mg 10/18/17 16:16 10/18/17 22:22 Depakote - PO 250 mg BID [facility] Administration Haloperidol 1 mg 10/05/17 18:57 10/17/17 23:19 Haldol Injection (Fast Acting) - IM 1 mg Q4H PRN Administration AGITATION Heparin Sodium (Porcine) 5,000 unit 10/16/17 22:00 10/18/17 22:24 Heparin - SQ 5,000 unit TID [facility] Administration Multivitamins/Minerals/Vitamin C 1 tab 10/18/17 10:00 10/18/17 10:16 Tab-A-Vit - PO 1 tab DAILY [facility] Administration Olanzapine 10 mg 10/05/17 22:00 10/18/17 22:23 Zyprexa - PO 10 mg BID [facility] Administration Ondansetron HCl 4 mg 10/05/17 18:02 Zofran Injection IVPUSH Q6H PRN NAUSEA AND/OR VOMITING Promethazine HCl 12.5 mg 10/05/17 18:02 Phenergan Injection - IVPUSH Q6H PRN NAUSEA-FOR RESCUE AFTER 15 MIN Tamsulosin HCl 0.4 mg 10/18/17 18:00 10/18/17 17:56 Flomax - PO 0.4 mg BID@0830,1800 [facility] Administration Microbiology 10/14/17 13:00 Blood - Peripheral Venous Blood Culture - Preliminary NO GROWTH OBTAINED AFTER 96 HOURS, INCUBATION TO CONTINUE FOR 1 DAYS. 10/14/17 12:35 Blood - Peripheral Venous Blood Culture - Preliminary NO GROWTH OBTAINED AFTER 96 HOURS, INCUBATION TO CONTINUE FOR 1 DAYS. 10/14/17 14:50 Urine - Urine Mcintyre Urine Culture - Final Staphylococcus Aureus Staphylococcus Epidermidis 09/27/17 19:30 Urine - Urine Mcintyre Urine Culture - Final Enterococcus Faecalis 09/17/17 15:30 Blood - Peripheral Venous Blood Culture - Final NO GROWTH AFTER 5 DAYS INCUBATION 09/17/17 15:30 Blood - Peripheral Venous Blood Culture - Final NO GROWTH AFTER 5 DAYS INCUBATION 09/20/17 18:30 Urine - Urine Suprapubic Urine Culture - Final NO GROWTH OBTAINED 09/17/17 15:45 Urine - Urine Clean Catch Urine Culture - Final NO GROWTH OBTAINED Studies: EKG 09/30 - Low voltage, NAD, 1st degree HB, Rate 60, QTC 401, peaked twaves in V2 -V5 EKG 10/10 - Sinus hipolito, rate 50, NAD, QTC 382, V3-V6 peaked Twaves CXR 10/14 - Impression : No acute pathology. Metallic density left upper quadrant. ASSESSMENT/PLAN: 76 yo man with PMH of dementia and OA who was initially found wandering [facility], likely secondary to baseline dementia complicated by acute metabolic encephalopathy. #BPH/Hematuria/urinary retention - POD13 TURP 10/05; mcintyre placed again overnight as unable to straight cath - Mcintyre d/c'ed - straight cath TID - Serial H/H - Urology aware, following - c/w flomax, start bethanechol 10mg TID #Leukocytosis/Bacteriuria - WBC 11.3 overnight; afebrile - No infectious symptoms, borderline persistent WBC count; no fevers overnight - trend WBC, fever curve - ID consulted 10/15- recommend close observation, no abx - CXR 10/14 negative - urine cx positive for staph epi, aureus #AMS - likely at baseline dementia now, remains confused, pulling at lines; EKG 10/10 with no QTC prolongation - Trial off restraints overnight; pt with placement/insurance approval at psych facility, pending 24 hours with no restraints - Depakote 250mg BID - c/w zyprexa - Haldol for agitation PRN - Phenergan, zofran for N/V - Neurology and psych following - High fall risk w/ multiple falls during admission; c/w bed-alarm, fall precautions. #Paroxysmal Afib - Resolved, NSR; no eliquis, as pt demented/fall risk PPX HSQ FEN PO hydration No lab abnormalities Regular diet Will require 24 hours off restraints for placement at [facility] facility. Will attempt overnight without restraints. Plan discussed with attending, Dr. Ha Benavides, PGY1 Visit type - Emergency Visit Emergency Visit: Yes ED Registration Date: 09/17/17 Care time: The patient presented to the Emergency Department on the above date and was hospitalized for further evaluation of their emergent condition. - New Patient This patient is new to me today: No - Critical Care Critical Care patient: No
[2017-10-19] MEDS: HEPARIN NA (PORCINE) 5,000 UNITS/ML 1ML VIAL SQ SCH ×3 (06:37→23:09)
[2017-10-19] MEDS: BETHANECHOL CHLORIDE 10 MG TABLET PO SCH ×3 (06:38→23:09)
[2017-10-19 08:09] LABS: HEMATOCRIT 27.5 % (35.4-49); HEMOGLOBIN 8.9 GM/dL (11.7-16.9); MCH 27.9 pg (25.7-33.7); MCHC 32.2 g/dl (32.0-35.9); MEAN CELL VOLUME 86.8 fl (80-96); MEAN PLT VOLUME 8.6 fl (7.5-11.1); PLATELET COUNT 314 K/MM3 (134-434); RBC 3.17 M/mm3 (4.00-5.60); RDW 14.7 % (11.9-15.9); WHITE BLOOD COUNT 11.3 K/mm3 (4.0-10.0)
[2017-10-19 08:15] LABS: BLOOD UREA NITROGEN 32 mg/dL (7-18); CHLORIDE 108 mmol/L (98-107); POTASSIUM 4.4 mmol/L (3.5-5.1); SODIUM 142 mmol/L (136-145)
[2017-10-19 08:32] LABS: ANION GAP 7 (8-16); CALCIUM 8.2 mg/dL (8.5-10.1); CO2 27 mmol/L (21-32); CREATININE 0.7 mg/dL (0.7-1.3); GLUCOSE,RANDOM 90 mg/dL (74-106)
[2017-10-19] MEDS ORDERED: PT OWN MED DRAWER 7, Y5N ONE ×3 (09:53→13:18)
[2017-10-19] MEDS: TAMSULOSIN HCL 0.4 MG CAP.ER.24H (FP) PO SCH ×2 (10:07→17:41)
[2017-10-19] MEDS: MULTIVITAMINS (DAILY MVI) TABLET (FP) PO SCH (10:07)
[2017-10-19] MEDS: AMINO ACIDS/PROTEIN HYDROLYS 30 ML LIQUID.PKT PO SCH ×2 (10:08→17:41)
[2017-10-19] MEDS: DIVALPROEX SODIUM 250 MG TABLET E.C. PO SCH ×2 (10:08→23:09)
[2017-10-19] MEDS: OLANZapine 10 MG TABLET PO SCH ×2 (10:09→23:09)
--- NOTE | 2017-10-19 11:43 | PN ---
Teaching Attending Note Name of Resident: Sudarshan Benavides ATTENDING PHYSICIAN STATEMENT I saw and evaluated the patient. I reviewed the resident's note and discussed the case with the resident. I agree with the resident's findings and plan as documented. SUBJECTIVE:sitting comfortable in chair. no complaints. does not answer all questions appropriately. denies CP, SOB, or abdominal pain OBJECTIVE: Last Vital Signs Temp Pulse Resp BP Pulse Ox 98.0 F 55 L 18 109/60 97 10/19/17 06:00 10/19/17 06:00 10/19/17 06:00 10/19/17 06:00 10/18/17 21:00 General NAD alert, does not respond appropriately to all questions CV S1 S2 RRR Abdomen soft NT/ND no suprapubic distention ASSESSMENT AND PLAN: 76yo M with PMH dementia and OA found wandering around [facility] 1. Acute toxic metabolic encephalopathy-alert. pleasantly confused and at baseline per SW. no haldol. depakote increased yesterday will good effect. will attempt to remove restraints today. on zyprexa. Psych and neuro on board 2. Elevated transminases- suggestive of hx of ETOH. hepatitis panel negative. resolved 3. afib-new onset. paroxysmal. likely induced from stressful event on presentation. has remained in NSR. High [id number]. however given severe dementia and recurrent hematuria will hold anticoagulation at this time. 4. CL- likely obstructive uropathy vs rhabdo. s/p TURP 10/05. resolved. mcintyre was re-inserted last night once they were unable to straight cath. will remove mcintyre. cont straigth cath Q8H while awake to prevent retention. on bethanechol and folmax. avoid nephrotoxic agents. urology on board 5. Hematuria- resolved. Hgb stable. 6. E. Faecalis UTI-completed abx course. repeat UA is + with +UCx however leukocytosis resolved without treatment. no fevers. mental status remains stable. will hold treatment at this time. ID on board. 7. Rhabdo-resolved 8. Leukocytosis-likely reactive.improved 9. DVT ppx- hep sq 10. will need manager intermediate placement in geriatric facility once able to remove restraints x24H.
[2017-10-20] MEDS: BETHANECHOL CHLORIDE 10 MG TABLET PO SCH ×3 (06:46→22:27)
[2017-10-20] MEDS: HEPARIN NA (PORCINE) 5,000 UNITS/ML 1ML VIAL SQ SCH (06:46)
[2017-10-20 08:23] LABS: HEMATOCRIT 27.4 % (35.4-49); HEMOGLOBIN 8.8 GM/dL (11.7-16.9); MCH 27.9 pg (25.7-33.7); MCHC 32.3 g/dl (32.0-35.9); MEAN CELL VOLUME 86.4 fl (80-96); MEAN PLT VOLUME 8.1 fl (7.5-11.1); PLATELET COUNT 332 K/MM3 (134-434); RBC 3.17 M/mm3 (4.00-5.60); RDW 14.6 % (11.9-15.9); WHITE BLOOD COUNT 10.7 K/mm3 (4.0-10.0)
[2017-10-20] MEDS: TAMSULOSIN HCL 0.4 MG CAP.ER.24H (FP) PO SCH ×2 (08:36→17:44)
[2017-10-20] MEDS: AMINO ACIDS/PROTEIN HYDROLYS 30 ML LIQUID.PKT PO SCH ×2 (08:36→17:44)
[2017-10-20] MEDS ORDERED: PT OWN MED DRAWER 7, Y5N ONE (10:37)
[2017-10-20] MEDS: OLANZapine 10 MG TABLET PO SCH ×2 (10:39→22:27)
[2017-10-20] MEDS: DIVALPROEX SODIUM 250 MG TABLET E.C. PO SCH ×2 (10:39→22:27)
[2017-10-20] MEDS: MULTIVITAMINS (DAILY MVI) TABLET (FP) PO SCH (10:39)
--- NOTE | 2017-10-20 12:10 | PN ---
Progress Note (short form) - Note Progress Note: alert and pleasantly confused as per RN has been more cooperative. straight cath this AM was bloody. Current Medications Generic Name Dose Route Start Last Admin Trade Name Jade PRN Reason Stop Dose Admin Amino Acids 30 ml 10/17/17 17:30 10/20/17 08:36 Prosource No Carb Liquid Pkt PO 30 ml BID@0800,1730 [facility] Administration Bethanechol Chloride 10 mg 10/18/17 22:00 10/20/17 06:46 Urecholine - PO 10 mg TID [facility] Administration Divalproex Sodium 250 mg 10/18/17 16:16 10/20/17 10:39 Depakote - PO 250 mg BID [facility]ER Administration Haloperidol 1 mg 10/05/17 18:57 10/17/17 23:19 Haldol Injection (Fast Acting) - IM 1 mg Q4H PRN Administration AGITATION Multivitamins/Minerals/Vitamin C 1 tab 10/18/17 10:00 10/20/17 10:39 Tab-A-Vit - PO 1 tab DAILY [facility] Administration Olanzapine 10 mg 10/05/17 22:00 10/20/17 10:39 Zyprexa - PO 10 mg BID [facility]ER Administration Ondansetron HCl 4 mg 10/05/17 18:02 Zofran Injection IVPUSH Q6H PRN NAUSEA AND/OR VOMITING Promethazine HCl 12.5 mg 10/05/17 18:02 Phenergan Injection - IVPUSH Q6H PRN NAUSEA-FOR RESCUE AFTER 15 MIN Tamsulosin HCl 0.4 mg 10/18/17 18:00 10/20/17 08:36 Flomax - PO 0.4 mg BID@0830,1800 [facility] Administration Last Vital Signs Temp Pulse Resp BP Pulse Ox 98.6 F 79 18 116/63 97 10/20/17 09:00 10/20/17 09:00 10/20/17 09:00 10/20/17 09:00 10/19/17 21:00 Intake & Output 10/17/17 10/18/17 10/19/17 10/20/17 23:59 23:59 23:59 23:59 Intake Total 50 300 750 Output Total 700 1600 800 600 Balance -650 -1300 -50 -600 Weight 128 lb 9.6 oz General NAD alert, does not respond appropriately to all questions CV S1 S2 RRR Abdomen soft NT/ND no suprapubic distention CBCD WBC 10.7 K/mm3 (4.0-10.0) H 10/20/17 07:20 RBC 3.17 M/mm3 (4.00-5.60) L 10/20/17 07:20 Hgb 8.8 GM/dL (11.7-16.9) L 10/20/17 07:20 Hct 27.4 % (35.4-49) L 10/20/17 07:20 MCV 86.4 fl (80-96) 10/20/17 07:20 MCHC 32.3 g/dl (32.0-35.9) 10/20/17 07:20 RDW 14.6 % (11.9-15.9) 10/20/17 07:20 Plt Count 332 K/MM3 (134-434) 10/20/17 07:20 MPV 8.1 fl (7.5-11.1) 10/20/17 07:20 ASSESSMENT AND PLAN: 76yo M with PMH dementia and OA found wandering around [facility] 1. Acute toxic metabolic encephalopathy-alert. pleasantly confused and at baseline per SW. no haldol. depakote increased. with some improvement. Has been sitting at nurses station on [facility] [place] for fall precautions. will attempt to remove restraints today. on zyprexa. Psych and neuro on board 2. Elevated transminases- suggestive of hx of ETOH. hepatitis panel negative. resolved 3. afib-new onset. paroxysmal. likely induced from stressful event on presentation. has remained in NSR. High [id number]. however given severe dementia and recurrent hematuria will hold anticoagulation at this time. 4. CL- likely obstructive uropathy vs rhabdo. s/p TURP 10/05. resolved. continue straight cath with caudet BID. mcintyre. on bethanechol and folmax. avoid nephrotoxic agents. urology on board 5. Hematuria- some hematuria with straight cath this AM. no continued bleeding. Hgb stable. encourage RN to continue to straight cath. 6. E. Faecalis UTI-completed abx course. repeat UA is + with +UCx however leukocytosis resolved without treatment. no fevers. mental status remains stable. will hold treatment at this time. ID on board. 7. Rhabdo-resolved 8. Leukocytosis-likely reactive.improved 9. DVT ppx- hep sq 10. will need prison placement in geriatric facility once able to remove restraints x24H. Visit type - Emergency Visit Emergency Visit: Yes ED Registration Date: 09/17/17 Care time: The patient presented to the Emergency Department on the above date and was hospitalized for further evaluation of their emergent condition. - New Patient This patient is new to me today: No - Critical Care Critical Care patient: No - Discharge Referral Referred to [facility] Med P.C[facility] No
[2017-10-21] MEDS: BETHANECHOL CHLORIDE 10 MG TABLET PO SCH ×3 (06:23→21:59)
--- NOTE | 2017-10-21 08:31 | PN ---
Teaching Attending Note Name of Resident: Melina De La Rosa ATTENDING PHYSICIAN STATEMENT I saw and evaluated the patient. I reviewed the resident's note and discussed the case with the resident. I agree with the resident's findings and plan as documented. SUBJECTIVE: resting comfortable. OBJECTIVE: Last Vital Signs Temp Pulse Resp BP Pulse Ox 97.6 F 70 18 146/69 97 10/21/17 07:49 10/21/17 07:49 10/21/17 07:49 10/21/17 07:49 10/20/17 21:00 General NAD, pleasantly confused Lungs CTA B/L no wheezing/rales/rhonchi CV S1 S2 RRR no murmur/rub/gallop Abdomen soft +suprapubic distention +tender ASSESSMENT AND PLAN: 76yo M with PMH dementia and OA found wandering around [facility] 1. Acute toxic metabolic encephalopathy-alert. pleasantly confused and at baseline per SW. no haldol. depakote increased. with some improvement. off 2 point restraints. santos vest more for fall precaution. unable to remove restraints yesterday. will attempt to remove restraints today. on zyprexa. Psych and neuro on board 2. Elevated transaminases- suggestive of hx of ETOH. hepatitis panel negative. resolved 3. afib-new onset. paroxysmal. likely induced from stressful event on presentation. has remained in NSR. High [id number]. however given severe dementia and recurrent hematuria will hold anticoagulation at this time. 4. CL with urinary retention- likely obstructive uropathy vs rhabdo. s/p TURP . resolved. straight cath this AM released 100cc. requested RN to repeat as he appears distended. cont straight cath prn. on bethanechol and folmax. avoid nephrotoxic agents. urology on board 5. Hematuria- resolved. HGb stable. 6. E. Faecalis UTI-completed abx course. repeat UA is + with +UCx however leukocytosis resolved without treatment. no fevers. mental status remains stable. will hold treatment at this time. ID on board. 7. Rhabdo-resolved 8. Leukocytosis-likely reactive.improved 9. DVT ppx- hep sq 10. will need termite exterminator helper placement in geriatric facility once able to remove restraints x24H.
[2017-10-21] MEDS ORDERED: PT OWN MED DRAWER 7, Y5N ONE ×3 (09:48→21:14)
[2017-10-21] MEDS: TAMSULOSIN HCL 0.4 MG CAP.ER.24H (FP) PO SCH ×2 (09:49→17:08)
[2017-10-21] MEDS: OLANZapine 10 MG TABLET PO SCH ×2 (09:49→21:59)
[2017-10-21] MEDS: MULTIVITAMINS (DAILY MVI) TABLET (FP) PO SCH (09:49)
[2017-10-21] MEDS: AMINO ACIDS/PROTEIN HYDROLYS 30 ML LIQUID.PKT PO SCH ×2 (09:49→17:07)
[2017-10-21] MEDS: DIVALPROEX SODIUM 250 MG TABLET E.C. PO SCH ×2 (09:51→21:59)
[2017-10-21] MEDS: HEPARIN NA (PORCINE) 5,000 UNITS/ML 1ML VIAL SQ SCH ×2 (13:43→21:59)
--- NOTE | 2017-10-21 14:54 | PN ---
Physical Exam: SUBJECTIVE: Patient seen and examined at bed side this morning. [place] ROS unobtainable. As per RN, he is still trying to get out of bed, agitated at times. Straight cath this morning- 900 ml of bloody urine. OBJECTIVE: Vital Signs Period Temp Pulse Resp BP Sys/Mackey Pulse Ox Last 24 Hr 97.6 F-99.6 F 63-76 18-18 125-146/52-69 97 GENERAL: Elderly male, awake, alert, and confused, in no acute distress. HEAD: Normal with no signs of trauma. EYES: EOM intact, no pallor or icterus. ENT: Ears normal, moist mucous membranes. NECK: Trachea midline, full range of motion, supple. LUNGS: Breath sounds equal, clear to auscultation bilaterally, no wheezes, no crackles, no accessory muscle use. HEART: Regular rate and rhythm, S1, S2 without murmur, rub or gallop. ABDOMEN: Scaphoid, tense abdomen. Normoactive bowel sounds, no guarding, no rebound, no hepatosplenomegaly, no masses. No suprapubic tenderness EXTREMITIES: 2+ pulses, warm, well-perfused, no edema. NEUROLOGICAL: No facial droop. Gait not observed. PSYCH: Normal mood, normal affect. SKIN: Warm, dry, normal turgor, no rashes or lesions noted Active Medications Generic Name Dose Route Start Last Admin Trade Name Freq PRN Reason Stop Dose Admin Amino Acids 30 ml 10/17/17 17:30 10/21/17 09:49 Prosource No Carb Liquid Pkt PO 30 ml BID@0800,1730 HEATHER Administration Bethanechol Chloride 10 mg 10/18/17 22:00 10/21/17 13:43 Urecholine - PO 10 mg TID HEATHER Administration Divalproex Sodium 250 mg 10/18/17 16:16 10/21/17 09:51 Depakote - PO 250 mg BID HEATHER Administration Haloperidol 1 mg 10/05/17 18:57 10/17/17 23:19 Haldol Injection (Fast Acting) - IM 1 mg Q4H PRN Administration AGITATION Heparin Sodium (Porcine) 5,000 unit 10/21/17 14:00 10/21/17 13:43 Heparin - SQ 5,000 unit TID HEATHER Administration Multivitamins/Minerals/Vitamin C 1 tab 10/18/17 10:00 10/21/17 09:49 Tab-A-Vit - PO 1 tab DAILY HEATHER Administration Olanzapine 10 mg 10/05/17 22:00 10/21/17 09:49 Zyprexa - PO 10 mg BID HEATHER Administration Ondansetron HCl 4 mg 10/05/17 18:02 Zofran Injection IVPUSH Q6H PRN NAUSEA AND/OR VOMITING Promethazine HCl 12.5 mg 10/05/17 18:02 Phenergan Injection - IVPUSH Q6H PRN NAUSEA-FOR RESCUE AFTER 15 MIN Tamsulosin HCl 0.4 mg 10/18/17 18:00 10/21/17 09:49 Flomax - PO 0.4 mg BID@0830,1800 HEATHER Administration ASSESSMENT/PLAN: Patient is a 76 year old male with PMH of dementia and OA who was initially found wandering [facility], likely secondary to baseline dementia complicated by acute metabolic encephalopathy. # Urinary retention likely due to BPH with hematuria- s/p TURP POD 15 Buck removed, straigh cath done twice this morning 900mls and 400 mls- bloody urine Voiding trail Continue Bethanechol 10mg TID and Flomax 0.4 mg # AMS-h/o dementia-at baseline On restrains due to fall risk. Has a placement but cannot discharge the pt due to restraints-has to be off restraints for 24 hrs. Will talk with the social and political studies professor to see if there are any places that would accept him with restrains due to fall risk Continue Haloperidol 1mg IM Q4H PRN Olanzapine 10mg PO BID Fall precautions # Paroxysmal Afib-rate controlled Not on AC due to fall risk # Leukocytosis- likely reactive, now resolved # CL- likely postobstructive-now resolved # FEN Not on IV fluids, tolerating PO Electrolytes WNL since past couple of days Regular diet with dietary supplements # Prophylaxis For DVT: On Heparin 5000 IU sq TID For GI: Not indicated # Code Status: Full Code # Dispo: Medically cleared to be discharged. Has to be off restraints for > 24 hrs. Accepted at a Geriatic facility. Case discussed with Dr. Bonner. Visit type - Emergency Visit Emergency Visit: Yes ED Registration Date: 09/17/17 Care time: The patient presented to the Emergency Department on the above date and was hospitalized for further evaluation of their emergent condition. - New Patient This patient is new to me today: No - Critical Care Critical Care patient: No - Discharge Referral Referred to [facility] Med P.C.: No
[2017-10-22] MEDS: HEPARIN NA (PORCINE) 5,000 UNITS/ML 1ML VIAL SQ SCH ×3 (06:35→22:26)
[2017-10-22] MEDS: BETHANECHOL CHLORIDE 10 MG TABLET PO SCH ×3 (06:35→22:26)
[2017-10-22] MEDS ORDERED: PT OWN MED DRAWER 7, Y5N ONE (08:51)
[2017-10-22] MEDS: AMINO ACIDS/PROTEIN HYDROLYS 30 ML LIQUID.PKT PO SCH ×2 (08:59→18:08)
[2017-10-22] MEDS: TAMSULOSIN HCL 0.4 MG CAP.ER.24H (FP) PO SCH ×2 (08:59→18:08)
[2017-10-22] MEDS: MULTIVITAMINS (DAILY MVI) TABLET (FP) PO SCH (10:10)
[2017-10-22] MEDS: DIVALPROEX SODIUM 250 MG TABLET E.C. PO SCH (10:11)
[2017-10-22] MEDS: OLANZapine 10 MG TABLET PO SCH ×2 (10:11→22:26)
--- NOTE | 2017-10-22 16:48 | PN ---
Teaching Attending Note Name of Resident: Ros Wan ATTENDING PHYSICIAN STATEMENT I saw and evaluated the patient. I reviewed the resident's note and discussed the case with the resident. I agree with the resident's findings and plan as documented. SUBJECTIVE:pleasantly confused. attempting to get out of bed. OBJECTIVE: Last Vital Signs Temp Pulse Resp BP Pulse Ox 97.2 F L 56 L 18 127/59 98 10/22/17 14:00 10/22/17 14:00 10/22/17 14:00 10/22/17 14:00 10/22/17 09:00 General NAD, pleasantly confused Lungs CTA B/L no wheezing/rales/rhonchi CV S1 S2 RRR no murmur/rub/gallop Abdomen soft NT/ND ASSESSMENT AND PLAN: 76yo M with PMH dementia and OA found wandering around [facility] 1. Acute toxic metabolic encephalopathy-alert. pleasantly confused and at baseline per SW. no haldol for > 24H. spoke iwht psych. will increase depakote to 250mg Am and 500mg HS. has been off 2 point restriants. attempt to remove santos vest in the AM. on zyprexa. Psych and neuro on board 2. Elevated transaminases- suggestive of hx of ETOH. hepatitis panel negative. resolved 3. afib-new onset. paroxysmal. likely induced from stressful event on presentation. has remained in NSR. High [id number]. however given severe dementia and recurrent hematuria will hold anticoagulation at this time. 4. CL with urinary retention- likely obstructive uropathy vs rhabdo. s/p TURP . resolved. continue straight cath twice a day. on bethanechol and folmax. avoid nephrotoxic agents. urology on board 5. Hematuria- resolved. HGb stable. 6. E. Faecalis UTI-completed abx course. repeat UA is + with +UCx however leukocytosis resolved without treatment. no fevers. mental status remains stable. will hold treatment at this time. ID on board. 7. Rhabdo-resolved 8. Leukocytosis-likely reactive. improved 9. DVT ppx- hep sq 10. will need care home placement in geriatric facility once able to remove restraints x24H.
--- NOTE | 2017-10-22 18:33 | PN ---
Physical Exam: SUBJECTIVE: Patient seen and examined in AM. Awake, alert. OBJECTIVE: Vital Signs Period Temp Pulse Resp BP Sys/Mackey Pulse Ox Last 24 Hr 97.2 F-97.9 F 52-74 18-18 108-138/55-68 96-98 GENERAL: thin, elderly man, in restraints, nad, aox1 EYES: sclera anicteric, conjunctiva clear ENT: moist mucous membranes LUNGS: CTAB HEART: rrr, normal s1/s2, no m/r/g ABDOMEN: soft, ntnd EXTREMITIES: 2+ DP pulses, wwp, no edema Active Medications Amino Acids (Prosource No Carb Liquid Pkt) 30 ml PO BID@0800,1730 [facility] Last Admin: 10/22/17 18:08 Dose: 30 ml Bethanechol Chloride (Urecholine -) 10 mg PO TID [facility] Last Admin: 10/22/17 14:14 Dose: 10 mg Divalproex Sodium (Depakote -) 250 mg PO AM [facility] Divalproex Sodium (Depakote -) 500 mg PO HS [facility] Haloperidol (Haldol Injection (Fast Acting) -) 1 mg IM Q4H PRN PRN Reason: AGITATION Last Admin: 10/17/17 23:19 Dose: 1 mg Heparin Sodium (Porcine) (Heparin -) 5,000 unit SQ TID [facility] Last Admin: 10/22/17 14:13 Dose: 5,000 unit Multivitamins/Minerals/Vitamin C (Tab-A-Vit -) 1 tab PO DAILY [facility] Last Admin: 10/22/17 10:10 Dose: 1 tab Olanzapine (Zyprexa -) 10 mg PO BID [facility] Last Admin: 10/22/17 10:11 Dose: 10 mg Ondansetron HCl (Zofran Injection) 4 mg IVPUSH Q6H PRN PRN Reason: NAUSEA AND/OR VOMITING Promethazine HCl (Phenergan Injection -) 12.5 mg IVPUSH Q6H PRN PRN Reason: NAUSEA-FOR RESCUE AFTER 15 MIN Tamsulosin HCl (Flomax -) 0.4 mg PO BID@0830,1800 [facility] Last Admin: 10/22/17 18:08 Dose: 0.4 mg ASSESSMENT/PLAN: 76yo man with PMH of dementia and OA who was initially found wandering [facility], likely secondary to baseline dementia c/b acute metabolic encephalopathy. #BPH/Hematuria/urinary retention, s/p TURP 10/05 - straight cath TID - Serial H/H - Urology following - c/w flomax and bethanechol #AMS, h/o dementia - at baseline -Neurology and Psych following -Depakote increased to 250mg AM and 500mg HS -c/w Zyprexa -c/w Haloperidol prn -attempt santos vest removal in AM, need to remove restraints x24h -fall precautions #paroxysmal Afib, resolved, in NSR -AC on hold for now due to dementia and fall risk #DVT PPX - Heparin SQ TID #FEN: PO hydration / lytes wnl / Regular diet + supplements #DISPO: M/S, medically cleared for discharge to geriatric facility pending off restraints for 24 hours FULL code d/w Dr. Ha Wan MD PGY1 - Internal Medicine Visit type - Emergency Visit Emergency Visit: No - New Patient This patient is new to me today: Yes Date on this admission: 10/22/17 - Critical Care Critical Care patient: No
[2017-10-22] MEDS ORDERED: DIVALPROEX SODIUM 500 MG TABLET E.C. PO SCH (22:00)
--- NOTE | 2017-10-23 05:54 | PN ---
Physical Exam: SUBJECTIVE: Patient seen and examined by me this AM - Active, agitated overnight. More somnolent in AM. Straight cath x2 overnight with 400ml each, with no hematuria. Pt maintained on santos when examined. Pt with no complaints this AM. No fever, diarrhea, or reported pain overnight OBJECTIVE: Vital Signs Intake & Output 10/20/17 10/21/17 10/22/17 10/23/17 23:59 23:59 23:59 23:59 Intake Total 860 Output Total 2600 3505 2950 Balance -1740 -3505 -2950 Period Temp Pulse Resp BP Sys/Mackey Pulse Ox Last 24 Hr 97.2 F-98 F 52-76 18-20 108-128/55-63 98-98 GENERAL: Elderly cachectic man, restrained in bed. NAD. A&Ox1. More somnolent this AM. HEAD: Normal with no signs of trauma. EYES: PERRL, sclera anicteric, conjunctiva clear. No ptosis. ENT: Ears normal, nares patent, oropharynx clear without exudates, moist mucous membranes. NECK: Trachea midline, full range of motion, supple. LUNGS: Breath sounds equal, clear to auscultation bilaterally, no wheezes, no crackles, no accessory muscle use. HEART: Regular rate and rhythm, S1, S2 without murmur, rub or gallop. ABDOMEN: Tense abdomen. Bladder percussable. Normoactive bowel sounds, no guarding, no rebound, no hepatosplenomegaly, no masses. No suprapubic tenderness EXTREMITIES: 2+ pulses, warm, well-perfused, no edema. NEUROLOGICAL: Cranial nerves II through XII grossly intact. Gait not observed. PSYCH: Normal mood, normal affect. Tangential, nonsensical SKIN: Warm, dry, normal turgor, no rashes or lesions noted CBC, BMP 10/20/17 07:20 10/19/17 07:00 Active Medications Generic Name Dose Route Start Last Admin Trade Name Freq PRN Reason Stop Dose Admin Amino Acids 30 ml 10/17/17 17:30 10/22/17 18:08 Prosource No Carb Liquid Pkt PO 30 ml BID@0800,1730 HEATHER Administration Bethanechol Chloride 10 mg 10/18/17 22:00 10/22/17 22:26 Urecholine - PO 10 mg TID HEATHER Administration Divalproex Sodium 250 mg 10/23/17 07:00 Depakote - PO AM HEATHER Divalproex Sodium 500 mg 10/22/17 22:00 10/22/17 22:26 Depakote - PO 500 mg HS HEATHER Administration Haloperidol 1 mg 10/05/17 18:57 10/17/17 23:19 Haldol Injection (Fast Acting) - IM 1 mg Q4H PRN Administration AGITATION Heparin Sodium (Porcine) 5,000 unit 10/21/17 14:00 10/22/17 22:26 Heparin - SQ 5,000 unit TID HEATHER Administration Multivitamins/Minerals/Vitamin C 1 tab 10/18/17 10:00 10/22/17 10:10 Tab-A-Vit - PO 1 tab DAILY HEATHER Administration Olanzapine 10 mg 10/05/17 22:00 10/22/17 22:26 Zyprexa - PO 10 mg BID HEATHER Administration Ondansetron HCl 4 mg 10/05/17 18:02 Zofran Injection IVPUSH Q6H PRN NAUSEA AND/OR VOMITING Promethazine HCl 12.5 mg 10/05/17 18:02 Phenergan Injection - IVPUSH Q6H PRN NAUSEA-FOR RESCUE AFTER 15 MIN Tamsulosin HCl 0.4 mg 10/18/17 18:00 10/22/17 18:08 Flomax - PO 0.4 mg BID@0830,1800 HEATHER Administration Microbiology 10/14/17 13:00 Blood - Peripheral Venous Blood Culture - Final NO GROWTH AFTER 5 DAYS INCUBATION 10/14/17 12:35 Blood - Peripheral Venous Blood Culture - Final NO GROWTH AFTER 5 DAYS INCUBATION 10/14/17 14:50 Urine - Urine Buck Urine Culture - Final Staphylococcus Aureus Staphylococcus Epidermidis 09/27/17 19:30 Urine - Urine Buck Urine Culture - Final Enterococcus Faecalis 09/17/17 15:30 Blood - Peripheral Venous Blood Culture - Final NO GROWTH AFTER 5 DAYS INCUBATION 09/17/17 15:30 Blood - Peripheral Venous Blood Culture - Final NO GROWTH AFTER 5 DAYS INCUBATION 09/20/17 18:30 Urine - Urine Suprapubic Urine Culture - Final NO GROWTH OBTAINED 09/17/17 15:45 Urine - Urine Clean Catch Urine Culture - Final NO GROWTH OBTAINED Studies: EKG 09/30 - Low voltage, NAD, 1st degree HB, Rate 60, QTC 401, peaked twaves in V2 -V5 EKG 10/10 - Sinus hipolito, rate 50, NAD, QTC 382, V3-V6 peaked Twaves CXR 10/14 - Impression : No acute pathology. Metallic density left upper quadrant. ASSESSMENT/PLAN: 76 yo man with PMH of dementia and OA who was initially found wandering [facility], likely secondary to baseline dementia complicated by acute metabolic encephalopathy. #BPH/Hematuria/urinary retention - TURP 10/05; No hematuria overnight with straight caths - straight cath TID - Serial H/H - Urology aware, following - c/w flomax, bethanechol 10mg TID #AMS - likely at baseline dementia now, remains confused, pulling at lines; EKG 10/10 with no QTC prolongation - Off limb restraints; still with santos; remains a high fall risk - PM dose of Depakote decreased back to 250mg ; Now 250mg BID - c/w zyprexa - Haldol for agitation PRN - Phenergan, zofran for N/V - Neurology and psych following - High fall risk w/ multiple falls during admission; c/w bed-alarm, fall precautions - Will require coty-psych placement at facility able to handle restraints #Leukocytosis/Bacteriuria - Resolved - No infectious symptoms, no fevers - trend ever curve - ID consulted 10/15- recommend close observation, no abx - CXR 10/14 negative - urine cx positive for staph epi, aureus #Paroxysmal Afib - Resolved, NSR; no eliquis, as pt demented/fall risk PPX HSQ FEN PO hydration No lab abnormalities Regular diet Will likely require dispo to coty-psych facility that can accommodate restrained patients possibly Plan discussed with attending, Dr. Ha Benavides, PGY1 Visit type - Emergency Visit Emergency Visit: Yes ED Registration Date: 09/17/17 Care time: The patient presented to the Emergency Department on the above date and was hospitalized for further evaluation of their emergent condition. - New Patient This patient is new to me today: No - Critical Care Critical Care patient: No
[2017-10-23] MEDS: BETHANECHOL CHLORIDE 10 MG TABLET PO SCH ×3 (06:29→21:06)
[2017-10-23] MEDS: DIVALPROEX SODIUM 250 MG TABLET E.C. PO SCH (06:29)
[2017-10-23] MEDS: HEPARIN NA (PORCINE) 5,000 UNITS/ML 1ML VIAL SQ SCH ×3 (06:32→21:06)
[2017-10-23] MEDS ORDERED: PT OWN MED DRAWER 7, Y5N ONE ×2 (10:17→14:55)
[2017-10-23] MEDS: MULTIVITAMINS (DAILY MVI) TABLET (FP) PO SCH (10:37)
[2017-10-23] MEDS: AMINO ACIDS/PROTEIN HYDROLYS 30 ML LIQUID.PKT PO SCH ×2 (10:37→18:04)
[2017-10-23] MEDS: TAMSULOSIN HCL 0.4 MG CAP.ER.24H (FP) PO SCH ×2 (10:37→18:04)
[2017-10-23] MEDS: OLANZapine 10 MG TABLET PO SCH (10:38)
--- NOTE | 2017-10-23 15:12 | PN ---
Teaching Attending Note Name of Resident: Sudarshan Benavides ATTENDING PHYSICIAN STATEMENT Time of evaluation: 10:25 AM I saw and evaluated the patient. I reviewed the resident's note and discussed the case with the resident. I agree with the resident's findings and plan as documented. SUBJECTIVE: Patient seen and examined. sleeping, moves extremities and partly opens eyes with sternal rub, unable to assess for ROS. OBJECTIVE: Intake & Output 10/20/17 10/21/17 10/22/17 10/23/17 23:59 23:59 23:59 23:59 Intake Total 860 Output Total 2600 3505 2950 1750 Balance -1740 -3505 -2950 -1750 Vital Signs Period Temp Pulse Resp BP Sys/Mackey Pulse Ox Last 24 Hr 98 F-98.6 F 56-76 18-20 101-136/58-67 98-98 general: drowsy, partly opens eyes and moves all extremities with sternal rub. facial symmetry, withdraws symmetrically to pain. Abdomen: soft, no suprapubic tenderness, positive bowel sounds, no grimacing on palpation Home Medication List Medication Instructions Recorded Confirmed Type Donepezil HCl 10 mg PO DAILY 09/21/17 09/21/17 History Nabumetone 750 mg PO BID PRN 09/21/17 09/21/17 History Active Medications Generic Name Dose Route Start Last Admin Trade Name Freq PRN Reason Stop Dose Admin Amino Acids 30 ml 10/17/17 17:30 10/23/17 10:37 Prosource No Carb Liquid Pkt PO 30 ml BID@0800,1730 HEATHER Administration Bethanechol Chloride 10 mg 10/18/17 22:00 10/23/17 06:29 Urecholine - PO 10 mg TID HEATHER Administration Divalproex Sodium 250 mg 10/23/17 07:00 10/23/17 06:29 Depakote - PO 250 mg AM HEATHER Administration Divalproex Sodium 250 mg 10/23/17 22:00 Depakote - PO HS HEATHER Haloperidol 1 mg 10/05/17 18:57 10/17/17 23:19 Haldol Injection (Fast Acting) - IM 1 mg Q4H PRN Administration AGITATION Heparin Sodium (Porcine) 5,000 unit 10/21/17 14:00 10/23/17 06:32 Heparin - SQ 5,000 unit TID HEATHER Administration Multivitamins/Minerals/Vitamin C 1 tab 10/18/17 10:00 10/23/17 10:37 Tab-A-Vit - PO 1 tab DAILY HEATHER Administration Olanzapine 10 mg 10/05/17 22:00 10/23/17 10:38 Zyprexa - PO 10 mg BID HEATHER Administration Ondansetron HCl 4 mg 10/05/17 18:02 Zofran Injection IVPUSH Q6H PRN NAUSEA AND/OR VOMITING Promethazine HCl 12.5 mg 10/05/17 18:02 Phenergan Injection - IVPUSH Q6H PRN NAUSEA-FOR RESCUE AFTER 15 MIN Tamsulosin HCl 0.4 mg 10/18/17 18:00 10/23/17 10:37 Flomax - PO 0.4 mg BID@0830,1800 HEATHER Administration Microbiology 10/14/17 13:00 Blood - Peripheral Venous Blood Culture - Final NO GROWTH AFTER 5 DAYS INCUBATION 10/14/17 12:35 Blood - Peripheral Venous Blood Culture - Final NO GROWTH AFTER 5 DAYS INCUBATION 10/14/17 14:50 Urine - Urine Mcintyre Urine Culture - Final Staphylococcus Aureus Staphylococcus Epidermidis 09/27/17 19:30 Urine - Urine Mcintyre Urine Culture - Final Enterococcus Faecalis 09/17/17 15:30 Blood - Peripheral Venous Blood Culture - Final NO GROWTH AFTER 5 DAYS INCUBATION 09/17/17 15:30 Blood - Peripheral Venous Blood Culture - Final NO GROWTH AFTER 5 DAYS INCUBATION 09/20/17 18:30 Urine - Urine Suprapubic Urine Culture - Final NO GROWTH OBTAINED 09/17/17 15:45 Urine - Urine Clean Catch Urine Culture - Final NO GROWTH OBTAINED ASSESSMENT AND PLAN: 76yo M with PMH dementia and OA found wandering around [facility] -Acute toxic metabolic encephalopathy vs progressive dementia -New onset atrial fibrillation -Acute blood anemia from hematuria -CL, from obstructive uropathy vs rhabdomyolysis vs rhabdo, s/p TURP 10/05 ( prior suprapubic catheter and mcintyre that were pulled out by the patient) -E. faecalis UTI, s/p 7 days of antibiotics (ceftriaxone then amoxicillin, finished 10/08) -Rhabdomyolysis -Elevated transaminases, ?ETOH history, hepatitis panel neg -VZV contact with aide inhouse Plan: depakote increased yesterday, patient drowsy, barely arousable, per RN was awake all night. Will decrease depakote to 250 mg BID and change evening dosing to 8 pm from 10 pm. Attempting off restraints. Intermittent straight cath TID. Cotninue bethanechol and flomax. Hematuria resolved. Rate controlled, High [id number] but with severe dementia and recurrent hematuria, anticoagulation on hold at this time. Leucocytosis likely reactive improved, urine cultures noted, but neg urinalysis and no fevers. ID input noted, monitor for now DVTPPX with hearpin Will need supervisor intermediates placement in geriatric facility once able to remove restraints x 24 hours.
[2017-10-23] MEDS ORDERED: DIVALPROEX SODIUM 250 MG TABLET E.C. PO SCH ×2 (22:00)
[2017-10-23] MEDS ORDERED: OLANZapine 10 MG TABLET PO SCH (22:00)
[2017-10-23] MEDS: NYSTATIN/TRIAMCINOLONE TOPICAL OINTMENT 15 GM TUBE TP SCH (22:04)
[2017-10-24] MEDS ORDERED: PT OWN MED DRAWER 7, Y5N ONE ×3 (05:12→14:08)
[2017-10-24] MEDS: HEPARIN NA (PORCINE) 5,000 UNITS/ML 1ML VIAL SQ SCH ×3 (05:41→21:01)
[2017-10-24] MEDS: BETHANECHOL CHLORIDE 10 MG TABLET PO SCH ×3 (05:42→21:03)
[2017-10-24] MEDS: DIVALPROEX SODIUM 250 MG TABLET E.C. PO SCH ×2 (06:12→21:00)
--- NOTE | 2017-10-24 06:13 | PN ---
Physical Exam: SUBJECTIVE: Patient seen and examined by me this Am - Pt much less somnolent in PM yesterday. agus Mera changed to 8pm yesterday. Pt active overnight per nursing, attempting to get out of bed; two successful straight caths overnight (350 and 400ml, no hematuria); still with santos vest; No complaints per pt OBJECTIVE: Vital Signs Intake & Output 10/21/17 10/22/17 10/23/17 10/24/17 23:59 23:59 23:59 23:59 Intake Total 950 100 Output Total 3505 2950 3450 800 Balance -3505 -2950 -2500 -700 Period Temp Pulse Resp BP Sys/Mackey Pulse Ox Last 24 Hr 98.1 F-98.6 F 56-79 18-18 101-133/58-76 98-98 GENERAL: Elderly man, restrained in bed. NAD. A&Ox1. More somnolent this AM. HEAD: Normal with no signs of trauma. EYES: PERRL, sclera anicteric, conjunctiva clear. No ptosis. ENT: Ears normal, nares patent, oropharynx clear without exudates, moist mucous membranes. NECK: Trachea midline, full range of motion, supple. LUNGS: Breath sounds equal, clear to auscultation bilaterally, no wheezes, no crackles, no accessory muscle use. HEART: Regular rate and rhythm, S1, S2 without murmur, rub or gallop. ABDOMEN: Bladder palpable. Tense abdomen. Normoactive bowel sounds, no guarding , no rebound, no hepatosplenomegaly, no masses. No suprapubic tenderness EXTREMITIES: 2+ pulses, warm, well-perfused, no edema. NEUROLOGICAL: Cranial nerves II through XII grossly intact. Gait not observed. PSYCH: Normal mood, normal affect. Tangential, nonsensical SKIN: Warm, dry, normal turgor, no rashes or lesions noted CBC, BMP 10/20/17 07:20 10/19/17 07:00 Active Medications Generic Name Dose Route Start Last Admin Trade Name Freq PRN Reason Stop Dose Admin Amino Acids 30 ml 10/17/17 17:30 10/23/17 18:04 Prosource No Carb Liquid Pkt PO 30 ml BID@0800,1730 HEATHER Administration Bethanechol Chloride 10 mg 10/18/17 22:00 10/24/17 05:42 Urecholine - PO 10 mg TID HEATHER Administration Divalproex Sodium 250 mg 10/23/17 07:00 10/23/17 06:29 Depakote - PO 250 mg AM HEATHER Administration Divalproex Sodium 250 mg 10/23/17 22:00 10/23/17 21:06 Depakote - PO 250 mg HS [facility]ATHER Administration Haloperidol 1 mg 10/05/17 18:57 10/17/17 23:19 Haldol Injection (Fast Acting) - IM 1 mg Q4H PRN Administration AGITATION Heparin Sodium (Porcine) 5,000 unit 10/21/17 14:00 10/24/17 05:41 Heparin - SQ 5,000 unit TID [facility] Administration Multivitamins/Minerals/Vitamin C 1 tab 10/18/17 10:00 10/23/17 10:37 Tab-A-Vit - PO 1 tab DAILY [facility] Administration Nystatin/Triamcinolone Acetonide 1 applic 10/23/17 22:00 10/23/17 22:04 Mycolog Ii Ointment - TP Not Given BID [facility] Olanzapine 10 mg 10/23/17 22:00 10/23/17 21:06 Zyprexa - PO 10 mg BID [facility] Administration Ondansetron HCl 4 mg 10/05/17 18:02 Zofran Injection IVPUSH Q6H PRN NAUSEA AND/OR VOMITING Promethazine HCl 12.5 mg 10/05/17 18:02 Phenergan Injection - IVPUSH Q6H PRN NAUSEA-FOR RESCUE AFTER 15 MIN Tamsulosin HCl 0.4 mg 10/18/17 18:00 10/23/17 18:04 Flomax - PO 0.4 mg BID@0830,1800 [facility] Administration Microbiology 10/14/17 13:00 Blood - Peripheral Venous Blood Culture - Final NO GROWTH AFTER 5 DAYS INCUBATION 10/14/17 12:35 Blood - Peripheral Venous Blood Culture - Final NO GROWTH AFTER 5 DAYS INCUBATION 10/14/17 14:50 Urine - Urine Buck Urine Culture - Final Staphylococcus Aureus Staphylococcus Epidermidis 09/27/17 19:30 Urine - Urine Buck Urine Culture - Final Enterococcus Faecalis 09/17/17 15:30 Blood - Peripheral Venous Blood Culture - Final NO GROWTH AFTER 5 DAYS INCUBATION 09/17/17 15:30 Blood - Peripheral Venous Blood Culture - Final NO GROWTH AFTER 5 DAYS INCUBATION 09/20/17 18:30 Urine - Urine Suprapubic Urine Culture - Final NO GROWTH OBTAINED 09/17/17 15:45 Urine - Urine Clean Catch Urine Culture - Final NO GROWTH OBTAINED Studies: EKG 09/30 - Low voltage, NAD, 1st degree HB, Rate 60, QTC 401, peaked twaves in V2 -V5 EKG 10/10 - Sinus hipolito, rate 50, NAD, QTC 382, V3-V6 peaked Twaves CXR 10/14 - Impression : No acute pathology. Metallic density left upper quadrant. ASSESSMENT/PLAN: 76 yo man with PMH of dementia and OA who was initially found wandering [facility], likely secondary to baseline dementia complicated by acute metabolic encephalopathy. #BPH/Hematuria/urinary retention - TURP 10/05; No hematuria overnight with straight caths - straight cath TID - Serial H/H - Urology aware, following - c/w flomax, bethanechol 10mg TID #AMS - likely at baseline dementia now, remains confused, pulling at lines; EKG 10/10 with no QTC prolongation - Encourage ambulation w/ assistance - Off limb restraints; still with santso; remains a high fall risk - PM dose of Depakote decreased back to 250mg ; Now 250mg BID - c/w zyprexa - Haldol for agitation PRN - Phenergan, zofran for N/V - Neurology and psych following - c/w bed-alarm, fall precautions - Will require coty-psych placement at facility able to handle restraints #Leukocytosis/Bacteriuria - Resolved - No infectious symptoms, no fevers - trend ever curve - ID consulted 10/15- recommend close observation, no abx - CXR 10/14 negative - urine cx positive for staph epi, aureus #Paroxysmal Afib - Resolved, NSR; no eliquis, as pt demented/fall risk PPX HSQ FEN PO hydration No lab abnormalities Regular diet Will likely require dispo to coty-psych facility that can accommodate restrained patients possibly Plan discussed with attending, Dr. Haley Benavides, PGY1 Visit type - Emergency Visit Emergency Visit: Yes ED Registration Date: 09/17/17 Care time: The patient presented to the Emergency Department on the above date and was hospitalized for further evaluation of their emergent condition. - New Patient This patient is new to me today: No - Critical Care Critical Care patient: No
[2017-10-24] MEDS: TAMSULOSIN HCL 0.4 MG CAP.ER.24H (FP) PO SCH ×2 (09:37→17:48)
[2017-10-24] MEDS: MULTIVITAMINS (DAILY MVI) TABLET (FP) PO SCH (09:37)
[2017-10-24] MEDS: AMINO ACIDS/PROTEIN HYDROLYS 30 ML LIQUID.PKT PO SCH ×2 (09:37→17:48)
[2017-10-24] MEDS: OLANZapine 10 MG TABLET PO SCH ×2 (09:37→21:01)
[2017-10-24] MEDS: NYSTATIN/TRIAMCINOLONE TOPICAL OINTMENT 15 GM TUBE TP SCH ×2 (09:49→21:02)
--- NOTE | 2017-10-24 15:50 | PN ---
Teaching Attending Note Name of Resident: Sudarshan Benavides ATTENDING PHYSICIAN STATEMENT Time of evaluation: 10:20 AM I saw and evaluated the patient. I reviewed the resident's note and discussed the case with the resident. I agree with the resident's findings and plan as documented. SUBJECTIVE: Patient seen and examined. Awake, more coherent today, no complaints. but ROS limited by his cognitive function. OBJECTIVE: Vital Signs Period Temp Pulse Resp BP Sys/Mackey Pulse Ox Last 24 Hr 97.9 F-98.6 F 69-79 18-18 114-124/61-76 98-98 Intake & Output 10/21/17 10/22/17 10/23/17 10/24/17 23:59 23:59 23:59 23:59 Intake Total 950 300 Output Total 3505 2950 3450 800 Balance -3505 -2950 -2500 -500 General: sitting in bed in no acute distress Abdomen: mild suprapubic fullness, NT Extremities: no edema Neuro AAOx1, moves all extremities freely, unable to follow commands, facial symmetry. Home Medication List Medication Instructions Recorded Confirmed Type Donepezil HCl 10 mg PO DAILY 09/21/17 09/21/17 History Nabumetone 750 mg PO BID PRN 09/21/17 09/21/17 History Active Medications Generic Name Dose Route Start Last Admin Trade Name Freq PRN Reason Stop Dose Admin Amino Acids 30 ml 10/17/17 17:30 10/24/17 09:37 Prosource No Carb Liquid Pkt PO 30 ml BID@0800,1730 [facility] Administration Bethanechol Chloride 10 mg 10/18/17 22:00 10/24/17 14:27 Urecholine - PO 10 mg TID [facility] Administration Divalproex Sodium 250 mg 10/23/17 07:00 10/24/17 06:12 Depakote - PO 250 mg AM [facility] Administration Divalproex Sodium 250 mg 10/24/17 20:00 Depakote - PO DAILY@2000 [facility] Haloperidol 1 mg 10/05/17 18:57 10/17/17 23:19 Haldol Injection (Fast Acting) - IM 1 mg Q4H PRN Administration AGITATION Heparin Sodium (Porcine) 5,000 unit 10/21/17 14:00 10/24/17 14:29 Heparin - SQ 5,000 unit TID [facility] Administration Multivitamins/Minerals/Vitamin C 1 tab 10/18/17 10:00 10/24/17 09:37 Tab-A-Vit - PO 1 tab DAILY [facility] Administration Nystatin/Triamcinolone Acetonide 1 applic 10/23/17 22:00 10/24/17 09:49 Mycolog Ii Ointment - TP 1 applic BID [facility] Administration Olanzapine 10 mg 10/24/17 09:00 10/24/17 09:37 Zyprexa - PO 10 mg BID@0900,2100 [facility] Administration Ondansetron HCl 4 mg 10/05/17 18:02 Zofran Injection IVPUSH Q6H PRN NAUSEA AND/OR VOMITING Promethazine HCl 12.5 mg 10/05/17 18:02 Phenergan Injection - IVPUSH Q6H PRN NAUSEA-FOR RESCUE AFTER 15 MIN Tamsulosin HCl 0.4 mg 10/18/17 18:00 10/24/17 09:37 Flomax - PO 0.4 mg BID@0830,1800 [facility] Administration Microbiology 10/14/17 13:00 Blood - Peripheral Venous Blood Culture - Final NO GROWTH AFTER 5 DAYS INCUBATION 10/14/17 12:35 Blood - Peripheral Venous Blood Culture - Final NO GROWTH AFTER 5 DAYS INCUBATION 10/14/17 14:50 Urine - Urine Mcintyre Urine Culture - Final Staphylococcus Aureus Staphylococcus Epidermidis 09/27/17 19:30 Urine - Urine Mcintyre Urine Culture - Final Enterococcus Faecalis 09/17/17 15:30 Blood - Peripheral Venous Blood Culture - Final NO GROWTH AFTER 5 DAYS INCUBATION 09/17/17 15:30 Blood - Peripheral Venous Blood Culture - Final NO GROWTH AFTER 5 DAYS INCUBATION 09/20/17 18:30 Urine - Urine Suprapubic Urine Culture - Final NO GROWTH OBTAINED 09/17/17 15:45 Urine - Urine Clean Catch Urine Culture - Final NO GROWTH OBTAINED ASSESSMENT AND PLAN: 76yo M with PMH dementia and OA found wandering around [facility] -Acute toxic metabolic encephalopathy vs progressive dementia -New onset atrial fibrillation -Acute blood anemia from hematuria -CL, from obstructive uropathy vs rhabdomyolysis vs rhabdo, s/p TURP 10/05 ( prior suprapubic catheter and mcintyre that were pulled out by the patient) -E. faecalis UTI, s/p 7 days of antibiotics (ceftriaxone then amoxicillin, finished 10/08) -Rhabdomyolysis -Elevated transaminases, ?ETOH history, hepatitis panel neg -VZV contact with aide inhouse Plan: More awake and coherent. Continue current depakote and zyprexa. Off limb restraints, still with santos given risk of falls. Intermittent straight cath TID. Cotninue bethanechol and flomax. Hematuria resolved. Rate controlled, High [id number] but with severe dementia and recurrent hematuria, anticoagulation on hold at this time. Leucocytosis likely reactive improved, urine cultures noted, but neg urinalysis and no fevers. ID input noted, monitor for now DVTPPX with hearpin Will need long-term placement in geriatric facility once able to remove restraints x 24 hours. Discuss with CM if patient able to be accepted to geripsych facility with santos as is more for fall risk than agitation.
--- NOTE | 2017-10-25 05:42 | PN ---
Physical Exam: SUBJECTIVE: Patient seen and examined - Somnolent when examined. No major overnight events. No pain per patient. - Still with santos vest overnight due to fall risk. Straight cath w/ 300ml dark urine overnight per nursing. fluids with dinner. OBJECTIVE: Vital Signs Intake & Output 10/22/17 10/23/17 10/24/17 10/25/17 23:59 23:59 23:59 23:59 Intake Total 950 1370 120 Output Total 2950 3450 1400 Balance -2950 -2500 -30 120 Period Temp Pulse Resp BP Sys/Mackey Pulse Ox Last 24 Hr 97.9 F-98.9 F 69-90 18-20 121-142/56-65 98-98 GENERAL: Elderly man, lying in bed with santos vest. NAD. A&Ox1. Somnolent HEAD: Normal with no signs of trauma. EYES: PERRL, sclera anicteric, conjunctiva clear. No ptosis. ENT: Ears normal, nares patent, oropharynx clear without exudates, moist mucous membranes. NECK: Trachea midline, full range of motion, supple. LUNGS: Breath sounds equal, clear to auscultation bilaterally, no wheezes, no crackles, no accessory muscle use. HEART: Regular rate and rhythm, S1, S2 without murmur, rub or gallop. ABDOMEN: Soft, NT, ND. Normoactive bowel sounds, no guarding, no rebound, no hepatosplenomegaly, no masses. No suprapubic tenderness EXTREMITIES: 2+ pulses, warm, well-perfused, no edema. NEUROLOGICAL: Cranial nerves II through XII grossly intact. Gait not observed. PSYCH: Normal mood, normal affect. Tangential, with intermittent periods of lucency SKIN: Warm, dry, normal turgor, no rashes or lesions noted CBC, BMP 10/20/17 07:20 10/19/17 07:00 Active Medications Generic Name Dose Route Start Last Admin Trade Name Freq PRN Reason Stop Dose Admin Amino Acids 30 ml 10/17/17 17:30 10/24/17 17:48 Prosource No Carb Liquid Pkt PO 30 ml BID@0800,1730 [facility] Administration Bethanechol Chloride 10 mg 10/18/17 22:00 10/24/17 21:03 Urecholine - PO 10 mg TID [facility] Administration Divalproex Sodium 250 mg 10/23/17 07:00 10/24/17 06:12 Depakote - PO 250 mg AM [facility] Administration Divalproex Sodium 250 mg 10/24/17 20:00 10/24/17 21:00 Depakote - PO 250 mg DAILY@1999 [facility] Administration Haloperidol 1 mg 10/05/17 18:57 10/17/17 23:19 Haldol Injection (Fast Acting) - IM 1 mg Q4H PRN Administration AGITATION Heparin Sodium (Porcine) 5,000 unit 10/21/17 14:00 10/24/17 21:01 Heparin - SQ 5,000 unit TID [facility] Administration Multivitamins/Minerals/Vitamin C 1 tab 10/18/17 10:00 10/24/17 09:37 Tab-A-Vit - PO 1 tab DAILY [facility] Administration Nystatin/Triamcinolone Acetonide 1 applic 10/23/17 22:00 10/24/17 21:02 Mycolog Ii Ointment - TP 1 applic BID [facility] Administration Olanzapine 10 mg 10/24/17 09:00 10/24/17 21:01 Zyprexa - PO 10 mg BID@0900,2100 [facility] Administration Ondansetron HCl 4 mg 10/05/17 18:02 Zofran Injection IVPUSH Q6H PRN NAUSEA AND/OR VOMITING Promethazine HCl 12.5 mg 10/05/17 18:02 Phenergan Injection - IVPUSH Q6H PRN NAUSEA-FOR RESCUE AFTER 15 MIN Tamsulosin HCl 0.4 mg 10/18/17 18:00 10/24/17 17:48 Flomax - PO 0.4 mg BID@0830,1800 [facility] Administration Microbiology 10/14/17 13:00 Blood - Peripheral Venous Blood Culture - Final NO GROWTH AFTER 5 DAYS INCUBATION 10/14/17 12:35 Blood - Peripheral Venous Blood Culture - Final NO GROWTH AFTER 5 DAYS INCUBATION 10/14/17 14:50 Urine - Urine Buck Urine Culture - Final Staphylococcus Aureus Staphylococcus Epidermidis 09/27/17 19:30 Urine - Urine Buck Urine Culture - Final Enterococcus Faecalis 09/17/17 15:30 Blood - Peripheral Venous Blood Culture - Final NO GROWTH AFTER 5 DAYS INCUBATION 09/17/17 15:30 Blood - Peripheral Venous Blood Culture - Final NO GROWTH AFTER 5 DAYS INCUBATION 09/20/17 18:30 Urine - Urine Suprapubic Urine Culture - Final NO GROWTH OBTAINED 09/17/17 15:45 Urine - Urine Clean Catch Urine Culture - Final NO GROWTH OBTAINED Studies: EKG 09/30 - Low voltage, NAD, 1st degree HB, Rate 60, QTC 401, peaked twaves in V2 -V5 EKG 10/10 - Sinus hipolito, rate 50, NAD, QTC 382, V3-V6 peaked Twaves CXR 10/14 - Impression : No acute pathology. Metallic density left upper quadrant. ASSESSMENT/PLAN: 76 yo man with PMH of dementia and OA who was initially found wandering [facility], likely secondary to baseline dementia complicated by acute metabolic encephalopathy. #BPH/Hematuria/urinary retention - TURP 10/05; No hematuria overnight with straight caths - straight cath TID - Serial H/H - Urology aware, following - c/w flomax, bethanechol 10mg TID #AMS - likely at baseline dementia now, remains confused, pulling at lines; EKG 10/10 with no QTC prolongation - Encourage ambulation w/ assistance - Off limb restraints; still with santos vest; remains a high fall risk - Depakote 250mg BID - c/w zyprexa - Haldol for agitation PRN - Phenergan, zofran for N/V - Neurology and psych following - c/w bed-alarm, fall precautions - Will require coty-psych placement at facility able to handle restraints #Leukocytosis/Bacteriuria - Resolved - No infectious symptoms, no fevers - trend fever curve - ID consulted 10/15- recommend close observation, no abx - CXR 10/14 negative - urine cx positive for staph epi, aureus #Paroxysmal Afib - Resolved, NSR; no eliquis, as pt demented/fall risk PPX HSQ FEN PO hydration No lab abnormalities Regular diet Will likely require dispo to coty-psych facility that can accommodate restrained patients possibly Plan discussed with attending, Dr. Haley Benavides, PGY1 Visit type - Emergency Visit Emergency Visit: Yes ED Registration Date: 09/17/17 Care time: The patient presented to the Emergency Department on the above date and was hospitalized for further evaluation of their emergent condition. - New Patient This patient is new to me today: No - Critical Care Critical Care patient: No
[2017-10-25] MEDS: HEPARIN NA (PORCINE) 5,000 UNITS/ML 1ML VIAL SQ SCH ×3 (07:08→21:20)
[2017-10-25] MEDS: DIVALPROEX SODIUM 250 MG TABLET E.C. PO SCH ×2 (07:09→20:45)
[2017-10-25] MEDS: BETHANECHOL CHLORIDE 10 MG TABLET PO SCH ×3 (07:09→21:19)
[2017-10-25] MEDS: TAMSULOSIN HCL 0.4 MG CAP.ER.24H (FP) PO SCH ×2 (08:24→17:47)
[2017-10-25] MEDS: AMINO ACIDS/PROTEIN HYDROLYS 30 ML LIQUID.PKT PO SCH ×2 (08:25→17:47)
[2017-10-25] MEDS ORDERED: PT OWN MED DRAWER 7, Y5N ONE ×3 (09:47→18:27)
[2017-10-25] MEDS: MULTIVITAMINS (DAILY MVI) TABLET (FP) PO SCH (09:51)
[2017-10-25] MEDS: OLANZapine 10 MG TABLET PO SCH ×2 (09:52→21:19)
[2017-10-25] MEDS: NYSTATIN/TRIAMCINOLONE TOPICAL OINTMENT 15 GM TUBE TP SCH ×2 (10:34→21:20)
--- NOTE | 2017-10-25 12:21 | PN ---
Teaching Attending Note Name of Resident: Sudarshan Benavides ATTENDING PHYSICIAN STATEMENT Time of evaluation: 11:00 AM I saw and evaluated the patient. I reviewed the resident's note and discussed the case with the resident. I agree with the resident's findings and plan as documented. SUBJECTIVE: Patient seen and examined. Confused, oriented to self only, no complaints, but ROS limited OBJECTIVE: Vital Signs Period Temp Pulse Resp BP Sys/Mackey Pulse Ox Last 24 Hr 97.8 F-98.9 F 75-90 18-20 121-142/56-67 98 Intake & Output 10/22/17 10/23/17 10/24/17 10/25/17 23:59 23:59 23:59 23:59 Intake Total 950 1370 120 Output Total 2950 3450 1400 500 Balance -2950 -2500 -30 -380 general: sitting in bed, pulling at SCD Abdomen: soft, no suprapubic fullness or tenderness Neuro AAOx1, facial symmetry, moves all extremities symmetrically Home Medication List Medication Instructions Recorded Confirmed Type Donepezil HCl 10 mg PO DAILY 09/21/17 09/21/17 History Nabumetone 750 mg PO BID PRN 09/21/17 09/21/17 History Active Medications Generic Name Dose Route Start Last Admin Trade Name Freq PRN Reason Stop Dose Admin Amino Acids 30 ml 10/17/17 17:30 10/25/17 08:25 Prosource No Carb Liquid Pkt PO 30 ml BID@0800,1730 [facility] Administration Bethanechol Chloride 10 mg 10/18/17 22:00 10/25/17 07:09 Urecholine - PO 10 mg TID [facility] Administration Divalproex Sodium 250 mg 10/23/17 07:00 10/25/17 07:09 Depakote - PO 250 mg AM [facility] Administration Divalproex Sodium 250 mg 10/24/17 20:00 10/24/17 21:00 Depakote - PO 250 mg DAILY@1999 [facility] Administration Haloperidol 1 mg 10/05/17 18:57 10/17/17 23:19 Haldol Injection (Fast Acting) - IM 1 mg Q4H PRN Administration AGITATION Heparin Sodium (Porcine) 5,000 unit 10/21/17 14:00 10/25/17 07:08 Heparin - SQ 5,000 unit TID [facility] Administration Multivitamins/Minerals/Vitamin C 1 tab 10/18/17 10:00 10/25/17 09:51 Tab-A-Vit - PO 1 tab DAILY [facility] Administration Nystatin/Triamcinolone Acetonide 1 applic 10/23/17 22:00 10/25/17 10:34 Mycolog Ii Ointment - TP 1 applic BID [facility] Administration Olanzapine 10 mg 10/24/17 09:00 10/25/17 09:52 Zyprexa - PO 10 mg BID@0900,2100 [facility] Administration Ondansetron HCl 4 mg 10/05/17 18:02 Zofran Injection IVPUSH Q6H PRN NAUSEA AND/OR VOMITING Promethazine HCl 12.5 mg 10/05/17 18:02 Phenergan Injection - IVPUSH Q6H PRN NAUSEA-FOR RESCUE AFTER 15 MIN Tamsulosin HCl 0.4 mg 10/18/17 18:00 10/25/17 08:24 Flomax - PO 0.4 mg BID@0830,1800 HE[facility] Administration Microbiology 10/14/17 13:00 Blood - Peripheral Venous Blood Culture - Final NO GROWTH AFTER 5 DAYS INCUBATION 10/14/17 12:35 Blood - Peripheral Venous Blood Culture - Final NO GROWTH AFTER 5 DAYS INCUBATION 10/14/17 14:50 Urine - Urine Mcintyre Urine Culture - Final Staphylococcus Aureus Staphylococcus Epidermidis 09/27/17 19:30 Urine - Urine Mcintyre Urine Culture - Final Enterococcus Faecalis 09/17/17 15:30 Blood - Peripheral Venous Blood Culture - Final NO GROWTH AFTER 5 DAYS INCUBATION 09/17/17 15:30 Blood - Peripheral Venous Blood Culture - Final NO GROWTH AFTER 5 DAYS INCUBATION 09/20/17 18:30 Urine - Urine Suprapubic Urine Culture - Final NO GROWTH OBTAINED 09/17/17 15:45 Urine - Urine Clean Catch Urine Culture - Final NO GROWTH OBTAINED ASSESSMENT AND PLAN: 76yo M with PMH dementia and OA found wandering around [facility] -Acute toxic metabolic encephalopathy vs progressive dementia -New onset atrial fibrillation -Acute blood anemia from hematuria -CL, from obstructive uropathy vs rhabdomyolysis vs rhabdo, s/p TURP 10/05 ( prior suprapubic catheter and mcintyre that were pulled out by the patient) -E. faecalis UTI, s/p 7 days of antibiotics (ceftriaxone then amoxicillin, finished 10/08) -Rhabdomyolysis -Elevated transaminases, ?ETOH history, hepatitis panel neg -VZV contact with aide inhouse Plan: More awake and coherent. Continue current depakote and zyprexa. Off limb restraints, still with santos given risk of falls. Intermittent straight cath TID. Cotninue bethanechol and flomax. Hematuria resolved. Rate controlled, High [id number] but with severe dementia and recurrent hematuria, anticoagulation on hold at this time. Leucocytosis likely reactive improved, urine cultures noted, but neg urinalysis and no fevers. ID input noted, monitor for now DVTPPX with heparin Will need buttermaker continuous churn placement in geriatric facility once able to remove restraints x 24 hours. Discuss with CM if patient able to be accepted to geripsych facility or dementia unit with santos as is more for fall risk than agitation.
--- NOTE | 2017-10-26 05:30 | PN ---
Physical Exam: SUBJECTIVE: Patient seen and examined - Pt still active overnight, climbing out of bed. A&Ox1. Straight cath by night nurse for 700cc no hematuria. Still w/ santos vest. Good appetite. - Pt more somnolent this AM. Not complaining of pain. Will re-evaluate MS throughout the day. OBJECTIVE: Vital Signs Intake & Output 10/23/17 10/24/17 10/25/17 10/26/17 23:59 23:59 23:59 23:59 Intake Total 950 1370 1370 Output Total 3450 1400 2350 Balance -2500 -30 -980 Period Temp Pulse Resp BP Sys/Mackey Pulse Ox Last 24 Hr 97.8 F-99.0 F 68-83 18-20 121-136/59-68 95-96 GENERAL: Elderly man, lying in bed with santos vest, very somnolent. NAD. A&Ox1. HEAD: Normal with no signs of trauma. EYES: PERRL, sclera anicteric, conjunctiva clear. No ptosis. ENT: Ears normal, nares patent, oropharynx clear without exudates, moist mucous membranes. NECK: Trachea midline, full range of motion, supple. LUNGS: Breath sounds equal, clear to auscultation bilaterally, no wheezes, no crackles, no accessory muscle use. HEART: Regular rate and rhythm, S1, S2 without murmur, rub or gallop. ABDOMEN: Soft, NT, ND. Normoactive bowel sounds, no guarding, no rebound, no hepatosplenomegaly, no masses. No suprapubic tenderness EXTREMITIES: 2+ pulses, warm, well-perfused, no edema. NEUROLOGICAL: Cranial nerves II through XII grossly intact. Gait not observed. PSYCH: Normal mood, normal affect. Tangential, with intermittent periods of lucency SKIN: Warm, dry, normal turgor, no rashes or lesions noted Active Medications Generic Name Dose Route Start Last Admin Trade Name Freq PRN Reason Stop Dose Admin Amino Acids 30 ml 10/17/17 17:30 10/25/17 17:47 Prosource No Carb Liquid Pkt PO 30 ml BID@0800,1730 HEATHER Administration Bethanechol Chloride 10 mg 10/18/17 22:00 10/25/17 21:19 Urecholine - PO 10 mg TID HEATHER Administration Divalproex Sodium 250 mg 10/23/17 07:00 10/25/17 07:09 Depakote - PO 250 mg AM HEATHER Administration Divalproex Sodium 250 mg 10/24/17 20:00 10/25/17 20:45 Depakote - PO 250 mg DAILY@1999 HEATHER Administration Haloperidol 1 mg 10/05/17 18:57 10/17/17 23:19 Haldol Injection (Fast Acting) - IM 1 mg Q4H PRN Administration AGITATION Heparin Sodium (Porcine) 5,000 unit 10/21/17 14:00 10/25/17 21:20 Heparin - SQ 5,000 unit TID HEATHER Administration Multivitamins/Minerals/Vitamin C 1 tab 10/18/17 10:00 10/25/17 09:51 Tab-A-Vit - PO 1 tab DAILY HEATHER Administration Nystatin/Triamcinolone Acetonide 1 applic 10/23/17 22:00 10/25/17 21:20 Mycolog Ii Ointment - TP 1 applic BID HEATHER Administration Olanzapine 10 mg 10/24/17 09:00 10/25/17 21:19 Zyprexa - PO 10 mg BID@0900,2100 HEATHER Administration Ondansetron HCl 4 mg 10/05/17 18:02 Zofran Injection IVPUSH Q6H PRN NAUSEA AND/OR VOMITING Promethazine HCl 12.5 mg 10/05/17 18:02 Phenergan Injection - IVPUSH Q6H PRN NAUSEA-FOR RESCUE AFTER 15 MIN Tamsulosin HCl 0.4 mg 10/18/17 18:00 10/25/17 17:47 Flomax - PO 0.4 mg BID@0830,1800 HEATHER Administration Microbiology 10/14/17 13:00 Blood - Peripheral Venous Blood Culture - Final NO GROWTH AFTER 5 DAYS INCUBATION 10/14/17 12:35 Blood - Peripheral Venous Blood Culture - Final NO GROWTH AFTER 5 DAYS INCUBATION 10/14/17 14:50 Urine - Urine Buck Urine Culture - Final Staphylococcus Aureus Staphylococcus Epidermidis 09/27/17 19:30 Urine - Urine Buck Urine Culture - Final Enterococcus Faecalis 09/17/17 15:30 Blood - Peripheral Venous Blood Culture - Final NO GROWTH AFTER 5 DAYS INCUBATION 09/17/17 15:30 Blood - Peripheral Venous Blood Culture - Final NO GROWTH AFTER 5 DAYS INCUBATION 09/20/17 18:30 Urine - Urine Suprapubic Urine Culture - Final NO GROWTH OBTAINED 09/17/17 15:45 Urine - Urine Clean Catch Urine Culture - Final NO GROWTH OBTAINED Studies: EKG 09/30 - Low voltage, NAD, 1st degree HB, Rate 60, QTC 401, peaked twaves in V2 -V5 EKG 10/10 - Sinus hipolito, rate 50, NAD, QTC 382, V3-V6 peaked Twaves CXR 10/14 - Impression : No acute pathology. Metallic density left upper quadrant. ASSESSMENT/PLAN: 76 yo man with PMH of dementia and OA who was initially found wandering [facility], likely secondary to baseline dementia complicated by acute metabolic encephalopathy. #BPH/Hematuria/urinary retention - TURP 10/05; No hematuria noted overnight - straight cath TID - Serial H/H - Urology aware, following - c/w flomax, bethanechol 10mg TID #AMS - likely at baseline dementia now, remains confused, pulling at lines; EKG 10/10 with no QTC prolongation - More sedated today; will check again in PM - Encourage ambulation w/ assistance - Off limb restraints; still with santos vest; remains a high fall risk - Depakote 250mg BID - c/w zyprexa - Haldol for agitation PRN - Phenergan, zofran for N/V - Neurology and psych following - c/w bed-alarm, fall precautions - Will require coty-psych placement at facility able to handle restraints #Leukocytosis/Bacteriuria - Resolved - No infectious symptoms, no fevers - trend fever curve - ID consulted 10/15- recommend close observation, no abx - CXR 10/14 negative - urine cx positive for staph epi, aureus #Paroxysmal Afib - Resolved, NSR; no eliquis, as pt demented/fall risk PPX HSQ FEN PO hydration No lab abnormalities Regular diet Will likely require dispo to coty-psych facility that can accommodate restrained patients possibly Plan discussed with attending, Dr. Haley Benavides, PGY1 Visit type - Emergency Visit Emergency Visit: Yes ED Registration Date: 09/17/17 Care time: The patient presented to the Emergency Department on the above date and was hospitalized for further evaluation of their emergent condition. - New Patient This patient is new to me today: No - Critical Care Critical Care patient: No
[2017-10-26] MEDS: DIVALPROEX SODIUM 250 MG TABLET E.C. PO SCH ×2 (06:19→20:03)
[2017-10-26] MEDS: BETHANECHOL CHLORIDE 10 MG TABLET PO SCH ×3 (06:19→21:04)
[2017-10-26] MEDS: HEPARIN NA (PORCINE) 5,000 UNITS/ML 1ML VIAL SQ SCH ×3 (06:20→21:04)
[2017-10-26] MEDS ORDERED: PT OWN MED DRAWER 7, Y5N ONE ×2 (06:38→08:57)
[2017-10-26] MEDS: AMINO ACIDS/PROTEIN HYDROLYS 30 ML LIQUID.PKT PO SCH ×2 (09:01→17:25)
[2017-10-26] MEDS: TAMSULOSIN HCL 0.4 MG CAP.ER.24H (FP) PO SCH ×2 (09:01→17:25)
[2017-10-26] MEDS: OLANZapine 10 MG TABLET PO SCH ×2 (09:02→21:04)
[2017-10-26] MEDS: NYSTATIN/TRIAMCINOLONE TOPICAL OINTMENT 15 GM TUBE TP SCH ×2 (09:02→22:16)
[2017-10-26] MEDS: MULTIVITAMINS (DAILY MVI) TABLET (FP) PO SCH (09:02)
--- NOTE | 2017-10-26 13:26 | PN ---
Teaching Attending Note Name of Resident: Sudarshan Benavides ATTENDING PHYSICIAN STATEMENT Time of evaluation: 11:00 AM I saw and evaluated the patient. I reviewed the resident's note and discussed the case with the resident. I agree with the resident's findings and plan as documented. SUBJECTIVE: Patient seen and examined. sitting in chair, sleeping, limited ROS. OBJECTIVE: Vital Signs Period Temp Pulse Resp BP Sys/Mackey Pulse Ox Last 24 Hr 97.7 F-99.0 F 64-82 18-20 104-146/42-92 95 Intake & Output 10/23/17 10/24/17 10/25/17 10/26/17 23:59 23:59 23:59 23:59 Intake Total 950 1370 1370 420 Output Total 3450 1400 2350 850 Balance -2500 -30 -980 -430 Weight 130 lb 0.4 oz General: sitting in chair no acute distress neuro: sleepy arousable on deep rub, opens eyes transiently, moves all extremities Abdomen: soft, no suprapubic fullness Home Medication List Medication Instructions Recorded Confirmed Type Donepezil HCl 10 mg PO DAILY 09/21/17 09/21/17 History Nabumetone 750 mg PO BID PRN 09/21/17 09/21/17 History Active Medications Generic Name Dose Route Start Last Admin Trade Name Freq PRN Reason Stop Dose Admin Amino Acids 30 ml 10/17/17 17:30 10/26/17 09:01 Prosource No Carb Liquid Pkt PO 30 ml BID@0800,1730 HEATHER Administration Bethanechol Chloride 10 mg 10/18/17 22:00 10/26/17 06:19 Urecholine - PO 10 mg TID HEATHER Administration Divalproex Sodium 250 mg 10/23/17 07:00 10/26/17 06:19 Depakote - PO 250 mg AM HEATHER Administration Divalproex Sodium 250 mg 10/24/17 20:00 10/25/17 20:45 Depakote - PO 250 mg DAILY@2000 HEATHER Administration Haloperidol 1 mg 10/05/17 18:57 10/17/17 23:19 Haldol Injection (Fast Acting) - IM 1 mg Q4H PRN Administration AGITATION Heparin Sodium (Porcine) 5,000 unit 10/21/17 14:00 10/26/17 06:20 Heparin - SQ 5,000 unit TID HEATHER Administration Multivitamins/Minerals/Vitamin C 1 tab 10/18/17 10:00 10/26/17 09:02 Tab-A-Vit - PO 1 tab DAILY HEATHER Administration Nystatin/Triamcinolone Acetonide 1 applic 10/23/17 22:00 10/26/17 09:02 Mycolog Ii Ointment - TP 1 applic BID HEATHER Administration Olanzapine 10 mg 10/24/17 09:00 10/26/17 09:02 Zyprexa - PO 10 mg BID@0900,2100 HEATHER Administration Ondansetron HCl 4 mg 10/05/17 18:02 Zofran Injection IVPUSH Q6H PRN NAUSEA AND/OR VOMITING Promethazine HCl 12.5 mg 10/05/17 18:02 Phenergan Injection - IVPUSH Q6H PRN NAUSEA-FOR RESCUE AFTER 15 MIN Tamsulosin HCl 0.4 mg 10/18/17 18:00 10/26/17 09:01 Flomax - PO 0.4 mg BID@0830,1800 HEATHER Administration Microbiology 10/14/17 13:00 Blood - Peripheral Venous Blood Culture - Final NO GROWTH AFTER 5 DAYS INCUBATION 10/14/17 12:35 Blood - Peripheral Venous Blood Culture - Final NO GROWTH AFTER 5 DAYS INCUBATION 10/14/17 14:50 Urine - Urine Mcintyre Urine Culture - Final Staphylococcus Aureus Staphylococcus Epidermidis 09/27/17 19:30 Urine - Urine Mcintyre Urine Culture - Final Enterococcus Faecalis 09/17/17 15:30 Blood - Peripheral Venous Blood Culture - Final NO GROWTH AFTER 5 DAYS INCUBATION 09/17/17 15:30 Blood - Peripheral Venous Blood Culture - Final NO GROWTH AFTER 5 DAYS INCUBATION 09/20/17 18:30 Urine - Urine Suprapubic Urine Culture - Final NO GROWTH OBTAINED 09/17/17 15:45 Urine - Urine Clean Catch Urine Culture - Final NO GROWTH OBTAINED ASSESSMENT AND PLAN: 76yo M with PMH dementia and OA found wandering around [facility] -Acute toxic metabolic encephalopathy vs progressive dementia -New onset atrial fibrillation -Acute blood anemia from hematuria -CL, from obstructive uropathy vs rhabdomyolysis vs rhabdo, s/p TURP 10/05 ( prior suprapubic catheter and mcintyre that were pulled out by the patient) -E. faecalis UTI, s/p 7 days of antibiotics (ceftriaxone then amoxicillin, finished 10/08) -Rhabdomyolysis -Elevated transaminases, ?ETOH history, hepatitis panel neg -VZV contact with aide inhouse Plan: More awake and coherent. Continue current depakote and zyprexa, taper if more sedated. Off limb restraints, still with santos given risk of falls. Intermittent straight cath TID. Cotninue bethanechol and flomax. Hematuria resolved. Rate controlled, High [id number] but with severe dementia and recurrent hematuria, anticoagulation on hold at this time. Leucocytosis likely reactive, resolved, urine cultures noted, but neg urinalysis and no fevers. ID input noted, monitor for now DVTPPX with heparin Will need group home placement in geriatric facility once able to remove restraints x 24 hours. Discuss with CM if patient able to be accepted to geripsych facility or dementia unit with santos as is more for fall risk than agitation.
--- NOTE | 2017-10-27 05:36 | PN ---
Physical Exam: SUBJECTIVE: Patient seen and examined by me this AM - No major overnight events. More somnolent in AM; Per nursing, active overnight , attempting to get out of bed. No complaints of pain or discomfort. - Will send UA, CBC to r/o UTI OBJECTIVE: Vital Signs Intake & Output 10/24/17 10/25/17 10/26/17 10/27/17 23:59 23:59 23:59 23:59 Intake Total 1370 1370 840 Output Total 1400 2350 1550 1600 Balance -30 -980 -710 -1600 Weight 58.978 kg Period Temp Pulse Resp BP Sys/Mackey Pulse Ox Last 24 Hr 97.7 F-99.5 F 18-77 18-20 104-146/42-92 97-97 GENERAL: Cachectic elderly man, lying in bed with santos vest, somnolent. NAD. A& Ox1. Bitemporal wasting. HEAD: Normal with no signs of trauma. EYES: PERRL, sclera anicteric, conjunctiva clear. No ptosis. ENT: Ears normal, nares patent, oropharynx clear without exudates, moist mucous membranes. NECK: Trachea midline, full range of motion, supple. LUNGS: Breath sounds equal, clear to auscultation bilaterally, no wheezes, no crackles, no accessory muscle use. HEART: Regular rate and rhythm, S1, S2 without murmur, rub or gallop. ABDOMEN: Abdomen tense, bladder percussable. Diffusely nontender, ND. Normoactive bowel sounds, no guarding, no rebound, no hepatosplenomegaly, no masses. No suprapubic tenderness EXTREMITIES: 2+ pulses, warm, well-perfused, no edema. NEUROLOGICAL: Cranial nerves II through XII grossly intact. Gait not observed. PSYCH: Normal mood, normal affect. Tangential, with intermittent periods of lucency SKIN: Warm, dry, normal turgor, no rashes or lesions noted CBC, BMP 10/20/17 07:20 10/19/17 07:00 Active Medications Generic Name Dose Route Start Last Admin Trade Name Freq PRN Reason Stop Dose Admin Amino Acids 30 ml 10/17/17 17:30 10/26/17 17:25 Prosource No Carb Liquid Pkt PO 30 ml BID@0800,1730 HEATHER Administration Bethanechol Chloride 10 mg 10/18/17 22:00 10/26/17 21:04 Urecholine - PO 10 mg TID HEATHER Administration Divalproex Sodium 250 mg 10/23/17 07:00 10/26/17 06:19 Depakote - PO 250 mg AM HEATHER Administration Divalproex Sodium 250 mg 10/24/17 20:00 10/26/17 20:03 Depakote - PO 250 mg DAILY@2000 HEATHER Administration Haloperidol 1 mg 10/05/17 18:57 10/17/17 23:19 Haldol Injection (Fast Acting) - IM 1 mg Q4H PRN Administration AGITATION Heparin Sodium (Porcine) 5,000 unit 10/21/17 14:00 10/26/17 21:04 Heparin - SQ 5,000 unit TID [facility] [place] Administration Multivitamins/Minerals/Vitamin C 1 tab 10/18/17 10:00 10/26/17 09:02 Tab-A-Vit - PO 1 tab DAILY HEATHER Administration Nystatin/Triamcinolone Acetonide 1 applic 10/23/17 22:00 10/26/17 22:16 Mycolog Ii Ointment - TP 1 applic BID HEATHER Administration Olanzapine 10 mg 10/24/17 09:00 10/26/17 21:04 Zyprexa - PO 10 mg BID@0900,2100 HEATHER Administration Ondansetron HCl 4 mg 10/05/17 18:02 Zofran Injection IVPUSH Q6H PRN NAUSEA AND/OR VOMITING Promethazine HCl 12.5 mg 10/05/17 18:02 Phenergan Injection - IVPUSH Q6H PRN NAUSEA-FOR RESCUE AFTER 15 MIN Tamsulosin HCl 0.4 mg 10/18/17 18:00 10/26/17 17:25 Flomax - PO 0.4 mg BID@0830,1800 HEATHER Administration Microbiology 10/14/17 13:00 Blood - Peripheral Venous Blood Culture - Final NO GROWTH AFTER 5 DAYS INCUBATION 10/14/17 12:35 Blood - Peripheral Venous Blood Culture - Final NO GROWTH AFTER 5 DAYS INCUBATION 10/14/17 14:50 Urine - Urine Buck Urine Culture - Final Staphylococcus Aureus Staphylococcus Epidermidis 09/27/17 19:30 Urine - Urine Buck Urine Culture - Final Enterococcus Faecalis 09/17/17 15:30 Blood - Peripheral Venous Blood Culture - Final NO GROWTH AFTER 5 DAYS INCUBATION 09/17/17 15:30 Blood - Peripheral Venous Blood Culture - Final NO GROWTH AFTER 5 DAYS INCUBATION 09/20/17 18:30 Urine - Urine Suprapubic Urine Culture - Final NO GROWTH OBTAINED 09/17/17 15:45 Urine - Urine Clean Catch Urine Culture - Final NO GROWTH OBTAINED Studies: EKG 09/30 - Low voltage, NAD, 1st degree HB, Rate 60, QTC 401, peaked twaves in V2 -V5 EKG 10/10 - Sinus hipolito, rate 50, NAD, QTC 382, V3-V6 peaked Twaves CXR 10/14 - Impression : No acute pathology. Metallic density left upper quadrant. ASSESSMENT/PLAN: 76 yo man with PMH of dementia and OA who was initially found wandering [facility], likely secondary to baseline dementia complicated by acute metabolic encephalopathy. #BPH/Hematuria/urinary retention - TURP 10/05; No hematuria noted overnight - straight cath TID - Serial H/H - Urology aware, following - c/w flomax, bethanechol 10mg TID #AMS - likely at baseline dementia now, remains confused, pulling at lines; EKG 10/10 with no QTC prolongation - sedated again in AM, however active overnight per nursing staff. - Encourage ambulation w/ assistance - Off limb restraints; still with santos vest; remains a high fall risk - Depakote 250mg BID - c/w zyprexa - Haldol for agitation PRN - Phenergan, zofran for N/V - Neurology and psych following - c/w bed-alarm, fall precautions - Will require coty-psych placement at facility able to handle restraints #Leukocytosis/Bacteriuria - Resolved - Will send UA, CBC today to r/o UTI give nursing reports of sediment in urine, increased somnolence. - No infectious symptoms, no fevers - trend fever curve - ID consulted 10/15- recommend close observation, no abx - CXR 10/14 negative - urine cx positive for staph epi, aureus #Paroxysmal Afib - Resolved, NSR; no eliquis, as pt demented/fall risk PPX HSQ FEN PO hydration No lab abnormalities Regular diet Will likely require dispo to coty-psych facility, possibly for restrained pts Plan discussed with attending, Dr. Haley Benavides, PGY1 Visit type - Emergency Visit Emergency Visit: Yes ED Registration Date: 09/17/17 Care time: The patient presented to the Emergency Department on the above date and was hospitalized for further evaluation of their emergent condition. - New Patient This patient is new to me today: No - Critical Care Critical Care patient: No - Discharge Referral Referred to [facility] Med P.C.: No
[2017-10-27] MEDS: HEPARIN NA (PORCINE) 5,000 UNITS/ML 1ML VIAL SQ SCH ×3 (06:07→21:14)
[2017-10-27] MEDS: BETHANECHOL CHLORIDE 10 MG TABLET PO SCH ×3 (06:08→21:14)
[2017-10-27] MEDS: DIVALPROEX SODIUM 250 MG TABLET E.C. PO SCH ×2 (06:08→21:14)
[2017-10-27] MEDS: TAMSULOSIN HCL 0.4 MG CAP.ER.24H (FP) PO SCH ×2 (08:43→18:24)
[2017-10-27] MEDS: AMINO ACIDS/PROTEIN HYDROLYS 30 ML LIQUID.PKT PO SCH ×2 (08:43→18:24)
--- NOTE | 2017-10-27 09:35 | PN ---
Teaching Attending Note Name of Resident: Sudarshan Benavides ATTENDING PHYSICIAN STATEMENT Time of evaluation: 9:00 AM SUBJECTIVE: patient seen and examined, Unchanged, confused, oriented to self, trying to get out of bed. OBJECTIVE: Vital Signs Period Temp Pulse Resp BP Sys/Mackey Pulse Ox Last 24 Hr 97.7 F-99.5 F 18-69 18-20 104-136/42-78 97 Intake & Output 10/24/17 10/25/17 10/26/17 10/27/17 23:59 23:59 23:59 23:59 Intake Total 1370 1370 840 Output Total 1400 2350 1550 1600 Balance -30 -980 -710 -1600 Weight 130 lb 0.4 oz general: sitting in bed, restless, trying to get out Abdomen: soft, no suprapubic tenderness or fullness noted neuro AA, oriented to self only, moves all extremities freely, facial symmetry. Chest: decreased effort, no rales or wheezing Home Medication List Medication Instructions Recorded Confirmed Type Donepezil HCl 10 mg PO DAILY 09/21/17 09/21/17 History Nabumetone 750 mg PO BID PRN 09/21/17 09/21/17 History Active Medications Generic Name Dose Route Start Last Admin Trade Name Freq PRN Reason Stop Dose Admin Amino Acids 30 ml 10/17/17 17:30 10/27/17 08:43 Prosource No Carb Liquid Pkt PO 30 ml BID@0800,1730 HEATHER Administration Bethanechol Chloride 10 mg 10/18/17 22:00 10/27/17 06:08 Urecholine - PO 10 mg TID HEATHER Administration Divalproex Sodium 250 mg 10/23/17 07:00 10/27/17 06:08 Depakote - PO 250 mg AM HEATHER Administration Divalproex Sodium 250 mg 10/24/17 20:00 10/26/17 20:03 Depakote - PO 250 mg DAILY@2000 HEATHER Administration Haloperidol 1 mg 10/05/17 18:57 10/17/17 23:19 Haldol Injection (Fast Acting) - IM 1 mg Q4H PRN Administration AGITATION Heparin Sodium (Porcine) 5,000 unit 10/21/17 14:00 10/27/17 06:07 Heparin - SQ 5,000 unit TID HEATHER Administration Multivitamins/Minerals/Vitamin C 1 tab 10/18/17 10:00 10/26/17 09:02 Tab-A-Vit - PO 1 tab DAILY HEATHER Administration Nystatin/Triamcinolone Acetonide 1 applic 10/23/17 22:00 10/26/17 22:16 Mycolog Ii Ointment - TP 1 applic BID HEATHER Administration Olanzapine 10 mg 10/24/17 09:00 10/26/17 21:04 Zyprexa - PO 10 mg BID@0900,2100 HEATHER Administration Ondansetron HCl 4 mg 10/05/17 18:02 Zofran Injection IVPUSH Q6H PRN NAUSEA AND/OR VOMITING Promethazine HCl 12.5 mg 10/05/17 18:02 Phenergan Injection - IVPUSH Q6H PRN NAUSEA-FOR RESCUE AFTER 15 MIN Tamsulosin HCl 0.4 mg 10/18/17 18:00 10/27/17 08:43 Flomax - PO 0.4 mg BID@0830,1800 HEATHER Administration Microbiology 10/14/17 13:00 Blood - Peripheral Venous Blood Culture - Final NO GROWTH AFTER 5 DAYS INCUBATION 10/14/17 12:35 Blood - Peripheral Venous Blood Culture - Final NO GROWTH AFTER 5 DAYS INCUBATION 10/14/17 14:50 Urine - Urine Mcintyre Urine Culture - Final Staphylococcus Aureus Staphylococcus Epidermidis 09/27/17 19:30 Urine - Urine Mcintyre Urine Culture - Final Enterococcus Faecalis 09/17/17 15:30 Blood - Peripheral Venous Blood Culture - Final NO GROWTH AFTER 5 DAYS INCUBATION 09/17/17 15:30 Blood - Peripheral Venous Blood Culture - Final NO GROWTH AFTER 5 DAYS INCUBATION 09/20/17 18:30 Urine - Urine Suprapubic Urine Culture - Final NO GROWTH OBTAINED 09/17/17 15:45 Urine - Urine Clean Catch Urine Culture - Final NO GROWTH OBTAINED ASSESSMENT AND PLAN: 76yo M with PMH dementia and OA found wandering around [facility] -Acute toxic metabolic encephalopathy vs progressive dementia -New onset atrial fibrillation -Acute blood anemia from hematuria -CL, from obstructive uropathy vs rhabdomyolysis vs rhabdo, s/p TURP 10/05 ( prior suprapubic catheter and mcintyre that were pulled out by the patient) -E. faecalis UTI, s/p 7 days of antibiotics (ceftriaxone then amoxicillin, finished 10/08) -Rhabdomyolysis -Elevated transaminases, ?ETOH history, hepatitis panel neg -VZV contact with aide inhouse Plan: Still with restless, attempting to get out of bed. Continue current depakote and zyprexa, taper if more sedated. Off limb restraints, still with santos given risk of falls. Intermittent straight cath TID. Cotninue bethanechol and flomax. Hematuria resolved. Rate controlled, High [id number] but with severe dementia and recurrent hematuria, anticoagulation on hold at this time. Leucocytosis likely reactive, resolved, urine cultures noted, but neg urinalysis and no fevers. ID input noted, monitor for now Avoid unnecessary blood work or urine studies unless clinical concerns. DVTPPX with heparin Will need conveyor installer placement in geriatric facility once able to remove restraints x 24 hours. Discuss with CM if patient able to be accepted to geripsych facility or dementia unit with santos as is more for fall risk than agitation.
[2017-10-27] MEDS ORDERED: PT OWN MED DRAWER 7, Y5N ONE (10:51)
[2017-10-27] MEDS: NYSTATIN/TRIAMCINOLONE TOPICAL OINTMENT 15 GM TUBE TP SCH ×2 (10:53→21:15)
[2017-10-27] MEDS: MULTIVITAMINS (DAILY MVI) TABLET (FP) PO SCH (10:53)
[2017-10-27] MEDS: OLANZapine 10 MG TABLET PO SCH ×2 (10:54→21:14)
[2017-10-27 10:56] LABS: BASO % 1.1 % (0-2.0); EOS % 6.9 % (0-4.5); HEMATOCRIT 30.5 % (35.4-49); LYMPH % 13.7 % (8-40); MCH 28.3 pg (25.7-33.7); MCHC 32.7 g/dl (32.0-35.9); MEAN CELL VOLUME 86.5 fl (80-96); MONO % 10.9 % (3.8-10.2); NEUT % 67.4 % (42.8-82.8); PLATELET COUNT 371 K/MM3 (134-434); RBC 3.53 M/mm3 (4.00-5.60); RDW 15.7 % (11.9-15.9); WHITE BLOOD COUNT 9.7 K/mm3 (4.0-10.0)
[2017-10-28] MEDS: HEPARIN NA (PORCINE) 5,000 UNITS/ML 1ML VIAL SQ SCH ×2 (06:15→15:58)
[2017-10-28] MEDS: DIVALPROEX SODIUM 250 MG TABLET E.C. PO SCH (06:16)
[2017-10-28] MEDS: BETHANECHOL CHLORIDE 10 MG TABLET PO SCH ×2 (06:16→13:16)
[2017-10-28] MEDS ORDERED: PT OWN MED DRAWER 7, Y5N ONE ×4 (06:43→22:51)
[2017-10-28] MEDS: TAMSULOSIN HCL 0.4 MG CAP.ER.24H (FP) PO SCH ×2 (07:54→18:04)
[2017-10-28] MEDS: AMINO ACIDS/PROTEIN HYDROLYS 30 ML LIQUID.PKT PO SCH ×2 (07:54→18:04)
[2017-10-28] MEDS: OLANZapine 10 MG TABLET PO SCH (09:17)
[2017-10-28] MEDS: NYSTATIN/TRIAMCINOLONE TOPICAL OINTMENT 15 GM TUBE TP SCH (09:17)
[2017-10-28] MEDS: MULTIVITAMINS (DAILY MVI) TABLET (FP) PO SCH (09:17)
--- NOTE | 2017-10-28 14:05 | PN ---
Teaching Attending Note Name of Resident: Kelli D eLeon ATTENDING PHYSICIAN STATEMENT SUBJECTIVE: Patient seen and examined. sleeping but arousable, oriented to self, confused, unable to assess for ROS. OBJECTIVE: Vital Signs Period Temp Pulse Resp BP Sys/Mackey Pulse Ox Last 24 Hr 97.8 F-99.2 F 62-77 20-22 118-149/59-74 96-98 Intake & Output 10/25/17 10/26/17 10/27/17 10/28/17 23:59 23:59 23:59 23:59 Intake Total 1370 840 360 160 Output Total 2350 1550 4250 2200 Balance -980 710 -3890 -2040 Weight 130 lb 0.4 oz General: sleeping in bed, arousable Chest: poor effort, no rales or wheezing, santos in place abdomen: soft, ND extremities: no edema Home Medication List Medication Instructions Recorded Confirmed Type Donepezil HCl 10 mg PO DAILY 09/21/17 09/21/17 History Nabumetone 750 mg PO BID PRN 09/21/17 09/21/17 History Active Medications Generic Name Dose Route Start Last Admin Trade Name Freq PRN Reason Stop Dose Admin Amino Acids 30 ml 10/17/17 17:30 10/28/17 07:54 Prosource No Carb Liquid Pkt PO 30 ml BID@0800,1730 [facility] Administration Bethanechol Chloride 10 mg 10/18/17 22:00 10/28/17 13:16 Urecholine - PO 10 mg TID [facility] Administration Divalproex Sodium 250 mg 10/23/17 07:00 10/28/17 06:16 Depakote - PO 250 mg AM [facility] Administration Divalproex Sodium 250 mg 10/24/17 20:00 10/27/17 21:14 Depakote - PO 250 mg DAILY@2000 [facility] Administration Haloperidol 1 mg 10/05/17 18:57 10/17/17 23:19 Haldol Injection (Fast Acting) - IM 1 mg Q4H PRN Administration AGITATION Heparin Sodium (Porcine) 5,000 unit 10/28/17 22:00 Heparin - SQ TID [facility] Multivitamins/Minerals/Vitamin C 1 tab 10/18/17 10:00 10/28/17 09:17 Tab-A-Vit - PO 1 tab DAILY [facility] Administration Nystatin/Triamcinolone Acetonide 1 applic 10/23/17 22:00 10/28/17 09:17 Mycolog Ii Ointment - TP 1 applic BID [facility] Administration Olanzapine 10 mg 10/24/17 09:00 10/28/17 09:17 Zyprexa - PO 10 mg BID@0900,2100 [facility] Administration Ondansetron HCl 4 mg 10/05/17 18:02 Zofran Injection IVPUSH Q6H PRN NAUSEA AND/OR VOMITING Promethazine HCl 12.5 mg 10/05/17 18:02 Phenergan Injection - IVPUSH Q6H PRN NAUSEA-FOR RESCUE AFTER 15 MIN Tamsulosin HCl 0.4 mg 10/18/17 18:00 10/28/17 07:54 Flomax - PO 0.4 mg BID@0830,1800 [facility] Administration ASSESSMENT AND PLAN: 76yo M with PMH dementia and OA found wandering around [facility] -Acute toxic metabolic encephalopathy vs progressive dementia -New onset atrial fibrillation -Acute blood anemia from hematuria -CL, from obstructive uropathy vs rhabdomyolysis vs rhabdo, s/p TURP 10/05 ( prior suprapubic catheter and mcintyre that were pulled out by the patient) -E. faecalis UTI, s/p 7 days of antibiotics (ceftriaxone then amoxicillin, finished 10/08) -Rhabdomyolysis -Elevated transaminases, ?ETOH history, hepatitis panel neg -VZV contact with aide inhouse Plan: Continue current depakote and zyprexa, taper if more sedated. Off limb restraints, still with santos given risk of falls. Intermittent straight cath TID. Cotninue bethanechol and flomax. Hematuria resolved. Rate controlled, High [id number] but with severe dementia and recurrent hematuria, anticoagulation on hold at this time. Leucocytosis likely reactive, resolved, urine cultures noted, but neg urinalysis and no fevers. ID input noted, monitor for now Avoid unnecessary blood work or urine studies unless clinical concerns. DVTPPX with heparin Will need shelter placement in geriatric facility once able to remove restraints x 24 hours. Discuss with CM if patient able to be accepted to geripsych facility or dementia unit with santos as is more for fall risk than agitation.
[2017-10-29] MEDS: OLANZapine 10 MG TABLET PO SCH ×3 (00:07→21:34)
[2017-10-29] MEDS: BETHANECHOL CHLORIDE 10 MG TABLET PO SCH ×4 (00:07→21:35)
[2017-10-29] MEDS: NYSTATIN/TRIAMCINOLONE TOPICAL OINTMENT 15 GM TUBE TP SCH ×3 (00:09→21:34)
[2017-10-29] MEDS: HEPARIN NA (PORCINE) 5,000 UNITS/ML 1ML VIAL SQ SCH ×4 (00:09→21:33)
[2017-10-29] MEDS: DIVALPROEX SODIUM 250 MG TABLET E.C. PO SCH ×3 (00:09→21:34)
--- NOTE | 2017-10-29 05:31 | PN ---
Physical Exam: SUBJECTIVE: Patient seen and examined by me this AM - No major overnight events. Still with santos. Afebrile. Straight cath by nursing 700cc, no hematuria. WBC normalized, non-infectious. OBJECTIVE: Vital Signs Intake & Output 10/26/17 10/27/17 10/28/17 10/29/17 23:59 23:59 23:59 23:59 Intake Total 840 360 500 Output Total 1550 4250 2200 1400 Balance -710 -3890 -1700 -1400 Weight 58.978 kg Period Temp Pulse Resp BP Sys/Mackey Pulse Ox Last 24 Hr 97.3 F-98.9 F 66-76 20-22 109-119/57-60 96-96 GENERAL: Cachectic, pleasant elderly man, lying in bed with santos vest. NAD. A& Ox1. Bitemporal wasting. HEAD: Normal with no signs of trauma. EYES: PERRL, sclera anicteric, conjunctiva clear. No ptosis. ENT: Ears normal, nares patent, oropharynx clear without exudates, moist mucous membranes. NECK: Trachea midline, full range of motion, supple. LUNGS: Breath sounds equal, clear to auscultation bilaterally, no wheezes, no crackles, no accessory muscle use. HEART: Regular rate and rhythm, S1, S2 without murmur, rub or gallop. ABDOMEN: Full bladder, percussable. NT, ND, tense abdomen. Normoactive bowel sounds, no guarding, no rebound, no hepatosplenomegaly, no masses. No suprapubic tenderness EXTREMITIES: 2+ pulses, warm, well-perfused, no edema. NEUROLOGICAL: Cranial nerves II through XII grossly intact. Gait not observed. PSYCH: Normal mood, normal affect. Tangential, with intermittent periods of lucency SKIN: Warm, dry, normal turgor, no rashes or lesions noted Active Medications Generic Name Dose Route Start Last Admin Trade Name Freq PRN Reason Stop Dose Admin Amino Acids 30 ml 10/17/17 17:30 10/28/17 18:04 Prosource No Carb Liquid Pkt PO 30 ml BID@0800,1730 [facility]ATH[facility] Administration Bethanechol Chloride 10 mg 10/18/17 22:00 10/29/17 00:07 Urecholine - PO 10 mg TID HEATHER Administration Divalproex Sodium 250 mg 10/23/17 07:00 10/28/17 06:16 Depakote - PO 250 mg AM [facility]ATHER Administration Divalproex Sodium 250 mg 10/24/17 20:00 10/29/17 00:09 Depakote - PO 250 mg DAILY@2000 [facility] Administration Haloperidol 1 mg 10/05/17 18:57 10/17/17 23:19 Haldol Injection (Fast Acting) - IM 1 mg Q4H PRN Administration AGITATION Heparin Sodium (Porcine) 5,000 unit 10/28/17 14:00 10/29/17 00:09 Heparin - SQ 5,000 unit TID [facility] Administration Multivitamins/Minerals/Vitamin C 1 tab 10/18/17 10:00 10/28/17 09:17 Tab-A-Vit - PO 1 tab DAILY [facility]ATHER Administration Nystatin/Triamcinolone Acetonide 1 applic 10/23/17 22:00 10/29/17 00:09 Mycolog Ii Ointment - TP 1 applic BID [facility]ATHER Administration Olanzapine 10 mg 10/24/17 09:00 10/29/17 00:07 Zyprexa - PO 10 mg BID@0900,2100 [facility] Administration Ondansetron HCl 4 mg 10/05/17 18:02 Zofran Injection IVPUSH Q6H PRN NAUSEA AND/OR VOMITING Promethazine HCl 12.5 mg 10/05/17 18:02 Phenergan Injection - IVPUSH Q6H PRN NAUSEA-FOR RESCUE AFTER 15 MIN Tamsulosin HCl 0.4 mg 10/18/17 18:00 10/28/17 18:04 Flomax - PO 0.4 mg BID@0830,1800 [facility] Administration Microbiology 10/14/17 13:00 Blood - Peripheral Venous Blood Culture - Final NO GROWTH AFTER 5 DAYS INCUBATION 10/14/17 12:35 Blood - Peripheral Venous Blood Culture - Final NO GROWTH AFTER 5 DAYS INCUBATION 10/14/17 14:50 Urine - Urine Buck Urine Culture - Final Staphylococcus Aureus Staphylococcus Epidermidis 09/27/17 19:30 Urine - Urine Buck Urine Culture - Final Enterococcus Faecalis 09/17/17 15:30 Blood - Peripheral Venous Blood Culture - Final NO GROWTH AFTER 5 DAYS INCUBATION 09/17/17 15:30 Blood - Peripheral Venous Blood Culture - Final NO GROWTH AFTER 5 DAYS INCUBATION 09/20/17 18:30 Urine - Urine Suprapubic Urine Culture - Final NO GROWTH OBTAINED 09/17/17 15:45 Urine - Urine Clean Catch Urine Culture - Final NO GROWTH OBTAINED Studies: EKG 09/30 - Low voltage, NAD, 1st degree HB, Rate 60, QTC 401, peaked twaves in V2 -V5 EKG 10/10 - Sinus hipolito, rate 50, NAD, QTC 382, V3-V6 peaked Twaves CXR 10/14 - Impression : No acute pathology. Metallic density left upper quadrant. ASSESSMENT/PLAN: 76 yo man with PMH of dementia and OA who was initially found wandering [facility], likely secondary to baseline dementia complicated by acute metabolic encephalopathy. #BPH/Hematuria/urinary retention - TURP 10/05; No hematuria noted overnight - straight cath TID - hgb stable 10 - Urology aware, following - c/w flomax, bethanechol 10mg TID #AMS - likely at baseline dementia now, remains confused, pulling at lines; EKG 10/10 with no QTC prolongation - Encourage ambulation w/ assistance - Off limb restraints; still with santos vest; remains a high fall risk - Depakote 250mg BID - c/w zyprexa - Haldol for agitation PRN - Phenergan, zofran for N/V - Neurology and psych following - c/w bed-alarm, fall precautions - Will require coty-psych placement at facility able to handle restraints #Leukocytosis/Bacteriuria - Resolved - WBC normal 9.7 at 10/29 - No infectious symptoms, no fevers - trend fever curve - ID consulted 10/15- recommend close observation, no abx - CXR 10/14 negative - urine cx positive for staph epi, aureus #Paroxysmal Afib - Resolved, NSR; no eliquis, as pt demented/fall risk #Fungal rash in diaper line - mycolog ointment PPX HSQ FEN PO hydration No lab abnormalities Regular diet Will likely require dispo to coty-psych facility, possibly for restrained pts Plan discussed with attending, Dr. Haley Benavides, PGY1 Visit type - Emergency Visit Emergency Visit: Yes ED Registration Date: 09/17/17 Care time: The patient presented to the Emergency Department on the above date and was hospitalized for further evaluation of their emergent condition. - New Patient This patient is new to me today: No - Critical Care Critical Care patient: No
[2017-10-29] MEDS ORDERED: PT OWN MED DRAWER 7, Y5N ONE ×3 (06:38→14:35)
--- NOTE | 2017-10-29 08:01 | PN ---
Teaching Attending Note Name of Resident: Sudarshan Benavides ATTENDING PHYSICIAN STATEMENT Time of evaluation: 10:30 AM I saw and evaluated the patient. I reviewed the resident's note and discussed the case with the resident. I agree with the resident's findings and plan as documented. SUBJECTIVE: Patient seen and examined. more awake today, no complaints. OBJECTIVE: Vital Signs Period Temp Pulse Resp BP Sys/Mackey Pulse Ox Last 24 Hr 97.3 F-98.9 F 66-76 18-22 109-119/57-63 96-96 Intake & Output 10/26/17 10/27/17 10/28/17 10/29/17 23:59 23:59 23:59 23:59 Intake Total 840 360 500 100 Output Total 1550 4250 2200 1400 Balance -710 -3890 -1700 -1300 Weight 130 lb 0.4 oz General: no acute distress, restless in bed, pullling at his clothes. AAOx1, moves all extremities freely, facial symmetry. Active Medications Amino Acids (Prosource No Carb Liquid Pkt) 30 ml PO BID@0800,1730 [facility] Last Admin: 10/28/17 18:04 Dose: 30 ml Bethanechol Chloride (Urecholine -) 10 mg PO TID [facility] Last Admin: 10/29/17 07:03 Dose: 10 mg Divalproex Sodium (Depakote -) 250 mg PO AM [facility] Last Admin: 10/29/17 07:04 Dose: 250 mg Divalproex Sodium (Depakote -) 250 mg PO DAILY@2000 [facility] Last Admin: 10/29/17 00:09 Dose: 250 mg Haloperidol (Haldol Injection (Fast Acting) -) 1 mg IM Q4H PRN PRN Reason: AGITATION Last Admin: 10/17/17 23:19 Dose: 1 mg Heparin Sodium (Porcine) (Heparin -) 5,000 unit SQ TID [facility] Last Admin: 10/29/17 07:03 Dose: 5,000 unit Multivitamins/Minerals/Vitamin C (Tab-A-Vit -) 1 tab PO DAILY [facility] Last Admin: 10/28/17 09:17 Dose: 1 tab Nystatin/Triamcinolone Acetonide (Mycolog Ii Ointment -) 1 applic TP BID [facility] Last Admin: 10/29/17 00:09 Dose: 1 applic Olanzapine (Zyprexa -) 10 mg PO BID@0900,2100 [facility] Last Admin: 10/29/17 00:07 Dose: 10 mg Ondansetron HCl (Zofran Injection) 4 mg IVPUSH Q6H PRN PRN Reason: NAUSEA AND/OR VOMITING Promethazine HCl (Phenergan Injection -) 12.5 mg IVPUSH Q6H PRN PRN Reason: NAUSEA-FOR RESCUE AFTER 15 MIN Tamsulosin HCl (Flomax -) 0.4 mg PO BID@0830,1800 [facility] Last Admin: 10/28/17 18:04 Dose: 0.4 mg ASSESSMENT AND PLAN: 76yo M with PMH dementia and OA found wandering around [facility] -Acute toxic metabolic encephalopathy vs progressive dementia -New onset atrial fibrillation -Acute blood anemia from hematuria -CL, from obstructive uropathy vs rhabdomyolysis vs rhabdo, s/p TURP 10/05 ( prior suprapubic catheter and mcintyre that were pulled out by the patient) -E. faecalis UTI, s/p 7 days of antibiotics (ceftriaxone then amoxicillin, finished 10/08) -Rhabdomyolysis -Elevated transaminases, ?ETOH history, hepatitis panel neg -VZV contact with aide inhouse Plan: Continue current depakote and zyprexa, taper if more sedated. Off limb restraints, still with santos given risk of falls. Intermittent straight cath TID. Cotninue bethanechol and flomax. Hematuria resolved. Rate controlled, High [id number] but with severe dementia and recurrent hematuria, anticoagulation on hold at this time. Leucocytosis likely reactive, resolved, urine cultures noted, but neg urinalysis and no fevers. ID input noted, monitor for now Avoid unnecessary blood work or urine studies unless clinical concerns. DVTPPX with heparin Will need intermodal truck driver placement in geriatric facility once able to remove restraints x 24 hours. Discuss with CM if patient able to be accepted to geripsych facility or dementia unit with santos as is more for fall risk than agitation.
[2017-10-29] MEDS: TAMSULOSIN HCL 0.4 MG CAP.ER.24H (FP) PO SCH ×2 (09:10→17:39)
[2017-10-29] MEDS: AMINO ACIDS/PROTEIN HYDROLYS 30 ML LIQUID.PKT PO SCH ×2 (09:10→17:38)
[2017-10-29] MEDS: MULTIVITAMINS (DAILY MVI) TABLET (FP) PO SCH (09:11)
[2017-10-30] MEDS: BETHANECHOL CHLORIDE 10 MG TABLET PO SCH ×3 (06:14→21:00)
[2017-10-30] MEDS: DIVALPROEX SODIUM 250 MG TABLET E.C. PO SCH ×2 (06:14→19:55)
[2017-10-30] MEDS: HEPARIN NA (PORCINE) 5,000 UNITS/ML 1ML VIAL SQ SCH ×3 (06:14→21:05)
--- NOTE | 2017-10-30 06:16 | PN ---
Physical Exam: SUBJECTIVE: Patient seen and examined by me this AM - No major overnight events. Pt straight cath'ed 700cc overnight, no hematuria. Pt A&Ox1. No complaints or pain. OBJECTIVE: Vital Signs Intake & Output 10/27/17 10/28/17 10/29/17 10/30/17 23:59 23:59 23:59 23:59 Intake Total 360 500 990 Output Total 4250 2200 3200 700 Balance -3890 -1700 -2210 -700 Period Temp Pulse Resp BP Sys/Mackey Pulse Ox Last 24 Hr 97.6 F-98.7 F 62-77 18-18 117-127/59-77 97-97 GENERAL: Cachectic elderly man, lying in bed with santos vest. NAD. A&Ox1. Bitemporal wasting. HEAD: Normal with no signs of trauma. EYES: PERRL, sclera anicteric, conjunctiva clear. No ptosis. ENT: Ears normal, nares patent, oropharynx clear without exudates, moist mucous membranes. NECK: Trachea midline, full range of motion, supple. LUNGS: Breath sounds equal, clear to auscultation bilaterally, no wheezes, no crackles, no accessory muscle use. HEART: Regular rate and rhythm, S1, S2 without murmur, rub or gallop. ABDOMEN: Percussible bladder, distended. Tense abdomen. Normoactive bowel sounds , no guarding, no rebound, no hepatosplenomegaly, no masses. No suprapubic tenderness EXTREMITIES: Multiple bruises on R upper arm. 2+ pulses, warm, well-perfused, no edema. NEUROLOGICAL: Cranial nerves II through XII grossly intact. Gait not observed. PSYCH: Normal mood, normal affect. Tangential, intermittently lucid. SKIN: Warm, dry, normal turgor, no rashes or lesions noted CBC, BMP 10/27/17 10:40 10/19/17 07:00 Active Medications Generic Name Dose Route Start Last Admin Trade Name Freq PRN Reason Stop Dose Admin Amino Acids 30 ml 10/17/17 17:30 10/29/17 17:38 Prosource No Carb Liquid Pkt PO 30 ml BID@0800,1730 [facility] Administration Bethanechol Chloride 10 mg 10/18/17 22:00 10/30/17 06:14 Urecholine - PO 10 mg TID [facility] Administration Divalproex Sodium 250 mg 10/23/17 07:00 10/30/17 06:14 Depakote - PO 250 mg AM [facility] Administration Divalproex Sodium 250 mg 10/24/17 20:00 10/29/17 21:34 Depakote - PO 250 mg DAILY@1999 [facility] Administration Haloperidol 1 mg 10/05/17 18:57 10/17/17 23:19 Haldol Injection (Fast Acting) - IM 1 mg Q4H PRN Administration AGITATION Heparin Sodium (Porcine) 5,000 unit 10/28/17 14:00 10/30/17 06:14 Heparin - SQ 5,000 unit TID [facility] Administration Multivitamins/Minerals/Vitamin C 1 tab 10/18/17 10:00 10/29/17 09:11 Tab-A-Vit - PO 1 tab DAILY [facility] Administration Nystatin/Triamcinolone Acetonide 1 applic 10/23/17 22:00 10/29/17 21:34 Mycolog Ii Ointment - TP 1 applic BID [facility] Administration Olanzapine 10 mg 10/24/17 09:00 10/29/17 21:34 Zyprexa - PO 10 mg BID@0900,2100 [facility] Administration Ondansetron HCl 4 mg 10/05/17 18:02 Zofran Injection IVPUSH Q6H PRN NAUSEA AND/OR VOMITING Promethazine HCl 12.5 mg 10/05/17 18:02 Phenergan Injection - IVPUSH Q6H PRN NAUSEA-FOR RESCUE AFTER 15 MIN Tamsulosin HCl 0.4 mg 10/18/17 18:00 10/29/17 17:39 Flomax - PO 0.4 mg BID@0830,1800 [facility] Administration Microbiology 10/14/17 13:00 Blood - Peripheral Venous Blood Culture - Final NO GROWTH AFTER 5 DAYS INCUBATION 10/14/17 12:35 Blood - Peripheral Venous Blood Culture - Final NO GROWTH AFTER 5 DAYS INCUBATION 10/14/17 14:50 Urine - Urine Buck Urine Culture - Final Staphylococcus Aureus Staphylococcus Epidermidis 09/27/17 19:30 Urine - Urine Buck Urine Culture - Final Enterococcus Faecalis 09/17/17 15:30 Blood - Peripheral Venous Blood Culture - Final NO GROWTH AFTER 5 DAYS INCUBATION 09/17/17 15:30 Blood - Peripheral Venous Blood Culture - Final NO GROWTH AFTER 5 DAYS INCUBATION 09/20/17 18:30 Urine - Urine Suprapubic Urine Culture - Final NO GROWTH OBTAINED 09/17/17 15:45 Urine - Urine Clean Catch Urine Culture - Final NO GROWTH OBTAINED Studies: EKG 09/30 - Low voltage, NAD, 1st degree HB, Rate 60, QTC 401, peaked twaves in V2 -V5 EKG 10/10 - Sinus hipolito, rate 50, NAD, QTC 382, V3-V6 peaked Twaves CXR 10/14 - Impression : No acute pathology. Metallic density left upper quadrant. ASSESSMENT/PLAN: 76 yo man with PMH of dementia and OA who was initially found wandering [facility], likely secondary to baseline dementia complicated by acute metabolic encephalopathy. #BPH/Hematuria/urinary retention - TURP 10/05; No hematuria noted overnight - straight cath TID - hgb stable 10 - Urology aware, following - c/w flomax, bethanechol 10mg TID #AMS - fall risk; likely at baseline dementia now, remains confused, pulling at lines; EKG 10/10 with no QTC prolongation - Encourage ambulation w/ assistance - Off limb restraints; still with santos vest; remains a high fall risk - Depakote 250mg BID - c/w zyprexa - Haldol for agitation PRN - Phenergan, zofran for N/V - Neurology and psych following - c/w bed-alarm, fall precautions - Will require coty-psych placement at facility able to handle restraints #Leukocytosis/Bacteriuria - Resolved - No infectious symptoms, no fevers - trend fever curve - ID consulted 10/15- recommend close observation, no abx - urine cx positive for staph epi, aureus; likely contaminate #Paroxysmal Afib - Resolved, NSR; no eliquis, as pt demented/fall risk #Fungal rash in diaper line - mycolog ointment PPX HSQ FEN PO hydration No lab abnormalities Regular diet Will likely require dispo to coty-psych facility, possibly for restrained pts Plan discussed with attending, Dr. Ha Benavides, PGY1 Visit type - Emergency Visit Emergency Visit: Yes ED Registration Date: 09/17/17 Care time: The patient presented to the Emergency Department on the above date and was hospitalized for further evaluation of their emergent condition. - New Patient This patient is new to me today: No - Critical Care Critical Care patient: No
[2017-10-30] MEDS ORDERED: PT OWN MED DRAWER 7, Y5N ONE (08:26)
[2017-10-30] MEDS: AMINO ACIDS/PROTEIN HYDROLYS 30 ML LIQUID.PKT PO SCH ×2 (08:46→17:40)
[2017-10-30] MEDS: OLANZapine 10 MG TABLET PO SCH ×2 (08:46→21:05)
[2017-10-30] MEDS: TAMSULOSIN HCL 0.4 MG CAP.ER.24H (FP) PO SCH ×2 (08:47→17:40)
[2017-10-30] MEDS: MULTIVITAMINS (DAILY MVI) TABLET (FP) PO SCH (10:09)
[2017-10-30] MEDS: NYSTATIN/TRIAMCINOLONE TOPICAL OINTMENT 15 GM TUBE TP SCH ×2 (10:09→23:10)
--- NOTE | 2017-10-30 17:30 | PN ---
Teaching Attending Note Name of Resident: Sudarshan Benavides ATTENDING PHYSICIAN STATEMENT I saw and evaluated the patient. I reviewed the resident's note and discussed the case with the resident. I agree with the resident's findings and plan as documented. SUBJECTIVE:sitting comfortable in chair at nursing station. denies CP, SOB, OBJECTIVE: Last Vital Signs Temp Pulse Resp BP Pulse Ox 98.4 F 64 18 122/67 97 10/30/17 14:46 10/30/17 14:46 10/30/17 14:46 10/30/17 14:46 10/30/17 09:00 General NAD, pleasantly confused Lungs CTA B/L no wheezing/rales/rhonchi CV S1 S2 RRR no murmur/rub/gallop Abdomen soft NT/ND ASSESSMENT AND PLAN: 76yo M with PMH dementia and OA found wandering around [facility] 1. Acute toxic metabolic encephalopathy-alert. pleasantly confused and at baseline per SW. no haldol for > 7days. on depakote 250mg BID. was decreased due to sedation. off 2 point restraint. on santos vest for fall precuations. On zyprexa. Psych and neuro on board 2. Elevated transaminases- suggestive of hx of ETOH. hepatitis panel negative. resolved 3. afib-new onset. paroxysmal. likely induced from stressful event on presentation. has remained in NSR. High [id number]. however given severe dementia and recurrent hematuria will hold anticoagulation at this time. 4. CL with urinary retention- likely obstructive uropathy vs rhabdo. s/p TURP . resolved. continue straight cath twice a day. on bethanechol and folmax. avoid nephrotoxic agents. urology on board 5. Hematuria- resolved. HGb stable. 6. E. Faecalis UTI-completed abx course. repeat UA is + with +UCx however leukocytosis resolved without treatment. no fevers. mental status remains stable. will hold treatment at this time. ID on board. 7. Rhabdo-resolved 8. Leukocytosis-likely reactive. improved 9. DVT ppx- hep sq 10. will need friction paint machine tender placement in geriatric facility once able to remove restraints x24H.
[2017-10-31] MEDS: HEPARIN NA (PORCINE) 5,000 UNITS/ML 1ML VIAL SQ SCH ×3 (05:45→21:50)
[2017-10-31] MEDS: BETHANECHOL CHLORIDE 10 MG TABLET PO SCH ×3 (05:45→21:49)
[2017-10-31] MEDS: DIVALPROEX SODIUM 250 MG TABLET E.C. PO SCH ×2 (06:13→20:50)
--- NOTE | 2017-10-31 06:29 | PN ---
Physical Exam: SUBJECTIVE: Patient seen and examined by me this AM - Pt OOB to chair. Straight cath overnightx2 350ml each time. No hematuria. Still on santos restraints. More sedated overnight OBJECTIVE: Vital Signs Intake & Output 10/28/17 10/29/17 10/30/17 10/31/17 23:59 23:59 23:59 23:59 Intake Total 500 990 860 Output Total 2200 3200 2750 Balance -1700 -2210 -1890 Period Temp Pulse Resp BP Sys/Mackey Pulse Ox Last 24 Hr 98.4 F-98.6 F 64-77 18-20 122-149/67-76 97 GENERAL: More somnolent today. Cachectic elderly man, lying in bed with santos vest. NAD. A&Ox1. Bitemporal wasting. HEAD: Normal with no signs of trauma. EYES: PERRL, sclera anicteric, conjunctiva clear. No ptosis. ENT: Ears normal, nares patent, oropharynx clear without exudates, moist mucous membranes. NECK: Trachea midline, full range of motion, supple. LUNGS: Breath sounds equal, clear to auscultation bilaterally, no wheezes, no crackles, no accessory muscle use. HEART: Regular rate and rhythm, S1, S2 without murmur, rub or gallop. ABDOMEN: Tense, scaphoid abdomen. Normoactive bowel sounds, no guarding, no rebound, no hepatosplenomegaly, no masses. No suprapubic tenderness EXTREMITIES: Multiple small ecchymoses on R upper arm. 2+ pulses, warm, well- perfused, no edema. NEUROLOGICAL: Cranial nerves II through XII grossly intact. Gait not observed. PSYCH: Normal mood, normal affect. Tangential SKIN: Warm, dry, normal turgor, no rashes or lesions noted CBC, BMP 10/27/17 10:40 10/19/17 07:00 Active Medications Generic Name Dose Route Start Last Admin Trade Name Freq PRN Reason Stop Dose Admin Amino Acids 30 ml 10/17/17 17:30 10/30/17 17:40 Prosource No Carb Liquid Pkt PO 30 ml BID@0800,1730 HEATHER Administration Bethanechol Chloride 10 mg 10/18/17 22:00 10/31/17 05:45 Urecholine - PO 10 mg TID HEATHER Administration Divalproex Sodium 250 mg 10/23/17 07:00 10/31/17 06:13 Depakote - PO 250 mg AM HEATHER Administration Divalproex Sodium 250 mg 10/24/17 20:00 10/30/17 19:55 Depakote - PO 250 mg DAILY@1999 HEATHER Administration Haloperidol 1 mg 10/05/17 18:57 10/17/17 23:19 Haldol Injection (Fast Acting) - IM 1 mg Q4H PRN Administration AGITATION Heparin Sodium (Porcine) 5,000 unit 10/28/17 14:00 10/31/17 05:45 Heparin - SQ 5,000 unit TID HEATHER Administration Multivitamins/Minerals/Vitamin C 1 tab 10/18/17 10:00 10/30/17 10:09 Tab-A-Vit - PO 1 tab DAILY HEATHER Administration Nystatin/Triamcinolone Acetonide 1 applic 10/23/17 22:00 10/30/17 23:10 Mycolog Ii Ointment - TP 1 applic BID HEATHER Administration Olanzapine 10 mg 10/24/17 09:00 10/30/17 21:05 Zyprexa - PO 10 mg BID@0900,2100 HEATHER Administration Ondansetron HCl 4 mg 10/05/17 18:02 Zofran Injection IVPUSH Q6H PRN NAUSEA AND/OR VOMITING Promethazine HCl 12.5 mg 10/05/17 18:02 Phenergan Injection - IVPUSH Q6H PRN NAUSEA-FOR RESCUE AFTER 15 MIN Tamsulosin HCl 0.4 mg 10/18/17 18:00 10/30/17 17:40 Flomax - PO 0.4 mg BID@0830,1800 HEATHER Administration Microbiology 10/14/17 13:00 Blood - Peripheral Venous Blood Culture - Final NO GROWTH AFTER 5 DAYS INCUBATION 10/14/17 12:35 Blood - Peripheral Venous Blood Culture - Final NO GROWTH AFTER 5 DAYS INCUBATION 10/14/17 14:50 Urine - Urine Buck Urine Culture - Final Staphylococcus Aureus Staphylococcus Epidermidis 09/27/17 19:30 Urine - Urine Buck Urine Culture - Final Enterococcus Faecalis 09/17/17 15:30 Blood - Peripheral Venous Blood Culture - Final NO GROWTH AFTER 5 DAYS INCUBATION 09/17/17 15:30 Blood - Peripheral Venous Blood Culture - Final NO GROWTH AFTER 5 DAYS INCUBATION 09/20/17 18:30 Urine - Urine Suprapubic Urine Culture - Final NO GROWTH OBTAINED 09/17/17 15:45 Urine - Urine Clean Catch Urine Culture - Final NO GROWTH OBTAINED Studies: EKG 09/30 - Low voltage, NAD, 1st degree HB, Rate 60, QTC 401, peaked twaves in V2 -V5 EKG 10/10 - Sinus hipolito, rate 50, NAD, QTC 382, V3-V6 peaked Twaves CXR 10/14 - Impression : No acute pathology. Metallic density left upper quadrant. ASSESSMENT/PLAN: 76 yo man with PMH of dementia and OA who was initially found wandering [facility], likely secondary to baseline dementia complicated by acute metabolic encephalopathy. #BPH/Hematuria/urinary retention - TURP 10/05; No hematuria noted overnight - straight cath TID - hgb stable 10 - Urology aware, following - c/w flomax, bethanechol 10mg TID #AMS - fall risk; likely at baseline dementia now, remains confused, pulling at lines; EKG 10/10 with no QTC prolongation - Encourage ambulation w/ assistance - Off limb restraints; still with santos vest; remains a high fall risk - Depakote 250mg BID - c/w zyprexa - Haldol for agitation PRN - Phenergan, zofran for N/V - Neurology and psych following - c/w bed-alarm, fall precautions - Will require coty-psych placement at facility able to handle restraints #Leukocytosis/Bacteriuria - Resolved - No infectious symptoms, no fevers - trend fever curve - ID consulted 10/15- recommend close observation, no abx - urine cx positive for staph epi, aureus; likely contaminate #Paroxysmal Afib - Resolved, NSR; no eliquis, as pt demented/fall risk #Fungal rash in diaper line - mycolog ointment PPX HSQ FEN PO hydration No lab abnormalities Regular diet SW attempting placement at coty-psych able to manage restrained pt's Plan discussed with attending, Dr. Ha Benavides, PGY1 Visit type - Emergency Visit Emergency Visit: Yes ED Registration Date: 09/17/17 Care time: The patient presented to the Emergency Department on the above date and was hospitalized for further evaluation of their emergent condition. - New Patient This patient is new to me today: No - Critical Care Critical Care patient: No
[2017-10-31] MEDS: AMINO ACIDS/PROTEIN HYDROLYS 30 ML LIQUID.PKT PO SCH ×2 (08:10→18:34)
[2017-10-31] MEDS: TAMSULOSIN HCL 0.4 MG CAP.ER.24H (FP) PO SCH ×2 (08:10→18:33)
[2017-10-31] MEDS ORDERED: PT OWN MED DRAWER 7, Y5N ONE ×2 (09:38→10:00)
[2017-10-31] MEDS: OLANZapine 10 MG TABLET PO SCH ×2 (10:00→21:50)
[2017-10-31] MEDS: MULTIVITAMINS (DAILY MVI) TABLET (FP) PO SCH (10:01)
[2017-10-31] MEDS: NYSTATIN/TRIAMCINOLONE TOPICAL OINTMENT 15 GM TUBE TP SCH ×2 (10:02→21:51)
--- NOTE | 2017-10-31 11:39 | PN ---
Teaching Attending Note Name of Resident: Sudarshan Benavides ATTENDING PHYSICIAN STATEMENT I saw and evaluated the patient. I reviewed the resident's note and discussed the case with the resident. I agree with the resident's findings and plan as documented. SUBJECTIVE:no complaints. denies CP or SOB OBJECTIVE: Last Vital Signs Temp Pulse Resp BP Pulse Ox 97.6 F 65 19 120/54 97 10/31/17 08:39 10/31/17 08:39 10/31/17 08:39 10/31/17 08:39 10/30/17 09:00 General NAD, pleasantly confused Lungs CTA B/L no wheezing/rales/rhonchi CV S1 S2 RRR no murmur/rub/gallop Abdomen soft NT/ND ASSESSMENT AND PLAN: 76yo M with PMH dementia and OA found wandering around [facility] 1. Acute toxic metabolic encephalopathy-alert. pleasantly confused and at baseline per SW. no haldol for > 7days. on depakote 250mg BID. has been off 2 point restraint for some time. on santos vest for fall precautions only. On zyprexa. Psych and neuro on board 2. Elevated transaminases- suggestive of hx of ETOH. hepatitis panel negative. resolved 3. afib-new onset. paroxysmal. likely induced from stressful event on presentation. has remained in NSR. High [id number]. however given severe dementia and recurrent hematuria will hold anticoagulation at this time. 4. CL with urinary retention- likely obstructive uropathy vs rhabdo. s/p TURP . resolved. continue straight cath twice a day. on bethanechol and folmax. avoid nephrotoxic agents. urology on board 5. Hematuria- resolved. HGb stable. 6. E. Faecalis UTI-completed abx course. repeat UA is + with +UCx however leukocytosis resolved without treatment. no fevers. mental status remains stable. will hold treatment at this time. ID on board. 7. Rhabdo-resolved 8. Leukocytosis-likely reactive. improved 9. DVT ppx- hep sq 10. Spoke with congressional representative from [employer] today. Explained pt current situation, that he is pleasantly confused and only been on vest restraints due to fall risks. That patient is able to hold conversation although does not answer all questions appropriately. Informed her that he does have family who is in agreement for placement in geriatric center. Will remain available for any other questions.
--- NOTE | 2017-11-01 04:40 | PN ---
Physical Exam: SUBJECTIVE: Patient seen and examined by me this AM - No major events overnight. Very somnolent in AM. Pt straight cath 600ml, no hematuria. Still with santos vest. A&Ox1. Plan for possible discharge to coty- psych facility by end of week. OBJECTIVE: Vital Signs Intake & Output 10/29/17 10/30/17 10/31/17 11/01/17 23:59 23:59 23:59 23:59 Intake Total 990 860 450 Output Total 3200 2750 2100 Balance -2210 -1890 -1650 Period Temp Pulse Resp BP Sys/Mackey Pulse Ox Last 24 Hr 97.5 F-98.9 F 63-81 18-20 116-138/54-74 GENERAL: Cachectic elderly man, lying in bed with santos vest. NAD. A&Ox1. Bitemporal wasting. Somnolent HEAD: Normal with no signs of trauma. EYES: PERRL, sclera anicteric, conjunctiva clear. No ptosis. ENT: Ears normal, nares patent, oropharynx clear without exudates, moist mucous membranes. NECK: Trachea midline, full range of motion, supple. LUNGS: Breath sounds equal, clear to auscultation bilaterally, no wheezes, no crackles, no accessory muscle use. HEART: Regular rate and rhythm, S1, S2 without murmur, rub or gallop. ABDOMEN: Tense abdomen, palpable bladder. Normoactive bowel sounds, no guarding , no rebound, no hepatosplenomegaly, no masses. No suprapubic tenderness EXTREMITIES: Scattered sub-cm ecchymoses on R arm and forearm. 2+ pulses, warm, well-perfused, no edema. NEUROLOGICAL: Cranial nerves II through XII grossly intact. Gait not observed. PSYCH: Normal mood, normal affect. Tangential SKIN: Warm, dry, normal turgor, no rashes or lesions noted CBC, BMP 10/27/17 10:40 10/19/17 07:00 Active Medications Generic Name Dose Route Start Last Admin Trade Name Freq PRN Reason Stop Dose Admin Amino Acids 30 ml 10/17/17 17:30 10/31/17 18:34 Prosource No Carb Liquid Pkt PO 30 ml BID@0800,1730 HEATHER Administration Bethanechol Chloride 10 mg 10/18/17 22:00 10/31/17 21:49 Urecholine - PO 10 mg TID HEATHER Administration Divalproex Sodium 250 mg 10/23/17 07:00 10/31/17 06:13 Depakote - PO 250 mg AM HEATHER Administration Divalproex Sodium 250 mg 10/24/17 20:00 10/31/17 20:50 Depakote - PO 250 mg DAILY@2000 HEATHER Administration Haloperidol 1 mg 10/05/17 18:57 10/17/17 23:19 Haldol Injection (Fast Acting) - IM 1 mg Q4H PRN Administration AGITATION Heparin Sodium (Porcine) 5,000 unit 10/28/17 14:00 10/31/17 21:50 Heparin - SQ 5,000 unit TID [facility] Administration Multivitamins/Minerals/Vitamin C 1 tab 10/18/17 10:00 10/31/17 10:01 Tab-A-Vit - PO 1 tab DAILY HEATHER Administration Nystatin/Triamcinolone Acetonide 1 applic 10/23/17 22:00 10/31/17 21:51 Mycolog Ii Ointment - TP 1 applic BID HEATHER Administration Olanzapine 10 mg 10/24/17 09:00 10/31/17 21:50 Zyprexa - PO 10 mg BID@0900,2100 HEATHER Administration Ondansetron HCl 4 mg 10/05/17 18:02 Zofran Injection IVPUSH Q6H PRN NAUSEA AND/OR VOMITING Promethazine HCl 12.5 mg 10/05/17 18:02 Phenergan Injection - IVPUSH Q6H PRN NAUSEA-FOR RESCUE AFTER 15 MIN Tamsulosin HCl 0.4 mg 10/18/17 18:00 10/31/17 18:33 Flomax - PO 0.4 mg BID@0830,1800 HEATHER Administration Microbiology 10/14/17 13:00 Blood - Peripheral Venous Blood Culture - Final NO GROWTH AFTER 5 DAYS INCUBATION 10/14/17 12:35 Blood - Peripheral Venous Blood Culture - Final NO GROWTH AFTER 5 DAYS INCUBATION 10/14/17 14:50 Urine - Urine Buck Urine Culture - Final Staphylococcus Aureus Staphylococcus Epidermidis 09/27/17 19:30 Urine - Urine Buck Urine Culture - Final Enterococcus Faecalis 09/17/17 15:30 Blood - Peripheral Venous Blood Culture - Final NO GROWTH AFTER 5 DAYS INCUBATION 09/17/17 15:30 Blood - Peripheral Venous Blood Culture - Final NO GROWTH AFTER 5 DAYS INCUBATION 09/20/17 18:30 Urine - Urine Suprapubic Urine Culture - Final NO GROWTH OBTAINED 09/17/17 15:45 Urine - Urine Clean Catch Urine Culture - Final NO GROWTH OBTAINED Studies: EKG 09/30 - Low voltage, NAD, 1st degree HB, Rate 60, QTC 401, peaked twaves in V2 -V5 EKG 10/10 - Sinus hipolito, rate 50, NAD, QTC 382, V3-V6 peaked Twaves CXR 10/14 - Impression : No acute pathology. Metallic density left upper quadrant. ASSESSMENT/PLAN: 76 yo man with PMH of dementia and OA who was initially found wandering [facility], likely secondary to baseline dementia complicated by acute metabolic encephalopathy. #BPH/Hematuria/urinary retention - TURP 10/05; No hematuria noted overnight - straight cath TID - hgb stable 10 - Urology aware, following - c/w flomax, bethanechol 10mg TID #AMS - fall risk; likely at baseline dementia now, remains confused, pulling at lines; EKG 10/10 with no QTC prolongation - Encourage ambulation w/ assistance - Off limb restraints; still with santos vest; remains a high fall risk - Depakote 250mg BID - c/w zyprexa - Haldol for agitation PRN - Phenergan, zofran for N/V - Neurology and psych following - c/w bed-alarm, fall precautions - Will require coty-psych placement at facility able to handle restraints #Leukocytosis/Bacteriuria - Resolved - No infectious symptoms, no fevers - trend fever curve - ID consulted 10/15- recommend close observation, no abx - urine cx positive for staph epi, aureus; likely contaminate #Paroxysmal Afib - Resolved, NSR; no eliquis, as pt demented/fall risk #Fungal rash in diaper line - mycolog ointment PPX HSQ FEN PO hydration No lab abnormalities Regular diet Currently attempting placement at [facility]. Will f/u with SW tomorrow. Plan discussed with attending, Dr. Ha Benavides, PGY1 Visit type - Emergency Visit Emergency Visit: Yes ED Registration Date: 09/17/17 Care time: The patient presented to the Emergency Department on the above date and was hospitalized for further evaluation of their emergent condition. - New Patient This patient is new to me today: No - Critical Care Critical Care patient: No
[2017-11-01] MEDS: DIVALPROEX SODIUM 250 MG TABLET E.C. PO SCH ×2 (06:47→20:03)
[2017-11-01] MEDS: BETHANECHOL CHLORIDE 10 MG TABLET PO SCH ×3 (06:47→21:00)
[2017-11-01] MEDS: HEPARIN NA (PORCINE) 5,000 UNITS/ML 1ML VIAL SQ SCH ×3 (06:47→21:00)
[2017-11-01] MEDS: AMINO ACIDS/PROTEIN HYDROLYS 30 ML LIQUID.PKT PO SCH ×2 (07:49→17:33)
[2017-11-01] MEDS: TAMSULOSIN HCL 0.4 MG CAP.ER.24H (FP) PO SCH ×2 (07:49→17:33)
[2017-11-01] MEDS ORDERED: PT OWN MED DRAWER 7, Y5N ONE (08:51)
[2017-11-01] MEDS: OLANZapine 10 MG TABLET PO SCH ×2 (09:00→20:54)
[2017-11-01] MEDS: NYSTATIN/TRIAMCINOLONE TOPICAL OINTMENT 15 GM TUBE TP SCH ×2 (09:00→21:00)
[2017-11-01] MEDS: MULTIVITAMINS (DAILY MVI) TABLET (FP) PO SCH (09:00)
--- NOTE | 2017-11-01 18:08 | PN ---
Teaching Attending Note Name of Resident: Sudarshan Benavides ATTENDING PHYSICIAN STATEMENT I saw and evaluated the patient. I reviewed the resident's note and discussed the case with the resident. I agree with the resident's findings and plan as documented. SUBJECTIVE:asymptomatic. denies CP, SOB, fever, chills, N/V/C/D OBJECTIVE: Last Vital Signs Temp Pulse Resp BP Pulse Ox 97.1 F L 53 L 18 108/46 95 11/01/17 14:11 11/01/17 14:11 11/01/17 14:11 11/01/17 14:11 11/01/17 09:00 General NAD, pleasantly confused ASSESSMENT AND PLAN: 76yo M with PMH dementia and OA found wandering around [facility] 1. Acute toxic metabolic encephalopathy-alert. pleasantly confused and at baseline per SW. no haldol for > 7days. on depakote 250mg BID. has been off 2 point restraint for some time. on santos vest for fall precautions only. On zyprexa. Psych and neuro on board 2. Elevated transaminases- suggestive of hx of ETOH. hepatitis panel negative. resolved 3. afib-new onset. paroxysmal. likely induced from stressful event on presentation. has remained in NSR. High [id number]. however given severe dementia and recurrent hematuria will hold anticoagulation at this time. 4. CL with urinary retention- likely obstructive uropathy vs rhabdo. s/p TURP . resolved. continue straight cath twice a day. on bethanechol and folmax. avoid nephrotoxic agents. urology on board 5. Hematuria- resolved. HGb stable. 6. E. Faecalis UTI-completed abx course. repeat UA is + with +UCx however leukocytosis resolved without treatment. no fevers. mental status remains stable. will hold treatment at this time. ID on board. 7. Rhabdo-resolved 8. Leukocytosis-likely reactive. improved 9. DVT ppx- hep sq 10. Awaiting placement in geriatric, dementia unit
--- NOTE | 2017-11-02 05:29 | PN ---
Physical Exam: SUBJECTIVE: Patient seen and examined by me this AM - No events overnight. Pt afebrile, one episode of bradycardia to 53 overnight. Pt remains pleasantly demented, A&Ox1, with intermittent period of lucency. Tolerating diet well with good appetite, able to feed self. Straight cathed overnight w/ 600cc of slightly cloudy urine noted by nursing staff. Still with santos vest. Did not require Haldol overnight. OBJECTIVE: Vital Signs Intake & Output 10/30/17 10/31/17 11/01/17 11/02/17 23:59 23:59 23:59 23:59 Intake Total 860 450 820 Output Total 2750 2700 2150 Balance -1890 -2250 -1330 Weight 58.922 kg Period Temp Pulse Resp BP Sys/Mackey Pulse Ox Last 24 Hr 97.1 F-97.9 F 53-75 18-20 106-141/46-79 95-96 GENERAL: Somnolent on exam. Cachectic elderly man, sitting up in bed w/ santos vest. NAD. A&Ox1. Bitemporal wasting. HEAD: Normal with no signs of trauma. EYES: PERRL, sclera anicteric, conjunctiva clear. No ptosis. ENT: Ears normal, nares patent, oropharynx clear without exudates, moist mucous membranes. NECK: Trachea midline, full range of motion, supple. LUNGS: Breath sounds equal, clear to auscultation bilaterally, no wheezes, no crackles, no accessory muscle use. HEART: Regular rate and rhythm, S1, S2 without murmur, rub or gallop. ABDOMEN: Soft abdomen, NT, ND. Normoactive bowel sounds, no guarding, no rebound , no hepatosplenomegaly, no masses. No suprapubic tenderness EXTREMITIES: Scattered sub-cm ecchymoses on BL and forearm. 2+ pulses, warm, well-perfused, no edema. NEUROLOGICAL: Cranial nerves II through XII grossly intact. Gait not observed. PSYCH: Normal mood, normal affect. Tangential SKIN: Warm, dry, normal turgor, no rashes or lesions noted CBC, BMP 10/27/17 10:40 10/19/17 07:00 Active Medications Generic Name Dose Route Start Last Admin Trade Name Freq PRN Reason Stop Dose Admin Amino Acids 30 ml 10/17/17 17:30 11/01/17 17:33 Prosource No Carb Liquid Pkt PO 30 ml BID@0800,1730 HEATHER Administration Bethanechol Chloride 10 mg 10/18/17 22:00 11/01/17 21:00 Urecholine - PO 10 mg TID HEATHER Administration Divalproex Sodium 250 mg 10/23/17 07:00 11/01/17 06:47 Depakote - PO 250 mg AM HEATHER Administration Divalproex Sodium 250 mg 10/24/17 20:00 11/01/17 20:03 Depakote - PO 250 mg DAILY@1999 HEATHER Administration Haloperidol 1 mg 10/05/17 18:57 10/17/17 23:19 Haldol Injection (Fast Acting) - IM 1 mg Q4H PRN Administration AGITATION Heparin Sodium (Porcine) 5,000 unit 10/28/17 14:00 11/01/17 21:00 Heparin - SQ 5,000 unit TID HEATHER Administration Multivitamins/Minerals/Vitamin C 1 tab 10/18/17 10:00 11/01/17 09:00 Tab-A-Vit - PO 1 tab DAILY HEATHER Administration Nystatin/Triamcinolone Acetonide 1 applic 10/23/17 22:00 11/01/17 21:00 Mycolog Ii Ointment - TP 1 applic BID HEATHER Administration Olanzapine 10 mg 10/24/17 09:00 11/01/17 20:54 Zyprexa - PO 10 mg BID@0900,2100 HEATHER Administration Ondansetron HCl 4 mg 10/05/17 18:02 Zofran Injection IVPUSH Q6H PRN NAUSEA AND/OR VOMITING Promethazine HCl 12.5 mg 10/05/17 18:02 Phenergan Injection - IVPUSH Q6H PRN NAUSEA-FOR RESCUE AFTER 15 MIN Tamsulosin HCl 0.4 mg 10/18/17 18:00 11/01/17 17:33 Flomax - PO 0.4 mg BID@0830,1800 HEATHER Administration Microbiology 10/14/17 13:00 Blood - Peripheral Venous Blood Culture - Final NO GROWTH AFTER 5 DAYS INCUBATION 10/14/17 12:35 Blood - Peripheral Venous Blood Culture - Final NO GROWTH AFTER 5 DAYS INCUBATION 10/14/17 14:50 Urine - Urine Buck Urine Culture - Final Staphylococcus Aureus Staphylococcus Epidermidis 09/27/17 19:30 Urine - Urine Buck Urine Culture - Final Enterococcus Faecalis 09/17/17 15:30 Blood - Peripheral Venous Blood Culture - Final NO GROWTH AFTER 5 DAYS INCUBATION 09/17/17 15:30 Blood - Peripheral Venous Blood Culture - Final NO GROWTH AFTER 5 DAYS INCUBATION 09/20/17 18:30 Urine - Urine Suprapubic Urine Culture - Final NO GROWTH OBTAINED 09/17/17 15:45 Urine - Urine Clean Catch Urine Culture - Final NO GROWTH OBTAINED Studies: EKG 09/30 - Low voltage, NAD, 1st degree HB, Rate 60, QTC 401, peaked twaves in V2 -V5 EKG 10/10 - Sinus hipolito, rate 50, NAD, QTC 382, V3-V6 peaked Twaves CXR 10/14 - Impression : No acute pathology. Metallic density left upper quadrant. ASSESSMENT/PLAN: 76 yo man with PMH of dementia and OA who was initially found wandering [facility], likely secondary to baseline dementia complicated by acute metabolic encephalopathy. #BPH/Hematuria/urinary retention - TURP 10/05; No hematuria noted overnight - c/w straight cath TID - hgb stable 10 - Urology aware, following - c/w flomax, bethanechol 10mg TID; may d/c if no improvement #AMS - fall risk; likely at baseline dementia now, remains confused, pulling at lines; EKG 10/10 with no QTC prolongation - Ambulating well w/ assistance; continue to encourage - Off limb restraints; still with santos vest; remains a high fall risk - Depakote 250mg BID - c/w zyprexa - Haldol for agitation PRN - Phenergan, zofran for N/V - Neurology and psych aware - c/w bed-alarm, fall precautions - Will require coty-psych placement at facility able to handle restraints #Leukocytosis/Bacteriuria - Resolved - No infectious symptoms, no fevers - trend fever curve - ID consulted 10/15- recommend close observation, no abx - urine cx positive for staph epi, aureus; likely contaminate #Paroxysmal Afib - Resolved, NSR; no eliquis, as pt demented/fall risk #Fungal rash in diaper line - mycolog ointment PPX HSQ FEN PO hydration No lab abnormalities Regular diet Denied for placement at [facility]. Will attempt for placement again next week. Plan discussed with attending, Dr. Ha Benavides, PGY1 Visit type - Emergency Visit Emergency Visit: Yes ED Registration Date: 09/17/17 Care time: The patient presented to the Emergency Department on the above date and was hospitalized for further evaluation of their emergent condition. - New Patient This patient is new to me today: No - Critical Care Critical Care patient: No
[2017-11-02] MEDS: DIVALPROEX SODIUM 250 MG TABLET E.C. PO SCH ×2 (06:15→22:09)
[2017-11-02] MEDS: BETHANECHOL CHLORIDE 10 MG TABLET PO SCH ×3 (06:15→22:09)
[2017-11-02] MEDS: HEPARIN NA (PORCINE) 5,000 UNITS/ML 1ML VIAL SQ SCH ×3 (06:15→22:10)
[2017-11-02] MEDS: AMINO ACIDS/PROTEIN HYDROLYS 30 ML LIQUID.PKT PO SCH ×2 (08:35→18:19)
[2017-11-02] MEDS ORDERED: PT OWN MED DRAWER 7, Y5N ONE (09:26)
[2017-11-02] MEDS: OLANZapine 10 MG TABLET PO SCH ×2 (09:37→22:10)
[2017-11-02] MEDS: TAMSULOSIN HCL 0.4 MG CAP.ER.24H (FP) PO SCH ×2 (09:37→18:19)
[2017-11-02] MEDS: MULTIVITAMINS (DAILY MVI) TABLET (FP) PO SCH (09:38)
[2017-11-02] MEDS: NYSTATIN/TRIAMCINOLONE TOPICAL OINTMENT 15 GM TUBE TP SCH ×2 (09:39→22:10)
--- NOTE | 2017-11-02 12:46 | PN ---
Teaching Attending Note Name of Resident: Sudarshan Benavides ATTENDING PHYSICIAN STATEMENT I saw and evaluated the patient. I reviewed the resident's note and discussed the case with the resident. I agree with the resident's findings and plan as documented. SUBJECTIVE:no complaints. denies CP, SOB, fever, chills, N/V/C/D OBJECTIVE: Last Vital Signs Temp Pulse Resp BP Pulse Ox 97.7 F 50 L 18 116/65 98 11/02/17 06:00 11/02/17 06:00 11/02/17 09:00 11/02/17 06:00 11/02/17 09:00 General NAD, pleasantly confused ASSESSMENT AND PLAN: 76yo M with PMH dementia and OA found wandering around [facility] 1. Acute toxic metabolic encephalopathy-alert. pleasantly confused and at baseline per SW. no haldol for > 7days. on depakote 250mg BID. has been off 2 point restraint for some time. on santos vest for fall precautions only. On zyprexa. Psych and neuro on board 2. Elevated transaminases- suggestive of hx of ETOH. hepatitis panel negative. resolved 3. afib-new onset. paroxysmal. likely induced from stressful event on presentation. has remained in NSR. High [id number]. however given severe dementia and recurrent hematuria will hold anticoagulation at this time. 4. CL with urinary retention- likely obstructive uropathy vs rhabdo. s/p TURP . resolved. continue straight cath twice a day. on bethanechol and folmax. avoid nephrotoxic agents. urology on board 5. Hematuria- resolved. HGb stable. 6. E. Faecalis UTI-completed abx course. repeat UA is + with +UCx however leukocytosis resolved without treatment. no fevers. mental status remains stable. will hold treatment at this time. ID on board. 7. Rhabdo-resolved 8. Leukocytosis-likely reactive. improved 9. DVT ppx- hep sq 10. Awaiting placement in geriatric, dementia unit. have been unable to place due to santos vest which is only for fall risks. CM to escalate to insurance [employer] options as this has held up patients discharge. medically optimized for discharge
[2017-11-02] MEDS: HALOPERIDOL LACTATE 5 MG/ML IM PRN (22:05)
[2017-11-03] MEDS: HEPARIN NA (PORCINE) 5,000 UNITS/ML 1ML VIAL SQ SCH ×3 (06:46→23:16)
[2017-11-03] MEDS: DIVALPROEX SODIUM 250 MG TABLET E.C. PO SCH ×2 (06:46→21:16)
[2017-11-03] MEDS: BETHANECHOL CHLORIDE 10 MG TABLET PO SCH ×3 (06:47→21:16)
[2017-11-03] MEDS ORDERED: PT OWN MED DRAWER 7, Y5N ONE ×3 (10:36→13:31)
[2017-11-03] MEDS: OLANZapine 10 MG TABLET PO SCH ×2 (11:09→23:16)
[2017-11-03] MEDS: AMINO ACIDS/PROTEIN HYDROLYS 30 ML LIQUID.PKT PO SCH ×2 (11:09→17:21)
[2017-11-03] MEDS: TAMSULOSIN HCL 0.4 MG CAP.ER.24H (FP) PO SCH ×2 (11:09→17:21)
[2017-11-03] MEDS: MULTIVITAMINS (DAILY MVI) TABLET (FP) PO SCH (11:09)
[2017-11-03] MEDS: NYSTATIN/TRIAMCINOLONE TOPICAL OINTMENT 15 GM TUBE TP SCH ×2 (11:10→22:55)
--- NOTE | 2017-11-03 11:51 | PN ---
Progress Note (short form) - Note Progress Note: pleasantly confused. denies CP, SOB, fever, chills or abdominal pain Current Medications Generic Name Dose Route Start Last Admin Trade Name Samq PRN Reason Stop Dose Admin Amino Acids 30 ml 10/17/17 17:30 11/03/17 11:09 Prosource No Carb Liquid Pkt PO 30 ml BID@0800,1730 HEATHER Administration Bethanechol Chloride 10 mg 10/18/17 22:00 11/03/17 06:47 Urecholine - PO 10 mg TID HEATHER Administration Divalproex Sodium 250 mg 10/23/17 07:00 11/03/17 06:46 Depakote - PO 250 mg AM HEATHER Administration Divalproex Sodium 250 mg 10/24/17 20:00 11/02/17 22:09 Depakote - PO 250 mg DAILY@1999 HEATHER Administration Haloperidol 1 mg 10/05/17 18:57 10/17/17 23:19 Haldol Injection (Fast Acting) - IM 1 mg Q4H PRN Administration AGITATION Heparin Sodium (Porcine) 5,000 unit 10/28/17 14:00 11/03/17 06:46 Heparin - SQ 5,000 unit TID HEATHER Administration Multivitamins/Minerals/Vitamin C 1 tab 10/18/17 10:00 11/03/17 11:09 Tab-A-Vit - PO 1 tab DAILY HEATHER Administration Nystatin/Triamcinolone Acetonide 1 applic 10/23/17 22:00 11/03/17 11:10 Mycolog Ii Ointment - TP 1 applic BID HEATHER Administration Olanzapine 10 mg 10/24/17 09:00 11/03/17 11:09 Zyprexa - PO 10 mg BID@0900,2100 HEATHER Administration Ondansetron HCl 4 mg 10/05/17 18:02 Zofran Injection IVPUSH Q6H PRN NAUSEA AND/OR VOMITING Promethazine HCl 12.5 mg 10/05/17 18:02 Phenergan Injection - IVPUSH Q6H PRN NAUSEA-FOR RESCUE AFTER 15 MIN Tamsulosin HCl 0.4 mg 10/18/17 18:00 11/03/17 11:09 Flomax - PO 0.4 mg BID@0830,1800 HEATHER Administration Last Vital Signs Temp Pulse Resp BP Pulse Ox 97.6 F 53 L 12 107/53 98 11/03/17 09:06 11/03/17 09:06 11/03/17 09:06 11/03/17 09:06 11/02/17 21:00 General NAD, pleasantly confused CV S1 S2 RRR no murmur/rub/gallop Lungs CTA B/L no wheezing/rales/rhonchi Abdomen soft NT/ND no suprapubic distention ASSESSMENT AND PLAN: 76yo M with PMH dementia and OA found wandering around [facility] 1. Acute toxic metabolic encephalopathy-alert. pleasantly confused and at baseline per SW. no haldol for > 7days. on depakote 250mg BID. has been off 2 point restraint for some time. on santos vest for fall precautions only. On zyprexa. Psych and neuro on board 2. Elevated transaminases- suggestive of hx of ETOH. hepatitis panel negative. resolved 3. afib-new onset. paroxysmal. likely induced from stressful event on presentation. has remained in NSR. High [id number]. however given severe dementia and recurrent hematuria will hold anticoagulation at this time. 4. CL with urinary retention- likely obstructive uropathy vs rhabdo. s/p TURP . resolved. continue straight cath twice a day. on bethanechol and folmax. avoid nephrotoxic agents. urology on board 5. Hematuria- resolved. HGb stable. 6. E. Faecalis UTI-completed abx course. repeat UA is + with +UCx however leukocytosis resolved without treatment. no fevers. mental status remains stable. will hold treatment at this time. ID on board. 7. Rhabdo-resolved 8. Leukocytosis-likely reactive. improved 9. DVT ppx- hep sq 10. Awaiting placement in geriatric, dementia unit. have been unable to place due to santos vest which is only for fall risks. CM to escalate to insurance company options as this has held up patients discharge. medically optimized for discharge Visit type - Emergency Visit Emergency Visit: Yes ED Registration Date: 09/17/17 Care time: The patient presented to the Emergency Department on the above date and was hospitalized for further evaluation of their emergent condition. - New Patient This patient is new to me today: No - Critical Care Critical Care patient: No - Discharge Referral Referred to [facility] Med P.C.: No
[2017-11-04] MEDS: HEPARIN NA (PORCINE) 5,000 UNITS/ML 1ML VIAL SQ SCH ×3 (05:16→21:57)
[2017-11-04] MEDS: BETHANECHOL CHLORIDE 10 MG TABLET PO SCH ×3 (05:16→21:57)
--- NOTE | 2017-11-04 05:35 | PN ---
Physical Exam: SUBJECTIVE: Patient seen and examined by me this AM - No overnight events. Afebrile, vitals stable, bradycardic overnight to 50s. Successfully straight cath 400cc w/o hematuria overnight. Pt remains on santos vest restraint. Pt very active overnight, did not require sedation however. Pt denies any pain, states he was energetic overnight because he hadn't been walked. A&Ox1. - Received haldol overnight on Sunday OBJECTIVE: Vital Signs Intake & Output 11/01/17 11/02/17 11/03/17 11/04/17 23:59 23:59 23:59 23:59 Intake Total 820 745 770 Output Total 2150 1250 2700 Balance -1330 -505 -1930 Weight 58.922 kg 58.536 kg Period Temp Pulse Resp BP Sys/Mackey Pulse Ox Last 24 Hr 97.6 F-98.6 F 53-76 12-18 105-128/53-60 96-97 GENERAL: Cachectic elderly man, sitting up in bed w/ santos vest. A&Ox1. Bitemporal wasting. Energetic HEAD: Normal with no signs of trauma. EYES: PERRL, sclera anicteric, conjunctiva clear. No ptosis. ENT: Ears normal, nares patent, oropharynx clear without exudates, moist mucous membranes. NECK: Trachea midline, full range of motion, supple. LUNGS: Breath sounds equal, clear to auscultation bilaterally, no wheezes, no crackles, no accessory muscle use. HEART: Regular rate and rhythm, S1, S2 without murmur, rub or gallop. ABDOMEN: Percussable bladder. Mildly tense abdomen, NT, ND. Normoactive bowel sounds, no guarding, no rebound, no hepatosplenomegaly, no masses. No suprapubic tenderness EXTREMITIES: Scattered bruises on arms BL. 2+ pulses, warm, well-perfused, no edema. NEUROLOGICAL: Cranial nerves II through XII grossly intact. Gait not observed. PSYCH: Normal mood, normal affect. Tangential SKIN: Warm, dry, normal turgor, no rashes or lesions noted CBC, BMP 10/27/17 10:40 10/19/17 07:00 Active Medications Generic Name Dose Route Start Last Admin Trade Name Freq PRN Reason Stop Dose Admin Amino Acids 30 ml 10/17/17 17:30 11/03/17 17:21 Prosource No Carb Liquid Pkt PO 30 ml BID@0800,1730 HEATHER Administration Bethanechol Chloride 10 mg 10/18/17 22:00 11/04/17 05:16 Urecholine - PO 10 mg TID HEATHER Administration Divalproex Sodium 250 mg 10/23/17 07:00 11/03/17 06:46 Depakote - PO 250 mg AM HEATHER Administration Divalproex Sodium 250 mg 10/24/17 20:00 11/03/17 21:16 Depakote - PO 250 mg DAILY@1999 HEATHER Administration Haloperidol 1 mg 10/05/17 18:57 10/17/17 23:19 Haldol Injection (Fast Acting) - IM 1 mg Q4H PRN Administration AGITATION Heparin Sodium (Porcine) 5,000 unit 10/28/17 14:00 11/04/17 05:16 Heparin - SQ 5,000 unit TID HEATHER Administration Multivitamins/Minerals/Vitamin C 1 tab 10/18/17 10:00 11/03/17 11:09 Tab-A-Vit - PO 1 tab DAILY HEATHER Administration Nystatin/Triamcinolone Acetonide 1 applic 10/23/17 22:00 11/03/17 22:55 Mycolog Ii Ointment - TP 1 applic BID HEATHER Administration Olanzapine 10 mg 10/24/17 09:00 11/03/17 23:16 Zyprexa - PO 10 mg BID@0900,2100 HEATHER Administration Ondansetron HCl 4 mg 10/05/17 18:02 Zofran Injection IVPUSH Q6H PRN NAUSEA AND/OR VOMITING Promethazine HCl 12.5 mg 10/05/17 18:02 Phenergan Injection - IVPUSH Q6H PRN NAUSEA-FOR RESCUE AFTER 15 MIN Tamsulosin HCl 0.4 mg 10/18/17 18:00 11/03/17 17:21 Flomax - PO 0.4 mg BID@0830,1800 HEATHER Administration Microbiology 10/14/17 13:00 Blood - Peripheral Venous Blood Culture - Final NO GROWTH AFTER 5 DAYS INCUBATION 10/14/17 12:35 Blood - Peripheral Venous Blood Culture - Final NO GROWTH AFTER 5 DAYS INCUBATION 10/14/17 14:50 Urine - Urine Buck Urine Culture - Final Staphylococcus Aureus Staphylococcus Epidermidis 09/27/17 19:30 Urine - Urine Buck Urine Culture - Final Enterococcus Faecalis 09/17/17 15:30 Blood - Peripheral Venous Blood Culture - Final NO GROWTH AFTER 5 DAYS INCUBATION 09/17/17 15:30 Blood - Peripheral Venous Blood Culture - Final NO GROWTH AFTER 5 DAYS INCUBATION 09/20/17 18:30 Urine - Urine Suprapubic Urine Culture - Final NO GROWTH OBTAINED 09/17/17 15:45 Urine - Urine Clean Catch Urine Culture - Final NO GROWTH OBTAINED Studies: EKG 09/30 - Low voltage, NAD, 1st degree HB, Rate 60, QTC 401, peaked twaves in V2 -V5 EKG 10/10 - Sinus hipolito, rate 50, NAD, QTC 382, V3-V6 peaked Twaves CXR 10/14 - Impression : No acute pathology. Metallic density left upper quadrant. ASSESSMENT/PLAN: 76 yo man with PMH of dementia and OA who was initially found wandering [facility], likely secondary to baseline dementia complicated by acute metabolic encephalopathy. #BPH/Hematuria/urinary retention - TURP 10/05; No hematuria noted overnight - c/w straight cath TID - hgb stable 10 - Urology aware, following - c/w flomax, bethanechol 10mg TID; may d/c if no improvement #AMS - fall risk; likely at baseline dementia now, remains confused, pulling at lines; EKG 10/10 with no QTC prolongation - Ambulating well w/ assistance; continue to encourage - Off limb restraints; still with santos vest as pt is a high fall risk - Depakote 250mg BID - c/w zyprexa - Haldol for agitation PRN; Received one dose overnight on Sunday due to increased agitation - Phenergan, zofran for N/V - Neurology and psych aware - c/w bed-alarm, fall precautions - Will require coty-psych placement at facility able to handle restraints #Leukocytosis/Bacteriuria - Resolved - No infectious symptoms, no fevers - trend fever curve - ID consulted 10/15- recommend close observation, no abx - urine cx positive for staph epi, aureus; likely contaminate #Paroxysmal Afib - Resolved, NSR; no eliquis, as pt demented/fall risk #Fungal rash in diaper line - mycolog ointment PPX HSQ FEN PO hydration No lab abnormalities Regular diet Remains on santos vest due to high fall risk. Denied for placement so far due to restraints requirements. Will attempt for placement again this week in coty- psych facility able to accommodate restrained pts. Plan discussed with attending, Dr. Ha Benavides, PGY1 Visit type - Emergency Visit Emergency Visit: Yes ED Registration Date: 09/17/17 Care time: The patient presented to the Emergency Department on the above date and was hospitalized for further evaluation of their emergent condition. - New Patient This patient is new to me today: No - Critical Care Critical Care patient: No
[2017-11-04] MEDS: DIVALPROEX SODIUM 250 MG TABLET E.C. PO SCH ×2 (06:18→19:55)
[2017-11-04] MEDS: AMINO ACIDS/PROTEIN HYDROLYS 30 ML LIQUID.PKT PO SCH ×2 (07:47→16:31)
[2017-11-04] MEDS: TAMSULOSIN HCL 0.4 MG CAP.ER.24H (FP) PO SCH ×2 (07:47→17:07)
[2017-11-04] MEDS: OLANZapine 10 MG TABLET PO SCH ×2 (09:02→21:10)
[2017-11-04] MEDS: MULTIVITAMINS (DAILY MVI) TABLET (FP) PO SCH (09:02)
--- NOTE | 2017-11-04 10:17 | PN ---
Teaching Attending Note Name of Resident: Sudarshan Benavides ATTENDING PHYSICIAN STATEMENT I saw and evaluated the patient. I reviewed the resident's note and discussed the case with the resident. I agree with the resident's findings and plan as documented. SUBJECTIVE:no complaints OBJECTIVE: Last Vital Signs Temp Pulse Resp BP Pulse Ox 98.1 F 66 18 105/50 96 11/04/17 09:07 11/04/17 09:07 11/04/17 09:07 11/04/17 09:07 11/04/17 09:00 General NAD, pleasantly confused ASSESSMENT AND PLAN: 76yo M with PMH dementia and OA found wandering around [facility] 1. Acute toxic metabolic encephalopathy-alert. pleasantly confused and at baseline per SW. received haldol last night for agitation, trying to exit the bed. on depakote 250mg BID. has been off 2 point restraint for some time. on santos vest for fall precautions only. On zyprexa. Psych and neuro on board 2. Elevated transaminases- suggestive of hx of ETOH. hepatitis panel negative. resolved 3. afib-new onset. paroxysmal. likely induced from stressful event on presentation. has remained in NSR. High [id number]. however given severe dementia and recurrent hematuria will hold anticoagulation at this time. 4. CL with urinary retention- likely obstructive uropathy vs rhabdo. s/p TURP . resolved. continue straight cath twice a day. on bethanechol and folmax. avoid nephrotoxic agents. urology on board 5. Hematuria- resolved. HGb stable. 6. E. Faecalis UTI-completed abx course. repeat UA is + with +UCx however leukocytosis resolved without treatment. no fevers. mental status remains stable. will hold treatment at this time. ID on board. 7. Rhabdo-resolved 8. Leukocytosis-likely reactive. improved 9. DVT ppx- hep sq 10. Awaiting placement in geriatric, dementia unit. have been unable to place due to santos vest which is only for fall risks. CM to escalate to insurance company options as this has held up patients discharge. medically optimized for discharge
[2017-11-04] MEDS: NYSTATIN/TRIAMCINOLONE TOPICAL OINTMENT 15 GM TUBE TP SCH ×2 (12:24→23:50)
[2017-11-05] MEDS: HEPARIN NA (PORCINE) 5,000 UNITS/ML 1ML VIAL SQ SCH ×3 (05:47→21:06)
[2017-11-05] MEDS: BETHANECHOL CHLORIDE 10 MG TABLET PO SCH ×3 (05:47→21:06)
[2017-11-05] MEDS: DIVALPROEX SODIUM 250 MG TABLET E.C. PO SCH ×2 (06:01→20:13)
[2017-11-05] MEDS ORDERED: PT OWN MED DRAWER 7, Y5N ONE ×3 (09:37→19:54)
[2017-11-05] MEDS: AMINO ACIDS/PROTEIN HYDROLYS 30 ML LIQUID.PKT PO SCH ×2 (09:39→17:16)
[2017-11-05] MEDS: OLANZapine 10 MG TABLET PO SCH ×2 (09:39→21:07)
[2017-11-05] MEDS: MULTIVITAMINS (DAILY MVI) TABLET (FP) PO SCH (09:39)
[2017-11-05] MEDS: TAMSULOSIN HCL 0.4 MG CAP.ER.24H (FP) PO SCH ×2 (09:39→17:16)
[2017-11-05] MEDS: NYSTATIN/TRIAMCINOLONE TOPICAL OINTMENT 15 GM TUBE TP SCH ×2 (09:40→21:07)
--- NOTE | 2017-11-05 12:34 | PN ---
Teaching Attending Note Name of Resident: Jessica Hoffman ATTENDING PHYSICIAN STATEMENT I saw and evaluated the patient. I reviewed the resident's note and discussed the case with the resident. I agree with the resident's findings and plan as documented. SUBJECTIVE:pleasantly confused OBJECTIVE: Last Vital Signs Temp Pulse Resp BP Pulse Ox 97.9 F 58 L 20 102/57 97 11/05/17 09:00 11/05/17 09:00 11/05/17 09:00 11/05/17 09:00 11/04/17 21:00 General NAD, pleasantly confused ASSESSMENT AND PLAN: 76yo M with PMH dementia and OA found wandering around [facility] 1. Acute toxic metabolic encephalopathy-alert. pleasantly confused and at baseline per SW. no haldol x24H. on depakote 250mg BID. has been off 2 point restraint for some time. on santos vest for fall precautions only. On zyprexa. Psych and neuro on board 2. Elevated transaminases- suggestive of hx of ETOH. hepatitis panel negative. resolved 3. afib-new onset. paroxysmal. likely induced from stressful event on presentation. has remained in NSR. High [id number]. however given severe dementia and recurrent hematuria will hold anticoagulation at this time. 4. CL with urinary retention- likely obstructive uropathy vs rhabdo. s/p TURP . resolved. continue straight cath twice a day. on bethanechol and folmax. avoid nephrotoxic agents. urology on board 5. Hematuria- resolved. HGb stable. 6. E. Faecalis UTI-completed abx course. repeat UA is + with +UCx however leukocytosis resolved without treatment. no fevers. mental status remains stable. will hold treatment at this time. ID on board. 7. Rhabdo-resolved 8. Leukocytosis-likely reactive. improved 9. DVT ppx- hep sq 10. Awaiting placement in geriatric, dementia unit. have been unable to place due to santos vest which is only for fall risks. CM to escalate to [employer] options as this has held up patients discharge. medically optimized for discharge
--- NOTE | 2017-11-05 16:13 | PN ---
Physical Exam: SUBJECTIVE: Patient seen and examined. Pt conversant and remains confused. Pt denies chest pain, sob, abdominal pain, fever, chills. OBJECTIVE: Vital Signs Period Temp Pulse Resp BP Sys/Mackey Pulse Ox Last 24 Hr 97.9 F-99.0 F 48-77 20-20 101-135/55-63 97 GENERAL: AAOx1, to self, NAD. LUNGS: Breath sounds equal, clear to anterior auscultation bilaterally, no wheezes, no crackles, no accessory muscle use. HEART: Regular rate and rhythm, S1, S2, no murmur appreciated. ABDOMEN: Soft, nontender, nondistended. EXTREMITIES: Warm, well-perfused, no edema. SKIN: Warm, dry, normal turgor, no rashes or lesions noted Active Medications Generic Name Dose Route Start Last Admin Trade Name Freq PRN Reason Stop Dose Admin Amino Acids 30 ml 10/17/17 17:30 11/05/17 09:39 Prosource No Carb Liquid Pkt PO 30 ml BID@0800,1730 HEATHER Administration Bethanechol Chloride 10 mg 10/18/17 22:00 11/05/17 14:44 Urecholine - PO 10 mg TID HEATHER Administration Divalproex Sodium 250 mg 10/23/17 07:00 11/05/17 06:01 Depakote - PO 250 mg AM HEATHER Administration Divalproex Sodium 250 mg 10/24/17 20:00 11/04/17 19:55 Depakote - PO 250 mg DAILY@2000 HEATHER Administration Haloperidol 1 mg 10/05/17 18:57 11/02/17 22:05 Haldol Injection (Fast Acting) - IM 1 mg Q4H PRN Administration AGITATION Heparin Sodium (Porcine) 5,000 unit 10/28/17 14:00 11/05/17 14:45 Heparin - SQ 5,000 unit TID HEATHER Administration Multivitamins/Minerals/Vitamin C 1 tab 10/18/17 10:00 11/05/17 09:39 Tab-A-Vit - PO 1 tab DAILY HEATHER Administration Nystatin/Triamcinolone Acetonide 1 applic 10/23/17 22:00 11/05/17 09:40 Mycolog Ii Ointment - TP 1 applic BID HEATHER Administration Olanzapine 10 mg 10/24/17 09:00 11/05/17 09:39 Zyprexa - PO 10 mg BID@0900,2100 [facility] Administration Ondansetron HCl 4 mg 10/05/17 18:02 Zofran Injection IVPUSH Q6H PRN NAUSEA AND/OR VOMITING Promethazine HCl 12.5 mg 10/05/17 18:02 Phenergan Injection - IVPUSH Q6H PRN NAUSEA-FOR RESCUE AFTER 15 MIN Tamsulosin HCl 0.4 mg 10/18/17 18:00 11/05/17 09:39 Flomax - PO 0.4 mg BID@0830,1800 [facility] Administration ASSESSMENT/PLAN: 76yo M with PMH dementia, PVD, arthritis, found wandering around [facility] property, admitted for acute toxic metabolic encephalopathy. # Acute toxic metabolic encephalopathy - possibly 2/2 hx of dementia - AAOx1, pt at his baseline, pleasantly confused - continue Zyprexa - continue Haldol prn, last dose 11/02/17 - continue Depakote BID - restraints have been discontinued. Pt remains on santos vest for fall precaution. # CL - likely 2/2 retention vs rhabdomyolysis - resolved - s/p TURP 10/05/17 - continue straight cath BID - continue to monitor UOP - continue Flomax and Bethanechol - avoid nephrotoxic agents # new onset afib - paroxysmal, likely induced from stressful event upon presentation - NSR - AC held 2/2 hx of recurrent hematuria # FEN - Fluids: po - Electrolytes: continue to monitor - Nutrition: npo after midnight for TURP tomorrow # Prophylaxis - DVT ppx with Heparin TID - deconditioning ppx with PT # dispo - family agreeable to SNF placement - pt is medically optimized for discharge - awaiting placement in geriatric dementia unit. CM to escalate case to insurance [employer] for options Visit type - Emergency Visit Emergency Visit: Yes ED Registration Date: 09/17/17 Care time: The patient presented to the Emergency Department on the above date and was hospitalized for further evaluation of their emergent condition. - New Patient This patient is new to me today: No - Critical Care Critical Care patient: No
[2017-11-05] MEDS: DIVALPROEX SODIUM 125 MG SPRINKLE CAPS PO SCH (21:07)
[2017-11-06] MEDS ORDERED: PT OWN MED DRAWER 7, Y5N ONE ×4 (05:12→21:46)
[2017-11-06] MEDS: HEPARIN NA (PORCINE) 5,000 UNITS/ML 1ML VIAL SQ SCH ×3 (05:21→21:49)
[2017-11-06] MEDS: BETHANECHOL CHLORIDE 10 MG TABLET PO SCH ×3 (05:21→21:51)
--- NOTE | 2017-11-06 08:35 | PN ---
Physical Exam: SUBJECTIVE: Patient seen and examined. Pt conversant and remains confused. Pt denies chest pain, sob, abdominal pain, fever, chills. No events overnight. OBJECTIVE: Vital Signs Period Temp Pulse Resp BP Sys/Mackey Pulse Ox Last 24 Hr 97.8 F-98.8 F 58-83 18-20 102-131/57-68 GENERAL: AAOx1, to self, NAD. LUNGS: Breath sounds equal, clear to anterior auscultation bilaterally, no wheezes, no crackles, no accessory muscle use. HEART: Regular rate and rhythm, S1, S2, no murmur appreciated. ABDOMEN: Soft, nontender, nondistended. EXTREMITIES: Warm, well-perfused, no edema. SKIN: Warm, dry, normal turgor, no rashes or lesions noted Active Medications Generic Name Dose Route Start Last Admin Trade Name Freq PRN Reason Stop Dose Admin Amino Acids 30 ml 10/17/17 17:30 11/05/17 17:16 Prosource No Carb Liquid Pkt PO 30 ml BID@0800,1730 HEATHER Administration Bethanechol Chloride 10 mg 10/18/17 22:00 11/06/17 05:21 Urecholine - PO 10 mg TID HEATHER Administration Divalproex Sodium 250 mg 11/05/17 22:00 11/05/17 21:07 Depakote Sprinkle Caps - PO 250 mg BID HEATHER Administration Haloperidol 1 mg 10/05/17 18:57 11/02/17 22:05 Haldol Injection (Fast Acting) - IM 1 mg Q4H PRN Administration AGITATION Heparin Sodium (Porcine) 5,000 unit 10/28/17 14:00 11/06/17 05:21 Heparin - SQ 5,000 unit TID HEATHER Administration Multivitamins/Minerals/Vitamin C 1 tab 10/18/17 10:00 11/05/17 09:39 Tab-A-Vit - PO 1 tab DAILY HEATHER Administration Nystatin/Triamcinolone Acetonide 1 applic 10/23/17 22:00 11/05/17 21:07 Mycolog Ii Ointment - TP 1 applic BID HEATHER Administration Olanzapine 10 mg 10/24/17 09:00 11/05/17 21:07 Zyprexa - PO 10 mg BID@0900,2100 HEATHER Administration Ondansetron HCl 4 mg 10/05/17 18:02 Zofran Injection IVPUSH Q6H PRN NAUSEA AND/OR VOMITING Promethazine HCl 12.5 mg 10/05/17 18:02 Phenergan Injection - IVPUSH Q6H PRN NAUSEA-FOR RESCUE AFTER 15 MIN Tamsulosin HCl 0.4 mg 10/18/17 18:00 11/05/17 17:16 Flomax - PO 0.4 mg BID@0830,1800 HEATHER Administration ASSESSMENT/PLAN: 76yo M with PMH dementia, PVD, arthritis, found wandering around [facility] property, admitted for acute toxic metabolic encephalopathy. # Acute toxic metabolic encephalopathy - possibly 2/2 hx of dementia - AAOx1, pt at his baseline, pleasantly confused - continue Zyprexa and Depakote - continue Haldol prn, last dose 11/02/17 - Pt remains on santos vest for fall precaution. # CL - likely 2/2 retention vs rhabdomyolysis - resolved - s/p TURP 10/05/17 - continue straight cath BID - monitor UOP - continue Flomax and Bethanechol - avoid nephrotoxic agents # new onset afib - paroxysmal, likely induced from stressful event upon presentation - NSR - AC held 2/2 hx of recurrent hematuria # FEN - Fluids: po - Electrolytes: continue to monitor - Nutrition: regular diet # Prophylaxis - DVT ppx with Heparin TID - deconditioning ppx with PT # dispo - family agreeable to SNF placement - pt is medically optimized for discharge - awaiting placement in geriatric dementia unit. CM to escalate case to insurance company for options Visit type - Emergency Visit Emergency Visit: Yes ED Registration Date: 09/17/17 Care time: The patient presented to the Emergency Department on the above date and was hospitalized for further evaluation of their emergent condition. - New Patient This patient is new to me today: No - Critical Care Critical Care patient: No
[2017-11-06] MEDS: MULTIVITAMINS (DAILY MVI) TABLET (FP) PO SCH (09:10)
[2017-11-06] MEDS: AMINO ACIDS/PROTEIN HYDROLYS 30 ML LIQUID.PKT PO SCH ×2 (09:10→18:09)
[2017-11-06] MEDS: TAMSULOSIN HCL 0.4 MG CAP.ER.24H (FP) PO SCH ×2 (09:10→18:09)
[2017-11-06] MEDS: DIVALPROEX SODIUM 125 MG SPRINKLE CAPS PO SCH ×2 (09:10→21:48)
[2017-11-06] MEDS: OLANZapine 10 MG TABLET PO SCH ×2 (09:11→21:50)
[2017-11-06] MEDS: NYSTATIN/TRIAMCINOLONE TOPICAL OINTMENT 15 GM TUBE TP SCH ×2 (09:12→21:50)
--- NOTE | 2017-11-06 11:34 | PN ---
Teaching Attending Note Name of Resident: Jessica Hoffman ATTENDING PHYSICIAN STATEMENT I saw and evaluated the patient. I reviewed the resident's note and discussed the case with the resident. I agree with the resident's findings and plan as documented. SUBJECTIVE: Patient seen and examined, Drowsy, minimally arousable, partly opens eyes, moves all extremities, unable to assess for ROS. OBJECTIVE: Vital Signs Period Temp Pulse Resp BP Sys/Mackey Pulse Ox Last 24 Hr 97.8 F-98.8 F 81-83 -18 112-131/66-68 Intake & Output 11/03/17 11/04/17 11/05/17 11/06/17 23:59 23:59 23:59 23:59 Intake Total 770 840 420 60 Output Total 2700 2900 1980 560 Balance -1930 -2060 -1560 -500 Weight 129 lb 0.8 oz general: sleepy, minimally arousable, moves all extremities, facial symmetry, further exam limited. Home Medication List Medication Instructions Recorded Confirmed Type Donepezil HCl 10 mg PO DAILY 09/21/17 09/21/17 History Nabumetone 750 mg PO BID PRN 09/21/17 09/21/17 History Active Medications Generic Name Dose Route Start Last Admin Trade Name Freq PRN Reason Stop Dose Admin Amino Acids 30 ml 10/17/17 17:30 11/06/17 09:10 Prosource No Carb Liquid Pkt PO 30 ml BID@0800,1730 HEATHER Administration Bethanechol Chloride 10 mg 10/18/17 22:00 11/06/17 05:21 Urecholine - PO 10 mg TID HEATHRE Administration Divalproex Sodium 250 mg 11/05/17 22:00 11/06/17 09:10 Depakote Sprinkle Caps - PO 250 mg BID HEATHER Administration Haloperidol 1 mg 10/05/17 18:57 11/02/17 22:05 Haldol Injection (Fast Acting) - IM 1 mg Q4H PRN Administration AGITATION Heparin Sodium (Porcine) 5,000 unit 10/28/17 14:00 11/06/17 05:21 Heparin - SQ 5,000 unit TID HEATHER Administration Multivitamins/Minerals/Vitamin C 1 tab 10/18/17 10:00 11/06/17 09:10 Tab-A-Vit - PO 1 tab DAILY HEATHER Administration Nystatin/Triamcinolone Acetonide 1 applic 10/23/17 22:00 11/06/17 09:12 Mycolog Ii Ointment - TP 1 applic BID HEATHER Administration Olanzapine 10 mg 10/24/17 09:00 11/06/17 09:11 Zyprexa - PO 10 mg BID@0900,2100 HEATHER Administration Ondansetron HCl 4 mg 10/05/17 18:02 Zofran Injection IVPUSH Q6H PRN NAUSEA AND/OR VOMITING Promethazine HCl 12.5 mg 10/05/17 18:02 Phenergan Injection - IVPUSH Q6H PRN NAUSEA-FOR RESCUE AFTER 15 MIN Tamsulosin HCl 0.4 mg 10/18/17 18:00 11/06/17 09:10 Flomax - PO 0.4 mg BID@0830,1800 HEATHER Administration ASSESSMENT AND PLAN: 76yo M with PMH dementia and OA found wandering around [facility] -Acute toxic metabolic encephalopathy vs progressive dementia -New onset atrial fibrillation -Acute blood anemia from hematuria -CL, from obstructive uropathy vs rhabdomyolysis vs rhabdo, s/p TURP 10/05 ( prior suprapubic catheter and mcintyre that were pulled out by the patient) -E. faecalis UTI, s/p 7 days of antibiotics (ceftriaxone then amoxicillin, finished 10/08) -Rhabdomyolysis -Elevated transaminases, ?ETOH history, hepatitis panel neg -VZV contact with aide inhouse Plan: Continue current depakote and zyprexa, taper if more sedated. Decrease prn haldol to 0.5 mg. Interval EKG to monitor QTc. Off limb restraints, still with santos given risk of falls. Intermittent straight cath TID. Cotninue bethanechol and flomax. Hematuria resolved. Rate controlled, High [id number] but with severe dementia and recurrent hematuria, anticoagulation on hold at this time. Leucocytosis likely reactive, resolved, urine cultures noted, but neg urinalysis and no fevers. ID input noted, monitor for now Avoid unnecessary blood work or urine studies unless clinical concerns. DVTPPX with heparin Will need ferry terminal agent placement in geriatric facility once able to remove restraints x 24 hours. Discuss with CM if patient able to be accepted to geripsych facility or dementia unit with santos as is more for fall risk than agitation.
--- NOTE | 2017-11-06 14:04 | EKG ---
Test Reason : Blood Pressure : / mmHG Vent. Rate : 053 BPM Atrial Rate : 053 BPM P-R Int : 200 ms QRS Dur : 078 ms QT Int : 386 ms P-R-T Axes : 072 -17 068 degrees QTc Int : 362 ms SINUS BRADYCARDIA LOW VOLTAGE QRS BORDERLINE ECG WHEN COMPARED WITH ECG OF 10-OCT-2017 09:46, NO SIGNIFICANT CHANGE WAS FOUND Confirmed by MD Mg, Getachew ([id number]) on 11/06/2017 2:03:55 PM Referred By: Michele LEAHY Confirmed By:Getachew Holliday MD
[2017-11-07] MEDS: BETHANECHOL CHLORIDE 10 MG TABLET PO SCH ×3 (06:56→21:53)
[2017-11-07] MEDS: HEPARIN NA (PORCINE) 5,000 UNITS/ML 1ML VIAL SQ SCH ×3 (06:56→21:53)
[2017-11-07] MEDS ORDERED: PT OWN MED DRAWER 7, Y5N ONE ×6 (09:42→21:46)
[2017-11-07] MEDS: AMINO ACIDS/PROTEIN HYDROLYS 30 ML LIQUID.PKT PO SCH ×2 (09:46→18:28)
[2017-11-07] MEDS: OLANZapine 10 MG TABLET PO SCH ×2 (09:47→21:53)
[2017-11-07] MEDS: MULTIVITAMINS (DAILY MVI) TABLET (FP) PO SCH (09:47)
[2017-11-07] MEDS: DIVALPROEX SODIUM 125 MG SPRINKLE CAPS PO SCH ×2 (09:47→21:53)
[2017-11-07] MEDS: TAMSULOSIN HCL 0.4 MG CAP.ER.24H (FP) PO SCH ×2 (09:48→18:28)
[2017-11-07] MEDS: NYSTATIN/TRIAMCINOLONE TOPICAL OINTMENT 15 GM TUBE TP SCH ×2 (09:48→22:00)
[2017-11-07] MEDS: HALOPERIDOL LACTATE 5 MG/ML IM PRN (13:42)
--- NOTE | 2017-11-07 14:56 | PN ---
Physical Exam: SUBJECTIVE: Patient seen and examined. Pt conversant and remains confused. Pt denies chest pain, sob, abdominal pain, fever, chills. Pt now DNR/DNI. OBJECTIVE: Vital Signs Period Temp Pulse Resp BP Sys/Mackey Pulse Ox Last 24 Hr 97.8 F-98.0 F 66-76 18-18 120-128/57-67 95 GENERAL: AAOx1, to self, NAD. LUNGS: Breath sounds equal, clear to anterior auscultation bilaterally, no wheezes, no crackles, no accessory muscle use. HEART: Regular rate and rhythm, S1, S2, no murmur appreciated. ABDOMEN: Soft, nontender, nondistended. EXTREMITIES: Warm, well-perfused, no edema. SKIN: Warm, dry, normal turgor, no rashes or lesions noted Active Medications Generic Name Dose Route Start Last Admin Trade Name Freq PRN Reason Stop Dose Admin Amino Acids 30 ml 10/17/17 17:30 11/07/17 09:46 Prosource No Carb Liquid Pkt PO 30 ml BID@0800,1730 HEATHER Administration Bethanechol Chloride 10 mg 10/18/17 22:00 11/07/17 13:40 Urecholine - PO 10 mg TID HEATHER Administration Divalproex Sodium 250 mg 11/05/17 22:00 11/07/17 09:47 Depakote Sprinkle Caps - PO 250 mg BID HEATHER Administration Haloperidol 0.5 mg 11/06/17 11:56 11/07/17 13:42 Haldol Injection (Fast Acting) - IM 0.5 mg Q4H PRN Administration AGITATION Heparin Sodium (Porcine) 5,000 unit 10/28/17 14:00 11/07/17 13:41 Heparin - SQ 5,000 unit TID HEATHER Administration Multivitamins/Minerals/Vitamin C 1 tab 10/18/17 10:00 11/07/17 09:47 Tab-A-Vit - PO 1 tab DAILY HEATHER Administration Nystatin/Triamcinolone Acetonide 1 applic 10/23/17 22:00 11/07/17 09:48 Mycolog Ii Ointment - TP 1 applic BID HEATHER Administration Olanzapine 10 mg 10/24/17 09:00 11/07/17 09:47 Zyprexa - PO 10 mg BID@0900,2100 HEATHER Administration Ondansetron HCl 4 mg 10/05/17 18:02 Zofran Injection IVPUSH Q6H PRN NAUSEA AND/OR VOMITING Promethazine HCl 12.5 mg 10/05/17 18:02 Phenergan Injection - IVPUSH Q6H PRN NAUSEA-FOR RESCUE AFTER 15 MIN Tamsulosin HCl 0.4 mg 10/18/17 18:00 11/07/17 09:48 Flomax - PO 0.4 mg BID@0830,1800 [facility] Administration ASSESSMENT/PLAN: 76yo M with PMH dementia, PVD, arthritis, found wandering around [facility] property, admitted for acute toxic metabolic encephalopathy. # Acute toxic metabolic encephalopathy - possibly 2/2 hx of dementia - AAOx1, pt at his baseline, pleasantly confused - continue Zyprexa and Depakote - Haldol prn decreased to 0.5mg, last dose 11/07/17 - EKG 11/06/17: QTC 362 - Pt remains on santos vest for fall precaution. # CL - likely 2/2 retention vs rhabdomyolysis - resolved - s/p TURP 10/05/17 - continue intermittent straight cath - monitor UOP - continue Flomax and Bethanechol - avoid nephrotoxic agents # new onset afib - paroxysmal, likely induced from stressful event upon presentation - NSR - AC held 2/2 hx of recurrent hematuria # FEN - Fluids: po - Electrolytes: continue to monitor - Nutrition: regular diet # Prophylaxis - DVT ppx with Heparin TID - deconditioning ppx with PT # dispo - spent 20 minutes discussing advanced directive options with neice/next-of- kin, Mary Jane Abbasi, last evening. We opted to complete the DNR/DNI paperwork, so pt is now DNR/DNI. - avoid unnecessary blood work or urine studies unless clinical concerns - family agreeable to SNF placement - pt is medically optimized for discharge - awaiting placement in geriatric dementia unit. CM to escalate case to insurance company for options Visit type - Emergency Visit Emergency Visit: No - New Patient This patient is new to me today: Yes Date on this admission: 11/07/17 - Critical Care Critical Care patient: No
--- NOTE | 2017-11-07 17:12 | PN ---
Teaching Attending Note Name of Resident: Jessica Hoffman ATTENDING PHYSICIAN STATEMENT Time of evaluation: 12:15 PM I saw and evaluated the patient. I reviewed the resident's note and discussed the case with the resident. I agree with the resident's findings and plan as documented. SUBJECTIVE: Patient seen and examined. eating lunch, no complaints. OBJECTIVE: Vital Signs Period Temp Pulse Resp BP Sys/Mackey Pulse Ox Last 24 Hr 97.8 F-98.4 F 66-82 18-18 120-133/57-75 95 Intake & Output 11/04/17 11/05/17 11/06/17 11/07/17 23:59 23:59 23:59 23:59 Intake Total 840 420 460 830 Output Total 2900 1980 2160 2900 Balance -2059 -1559 -1699 General: sitting in bed, eating lunch, no acute distress Home Medication List Medication Instructions Recorded Confirmed Type Donepezil HCl 10 mg PO DAILY 09/21/17 09/21/17 History Nabumetone 750 mg PO BID PRN 09/21/17 09/21/17 History Active Medications Generic Name Dose Route Start Last Admin Trade Name Freq PRN Reason Stop Dose Admin Amino Acids 30 ml 10/17/17 17:30 11/07/17 09:46 Prosource No Carb Liquid Pkt PO 30 ml BID@0800,1730 HEATHER Administration Bethanechol Chloride 10 mg 10/18/17 22:00 11/07/17 13:40 Urecholine - PO 10 mg TID HEATHER Administration Divalproex Sodium 250 mg 11/05/17 22:00 11/07/17 09:47 Depakote Sprinkle Caps - PO 250 mg BID HEATHER Administration Haloperidol 0.5 mg 11/06/17 11:56 11/07/17 13:42 Haldol Injection (Fast Acting) - IM 0.5 mg Q4H PRN Administration AGITATION Heparin Sodium (Porcine) 5,000 unit 10/28/17 14:00 11/07/17 13:41 Heparin - SQ 5,000 unit TID HEATHER Administration Multivitamins/Minerals/Vitamin C 1 tab 10/18/17 10:00 11/07/17 09:47 Tab-A-Vit - PO 1 tab DAILY HEATHER Administration Nystatin/Triamcinolone Acetonide 1 applic 10/23/17 22:00 11/07/17 09:48 Mycolog Ii Ointment - TP 1 applic BID HEATHER Administration Olanzapine 10 mg 10/24/17 09:00 11/07/17 09:47 Zyprexa - PO 10 mg BID@0900,2100 HEATHER Administration Ondansetron HCl 4 mg 10/05/17 18:02 Zofran Injection IVPUSH Q6H PRN NAUSEA AND/OR VOMITING Promethazine HCl 12.5 mg 10/05/17 18:02 Phenergan Injection - IVPUSH Q6H PRN NAUSEA-FOR RESCUE AFTER 15 MIN Tamsulosin HCl 0.4 mg 10/18/17 18:00 11/07/17 09:48 Flomax - PO 0.4 mg BID@0830,1800 HEATHER Administration ASSESSMENT AND PLAN: 76yo M with PMH dementia and OA found wandering around [facility] -Acute toxic metabolic encephalopathy vs progressive dementia -New onset atrial fibrillation -Acute blood anemia from hematuria -CL, from obstructive uropathy vs rhabdomyolysis vs rhabdo, s/p TURP 10/05 ( prior suprapubic catheter and mcintyre that were pulled out by the patient) -E. faecalis UTI, s/p 7 days of antibiotics (ceftriaxone then amoxicillin, finished 10/08) -Rhabdomyolysis -Elevated transaminases, ?ETOH history, hepatitis panel neg -VZV contact with aide inhouse Plan: Continue current depakote and zyprexa, taper if more sedated. Decrease prn haldol to 0.5 mg. Interval EKG to monitor QTc. Off limb restraints, still with santos given risk of falls. Intermittent straight cath TID. Cotninue bethanechol and flomax. Hematuria resolved. Rate controlled, High [id number] but with severe dementia and recurrent hematuria, anticoagulation on hold at this time. Leucocytosis likely reactive, resolved, urine cultures noted, but neg urinalysis and no fevers. ID input noted, monitor for now Avoid unnecessary blood work or urine studies unless clinical concerns. DVTPPX with heparin Will need half-way placement in geriatric facility once able to remove restraints x 24 hours. Discuss with CM if patient able to be accepted to geripsych facility or dementia unit with santos as is more for fall risk than agitation.
[2017-11-07] MEDS ORDERED: INSULIN (NOVOLOG) ASPART 100 UNITS/ML 10ML VIAL ONE (18:59)
[2017-11-07 21:59] LABS: HEMATOCRIT 29.4 % (35.4-49); HEMOGLOBIN 9.6 GM/dL (11.7-16.9); MCH 28.4 pg (25.7-33.7); MCHC 32.7 g/dl (32.0-35.9); MEAN PLT VOLUME 9.3 fl (7.5-11.1); PLATELET COUNT 288 K/MM3 (134-434); RBC 3.38 M/mm3 (4.00-5.60); RDW 16.4 % (11.9-15.9); WHITE BLOOD COUNT 9.6 K/mm3 (4.0-10.0)
[2017-11-08] MEDS: BETHANECHOL CHLORIDE 10 MG TABLET PO SCH ×3 (05:29→21:01)
[2017-11-08] MEDS: HEPARIN NA (PORCINE) 5,000 UNITS/ML 1ML VIAL SQ SCH ×3 (05:30→21:00)
--- NOTE | 2017-11-08 08:25 | PN ---
<Jessica Hoffman - Last Filed: 11/08/17 08:20> Physical Exam: SUBJECTIVE: Patient seen and examined. Pt had some hematuria after straight cath last evening. Pt remains confused and comfortable/pleasant. Pt denies chest pain, sob, abdominal pain, fever, chills. OBJECTIVE: Vital Signs Period Temp Pulse Resp BP Sys/Mackey Pulse Ox Last 24 Hr 97.8 F-98.8 F 52-82 18-18 99-133/55-75 97-98 GENERAL: AAOx1, to self, NAD. LUNGS: Breath sounds equal, clear to anterior auscultation bilaterally, no wheezes, no crackles, no accessory muscle use. HEART: Regular rate and rhythm, S1, S2, no murmur appreciated. ABDOMEN: Soft, nontender, nondistended. EXTREMITIES: Warm, well-perfused, no edema. SKIN: Warm, dry, normal turgor, no rashes or lesions noted Laboratory Results - last 24 hr 11/07/17 21:30 WBC 9.6 RBC 3.38 L Hgb 9.6 L Hct 29.4 L MCV 87.0 MCH 28.4 MCHC 32.7 RDW 16.4 H Plt Count 288 D MPV 9.3 D Active Medications Generic Name Dose Route Start Last Admin Trade Name Freq PRN Reason Stop Dose Admin Amino Acids 30 ml 10/17/17 17:30 11/07/17 18:28 Prosource No Carb Liquid Pkt PO 30 ml BID@0800,1730 HEATHER Administration Bethanechol Chloride 10 mg 10/18/17 22:00 11/08/17 05:29 Urecholine - PO 10 mg TID HEATHER Administration Divalproex Sodium 250 mg 11/05/17 22:00 11/07/17 21:53 Depakote Sprinkle Caps - PO 250 mg BID HEATHER Administration Haloperidol 0.5 mg 11/06/17 11:56 11/07/17 13:42 Haldol Injection (Fast Acting) - IM 0.5 mg Q4H PRN Administration AGITATION Heparin Sodium (Porcine) 5,000 unit 10/28/17 14:00 11/08/17 05:30 Heparin - SQ 5,000 unit TID HEATHER Administration Multivitamins/Minerals/Vitamin C 1 tab 10/18/17 10:00 11/07/17 09:47 Tab-A-Vit - PO 1 tab DAILY HEATHER Administration Nystatin/Triamcinolone Acetonide 1 applic 10/23/17 22:00 11/07/17 22:00 Mycolog Ii Ointment - TP 1 applic BID HEATHER Administration Olanzapine 10 mg 10/24/17 09:00 11/07/17 21:53 Zyprexa - PO 10 mg BID@0900,2100 HEATHER Administration Ondansetron HCl 4 mg 10/05/17 18:02 Zofran Injection IVPUSH Q6H PRN NAUSEA AND/OR VOMITING Promethazine HCl 12.5 mg 10/05/17 18:02 Phenergan Injection - IVPUSH Q6H PRN NAUSEA-FOR RESCUE AFTER 15 MIN Tamsulosin HCl 0.4 mg 10/18/17 18:00 11/07/17 18:28 Flomax - PO 0.4 mg BID@0830,1800 HEATHER Administration ASSESSMENT/PLAN: 76yo M with PMH dementia, PVD, arthritis, found wandering around [facility] property, admitted for acute toxic metabolic encephalopathy. # Acute toxic metabolic encephalopathy - possibly 2/2 hx of dementia - AAOx1, pt at his baseline, pleasantly confused - continue Zyprexa and Depakote - Haldol prn decreased to 0.5mg, last dose 11/07/17 - Pt remains on santos vest for fall precaution. # recurrent hematuria - resolved now - CBC stable - continue to monitor # CL - likely 2/2 retention vs rhabdomyolysis - resolved - s/p TURP 10/05/17 - continue intermittent straight cath - monitor UOP - continue Flomax and Bethanechol - avoid nephrotoxic agents # new onset afib - paroxysmal, likely induced from stressful event upon presentation - NSR - AC held 2/2 hx of recurrent hematuria # FEN - Fluids: po - Electrolytes: continue to monitor - Nutrition: regular diet # Prophylaxis - DVT ppx with Heparin TID - deconditioning ppx with PT # dispo - DNR/DNI - avoid unnecessary blood work or urine studies unless clinical concerns - family agreeable to SNF placement - pt is medically optimized for discharge - awaiting placement in geriatric dementia unit Visit type - Emergency Visit Emergency Visit: Yes ED Registration Date: 09/17/17 Care time: The patient presented to the Emergency Department on the above date and was hospitalized for further evaluation of their emergent condition. - New Patient This patient is new to me today: No - Critical Care Critical Care patient: No <Kelli De Leon - Last Filed: 11/08/17 14:53> Physical Exam: Patient seen and examined. Agree with above findings and plan of care as documented by resident. H/h stable no further hematuria or urinary retention concerns. Continue straight cath TID. Dispo to NE vs dementia unit when arranged.
[2017-11-08] MEDS: AMINO ACIDS/PROTEIN HYDROLYS 30 ML LIQUID.PKT PO SCH ×2 (08:40→17:32)
[2017-11-08] MEDS: TAMSULOSIN HCL 0.4 MG CAP.ER.24H (FP) PO SCH ×2 (08:40→17:32)
[2017-11-08] MEDS ORDERED: PT OWN MED DRAWER 7, Y5N ONE ×2 (09:53→14:08)
[2017-11-08] MEDS: NYSTATIN/TRIAMCINOLONE TOPICAL OINTMENT 15 GM TUBE TP SCH ×2 (09:57→21:01)
[2017-11-08] MEDS: DIVALPROEX SODIUM 125 MG SPRINKLE CAPS PO SCH ×2 (09:57→21:01)
[2017-11-08] MEDS: OLANZapine 10 MG TABLET PO SCH ×2 (09:57→21:01)
[2017-11-08] MEDS: MULTIVITAMINS (DAILY MVI) TABLET (FP) PO SCH (09:57)
[2017-11-09] MEDS: HEPARIN NA (PORCINE) 5,000 UNITS/ML 1ML VIAL SQ SCH ×3 (05:04→22:49)
[2017-11-09] MEDS: BETHANECHOL CHLORIDE 10 MG TABLET PO SCH ×3 (05:04→22:50)
[2017-11-09] MEDS ORDERED: INSULIN (NOVOLOG MIX 70/30) 100 UNITS/ML MDV SQ ONE (06:46)
[2017-11-09] MEDS ORDERED: PT OWN MED DRAWER 7, Y5N ONE ×2 (09:39→22:37)
[2017-11-09] MEDS: NYSTATIN/TRIAMCINOLONE TOPICAL OINTMENT 15 GM TUBE TP SCH ×2 (09:42→22:50)
[2017-11-09] MEDS: DIVALPROEX SODIUM 125 MG SPRINKLE CAPS PO SCH ×2 (09:42→22:49)
[2017-11-09] MEDS: TAMSULOSIN HCL 0.4 MG CAP.ER.24H (FP) PO SCH ×2 (09:42→17:40)
[2017-11-09] MEDS: MULTIVITAMINS (DAILY MVI) TABLET (FP) PO SCH (09:42)
[2017-11-09] MEDS: OLANZapine 10 MG TABLET PO SCH ×2 (09:42→22:50)
[2017-11-09] MEDS: AMINO ACIDS/PROTEIN HYDROLYS 30 ML LIQUID.PKT PO SCH ×2 (09:42→17:40)
--- NOTE | 2017-11-09 16:38 | PN ---
<HoffmanArgeliaJessica - Last Filed: 11/09/17 16:34> Physical Exam: SUBJECTIVE: Patient seen and examined. Pt remains confused and comfortable/ pleasant. Pt denies chest pain, sob, abdominal pain, fever, chills. OBJECTIVE: Vital Signs Period Temp Pulse Resp BP Sys/Mackey Pulse Ox Last 24 Hr 97.7 F-98.9 F 61-68 18-18 115-142/45-69 GENERAL: AAOx1, to self, NAD. LUNGS: Breath sounds equal, clear to anterior auscultation bilaterally, no wheezes, no crackles, no accessory muscle use. HEART: Regular rate and rhythm, S1, S2, no murmur appreciated. ABDOMEN: Soft, nontender, nondistended. EXTREMITIES: Warm, well-perfused, no edema. SKIN: Warm, dry, normal turgor, no rashes or lesions noted Active Medications Generic Name Dose Route Start Last Admin Trade Name Freq PRN Reason Stop Dose Admin Amino Acids 30 ml 10/17/17 17:30 11/09/17 09:42 Prosource No Carb Liquid Pkt PO 30 ml BID@0800,1730 HEATHER Administration Bethanechol Chloride 10 mg 10/18/17 22:00 11/09/17 13:59 Urecholine - PO 10 mg TID HEATHER Administration Divalproex Sodium 250 mg 11/05/17 22:00 11/09/17 09:42 Depakote Sprinkle Caps - PO 250 mg BID HEATHER Administration Haloperidol 0.5 mg 11/06/17 11:56 11/07/17 13:42 Haldol Injection (Fast Acting) - IM 0.5 mg Q4H PRN Administration AGITATION Heparin Sodium (Porcine) 5,000 unit 10/28/17 14:00 11/09/17 13:59 Heparin - SQ 5,000 unit TID HEATHER Administration Multivitamins/Minerals/Vitamin C 1 tab 10/18/17 10:00 11/09/17 09:42 Tab-A-Vit - PO 1 tab DAILY HEATHER Administration Nystatin/Triamcinolone Acetonide 1 applic 10/23/17 22:00 11/09/17 09:42 Mycolog Ii Ointment - TP 1 applic BID HEATHER Administration Olanzapine 10 mg 10/24/17 09:00 11/09/17 09:42 Zyprexa - PO 10 mg BID@0900,2100 [facility] Administration Tamsulosin HCl 0.4 mg 10/18/17 18:00 11/09/17 09:42 Flomax - PO 0.4 mg BID@0830,1800 [facility] Administration ASSESSMENT/PLAN: 76yo M with PMH dementia, PVD, arthritis, found wandering around [facility] property, admitted for acute toxic metabolic encephalopathy. # Acute toxic metabolic encephalopathy - possibly 2/2 hx of dementia - AAOx1, pt at his baseline, pleasantly confused - continue Zyprexa and Depakote - Haldol prn decreased to 0.5mg, last dose 11/07/17 - Pt remains on santos vest for fall precaution. # recurrent hematuria - resolved now - CBC stable - continue to monitor # CL - likely 2/2 retention vs rhabdomyolysis - resolved - s/p TURP 10/05/17 - pt does urinate on his own occasionally, not consistently, continue intermittent straight cath - monitor UOP - continue Flomax and Bethanechol - avoid nephrotoxic agents # new onset afib - paroxysmal, likely induced from stressful event upon presentation - NSR - AC held 2/2 hx of recurrent hematuria # FEN - Fluids: po - Electrolytes: wnl - Nutrition: regular diet # Prophylaxis - DVT ppx with Heparin TID - deconditioning ppx with PT # dispo - DNR/DNI - avoid unnecessary blood work or urine studies unless clinical concerns - family agreeable to SNF placement - pt is medically optimized for discharge - awaiting placement in geriatric dementia unit Visit type - Emergency Visit Emergency Visit: Yes ED Registration Date: 09/17/17 Care time: The patient presented to the Emergency Department on the above date and was hospitalized for further evaluation of their emergent condition. - New Patient This patient is new to me today: No - Critical Care Critical Care patient: No <HaleyJesse tripletternestoisael - Last Filed: 11/09/17 18:01> Physical Exam: patient seen and examined. Agree with findings and plan of care with resident with exceptions mentioned below. Continue current care. Dispo to SNF vs dementia unit when bed available.
[2017-11-10] MEDS: HEPARIN NA (PORCINE) 5,000 UNITS/ML 1ML VIAL SQ SCH ×3 (07:21→22:20)
[2017-11-10] MEDS: BETHANECHOL CHLORIDE 10 MG TABLET PO SCH ×3 (07:22→22:17)
[2017-11-10] MEDS: AMINO ACIDS/PROTEIN HYDROLYS 30 ML LIQUID.PKT PO SCH ×2 (08:30→17:52)
[2017-11-10] MEDS: TAMSULOSIN HCL 0.4 MG CAP.ER.24H (FP) PO SCH ×2 (08:30→17:52)
[2017-11-10] MEDS ORDERED: PT OWN MED DRAWER 7, Y5N ONE ×3 (08:46→22:11)
[2017-11-10] MEDS: OLANZapine 10 MG TABLET PO SCH ×2 (08:56→22:17)
[2017-11-10] MEDS: DIVALPROEX SODIUM 125 MG SPRINKLE CAPS PO SCH ×2 (09:01→22:17)
[2017-11-10] MEDS: NYSTATIN/TRIAMCINOLONE TOPICAL OINTMENT 15 GM TUBE TP SCH ×2 (09:01→22:21)
[2017-11-10] MEDS: MULTIVITAMINS (DAILY MVI) TABLET (FP) PO SCH (09:01)
--- NOTE | 2017-11-10 12:30 | PN ---
Teaching Attending Note Name of Resident: Kelli De Leon Time of evaluation: 8:30 AM SUBJECTIVE: Patient seen and examined, sleeping but arousable, comfortable, unable to assess for ROS. OBJECTIVE: Vital Signs Period Temp Pulse Resp BP Sys/Mackey Pulse Ox Last 24 Hr 97.6 F-98.9 F 52-67 18-18 113-128/63-69 96-97 Intake & Output 11/07/17 11/08/17 11/09/17 11/10/17 23:59 23:59 23:59 23:59 Intake Total 1350 1080 1240 Output Total 4000 1800 1900 1200 Balance -2650 -720 -660 -1200 Weight 129 lb 9.6 oz general: sleeping comfortably, arousable CVS;S1S2 regular Chest; poor effort, no rales or wheezing abdomen: soft, NT, no suprapubic tenderness or fullness extremities: no edema Home Medication List Medication Instructions Recorded Confirmed Type Donepezil HCl 10 mg PO DAILY 09/21/17 09/21/17 History Nabumetone 750 mg PO BID PRN 09/21/17 09/21/17 History Active Medications Generic Name Dose Route Start Last Admin Trade Name Freq PRN Reason Stop Dose Admin Amino Acids 30 ml 10/17/17 17:30 11/10/17 08:30 Prosource No Carb Liquid Pkt PO 30 ml BID@0800,1730 HEATHER Administration Bethanechol Chloride 10 mg 10/18/17 22:00 11/10/17 07:22 Urecholine - PO 10 mg TID HEATHER Administration Divalproex Sodium 250 mg 11/05/17 22:00 11/10/17 09:01 Depakote Sprinkle Caps - PO 250 mg BID HEATHER Administration Haloperidol 0.5 mg 11/06/17 11:56 11/07/17 13:42 Haldol Injection (Fast Acting) - IM 0.5 mg Q4H PRN Administration AGITATION Heparin Sodium (Porcine) 5,000 unit 10/28/17 14:00 11/10/17 07:21 Heparin - SQ 5,000 unit TID HEATHER Administration Multivitamins/Minerals/Vitamin C 1 tab 10/18/17 10:00 11/10/17 09:01 Tab-A-Vit - PO 1 tab DAILY HEATHER Administration Nystatin/Triamcinolone Acetonide 1 applic 10/23/17 22:00 11/10/17 09:01 Mycolog Ii Ointment - TP 1 applic BID HEATHER Administration Olanzapine 10 mg 10/24/17 09:00 11/10/17 08:56 Zyprexa - PO 10 mg BID@0900,2100 HEATHER Administration Tamsulosin HCl 0.4 mg 10/18/17 18:00 11/10/17 08:30 Flomax - PO 0.4 mg BID@0830,1800 HEATHER Administration ASSESSMENT AND PLAN: 76yo M with PMH dementia and OA found wandering around [facility] -Acute toxic metabolic encephalopathy vs progressive dementia -New onset atrial fibrillation -Acute blood anemia from hematuria -CL, from obstructive uropathy vs rhabdomyolysis vs rhabdo, s/p TURP 10/05 ( prior suprapubic catheter and mcintyre that were pulled out by the patient) -E. faecalis UTI, s/p 7 days of antibiotics (ceftriaxone then amoxicillin, finished 10/08) -Rhabdomyolysis -Elevated transaminases, ?ETOH history, hepatitis panel neg -VZV contact with aide inhouse Plan: Continue current depakote and zyprexa, taper if more sedated. Prn haldol 0.5 mg, only if needed. Interval EKG to monitor QTc. Off limb restraints, still with santos given risk of falls. Intermittent straight cath TID. Cotninue bethanechol and flomax. Hematuria resolved. Rate controlled, High [id number] but with severe dementia and recurrent hematuria, anticoagulation on hold at this time. Leucocytosis likely reactive, resolved, urine cultures noted, but neg urinalysis and no fevers. ID input noted, monitor for now Avoid unnecessary blood work or urine studies unless clinical concerns. DVTPPX with heparin Code status: discussed with next of kin, made DNR/DNI. Will need termite exterminator helper placement in geriatric facility once able to remove restraints x 24 hours. Discuss with CM if patient able to be accepted to geripsych facility or dementia unit with santos as is more for fall risk than agitation.
[2017-11-11] MEDS ORDERED: PT OWN MED DRAWER 7, Y5N ONE ×6 (04:59→21:39)
[2017-11-11] MEDS: HEPARIN NA (PORCINE) 5,000 UNITS/ML 1ML VIAL SQ SCH ×3 (06:29→22:55)
[2017-11-11] MEDS: BETHANECHOL CHLORIDE 10 MG TABLET PO SCH ×3 (06:29→22:52)
[2017-11-11] MEDS: TAMSULOSIN HCL 0.4 MG CAP.ER.24H (FP) PO SCH ×2 (07:57→17:03)
[2017-11-11] MEDS: AMINO ACIDS/PROTEIN HYDROLYS 30 ML LIQUID.PKT PO SCH ×2 (07:58→17:03)
[2017-11-11] MEDS: MULTIVITAMINS (DAILY MVI) TABLET (FP) PO SCH (09:33)
[2017-11-11] MEDS: NYSTATIN/TRIAMCINOLONE TOPICAL OINTMENT 15 GM TUBE TP SCH ×2 (09:34→22:52)
[2017-11-11] MEDS: DIVALPROEX SODIUM 125 MG SPRINKLE CAPS PO SCH ×2 (09:34→22:51)
[2017-11-11] MEDS: OLANZapine 10 MG TABLET PO SCH ×2 (09:34→22:51)
--- NOTE | 2017-11-11 14:50 | PN ---
Teaching Attending Note Name of Resident: Kelli De Leon SUBJECTIVE: Patient seen and examined, confused, oriented to self only, unable to do meaningful ROS. OBJECTIVE: Vital Signs Period Temp Pulse Resp BP Sys/Mackey Pulse Ox Last 24 Hr 97.7 F-98.3 F 67-83 18-20 105-130/60-81 96-97 Intake & Output 11/08/17 11/09/17 11/10/17 11/11/17 23:59 23:59 23:59 23:59 Intake Total 1080 1240 100 100 Output Total 1800 1900 3200 1999 Balance -720 660 -3100 -1900 Weight 129 lb 9.6 oz General: no acute distress, restless in bed Chest: poor effort, no rales or wheezing Abdomen: soft, NT, ND Extremities: no edema Home Medication List Medication Instructions Recorded Confirmed Type Donepezil HCl 10 mg PO DAILY 09/21/17 09/21/17 History Nabumetone 750 mg PO BID PRN 09/21/17 09/21/17 History Active Medications Generic Name Dose Route Start Last Admin Trade Name Freq PRN Reason Stop Dose Admin Amino Acids 30 ml 10/17/17 17:30 11/11/17 07:58 Prosource No Carb Liquid Pkt PO 30 ml BID@0800,1730 HEATHER Administration Bethanechol Chloride 10 mg 10/18/17 22:00 11/11/17 13:57 Urecholine - PO 10 mg TID HEATHER Administration Divalproex Sodium 250 mg 11/05/17 22:00 11/11/17 09:34 Depakote Sprinkle Caps - PO 250 mg BID HEATHER Administration Haloperidol 0.5 mg 11/06/17 11:56 11/07/17 13:42 Haldol Injection (Fast Acting) - IM 0.5 mg Q4H PRN Administration AGITATION Heparin Sodium (Porcine) 5,000 unit 10/28/17 14:00 11/11/17 13:57 Heparin - SQ 5,000 unit TID HEATHRE Administration Multivitamins/Minerals/Vitamin C 1 tab 10/18/17 10:00 11/11/17 09:33 Tab-A-Vit - PO 1 tab DAILY HEATHER Administration Nystatin/Triamcinolone Acetonide 1 applic 10/23/17 22:00 11/11/17 09:34 Mycolog Ii Ointment - TP 1 applic BID HEATHER Administration Olanzapine 10 mg 10/24/17 09:00 11/11/17 09:34 Zyprexa - PO 10 mg BID@0900,2100 HEATHER Administration Tamsulosin HCl 0.4 mg 10/18/17 18:00 11/11/17 07:57 Flomax - PO 0.4 mg BID@0830,1800 HEATHER Administration ASSESSMENT AND PLAN: 76yo M with PMH dementia and OA found wandering around [facility] -Acute toxic metabolic encephalopathy vs progressive dementia -New onset atrial fibrillation -Acute blood anemia from hematuria -CL, from obstructive uropathy vs rhabdomyolysis vs rhabdo, s/p TURP 10/05 ( prior suprapubic catheter and mcintyre that were pulled out by the patient) -E. faecalis UTI, s/p 7 days of antibiotics (ceftriaxone then amoxicillin, finished 10/08) -Rhabdomyolysis -Elevated transaminases, ?ETOH history, hepatitis panel neg -VZV contact with aide inhouse Plan: Continue current depakote and zyprexa, taper if more sedated. Prn haldol 0.5 mg, only if needed. Interval EKG to monitor QTc. Off limb restraints, still with santos given risk of falls. Intermittent straight cath TID. Cotninue bethanechol and flomax. Hematuria resolved. Rate controlled, High [id number] but with severe dementia and recurrent hematuria, anticoagulation on hold at this time. Leucocytosis likely reactive, resolved, urine cultures noted, but neg urinalysis and no fevers. ID input noted, monitor for now Avoid unnecessary blood work or urine studies unless clinical concerns. DVTPPX with heparin Code status: discussed with next of kin, made DNR/DNI. Will need alf placement in geriatric facility once able to remove restraints x 24 hours. Discuss with CM if patient able to be accepted to geripsych facility or dementia unit with santos as is more for fall risk than agitation.
[2017-11-12] MEDS: BETHANECHOL CHLORIDE 10 MG TABLET PO SCH ×3 (06:14→22:30)
[2017-11-12] MEDS: HEPARIN NA (PORCINE) 5,000 UNITS/ML 1ML VIAL SQ SCH ×3 (06:14→22:29)
[2017-11-12] MEDS ORDERED: PT OWN MED DRAWER 7, Y5N ONE ×3 (09:27→22:18)
[2017-11-12] MEDS: DIVALPROEX SODIUM 125 MG SPRINKLE CAPS PO SCH ×2 (09:28→22:30)
[2017-11-12] MEDS: OLANZapine 10 MG TABLET PO SCH ×2 (09:28→22:30)
[2017-11-12] MEDS: AMINO ACIDS/PROTEIN HYDROLYS 30 ML LIQUID.PKT PO SCH ×2 (09:28→17:41)
[2017-11-12] MEDS: MULTIVITAMINS (DAILY MVI) TABLET (FP) PO SCH (09:28)
[2017-11-12] MEDS: TAMSULOSIN HCL 0.4 MG CAP.ER.24H (FP) PO SCH ×2 (09:29→17:41)
[2017-11-12] MEDS: NYSTATIN/TRIAMCINOLONE TOPICAL OINTMENT 15 GM TUBE TP SCH ×2 (11:07→22:31)
--- NOTE | 2017-11-12 13:02 | PN ---
Teaching Attending Note Name of Resident: Kelli De Leon SUBJECTIVE: Patient seen and examined. oriented to self, no complaints. OBJECTIVE: Vital Signs Period Temp Pulse Resp BP Sys/Mackey Pulse Ox Last 24 Hr 97.3 F-99.6 F 63-84 18-20 98-129/52-93 97 Intake & Output 11/09/17 11/10/17 11/11/17 11/12/17 23:59 23:59 23:59 23:59 Intake Total 1240 100 340 620 Output Total 1900 3200 2350 1150 Balance -660 -3100 -2010 -530 Weight 129 lb 9.6 oz General: sleeping comfortably, arousable and responsive Chest: no rales or wheezing abdomen: soft, NT, ND, positive bowel sounds extremities: no edema Home Medication List Medication Instructions Recorded Confirmed Type Donepezil HCl 10 mg PO DAILY 09/21/17 09/21/17 History Nabumetone 750 mg PO BID PRN 09/21/17 09/21/17 History Active Medications Generic Name Dose Route Start Last Admin Trade Name Samq PRN Reason Stop Dose Admin Amino Acids 30 ml 10/17/17 17:30 11/12/17 09:28 Prosource No Carb Liquid Pkt PO 30 ml BID@0800,1730 HEATHER Administration Bethanechol Chloride 10 mg 10/18/17 22:00 11/12/17 06:14 Urecholine - PO 10 mg TID HEATHER Administration Divalproex Sodium 250 mg 11/05/17 22:00 11/12/17 09:28 Depakote Sprinkle Caps - PO 250 mg BID HEATHER Administration Haloperidol 0.5 mg 11/06/17 11:56 11/07/17 13:42 Haldol Injection (Fast Acting) - IM 0.5 mg Q4H PRN Administration AGITATION Heparin Sodium (Porcine) 5,000 unit 10/28/17 14:00 11/12/17 06:14 Heparin - SQ 5,000 unit TID HEATHER Administration Multivitamins/Minerals/Vitamin C 1 tab 10/18/17 10:00 11/12/17 09:28 Tab-A-Vit - PO 1 tab DAILY HEATHER Administration Nystatin/Triamcinolone Acetonide 1 applic 10/23/17 22:00 11/12/17 11:07 Mycolog Ii Ointment - TP 1 applic BID HEATHER Administration Olanzapine 10 mg 10/24/17 09:00 11/12/17 09:28 Zyprexa - PO 10 mg BID@0900,2100 HEATHER Administration Tamsulosin HCl 0.4 mg 10/18/17 18:00 11/12/17 09:29 Flomax - PO 0.4 mg BID@0830,1800 HEATHER Administration Microbiology 10/14/17 13:00 Blood - Peripheral Venous Blood Culture - Final NO GROWTH AFTER 5 DAYS INCUBATION 10/14/17 12:35 Blood - Peripheral Venous Blood Culture - Final NO GROWTH AFTER 5 DAYS INCUBATION 10/14/17 14:50 Urine - Urine Mcintyre Urine Culture - Final Staphylococcus Aureus Staphylococcus Epidermidis 09/27/17 19:30 Urine - Urine Mcintyre Urine Culture - Final Enterococcus Faecalis 09/17/17 15:30 Blood - Peripheral Venous Blood Culture - Final NO GROWTH AFTER 5 DAYS INCUBATION 09/17/17 15:30 Blood - Peripheral Venous Blood Culture - Final NO GROWTH AFTER 5 DAYS INCUBATION 09/20/17 18:30 Urine - Urine Suprapubic Urine Culture - Final NO GROWTH OBTAINED 09/17/17 15:45 Urine - Urine Clean Catch Urine Culture - Final NO GROWTH OBTAINED ASSESSMENT AND PLAN: 76yo M with PMH dementia and OA found wandering around [facility] -Acute toxic metabolic encephalopathy vs progressive dementia -New onset atrial fibrillation -Acute blood anemia from hematuria -CL, from obstructive uropathy vs rhabdomyolysis vs rhabdo, s/p TURP 10/05 ( prior suprapubic catheter and mcintyre that were pulled out by the patient) -E. faecalis UTI, s/p 7 days of antibiotics (ceftriaxone then amoxicillin, finished 10/08) -Rhabdomyolysis -Elevated transaminases, ?ETOH history, hepatitis panel neg -VZV contact with aide inhouse Plan: Continue current depakote and zyprexa, taper if more sedated. Prn haldol 0.5 mg, only if needed. Interval EKG to monitor QTc. Off limb restraints, still with santos given risk of falls. Intermittent straight cath TID. Cotninue bethanechol and flomax. Hematuria resolved. Rate controlled, High [id number] but with severe dementia and recurrent hematuria, anticoagulation on hold at this time. Leucocytosis likely reactive, resolved, urine cultures noted, but neg urinalysis and no fevers. ID input noted, monitor for now Avoid unnecessary blood work or urine studies unless clinical concerns. DVTPPX with heparin Code status: discussed with next of kin, made DNR/DNI. Will need dedicated intermodal truck driver placement in geriatric facility once able to remove restraints x 24 hours. Discuss with CM if patient able to be accepted to geripsych facility or dementia unit with santos as is more for fall risk than agitation.
[2017-11-12] MEDS: HALOPERIDOL LACTATE 5 MG/ML IM PRN (22:32)
[2017-11-13] MEDS: HEPARIN NA (PORCINE) 5,000 UNITS/ML 1ML VIAL SQ SCH ×3 (06:31→14:34)
[2017-11-13] MEDS: BETHANECHOL CHLORIDE 10 MG TABLET PO SCH ×2 (06:31→13:58)
--- NOTE | 2017-11-13 09:06 | PN ---
Physical Exam: SUBJECTIVE: Patient seen and examined. Pt remains confused and comfortable/ pleasant. Pt denies chest pain, sob, abdominal pain, fever, chills. Haldol given at 10:30pm last night. No events overnight. OBJECTIVE: Vital Signs Period Temp Pulse Resp BP Sys/Mackey Pulse Ox Last 24 Hr 97.3 F-98.9 F 59-75 20-20 112-139/64-93 99 GENERAL: AAOx1, to self, NAD. LUNGS: Breath sounds equal, clear to anterior auscultation bilaterally, no wheezes, no crackles, no accessory muscle use. HEART: Regular rate and rhythm, S1, S2, no murmur appreciated. ABDOMEN: Soft, nontender, nondistended. EXTREMITIES: Warm, well-perfused, no edema. SKIN: Warm, dry, normal turgor, no rashes or lesions noted Active Medications Generic Name Dose Route Start Last Admin Trade Name Freq PRN Reason Stop Dose Admin Amino Acids 30 ml 10/17/17 17:30 11/12/17 17:41 Prosource No Carb Liquid Pkt PO 30 ml BID@0800,1730 HEATHER Administration Bethanechol Chloride 10 mg 10/18/17 22:00 11/13/17 06:31 Urecholine - PO 10 mg TID HEATHER Administration Divalproex Sodium 250 mg 11/05/17 22:00 11/12/17 22:30 Depakote Sprinkle Caps - PO 250 mg BID HEATHER Administration Haloperidol 0.5 mg 11/06/17 11:56 11/12/17 22:32 Haldol Injection (Fast Acting) - IM 0.5 mg Q4H PRN Administration AGITATION Heparin Sodium (Porcine) 5,000 unit 10/28/17 14:00 11/13/17 06:31 Heparin - SQ 5,000 unit TID HEATHER Administration Multivitamins/Minerals/Vitamin C 1 tab 10/18/17 10:00 11/12/17 09:28 Tab-A-Vit - PO 1 tab DAILY HEATHER Administration Nystatin/Triamcinolone Acetonide 1 applic 10/23/17 22:00 11/12/17 22:31 Mycolog Ii Ointment - TP 1 applic BID HEATHER Administration Olanzapine 10 mg 10/24/17 09:00 11/12/17 22:30 Zyprexa - PO 10 mg BID@0900,2100 HEATHER Administration Tamsulosin HCl 0.4 mg 10/18/17 18:00 11/12/17 17:41 Flomax - PO 0.4 mg BID@0830,1800 [facility] Administration ASSESSMENT/PLAN: 76yo M with PMH dementia, PVD, arthritis, found wandering around [facility] property, admitted for acute toxic metabolic encephalopathy. # Acute toxic metabolic encephalopathy - possibly 2/2 hx of dementia - AAOx1, pt at his baseline, pleasantly confused - continue Zyprexa and Depakote - Haldol prn decreased to 0.5mg, last dose 11/12/17 - Pt remains on santos vest for fall precaution. # recurrent hematuria - resolved now - CBC stable # CL - likely 2/2 retention vs rhabdomyolysis - resolved - s/p TURP 10/05/17 - pt does urinate on his own occasionally, not consistently, continue intermittent straight cath - monitor UOP - continue Flomax and Bethanechol - avoid nephrotoxic agents # new onset afib - paroxysmal, likely induced from stressful event upon presentation - NSR - AC held 2/2 hx of recurrent hematuria # FEN - Fluids: po - Electrolytes: wnl - Nutrition: regular diet # Prophylaxis - DVT ppx with Heparin TID - deconditioning ppx with PT # dispo - DNR/DNI - avoid unnecessary blood work or urine studies unless clinical concerns - family agreeable to SNF placement - pt is medically optimized for discharge - awaiting placement in geriatric dementia unit Visit type - Emergency Visit Emergency Visit: Yes ED Registration Date: 09/17/17 Care time: The patient presented to the Emergency Department on the above date and was hospitalized for further evaluation of their emergent condition. - New Patient This patient is new to me today: No - Critical Care Critical Care patient: No
[2017-11-13] MEDS ORDERED: PT OWN MED DRAWER 7, Y5N ONE ×2 (10:40→14:30)
[2017-11-13] MEDS: DIVALPROEX SODIUM 125 MG SPRINKLE CAPS PO SCH (10:46)
[2017-11-13] MEDS: TAMSULOSIN HCL 0.4 MG CAP.ER.24H (FP) PO SCH ×2 (10:46→18:09)
[2017-11-13] MEDS: OLANZapine 10 MG TABLET PO SCH (10:46)
[2017-11-13] MEDS: AMINO ACIDS/PROTEIN HYDROLYS 30 ML LIQUID.PKT PO SCH ×2 (10:46→18:09)
[2017-11-13] MEDS: MULTIVITAMINS (DAILY MVI) TABLET (FP) PO SCH (10:46)
--- NOTE | 2017-11-13 13:14 | PN ---
Teaching Attending Note Name of Resident: Jessica Hoffman ATTENDING PHYSICIAN STATEMENT I saw and evaluated the patient. I reviewed the resident's note and discussed the case with the resident. I agree with the resident's findings and plan as documented. SUBJECTIVE:sleepy this AM but arrousable to verbal stimuli. dneies Cp and SOB OBJECTIVE: Last Vital Signs Temp Pulse Resp BP Pulse Ox 97.1 F L 73 18 123/68 99 11/13/17 09:00 11/13/17 09:00 11/13/17 09:00 11/13/17 09:00 11/12/17 21:00 General NAD, pleasantly confused ASSESSMENT AND PLAN: 76yo M with PMH dementia and OA found wandering around [facility] 1. Acute toxic metabolic encephalopathy-alert. pleasantly confused and at baseline per SW. no haldol x24H. on depakote 250mg BID. has been off 2 point restraint for some time. on santos vest for fall precautions only. On zyprexa. Psych and neuro on board 2. Elevated transaminases- suggestive of hx of ETOH. hepatitis panel negative. resolved 3. afib-new onset. paroxysmal. likely induced from stressful event on presentation. has remained in NSR. High [id number]. however given severe dementia and recurrent hematuria will hold anticoagulation at this time. 4. CL with urinary retention- likely obstructive uropathy vs rhabdo. s/p TURP . resolved. continue straight cath twice a day. on bethanechol and folmax. avoid nephrotoxic agents. urology on board 5. Hematuria- resolved. HGb stable. 6. E. Faecalis UTI-completed abx course. repeat UA is + with +UCx however leukocytosis resolved without treatment. no fevers. mental status remains stable. will hold treatment at this time. ID on board. 7. Rhabdo-resolved 8. Leukocytosis-likely reactive. improved 9. DVT ppx- hep sq 10. Awaiting placement in geriatric, dementia unit. have been unable to place due to santos vest which is only for fall risks. medically optimized for discharge 11. DNR/DNI
[2017-11-13] MEDS: NYSTATIN/TRIAMCINOLONE TOPICAL OINTMENT 15 GM TUBE TP SCH (13:59)
[2017-11-13 18:13] VITALS: BP 118/56; PULSE 75; TEMP 98
--- NOTE | 2017-11-13 18:19 | DS ---
Physical Exam: SUBJECTIVE: Patient seen and examined. Pt remains confused and comfortable/ pleasant. Pt denies chest pain, sob, abdominal pain, fever, chills. OBJECTIVE: Vital Signs Period Temp Pulse Resp BP Sys/Mackey Pulse Ox Last 24 Hr 97.1 F-98.9 F 59-75 18-20 118-139/56-93 97-99 PHYSICAL EXAM GENERAL: AAOx1, to self, NAD. LUNGS: Breath sounds equal, clear to anterior auscultation bilaterally, no wheezes, no crackles, no accessory muscle use. HEART: Regular rate and rhythm, S1, S2, no murmur appreciated. ABDOMEN: Soft, nontender, nondistended. EXTREMITIES: Warm, well-perfused, no edema. SKIN: Warm, dry, normal turgor, no rashes or lesions noted HOSPITAL COURSE: Date of Admission:09/17/17 Date of Discharge: 11/13/17 76yo M with PMH dementia, PVD, arthritis, found wandering around [facility] property, admitted for acute toxic metabolic encephalopathy. Pt is stable on Zyprexa and Depakote with occasional doses of Haldol for agitation. Pt required restraints earlier during this hospitalization for protection from self-harm, but now only wears a santos vest for fall precaution. Pt had recurrent hematuria, which is now resolved. Pt is s/p TURP on 10/05/[address] Mcgraw. Pt does urinated on his own occasionally but not consistently, and does require intermittent straight cath. Pt had new onset afib, which has been stable in NSR. Anticoagulation held 2/2 hx of recurrent hematuria. Pt is DNR/DNI. 09/17/17 CXR -> no acute chest pathology 09/17/[address] -> no acute intracranial pathology 09/19/17 Ab xray -> air-filled nondilated small bowel loops likely on the basis of ileus 09/20/17 Bladder/Renal US -> urinary retention. Prostate enlargement. Minimal nilay hydronephrosis. Equivocal 3cm Left renal lower pole soft tissue mass lesion vs artifact; correlation with f/u US vs additional eval with CT (with and without contrast) suggested. 09/20/17 Bladder Irrigation -> US guided suprapubic cath placed in bladder 10/14/17 CXR -> no acute pathology Microbiology 10/14/17 13:00 Blood - Peripheral Venous Blood Culture - Final NO GROWTH AFTER 5 DAYS INCUBATION 10/14/17 12:35 Blood - Peripheral Venous Blood Culture - Final NO GROWTH AFTER 5 DAYS INCUBATION 10/14/17 14:50 Urine - Urine Mcintyre Urine Culture - Final Staphylococcus Aureus Staphylococcus Epidermidis 09/27/17 19:30 Urine - Urine Mcintyre Urine Culture - Final Enterococcus Faecalis 09/17/17 15:30 Blood - Peripheral Venous Blood Culture - Final NO GROWTH AFTER 5 DAYS INCUBATION 09/17/17 15:30 Blood - Peripheral Venous Blood Culture - Final NO GROWTH AFTER 5 DAYS INCUBATION 09/20/17 18:30 Urine - Urine Suprapubic Urine Culture - Final NO GROWTH OBTAINED 09/17/17 15:45 Urine - Urine Clean Catch Urine Culture - Final NO GROWTH OBTAINED Pt stable for discharge to SNF. Minutes to complete discharge: 38 Discharge Summary Reason For Visit: ALTERED MENTAL STATUS Current Active Problems Acute metabolic encephalopathy (Acute) Altered mental state (Acute) BPH (benign prostatic hyperplasia) (Acute) Benign localized hyperplasia of prostate with urinary retention (Acute) Dementia (Acute) Rhabdomyolysis (Acute) S/P TURP (Acute) UTI (urinary tract infection) (Acute) Condition: Improved - Instructions Diet, Activity, Other Instructions: You were treated for acute toxic metabolic encephalopathy and dementia. Continue straight catheter twice a day until re-evaluated by urology. You have several new medications: - Bethanchol (for your urinary retention) 3 times daily - Flomax (for your urinary retention) twice daily - Depakote twice daily - Haldol as needed for agitation - Zyprexa twice daily - Heparin (for DVT prophylaxis) 3 times daily - Please also continue taking a MVI and your protein supplement ProSource twice daily Please continue to eat a Regular diet. Resume physical activity as tolerated. Follow-ups - with a Primary Care Provider at your SNF. - with a Urologist (Dr. Mcgraw) regarding mcintyre maintenance. Please return to the hospital immediately if you experience persistent or increased chest pain, shortness of breath, fever, or for any medical emergency. Referrals: William Lentz MD [Staff Physician] - Disposition: SNF FACILITY - Home Medications Comprehensive Discharge Medication List: Ambulatory Orders Amino Acids/Protein Hydrolys [Prosource No Carb Liquid Pkt] 30 ml PO BID@0800, 1730 #60 packet 11/13/17 Bethanechol Chloride [Bethanechol Chloride -] 10 mg PO TID #90 tablet 11/13/17 Divalproex Sprinkle [Depakote Sprinkle -] 250 mg PO BID #120 cap.sprink Haloperidol Injection [Haldol Injection (Fast Acting) -] 0.5 mg IM Q4H PRN #10 ml 11/13/17 Multivitamins [Multivit ([facility] Formulary)] 1 tab PO DAILY #30 tab 11/13/17 Nystatin/Triamcinolone Top Oin [Mycolog II -] 1 applic TP BID #60 applic Olanzapine [ZyPREXA -] 10 mg PO BID@0900,2100 #60 tablet 11/13/17 Tamsulosin HCl [Flomax -] 0.4 mg PO BID@0830,1800 #60 cap.er.24h 11/13/17 This patient is new to me today: No Emergency Visit: Yes ED Registration Date: 09/17/17 Care time: The patient presented to the Emergency Department on the above date and was hospitalized for further evaluation of their emergent condition. Critical Care patient: No - Discharge Referral Referred to [facility] No
== END 2017-11-13 20:25 | DRG 987 ==
LOC: JER 14:31 → JERBED 18:47 → OBSVTOIN 20:30 → J5S 09-18 00:03
PROVIDERS: ADMIT Internal Medicine; ATTEND Internal Medicine
PROC: 0VT08ZZ Resection of Prostate, Via Natural or Artificial Opening Endoscopic (ICD-10-PCS; principal; 2017-10-05 16:00)
PROC: 0T9B30Z Drainage of Bladder with Drainage Device, Percutaneous Approach (ICD-10-PCS; 2017-10-05 16:00)
DX: M62.82 Rhabdomyolysis (principal); G93.41 Metabolic encephalopathy; N17.9 Acute kidney failure, unspecified; J90 Pleural effusion, not elsewhere classified; N39.0 Urinary tract infection, site not specified; D62 Acute posthemorrhagic anemia; F03.90 Unspecified dementia, unspecified severity, without behavioral disturbance, psychotic disturbance, mood disturbance, and anxiety; D72.829 Elevated white blood cell count, unspecified; R31.9 Hematuria, unspecified; R33.9 Retention of urine, unspecified; N40.1 Benign prostatic hyperplasia with lower urinary tract symptoms; R00.1 Bradycardia, unspecified; R74.0 Nonspecific elevation of levels of transaminase and lactic acid dehydrogenase [LDH]; Z75.1 Person awaiting admission to adequate facility elsewhere; I48.0 Paroxysmal atrial fibrillation; N13.9 Obstructive and reflux uropathy, unspecified
CPT/HCPCS: 36415; 51102; 70450-TC; 71010-TC; 71045-TC-FY; 74190-TC; 76775-TC; 76856-TC; 80048; 80053; 80061; 80074; 80307; 81003; 81015; 82140; 82550; 82553; 82607; 82728; 83036; 83540; 83550; 83605; 83690; 83721; 83735; 83874; 84100; 84443; 84484; 85025; 85027; 85610; 86787; 86850; 86900; 86901; 87040; 87086; 87186; 87389; 88305-TC; 93005; 93010; 93306-TC; 94760; 97116-GP; 97161-GP; 99285-25; A4358; C1729; G0378; J1644

== ENCOUNTER 2017-11-17 16:14 | Observation (INO) | payer OTHER ==
--- NOTE | 2017-11-17 17:20 | PDOC ---
History of Present Illness - General Chief Complaint: Injury Stated Complaint: FALL Time Seen by Provider: 11/17/17 16:31 History Source: Patient Exam Limitations: No Limitations - History of Present Illness Initial Comments: 11/17/17 17:10 Patient is a 76M with history of dementia, toxic metabolic encephalopathy with admission from 09/17/17 to 11/13/17 here today complaining from his [facility] today complaining of lethargy. His [facility] reports that he fell two days ago with an unclear etiology. He was sent in today because he was becoming lethargic and less responsive than his baseline. The patient has not acutely complained of anything. His niece Gisselle ([phone]) was contacted to obtain further history. She states she took report from the mcc yesterday saying he had been eating and doing well. Patient is not communicating with staff in the ED. Past History - Past Medical History Allergies/Adverse Reactions: Allergies Allergy/AdvReac Type Severity Reaction Status Date / Time No Known Drug Allergies Allergy Verified 11/17/17 16:18 Home Medications: Ambulatory Orders Amino Acids/Protein Hydrolys [Prosource No Carb Liquid Pkt] 30 ml PO BID@0800, 1730 #60 packet 11/13/17 Bethanechol Chloride [Bethanechol Chloride -] 10 mg PO TID #90 tablet 11/13/17 Divalproex Sprinkle [Depakote Sprinkle -] 250 mg PO BID #120 cap.sprink Haloperidol Injection [Haldol Injection (Fast Acting) -] 0.5 mg IM Q4H PRN #10 ml 11/13/17 Multivitamins [Multivit ([facility] Formulary)] 1 tab PO DAILY #30 tab 11/13/17 Nystatin/Triamcinolone Top Oin [Mycolog II -] 1 applic TP BID #60 applic Olanzapine [ZyPREXA -] 10 mg PO BID@0900,2100 #60 tablet 11/13/17 Tamsulosin HCl [Flomax -] 0.4 mg PO BID@0830,1800 #60 cap.er.24h 11/13/17 COPD: No Disorders: Yes (bph.) Psychiatric Problems: Yes (bipolar. schizophrenia.) - Suicide/Smoking/Psychosocial Hx Smoking History: Never smoked Hx Alcohol Use: No Drug/Substance Use Hx: No Substance Use Type: None Review of Systems - Review of Systems Able to Perform ROS?: No (2/2 clinical condition) *Physical Exam - Vital Signs Last Vital Signs Temp Pulse Resp BP Pulse Ox 62 18 120/54 100 11/17/17 16:23 11/17/17 16:23 11/17/17 16:23 11/17/17 16:23 - Physical Exam Comments: 11/17/17 17:20 GENERAL: Awake, disheveled, refusing to answer, in no acute distress BACK: 2 stage 2 decubitus ulcers HEAD: Ecchymosis over nose and left eye, normocephalic. No beasley sign EYES: PERRLA, EOMI, sclera anicteric, conjunctiva clear ENT: Auricles normal inspection, hearing grossly normal, nares patent, oropharynx clear without exudates. Moist mucosa NECK: Supple, no lymphadenopathy, JVD, or masses LUNGS: No distress, clear to auscultation bilaterally HEART: Regular rate and rhythm, normal S1 and S2, no murmurs, rubs or gallops, peripheral pulses normal and equal bilaterally. ABDOMEN: Soft, nontender, normoactive bowel sounds. No guarding, no rebound. No masses EXTREMITIES: Normal inspection, Normal range of motion, no edema. No clubbing or cyanosis. NEUROLOGICAL: Cranial nerves II through XII grossly intact. Refusing to cooperate with exam, will resist falling with all four extremities SKIN: Warm, Dry, normal turgor, no rashes or lesions noted. ED Treatment Course - LABORATORY CBC & Chemistry Diagram: 11/17/17 17:20 11/17/17 17:20 - RADIOLOGY Radiology Studies Ordered: Category Date Time Status HEAD CT WITHOUT CONTRAST [CT] Stat CT Scan 11/17/17 16:50 Ordered CHEST X-RAY PORTABLE* [RAD] Stat Radiology 11/17/17 16:49 Ordered Medical Decision Making - Medical Decision Making 11/17/17 17:21 76M with history of dementia, psychological disturbance and recent hospital admission here today with lethargy per his mcc. Vital signs stable, pending temp. Exam notable for trauma to left eye and nose. 2 decubitus ulcers noted, placed in apple bottom. Patient non-communicative, unclear if psych component or infectious etiology. Will initiate broad workup, including cbc, cmp , ammonia, alcohol, salicylate, tylenol, trop, ekg, cxr, head ct, ua, uc, bc. 11/17/17 18:09 CXR shows no acute cardiopulmonary process. EKG shows sinus bradycardia with rate of 56. Normal axis. No st elevations/ depressions. No significant t wave abnormalities. Low voltages throughout. 11/17/17 18:29 Patient is attempting to get out of bed. Unsteady gait, still non- communicative. Will place in [place]. 11/17/17 18:40 Laboratory Tests 11/17/17 11/17/17 11/17/17 17:20 17:20 17:20 WBC 8.6 Hgb 11.8 D Hct 35.8 D Plt Count 275 INR 1.06 BUN 36 H Creatinine 0.7 Creatine Kinase 1599 H Troponin I < 0.02 CBC normal. INR normal. EMP shows elevated CK, negative trop, normal kidney function. Will give 1L NS. 11/17/17 19:58 Laboratory Tests 11/17/17 17:20 Salicylates < 4.0 Acetaminophen < 2.0 L Alcohol, Quantitative < 5.0 Tox negative. 11/17/17 21:27 Laboratory Tests 11/17/17 20:06 Urine Nitrite Positive Ur Leukocyte Esterase 3+ H Urine WBC (Auto) 646 Urine Bacteria Rare UA positive. Last urine cultures show staph aureus sensitive to rocephin, staph epidermis resistant to rocephin. Taken from mcintyre line. Believe that staph was likely secondary to the mcintyre, will cover with ceftriaxone for now. *DC/Admit/Observation/Transfer Diagnosis at time of Disposition: UTI (urinary tract infection) - Discharge Dispostion Condition at time of disposition: Stable Admit: Yes - Referrals Referrals: Wilman Pak [Primary Care Provider] - - Patient Instructions - Post Discharge Activity
--- NOTE | 2017-11-17 17:29 | PDOC ---
Attending Attestation - HPI HPI: 11/17/17 17:36 The patient is a 76 year old male, with a significant past medical history of dementia, toxic metabolic encephalopathy, who presents to the emergency department from a skilled nursing with, lethargy. As per skilled nursing, he fell two days ago and has become increasingly lethargic in comparison to his baseline. Unable to obtain history from patient. Allergies: NKA Primary Care Physician: Dr. Wilman Pak <Scott Regan - Last Filed: 11/17/17 17:36> - Resident Resident Name: William King - ED Attending Attestation I have performed the following: I have examined & evaluated the patient, The case was reviewed & discussed with the resident, I agree w/resident's findings & plan, Exceptions are as noted - Physicial Exam PE: GENERAL: Sleeping, awakens to noxious stimuli, does not answer questions. HEAD: +L periorbital ecchymosis, healing. EYES: PERRLA, EOMI, sclera anicteric, conjunctiva clear ENT: Auricles normal inspection, hearing grossly normal, nares patent, oropharynx clear without exudates. Moist mucosa NECK: Normal ROM, supple, no lymphadenopathy, JVD, or masses LUNGS: Breath sounds equal, clear to auscultation bilaterally. No wheezes, and no crackles HEART: Regular rate and rhythm, normal S1 and S2, no murmurs, rubs or gallops ABDOMEN: Soft, nontender, normoactive bowel sounds. No guarding, no rebound. No masses EXTREMITIES: Normal range of motion, no edema. No clubbing or cyanosis. No cords, erythema, or tenderness NEUROLOGICAL: Poor cooperation, moving all extremities. SKIN: Warm, Dry, normal turgor, no rashes or lesions noted. - Medical Decision Making Pt with history of dementia, evaluated by this display card writer in the past. Intermittent cooperation with histories and exams. He presents with AMS as per NH. Will obtain AMS workup. If no acute findings, will DC home. <Teresita Peterson - Last Filed: 11/17/17 17:58> Attestations - Attestations 11/17/17 17:36 Documentation prepared by Scott Regan, acting as medical administrative specialist for Teresita Peterson MD. <Scott Regan - Last Filed: 11/17/17 17:36>
[2017-11-17 17:48] LABS: BASO % 0.4 % (0-2.0); HEMATOCRIT 35.8 % (35.4-49); HEMOGLOBIN 11.8 GM/dL (11.7-16.9); MCH 28.8 pg (25.7-33.7); MCHC 32.9 g/dl (32.0-35.9); MEAN CELL VOLUME 87.7 fl (80-96); MEAN PLT VOLUME 9.1 fl (7.5-11.1); MONO % 11.4 % (3.8-10.2); NEUT % 78.2 % (42.8-82.8); PLATELET COUNT 275 K/MM3 (134-434); RBC 4.09 M/mm3 (4.00-5.60); RDW 15.9 % (11.9-15.9); WHITE BLOOD COUNT 8.6 K/mm3 (4.0-10.0)
[2017-11-17 18:00] LABS: INR 1.06 (0.82-1.09)
[2017-11-17 18:03] LABS: ACTIVATED PTT 27.2 SECONDS (26.9-34.4)
[2017-11-17 18:25] LABS: ANION GAP 4 (8-16); BILIRUBIN,TOTAL 0.5 mg/dL (0.2-1.0); BLOOD UREA NITROGEN 36 mg/dL (7-18); CALCIUM 8.5 mg/dL (8.5-10.1); CHLORIDE 111 mmol/L (98-107); CO2 30 mmol/L (21-32); CREATININE 0.7 mg/dL (0.7-1.3); GLUCOSE,RANDOM 92 mg/dL (74-106); POTASSIUM 3.9 mmol/L (3.5-5.1); SGOT/AST 85 U/L (15-37); SGPT/ALT 45 U/L (12-78); SODIUM 145 mmol/L (136-145); TOT PROT 6.9 g/dl (6.4-8.2)
[2017-11-17 18:37] LABS: ALCOHOL < 5.0 mg/dl (0-5); ALK PHOS 60 U/L (45-117)
[2017-11-17] MEDS ORDERED: SODIUM CHLORIDE 1,000 ML IV STA (18:43)
[2017-11-17 18:44] LABS: ACETAMINOPHEN < 2.0 ug/ml (10.0-30.0); SALICYLATE < 4.0 mg/dl (0.0-30.0)
[2017-11-17 20:28] LABS: URINE APPEARANCE CLOUDY; URINE BILIRUBIN NEGATIVE (NEGATIVE); URINE BLOOD 3+ (NEGATIVE); URINE COLOR DKYELLOW; URINE GLUCOSE (UA) NEGATIVE (NEGATIVE); URINE KETONE TRACE (NEGATIVE); URINE LEUK ESTERASE 3+ (NEGATIVE); URINE NITRITE POSITIVE (NEGATIVE); URINE PROTEIN 2+ (NEGATIVE); URINE UROBILINOGEN NEGATIVE mg/dL (0.2-1.0)
[2017-11-17 20:43] LABS: URINE BACTERIA RARE /hpf (NONE SEEN); URINE MUCUS RARE
[2017-11-17] MEDS ORDERED: CEFTRIAXONE 1 GM in DEXTROSE 5%-WATER - 50 ML IVPB ONE (21:26)
[2017-11-17] MEDS ORDERED: CEFTRIAXONE 1 GM/50 ML BAG ONE (22:22)
--- NOTE | 2017-11-17 23:40 | HP ---
CHIEF COMPLAINT: Altered Mental Status PCP: HISTORY OF PRESENT ILLNESS: 76 year old male with hx of dementia who was recently discharged on 11/13 from [facility] after a 2 month hospitalization for toxic metabolic encephalopathy presents to the ED for 2 day history of lethargy. He is minimally verbal on examination and accurate history was unable to be taken. From previous record, patient had a fall in assisted around 2 days ago of unclear etiology. Patient's niece was called by ED, who stated that yesterday patient ate well and felt at baseline. On examination, patient appears to be sleeping and only arousable when his name is yelled out. Sternal rub does not arouse patient. Patient has 2 reported sacral decubiti that are unable to be assessed due to mental status and patient being in a santos vest. ER course was notable for: (1) CXR negative for acute pathology (2) CT head (3) UA + for UTI (4) CK 1599 (chronically elevated) Recent Travel: unknown PAST MEDICAL HISTORY: dementia, toxic metabolic encephalopathy PAST SURGICAL HISTORY: TURP 10/05 Social History: Smoking:unknown Alcohol: unknown Drugs: unknown Family History: Allergies No Known Drug Allergies Allergy (Verified 11/17/17 16:18) HOME MEDICATIONS: Home Medications Medication Instructions Recorded Amino Acids/Protein Hydrolys 30 ml PO BID@0800,1730 #60 packet 11/13/17 [Prosource No Carb Liquid Pkt] Bethanechol Chloride [Bethanechol 10 mg PO TID #90 tablet 11/13/17 Chloride -] Divalproex Sprinkle [Depakote 250 mg PO BID #120 cap.sprink 11/13/17 Sprinkle -] Haloperidol Injection [Haldol 0.5 mg IM Q4H PRN #10 ml 11/13/17 Injection (Fast Acting) -] Multivitamins [Multivit ([facility] 1 tab PO DAILY #30 tab 11/13/17 Formulary)] Nystatin/Triamcinolone Top Oin 1 applic TP BID #60 applic 11/13/17 [Mycolog II -] Olanzapine [ZyPREXA -] 10 mg PO BID@0900,2100 #60 tablet 11/13/17 Tamsulosin HCl [Flomax -] 0.4 mg PO BID@0830,1800 #60 11/13/17 cap.er.24h REVIEW OF SYSTEMS Unable to obtain due to mental status PHYSICAL EXAMINATION Vital Signs - 24 hr 11/17/17 11/17/17 16:20 16:23 Temperature 98.5 F Pulse Rate 62 Respiratory 18 Rate Blood Pressure 120/54 O2 Sat by Pulse 100 Oximetry (%) GENERAL: Lethargic and not alert or oriented HEAD: Normal with no signs of trauma. EYES: PERRLA, L eyelid ecchymosis likely 2/2 fall LUNGS: CTA, no wheezes, rhales, rhonchi HEART: RRR, no murmurs appreciated ABDOMEN: Soft, nontender, BS present EXTEMITIES: No peripheral edema, pulses 2+ bilaterally upper and lower extremities NEUROLOGICAL: unable to assess due to mental status SKIN: Warm, dry, normal turgor, no rashes or lesions noted, normal capillary refill. : Condom catheter not currently draining any urine, pt was just straight- cathed. Laboratory Results - last 24 hr 11/17/17 11/17/17 11/17/17 17:00 17:20 17:20 WBC 8.6 RBC 4.09 D Hgb 11.8 D Hct 35.8 D MCV 87.7 MCH 28.8 MCHC 32.9 RDW 15.9 Plt Count 275 MPV 9.1 Neutrophils % 78.2 Lymphocytes % 8.0 D Monocytes % 11.4 H Eosinophils % 2.0 Basophils % 0.4 PT with INR 12.00 H INR 1.06 PTT (Actin FS) 27.2 Sodium Potassium Chloride Carbon Dioxide Anion Gap BUN Creatinine Creat Clearance w eGFR Random Glucose Lactic Acid Calcium Total Bilirubin AST ALT Alkaline Phosphatase Ammonia 32.22 H Creatine Kinase Creatine Kinase Index CK-MB (CK-2) Troponin I Total Protein Albumin Urine Color Urine Appearance Urine pH Ur Specific [place] Urine Protein Urine Glucose (UA) Urine Ketones Urine Blood Urine Nitrite Urine Bilirubin Urine Urobilinogen Ur Leukocyte Esterase Urine WBC (Auto) Urine RBC (Auto) Urine Bacteria Urine Mucus Salicylates Acetaminophen Alcohol, Quantitative 11/17/17 11/17/17 11/17/17 17:20 17:20 17:20 WBC RBC Hgb Hct MCV MCH MCHC RDW Plt Count MPV Neutrophils % Lymphocytes % Monocytes % Eosinophils % Basophils % PT with INR INR PTT (Actin FS) Sodium 145 Potassium 3.9 Chloride 111 H Carbon Dioxide 30 Anion Gap 4 L BUN 36 H Creatinine 0.7 Creat Clearance w eGFR > 60 Random Glucose 92 Lactic Acid 1.3 Calcium 8.5 Total Bilirubin 0.5 D AST 85 H D ALT 45 D Alkaline Phosphatase 60 Ammonia Creatine Kinase 1599 H Creatine Kinase Index 0.9 CK-MB (CK-2) 15.669 H Troponin I < 0.02 Total Protein 6.9 Albumin 3.0 L Urine Color Urine Appearance Urine pH Ur Specific [place] Urine Protein Urine Glucose (UA) Urine Ketones Urine Blood Urine Nitrite Urine Bilirubin Urine Urobilinogen Ur Leukocyte Esterase Urine WBC (Auto) Urine RBC (Auto) Urine Bacteria Urine Mucus Salicylates < 4.0 Acetaminophen < 2.0 L Alcohol, Quantitative < 5.0 11/17/17 20:06 WBC RBC Hgb Hct MCV MCH MCHC RDW Plt Count MPV Neutrophils % Lymphocytes % Monocytes % Eosinophils % Basophils % PT with INR INR PTT (Actin FS) Sodium Potassium Chloride Carbon Dioxide Anion Gap BUN Creatinine Creat Clearance w eGFR Random Glucose Lactic Acid Calcium Total Bilirubin AST ALT Alkaline Phosphatase Ammonia Creatine Kinase Creatine Kinase Index CK-MB (CK-2) Troponin I Total Protein Albumin Urine Color Dkyellow Urine Appearance Cloudy Urine pH 6.0 Ur Specific [place] 1.017 Urine Protein 2+ H Urine Glucose (UA) Negative Urine Ketones Trace H Urine Blood 3+ H Urine Nitrite Positive Urine Bilirubin Negative Urine Urobilinogen Negative Ur Leukocyte Esterase 3+ H Urine WBC (Auto) 646 Urine RBC (Auto) 56 Urine Bacteria Rare Urine Mucus Rare Salicylates Acetaminophen Alcohol, Quantitative ASSESSMENT/PLAN: 76 year old male with a history of dementia, BPH and toxic metabolic encephalopathy presents to the ED with lethargy s/p fall and UTI #Altered Mental status 2/2 UTI: UTI vs intracranial pathology due to fall - pt is s/p TURP on previous admission -CT head negative for acute bleed -UA showed (+) nitrites/WBC, previous sensitivities -evaluate baseline mental status in AM -ceftriaxone given in ED - previous UTIs showed sensitivities to ceftriaxone -continue ceftriaxone -patient has a history of BPH and had to be straight cathed to obtain urine -insert mcintyre and monitor mcintyre output -will continue with ceftriaxone -decubiti unlikely to be infected -f/u Ucx, Blood Cx #Fall: unclear etiology -CT head preliminarily negative on review of film, awaiting read -local wound care to bridge of nose and L eye #Elevated Creatine Kinase: was present during previous admission and appears chronic -EKG - sinus bradycardia #FEN -NS @ 125cc/hr -Replete lytes in AM -nourishment supplement with magic cup and enlive chocolate ensure #Prophylaxis -SCDs- awaiting CT official read to r/o bleed before using anticoagulation #Disposition -Admit to med-surg for monitoring Visit type - Emergency Visit Emergency Visit: Yes ED Registration Date: 11/17/17 Care time: The patient presented to the Emergency Department on the above date and was hospitalized for further evaluation of their emergent condition. - New Patient This patient is new to me today: Yes Date on this admission: 11/18/17 - Critical Care Critical Care patient: No Hospitalist Screening - Colonoscopy Questionnaire Colonoscopy Questionnaire: Colonoscopy Questionnaire - Patient: 50 - 75 years old and never had a screening colonoscopy: Unknown History of colon or rectal polyps, or CA: Unknown History of IBD, Crohn's disease or UC: Unknown History of abdominal radiation therapy as a child: Unknown - Relative: 1 with colon or rectal CA, or polyps at age 60 or younger: Unknown Colon or rectal CA diagnosed at age 45 or younger: Unknown Multiple relatives with colon or rectal CA: Unknown - Outcome: Screening Result: Negative Screen
[2017-11-17] MEDS ORDERED: SODIUM CHLORIDE 1,000 ML IV SCH (23:45)
[2017-11-18 01:45] VITALS: BMI 17.8
--- NOTE | 2017-11-18 03:31 | PN ---
Teaching Attending Note Name of Resident: Taurus Bernal ATTENDING PHYSICIAN STATEMENT I saw and evaluated the patient. Chart, data reviewed. I reviewed the resident's note and discussed the case with the resident. I agree with the resident's findings and plan as documented. SUBJECTIVE: 76 year old male with hx of dementia who was recently discharged on 11/13 from [facility] after a 2 month hospitalization for toxic metabolic encephalopathy presented with lethargy and AMS. S/p fall in senior living 2 days ago. No communicating well. Sent from senior living to hospital for evaluation of AMS. Head CT with no evidence of acute bleed or mass. UA was + for pyuria, LE. OBJECTIVE: Last Vital Signs Temp Pulse Resp BP Pulse Ox 98.3 F 74 20 124/74 95 11/18/17 01:30 11/18/17 01:30 11/18/17 01:30 11/18/17 01:30 11/18/17 01:30 Neuro- lethargic, arousable with painful stimuli, follows some commands HEENT- nc, dry oral mucosa, left eye eccymosis Neck - supple CV -s1+s2+ rrr Chest -b/l air entry sounds Abdomen -soft Ext - no pedal edema Abnormal Lab Results 11/17/17 11/17/17 11/17/17 17:00 17:20 17:20 Monocytes % 11.4 H PT with INR 12.00 H Chloride Anion Gap BUN AST Ammonia 32.22 H Creatine Kinase CK-MB (CK-2) Albumin Urine Protein Urine Ketones Urine Blood Ur Leukocyte Esterase Acetaminophen 11/17/17 11/17/17 11/17/17 17:20 17:20 20:06 Monocytes % PT with INR Chloride 111 H Anion Gap 4 L BUN 36 H AST 85 H D Ammonia Creatine Kinase 1599 H CK-MB (CK-2) 15.669 H Albumin 3.0 L Urine Protein 2+ H Urine Ketones Trace H Urine Blood 3+ H Ur Leukocyte Esterase 3+ H Acetaminophen < 2.0 L CXR -negative for any acute infiltrates ASSESSMENT AND PLAN: #Acute AMS in 76 yo man. May be 2/2 infection from UTI. S/p Rocephin IV in ER. S /p fall however head CT negative for any intracranial bleed. Electrolytes, glucose wnl. AMS may also be delerium from medications. -Observation -Send urine culture, blood cultures -Rocephin 1g IV q24hrs for possible UTI -TSH -Vitamin B12 level -syphilis serology -fall precuations -bed rest -continue home medications for chronic medical problems DVT pp -heparin sc
[2017-11-18 07:37] LABS: HEMATOCRIT 34.6 % (35.4-49); MCHC 31.9 g/dl (32.0-35.9); MEAN CELL VOLUME 87.7 fl (80-96); MEAN PLT VOLUME 9.1 fl (7.5-11.1); PLATELET COUNT 272 K/MM3 (134-434); RBC 3.94 M/mm3 (4.00-5.60); RDW 16.2 % (11.9-15.9)
[2017-11-18 08:08] LABS: ANION GAP 8 (8-16); BLOOD UREA NITROGEN 36 mg/dL (7-18); CALCIUM 8.4 mg/dL (8.5-10.1); CHLORIDE 115 mmol/L (98-107); CO2 25 mmol/L (21-32); CREATININE 0.8 mg/dL (0.7-1.3); GLUCOSE,RANDOM 80 mg/dL (74-106); MAGNESIUM 2.2 mg/dL (1.8-2.4); PHOSPHOROUS 3.8 mg/dL (2.5-4.9); POTASSIUM 4.2 mmol/L (3.5-5.1); SODIUM 148 mmol/L (136-145)
[2017-11-18] MEDS ORDERED: HALOPERIDOL LACTATE 5 MG/ML IM PRN (09:36)
[2017-11-18] MEDS ORDERED: FLU VACCINE QUAD 60 MCG/0.5 ML (MDV 17-18) IM ONE (10:00)
[2017-11-18] MEDS ORDERED: NYSTATIN/TRIAMCINOLONE TOPICAL OINTMENT 15 GM TUBE TP SCH (10:00)
[2017-11-18] MEDS ORDERED: DIVALPROEX SODIUM 125 MG SPRINKLE CAPS (FP) PO SCH (10:00)
[2017-11-18] MEDS ORDERED: MULTIVITAMINS (DAILY MVI) TABLET (FP) PO SCH (10:00)
[2017-11-18] MEDS ORDERED: PT OWN MED DRAWER 7, Y5N ONE ×2 (10:47→15:26)
[2017-11-18] MEDS ORDERED: PNEUMOC 13-VAL CONJ-DIP CRM/PF 0.5 ML DISP.SYRIN IM ONE (11:00)
[2017-11-18] MEDS ORDERED: SODIUM CHLORIDE 1,000 ML IV STA (12:00)
--- NOTE | 2017-11-18 12:02 | PN ---
Teaching Attending Note Name of Resident: Ward Hurtado ATTENDING PHYSICIAN STATEMENT I saw and evaluated the patient. I reviewed the resident's note and discussed the case with the resident. I agree with the resident's findings and plan as documented. SUBJECTIVE:pleasantly confused OBJECTIVE: Last Vital Signs Temp Pulse Resp BP Pulse Ox 98.6 F 87 18 121/92 95 11/18/17 07:55 11/18/17 07:55 11/18/17 07:55 11/18/17 07:55 11/18/17 01:30 General speaking clearly, does not answers all questions appropriately HEENT abrasion to bridge of nose CV S1 s2 RRR no murmur/rub/gallop LUngs CTA B/L no wheezing/rales/rhonchi Abdomen soft NT/ND ASSESSMENT AND PLAN: 76yo M with PMH severe dementia, BPH s/p TURP, urinary retention sent from SNF due to worsening AMS and mechanical fall 1. Acute metabolic encephalopathy- due to complicated UTI. this pt is well known to me from previous visit. appears to be at baseline. Received Ceftriaxone in the ER. can transition to po keflex. should receive 7 day course. cont depakote 2. Urinary retention- mcintyre placed in the ER. pt was to be having straight cath BID. unclear if SNF was compliant. pt should leave iw mcintyre in place should have urology f/u as outpatient 3. Mild Rhabdo- likely due to fall. IVF. repeat CK 4. Mechanical fall-local wound care to bridge of nose. PT eval 5. BPH- s/p TURP. cont flomax/bethanechol 6. DVT ppx- EAM 7. pending PT eval and repeat CPK can return to SNF
--- NOTE | 2017-11-18 12:29 | DS ---
Physical Exam: SUBJECTIVE: Patient seen and examined at bedside. No overnight events. No new complaints. Denies CP,RUSS,SOB, ABdominal pain, N/V. OBJECTIVE: Vital Signs Period Temp Pulse Resp BP Sys/Mackey Pulse Ox Last 24 Hr 98.3 F-98.8 F 62-89 16-22 120-128/54-92 95-100 PHYSICAL EXAM GENERAL: Awake and alert, NAD HEAD: NC/AT EYES: PERRL, EOMI, sclera anicteric, conjunctiva clear. ENT: moist mucous membranes. NECK: supple, No jvd LUNGS: CTAB , no wheezing or rales. HEART: RRR, S1S2 NL, No m/g/r ABDOMEN: Soft, NT/ND, NL BS EXTREMITIES: 2+ pulses, warm, well-perfused, no edema. LABS Laboratory Results - last 24 hr 18 18 11/17/17 17:00 17:20 17:20 WBC 8.6 RBC 4.09 D Hgb 11.8 D Hct 35.8 D MCV 87.7 MCH 28.8 MCHC 32.9 RDW 15.9 Plt Count 275 MPV 9.1 Neutrophils % 78.2 Lymphocytes % 8.0 D Monocytes % 11.4 H Eosinophils % 2.0 Basophils % 0.4 PT with INR 12.00 H INR 1.06 PTT (Actin FS) 27.2 Sodium Potassium Chloride Carbon Dioxide Anion Gap BUN Creatinine Creat Clearance w eGFR Random Glucose Lactic Acid Calcium Phosphorus Magnesium Total Bilirubin AST ALT Alkaline Phosphatase Ammonia 32.22 H Creatine Kinase Creatine Kinase Index CK-MB (CK-2) Troponin I Total Protein Albumin Vitamin B12 TSH Urine Color Urine Appearance Urine pH Ur Specific [place] Urine Protein Urine Glucose (UA) Urine Ketones Urine Blood Urine Nitrite Urine Bilirubin Urine Urobilinogen Ur Leukocyte Esterase Urine WBC (Auto) Urine RBC (Auto) Urine Bacteria Urine Mucus Salicylates Acetaminophen Alcohol, Quantitative 11/17/1718 11/17/17 17:20 17:20 17:20 WBC RBC Hgb Hct MCV MCH MCHC RDW Plt Count MPV Neutrophils % Lymphocytes % Monocytes % Eosinophils % Basophils % PT with INR INR PTT (Actin FS) Sodium 145 Potassium 3.9 Chloride 111 H Carbon Dioxide 30 Anion Gap 4 L BUN 36 H Creatinine 0.7 Creat Clearance w eGFR > 60 Random Glucose 92 Lactic Acid 1.3 Calcium 8.5 Phosphorus Magnesium Total Bilirubin 0.5 D AST 85 H D ALT 45 D Alkaline Phosphatase 60 Ammonia Creatine Kinase 1599 H Creatine Kinase Index 0.9 CK-MB (CK-2) 15.669 H Troponin I < 0.02 Total Protein 6.9 Albumin 3.0 L Vitamin B12 TSH Urine Color Urine Appearance Urine pH Ur Specific [place] Urine Protein Urine Glucose (UA) Urine Ketones Urine Blood Urine Nitrite Urine Bilirubin Urine Urobilinogen Ur Leukocyte Esterase Urine WBC (Auto) Urine RBC (Auto) Urine Bacteria Urine Mucus Salicylates < 4.0 Acetaminophen < 2.0 L Alcohol, Quantitative < 5.0 11/17/17 11/18/17 11/18/17 20:06 06:40 06:40 WBC 11.0 H RBC 3.94 L Hgb 11.0 L Hct 34.6 L MCV 87.7 MCH 28.0 MCHC 31.9 L RDW 16.2 H Plt Count 272 MPV 9.1 Neutrophils % Lymphocytes % Monocytes % Eosinophils % Basophils % PT with INR INR PTT (Actin FS) Sodium 148 H Potassium 4.2 Chloride 115 H Carbon Dioxide 25 Anion Gap 8 BUN 36 H Creatinine 0.8 Creat Clearance w eGFR Random Glucose 80 Lactic Acid Calcium 8.4 L Phosphorus 3.8 Magnesium 2.2 Total Bilirubin AST ALT Alkaline Phosphatase Ammonia Creatine Kinase Creatine Kinase Index CK-MB (CK-2) Troponin I Total Protein Albumin Vitamin B12 857 D TSH 1.04 D Urine Color Dkyellow Urine Appearance Cloudy Urine pH 6.0 Ur Specific [place] 1.017 Urine Protein 2+ H Urine Glucose (UA) Negative Urine Ketones Trace H Urine Blood 3+ H Urine Nitrite Positive Urine Bilirubin Negative Urine Urobilinogen Negative Ur Leukocyte Esterase 3+ H Urine WBC (Auto) 646 Urine RBC (Auto) 56 Urine Bacteria Rare Urine Mucus Rare Salicylates Acetaminophen Alcohol, Quantitative HOSPITAL COURSE: 76 yo M with pmhx of dementia, dementia who was recently discharged on 11/13 from [facility] after a 2 month hospitalization for toxic metabolic encephalopathy presents to the ED for 2 day history of lethargy.Found to have a acute urinary tract infection as the most likely cause of his AMS. CK was elevated as well. CXR was negative for acute pathology and CT head was also negative for acute stroke or ICH. Patient was started on Ceftriaxone and will be transitioned to oral Keflex to complete a 7 day course. A Mcintyre catheter was placed for urinary retention and will need to be continued at discharge.He will need to follow up with urologist as outpatient. CK was repeated and trended down. PT evaluated the patient was was cleared to return to SNF. Patient is stable at the time of discharge and will need to complete antibiotics and follow up with primary physician in one week. He is instructed to resume home meds as previously prescribed. Date of Admission:11/17/17 Date of Discharge: 11/18/17 Minutes to complete discharge: 52 Discharge Summary Reason For Visit: UTI Current Active Problems UTI (urinary tract infection) (Acute) Condition: Stable - Instructions Diet, Activity, Other Instructions: You have been treated for an acute urinary tract infection. You will need to continue with antibiotics -Keflex 500mg twice daily by mouth for 7 days. Maintain mcintyre catheter until you can follow up with a urologist. Information on the one you saw last time you were here has been provided. Make sure you drink plenty of water. You can resume your regular diet. Resume all your home medications as they were previously directed. Increase activity as tolerated. You will need to follow up with Primary doctor in one week. IF you experience worsening of urinary symptoms, abdominal pain, nausea , vomiting or fever please return to ED immediately. Referrals: Wilman Pak [Primary Care Provider] - William Lentz MD [Staff Physician] - Disposition: [facility] F[facility] - Home Medications Comprehensive Discharge Medication List: Ambulatory Orders Amino Acids/Protein Hydrolys [Prosource No Carb Liquid Pkt] 30 ml PO BID@0800, 1730 #60 packet 11/13/17 Bethanechol Chloride [Bethanechol Chloride -] 10 mg PO TID #90 tablet 11/13/17 Divalproex Sprinkle [Depakote Sprinkle -] 250 mg PO BID #120 cap.sprink Haloperidol Injection [Haldol Injection (Fast Acting) -] 0.5 mg IM Q4H PRN #10 ml 11/13/17 Multivitamins [Multivit ([facility] Formulary)] 1 tab PO DAILY #30 tab 11/13/17 Nystatin/Triamcinolone Top Oin [Mycolog II -] 1 applic TP BID #60 applic Olanzapine [ZyPREXA -] 10 mg PO BID@0900,2100 #60 tablet 11/13/17 Tamsulosin HCl [Flomax -] 0.4 mg PO BID@0830,1800 #60 cap.er.24h 11/13/17 Cephalexin [Keflex] 500 mg PO BID #14 capsule 11/18/17 This patient is new to me today: Yes Date on this admission: 11/18/17 Emergency Visit: Yes ED Registration Date: 11/17/17 Care time: The patient presented to the Emergency Department on the above date and was hospitalized for further evaluation of their emergent condition. Critical Care patient: No - Discharge Referral Referred to [facility] No
[2017-11-18] MEDS ORDERED: BETHANECHOL CHLORIDE 10 MG TABLET PO SCH (14:00)
[2017-11-18 14:04] VITALS: BP 125/60; PULSE 85; TEMP 99.5
[2017-11-18] MEDS ORDERED: AMINO ACIDS/PROTEIN HYDROLYS 30 ML LIQUID.PKT PO SCH (17:30)
[2017-11-18] MEDS ORDERED: TAMSULOSIN HCL 0.4 MG CAP.ER.24H (FP) PO SCH (18:00)
--- NOTE | 2017-11-18 18:41 | EKG ---
Test Reason : Blood Pressure : / mmHG Vent. Rate : 056 BPM Atrial Rate : 056 BPM P-R Int : 180 ms QRS Dur : 080 ms QT Int : 406 ms P-R-T Axes : 073 -13 054 degrees QTc Int : 391 ms SINUS BRADYCARDIA WITH PREMATURE ATRIAL COMPLEXES LOW VOLTAGE QRS BORDERLINE ECG WHEN COMPARED WITH ECG OF 06-NOV-2017 13:50, PREMATURE ATRIAL COMPLEXES ARE NOW PRESENT Confirmed by MD ERIC, COURT ([id number]) on 11/18/2017 6:41:09 PM Referred By: Confirmed By:COURT REYES MD
[2017-11-18] MEDS ORDERED: OLANZapine 10 MG TABLET PO SCH (21:00)
== END 2017-11-18 15:50 ==
LOC: JER 16:14 → SUPCPDRO 16:14 → JERBED 23:01 → J6S 11-18 01:27
PROVIDERS: ADMIT Internal Medicine; ATTEND Internal Medicine
PROC: 0T9B70Z Drainage of Bladder with Drainage Device, Via Natural or Artificial Opening (ICD-10-PCS; principal; 2017-11-17)
PROC: 3E03329 Introduction of Other Anti-infective into Peripheral Vein, Percutaneous Approach (ICD-10-PCS; 2017-11-17)
PROC: 3E0337Z Introduction of Electrolytic and Water Balance Substance into Peripheral Vein, Percutaneous Approach (ICD-10-PCS; 2017-11-17)
DX: N39.0 Urinary tract infection, site not specified (principal); F03.90 Unspecified dementia, unspecified severity, without behavioral disturbance, psychotic disturbance, mood disturbance, and anxiety; Z86.61 Personal history of infections of the central nervous system; R41.82 Altered mental status, unspecified; R00.1 Bradycardia, unspecified; R79.89 Other specified abnormal findings of blood chemistry; W19.XXXA Unspecified fall, initial encounter; Z91.81 History of falling; Y93.9 Activity, unspecified; Y92.129 Unspecified place in nursing home as the place of occurrence of the external cause; G93.41 Metabolic encephalopathy; R33.9 Retention of urine, unspecified; N40.0 Benign prostatic hyperplasia without lower urinary tract symptoms
CPT/HCPCS: 36415; 51702; 70450-TC; 71045-TC-FY; 80048; 80053; 80307; 81003; 81015; 82140; 82550; 82553; 82607; 83605; 83735; 84100; 84443; 84484; 85025; 85027; 85610; 85730; 87040; 87086; 87186; 90670; 90688; 93005; 93010; 96361; 96365; 97116-GP; 97161-GP; 99285-25; G0008; G0009; G0378

== ENCOUNTER 2017-11-19 09:09 | Emergency (ER) | payer OTHER ==
[2017-11-19 09:35] VITALS: BP 110/49; PULSE 65; TEMP 98.4; BMI 21.1
--- NOTE | 2017-11-19 09:38 | PDOC ---
Attending Attestation - Resident Resident Name: Rosy Graves - HPI HPI: 11/19/17 10:46 Pt presents to the ED after pulling out his mcintyre in the assisted. Patient' s baseline is to be extremely confused. No other complaints reported. PAtient is demented and unable to give history. - Physicial Exam PE: 11/19/17 10:47 Agree with resident exam. Patient is alert and moving all extremities but is extremely confused. Mcintyre replaced by ED nurse and is draining reddish urine. 11/19/17 10:47 - Medical Decision Making 11/19/17 10:48 Pt presents to the ED after he pulled out his mcintyre in the assisted. Mcintyre replaced in the ED. Will discharge home.
--- NOTE | 2017-11-19 10:08 | PDOC ---
History of Present Illness - General Chief Complaint: Urinary Problem Stated Complaint: PENILE BLEEDING Time Seen by Provider: 11/19/17 09:34 History Source: Patient - History of Present Illness Initial Comments: 11/19/17 10:06 76 y.o. male with a PMH of Dementia presents to ED from [facility] following self removal of catheter. At presentation patient is @ baseline mental status 2/2 to dementia - alert but not oriented. Past History - Past Medical History Allergies/Adverse Reactions: Allergies Allergy/AdvReac Type Severity Reaction Status Date / Time No Known Drug Allergies Allergy Verified 11/19/17 09:24 Home Medications: Ambulatory Orders Amino Acids/Protein Hydrolys [Prosource No Carb Liquid Pkt] 30 ml PO BID@0800, 1730 #60 packet 11/13/17 Bethanechol Chloride [Bethanechol Chloride -] 10 mg PO TID #90 tablet 11/13/17 Divalproex Sprinkle [Depakote Sprinkle -] 250 mg PO BID #120 cap.sprink Multivitamins [Multivit ([facility] Formul[facility])] 1 tab PO DAILY #30 tab 11/13/17 Nystatin/Triamcinolone Top Oin [Mycolog II -] 1 applic TP BID #60 applic Olanzapine [ZyPREXA -] 10 mg PO BID@0900,2100 #60 tablet 11/13/17 Tamsulosin HCl [Flomax -] 0.4 mg PO BID@0830,1800 #60 cap.er.24h 11/13/17 Cephalexin [Keflex] 500 mg PO BID #14 capsule 11/18/17 CVA: (METABOLIC ENCEPHALOPATHY) COPD: No Dementia: Yes Disorders: Yes (URINARY RETENTION, BPH) Psychiatric Problems: Yes (DEMENTIA, BIPOLAR, SCHIZOPHRENIA) Other medical history: METABOLIC ENCEPHALOPATY - Suicide/Smoking/Psychosocial Hx Smoking History: Unknown if ever smoked Have you smoked in the past 12 months: No Hx Alcohol Use: No Drug/Substance Use Hx: No Substance Use Type: None Review of Systems - Review of Systems Able to Perform ROS?: No (Dementia) *Physical Exam - Vital Signs Last Vital Signs Temp Pulse Resp BP Pulse Ox 98.4 F 65 20 110/49 96 11/19/17 09:24 11/19/17 09:24 11/19/17 09:24 11/19/17 09:24 11/19/17 09:24 - Physical Exam General Appearance: Yes: Nourished, Thin HEENT: positive: EOMI, SCAR. negative: TM Bulging, TM Dull, TM Erythema Neck: positive: Trachea midline, Supple Respiratory/Chest: positive: Lungs Clear Cardiovascular: positive: S1, S2 Gastrointestinal/Abdominal: positive: Normal Bowel Sounds, Flat Male Genitalia: positive: other (no visible blood at urethral meatus, no scrotal /penile edema, no TTP) Extremity: positive: Normal Capillary Refill, Normal Inspection Integumentary: positive: Normal Color, Dry, Warm Neurologic: positive: Alert, Responsive Medical Decision Making - Medical Decision Making 11/19/17 20:30 Patient is a 76 y.o. male who presents for Buck catheter placement after patient removed catheter while in [facility] (likely 2/2 to dementia). UA/UC pending - patient's catheter replaced without any signs of obstruction or infection. Patient to be discharged to [facility]. *DC/Admit/Observation/Transfer Diagnosis at time of Disposition: Problem with Buck catheter - Discharge Dispostion Disposition: HOME Condition at time of disposition: Good Admit: No - Referrals Referrals: Wilman Pak [Primary Care Provider] - - Patient Instructions Printed Discharge Instructions: How to Care for Your Buck Catheter -- Male Additional Instructions: Mr. Shantanu Sharp ( 1940) was evaluated in our Emergency Department today. Please continue to monitor his urinary output as well as consistent evaluation of his Buck catheter both for placement and any signs of infection. Please send Mr. Sharp to the ED for any new/worsenign/concenring symptoms. - Post Discharge Activity
[2017-11-19 10:31] LABS: URINE APPEARANCE CLOUDY; URINE BILIRUBIN NEGATIVE (NEGATIVE); URINE BLOOD 3+ (NEGATIVE); URINE COLOR AMBER; URINE GLUCOSE (UA) NEGATIVE (NEGATIVE); URINE KETONE TRACE (NEGATIVE); URINE NITRITE NEGATIVE (NEGATIVE)
[2017-11-19 10:44] LABS: URINE LEUK ESTERASE 2+ (NEGATIVE); URINE PROTEIN 2+ (NEGATIVE)
[2017-11-19 10:45] LABS: EPI CELLS RARE /HPF (FEW); GRANULAR CASTS 14 /lpf; URINE HYALINE CAST 7 /lpf; URINE MUCUS MANY; YEAST FEW
== END 2017-11-19 11:25 | disposition home or self-care (01) ==
LOC: JER 09:09
PROC: 0T2BX0Z Change Drainage Device in Bladder, External Approach (ICD-10-PCS; principal; 2017-11-19)
DX: T83.021A Displacement of indwelling urethral catheter, initial encounter (principal); N40.1 Benign prostatic hyperplasia with lower urinary tract symptoms; R33.8 Other retention of urine; F03.90 Unspecified dementia, unspecified severity, without behavioral disturbance, psychotic disturbance, mood disturbance, and anxiety; F31.9 Bipolar disorder, unspecified; F25.9 Schizoaffective disorder, unspecified; Z86.73 Personal history of transient ischemic attack (TIA), and cerebral infarction without residual deficits
CPT/HCPCS: 51702; 81003; 81015; 87086; 99283-25